=== PATIENT | male | born 1965 | race Caucasian/White ===

== ENCOUNTER 2017-01-13 17:01 | Emergency (ER) | payer MEDICAID, MEDICARE ==
[~2017-01-13] VITALS: Ht 185.4 cm; Wt 90.9 kg
[~2017-01-13 17:01] MED LIST: CHOL10008 PO; DEP500ER PO; NICO1PAT16 TRANSDERM; TRAZ-118 PO; ZIPR20CA2 PO; [UNRECOGNIZED DRUG - CODE] PO
[2017-01-13 17:17] VITALS: PULSE 72; RESP 18; O2SAT 98
[2017-01-13] MEDS ORDERED: OMEG1CAP56 PO (17:40)
[2017-01-13] MEDS ORDERED: BENZ1TAB7 PO (17:40)
[2017-01-13] MEDS ORDERED: DEP500ER PO (17:40)
[2017-01-13] MEDS ORDERED: ZIPR80CA2 PO (17:40)
[2017-01-13] MEDS ORDERED: LORA1TAB PO (17:40)
[2017-01-13] MEDS ORDERED: ARIP5TAB5 PO (17:40)
[2017-01-13 18:32] VITALS: BP 124/80; PULSE 74; RESP 18; O2SAT 100
--- NOTE | 2017-01-13 19:34 | ED.REPORT ---
HPI-Psychiatric Illness Date of Service Jan 13, 2017 ED Provider: Reggie Esteban MD A 51 year old male with a history of bipolar disorder and schizophrenia presents to the ED with worsening paranoia that began approx. 3 weeks ago. Patient states he believes that people are able to "read his thoughts". He reports similar previous episodes of paranoia and hallucinations. Associated symptoms include insomnia, worsening anxiety and decreased appetite. Patient currently has an appointment scheduled with his PCP on 01/17 and presents to the ED seeing relief from his hallucinations. He currently lives alone and states that he has a has a "stressful" past that is "coming back to haunt him". Patient denies any recent changes in medication and has been taking medication as prescribed. He denies any suicidal or homicidal ideation. Nursing Notes Stated Complaint: SICK Chief Complaint: Psychiatric Complaint Nursing Notes Reviewed: Yes Allergies: Coded Allergies: No Known Drug Allergies (Verified Allergy, Unknown, 02/25/16) Scheduled Aripiprazole (Abilify) 5 Mg Tablet 5 MG PO HS Benztropine Mesylate (Benztropine Mesylate) 1 Mg Tablet 1 MG PO BID Divalproex ER (Depakote ER) 500 Mg Tablet 1,500 MG PO HS *DAILY USE ONLY* Swallowed whole without chewing to avoid local irritation of the mouth and throat. [place]-3 Fatty Acids/Fish Oil ([place] 3 1,000 mg Softgel) 1 Each Capsule 2 EACH PO BID Trazodone (Trazodone) 100 Mg Tablet 100 MG PO HS Ziprasidone (Geodon) 80 Mg Capsule 80 MG PO BID Scheduled PRN Lorazepam (Lorazepam) 1 Mg Tablet 1 MG PO HS PRN PRN For Insomnia General Time Seen by MD: 18:13 Chief Complaint Paranoid Hx Obtained From: Patient Arrived By: Walk-in Onset Occurred: More than a week ago... (3 weeks) Symptom Duration: Since onset Progression Since Onset: Unchanged Associated with: Reports: Loss of appetite, Paranoia Additional Notes: Insomnia Pertinent Negative: Pt denies other symptoms Recent Healthcare: No recent doctor visit, No recent hospitalization Risk-Psychiatric Illness Suicide Risk Stratification RF Statements: Risk factors reviewed Past Medical History Past Medical History Bipolar disorder Schizophrenia Past Surgical History None reported. Smoking History Current Every Day Smoker Social History Other Social History: Lives alone, Local resident Ambulatory Status Independent Review of Systems Decreased appetite. Constitutional: Denies: Chills, Fever Respiratory: Denies: Shortness of breath Cardiovascular: Denies: Chest pain GI: Denies: Nausea, Vomiting Neurologic: Denies: Change LOC Psychiatric: Reports: Anxiety, Hallucinations, auditory, Hallucinations, visual , Insomnia, Stress, Denies: Homicidal ideation, Suicidal ideation Complete sys rev & neg: except as marked. Physical Exam Initial Vital Signs Vital Signs (First) Date Time Temp Pulse Resp B/P Pulse Ox O2 Delivery O2 Flow Rate FiO2 01/13/17 17:17 36.4 72 18 98 Room Air 01/13/17 18:32 124/80 Initial VS: Reviewed Head / Eyes: Atraumatic, Normocephalic, PERRL Neck: Supple, Non-tender, Full range of motion Extremities: Vascular intact, Neuro intact, No swelling, No tenderness Skin: Warm, Dry, No cyanosis General/Constitutional: Awake, Alert, No acute distress Neurologic: Oriented X3, Speech NL, No motor deficits, No sensory deficits, CN II - XII intact Psychiatric: Not suicidal, Not homicidal, Judgment/insight NL Abnormal Mood/Affect: Positive: Anxious PSYCH: Linear and organized thought contents Respiratory / Chest: Atraumatic, Breath sounds NL, Breath sounds = bilat, No respiratory distress Cardiovascular: Heart rate NL, Regular rhythm, Heart sounds NL, No gallop, No murmurs, No rubs, Pulses = bilaterally Abdomen: Atraumatic, Soft, Non-tender, No distention Interpretation & Diagnostics Lab Results Interpretation Test 01/13/17 17:35 Hold Urine Received (Received) Urine Opiates Screen Negative Urine Methadone Screen Negative Urine Barbiturates Screen Negative Urine Amphetamines Screen Negative Urine Benzodiazepines Screen Negative Urine Cocaine Metabolite Screen Negative Urine Cannabinoids Screen Negative Re-Eval/Medical Decision Med Decision/Clinical Course A 51 year old male with a history of bipolar disorder and schizophrenia presents to the ED with worsening paranoia that began approx. 3 weeks ago. Patient states he believes that people are able to "read his thoughts". He reports similar previous episodes of paranoia and hallucinations. Associated symptoms include insomnia, worsening anxiety and decreased appetite. Patient currently has an appointment scheduled with his PCP on 01/17 and presents to the ED seeing relief from his hallucinations. He currently lives alone and states that he has a has a "stressful" past that is "coming back to haunt him". Patient denies any recent changes in medication and has been taking medication as prescribed. He denies any suicidal or homicidal ideation. Here in the emergency department the patient is afebrile, hemodynamically stable , does not appear intoxicated, is linear/organized, future oriented, answering questions appropriately and denies any suicidal or homicidal ideation. I considered medical etiologies of the patient's symptoms including metabolic and toxicologic and none were found in our history, physical exam. There was no indication of significant trauma on exam. No neurologic defecits to suggest HEAD WAITER/WAITRESS mass. Patient presents with exacerbation of their underlying mental illness, however they currently deny SI/HI. They are somewhat decompensated but not at extreme risk to self or others and thus not holdable. The patient does not desire voluntary admission. They have outpatient resources in place and appointment with her psychiatrist in 3 days. Our perinatal social worker evaluated the patient and provided further resources and support. We discussed the case and agree that the patient is appropriate for outpatient management at this time. The patient was given strong return precautions including thoughts of hurting self or others. Patient feels reassured, ready for discharge and is in agreement with plan. Patient would like some help with sleep and I reviewed all of his extensive medications. He is advised to use trazodone and lorazepam as currently prescribed for sleep. If he is unable to sleep after taking his regular dose of trazodone and lorazepam he may take 1 additional half dose of lorazepam. The patient remained comfortable and hemodynamically stable throughout their ED course. Patient discharged home in stable condition with plans to follow up with his psychiatrist. All indications for emergent re-evaluation discussed with patient prior to discharge and they expressed understanding. Re-Evaluation/Progress : Time of Eval: 19:35 Patient Status: Condition improved Re-Evaluation/Progress Note: Patient is rechecked. He agrees with the plan presented by the AUTOMOTIVE MAINTENANCE TECHNICIAN. All of his questions are addressed. Patient understands and agrees with plan to discharge. Counseled Regarding: Diagnosis, Lab results, Need for follow-up, When/why to return to ED Discharge & Departure Impression: Primary Impression: Anxiety Additional Impressions: Insomnia Insomnia type: unspecified Qualified Code: G47.00 - Insomnia, unspecified History of bipolar disorder History of schizophrenia )( Condition at Discharge: No danger to self, No danger to others, No suicidal ideation, No homicidal ideation Disposition: Home Discharge Condition All VS Reviewed: Yes Condition: Improved Patient Instructions: Generalized Anxiety Disorder (ED) Additional Instructions: Thank you for seeking care at the emergency room. You were seen today because you are having trouble with your sleep as well as feeling like people are reading your mind. primary goal today in the ED was to evaluate you for any life-threatening conditions. Your evaluation was reassuring. Please take the trazodone and lorazepam nightly as prescribed. If he were unable to fall asleep after taking the prescribed dose of lorazepam you may take one additional half tablet (0.5 mg). Do not combine this with any other benzodiazepine-type medication, pain medication or alcohol. Please follow up on the fifth with your psychiatrist as already arranged to further discuss making changes to her medications. You should return to the ED immediately if you develop thoughts of harming yourself/others, if you feel that your having a psychiatric emergency, if you develop fevers, vomiting, cough, shortness of breath, chest pain, lightheadedness, weakness or any other concerning signs or symptoms. Thank you for letting us partake in your care today. Referrals: Edith Mix DO (PCP) [place] Attestation Portions of this note were transcribed by Nika Gautam. I, Dr. Esteban personally performed the history, physical exam and medical decision-making; I reviewed and confirmed the accuracy of the information in the transcribed note. Signed by: Florecita Pantoja, 01/13/17 2100. copies to: Edith Mix Beck O MD Jan 13, 2017 19:34 NIKA GAUTAM Jan 13, 2017 20:33
[2017-01-13 19:43] VITALS: BP 124/87; PULSE 66; RESP 16; O2SAT 99
== END 2017-01-13 19:43 | disposition home or self-care (01) ==
LOC: SED 17:01
DX: F41.9 Anxiety disorder, unspecified (principal); G47.00 Insomnia, unspecified; F17.200 Nicotine dependence, unspecified, uncomplicated; Z86.59 Personal history of other mental and behavioral disorders
CPT/HCPCS: 81002; 82075; 99284; G0480

== ENCOUNTER 2017-02-02 19:03 | Emergency (ER) | payer MEDICARE ==
[~2017-02-02] VITALS: Ht 185.4 cm; Wt 86.4 kg
[~2017-02-02 19:03] MED LIST changes: +ARIP5TAB5 PO; +BENZ1TAB7 PO; -CHOL10008 PO; +LORA1TAB PO; -NICO1PAT16 TRANSDERM; +OMEG1CAP56 PO; -ZIPR20CA2 PO; +ZIPR80CA2 PO; -[UNRECOGNIZED DRUG - CODE] PO
[2017-02-02 19:12] VITALS: BP 114/81; PULSE 84; RESP 16; O2SAT 100
--- NOTE | 2017-02-02 19:22 | ED.REPORT ---
HPI-Medication Refill Date of Service Feb 02, 2017 ED Provider: Jade Messina History of Present Illness: "have to get my medications" winter at [facility] is giving him his meds. but he gets confused with taking his medication. Brings in 2 different bottles of geodon with different pill amount and different dosaging instructions. Nursing Notes Stated Complaint: MEDS Chief Complaint: Psychiatric Complaint Nursing Notes Reviewed: Yes Allergies: Coded Allergies: No Known Drug Allergies (Verified Allergy, Unknown, 02/02/17) Scheduled Aripiprazole (Abilify) 5 Mg Tablet 5 MG PO HS Benztropine Mesylate (Benztropine Mesylate) 1 Mg Tablet 1 MG PO BID Divalproex ER (Depakote ER) 500 Mg Tablet 1,500 MG PO HS *DAILY USE ONLY* Swallowed whole without chewing to avoid local irritation of the mouth and throat. [place]-3 Fatty Acids/Fish Oil ([place] 3 1,000 mg Softgel) 1 Each Capsule 2 EACH PO BID Trazodone (Trazodone) 100 Mg Tablet 100 MG PO HS Ziprasidone (Geodon) 80 Mg Capsule 80 MG PO BID Scheduled PRN Lorazepam (Lorazepam) 1 Mg Tablet 1 MG PO HS PRN PRN For Insomnia General Time Seen by Provider: 19:19 Chief Complaint Other (trouble with following instructions for medication adminstration) Hx Obtained From: Patient Past Medical History Past Medical History Bipolar disorder Schizophrenia Past Surgical History None reported. Smoking History Current Every Day Smoker Social History Other Social History: Lives alone, Local resident Ambulatory Status Independent Review of Systems Basic Review of Systems Eyes: Vision NL, No discharge Hematologic: No bleeding, No bruising Psychiatric: Normal thought content Physical Exam Initial Vital Signs Vital Signs (First) Date Time Temp Pulse Resp B/P Pulse Ox O2 Delivery O2 Flow Rate FiO2 02/02/17 19:12 36.7 84 16 114/81 100 Initial VS: Reviewed, Vital signs normal General/Constitutional: Well-developed, Well-nourished Abdomen / GI: Soft, Non-tender, No guarding, No rebound, No distention Skin: Warm, Dry, No cyanosis Neurologic: Alert, Oriented, Nonfocal Psychiatric: Mood/affect normal, Behavior normal, Normal thought content General/Constitutional: Awake, Alert, No acute distress, Well appearing, Well developed, Well hydrated, Well nourished, Cooperative, Not toxic appearing Respiratory / Chest: Atraumatic, Breath sounds NL, Breath sounds = bilat, No respiratory distress, No rales, No rhonchi, No wheezing Cardiovascular: Heart rate NL, Regular rhythm, Heart sounds NL, No gallop Neurologic: Oriented X3, Speech NL, No motor deficits, No sensory deficits, CN II - XII intact Psychiatric: Affect NL, Mood NL, Not suicidal, Not homicidal, No hallucinations Re-Evaluation & [facility] Med Decision/Clinical Course 51 year old male comes to the ER for help in taking his medication. Patient denies SI or HI at this time. Brings in all of medication which includes 2 different doses of geodon and instructions. No sign of acute psychiatric condition. NUCLEAR CARDIOLOGY TECHNOLOGIST is contacted and leaves a message with [facility] to work on medication administration with patient Patient Discharge & Departure Impression: Primary Impression: Medication management Disposition: Home Additional Instructions: The RN Asael placed all your medication in am or pm slots. The elementary school social worker Edin has called [facility] and left a message to see if your medication can be bubble packed or if they can put the medication in the slots for you. There certainly was confusion. You had 2 different prescriptions of geodon with different dosing instructions. PLEASE have all your prescribers check your previous dosages. Return with any concerns. Referrals: Edith Mix DO (PCP) [facility] EDSupervising Provider for APC: Prasad Sutton MD copies to: Edith Mix DO ; [facility] Jade Messina Feb 02, 2017 19:22
--- NOTE | 2017-02-02 19:46 | ED.REPORT ---
HPI-Medication Refill Date of Service Feb 02, 2017 ED Provider: Nursing Notes Stated Complaint: MEDS Chief Complaint: Psychiatric Complaint Allergies: Coded Allergies: No Known Drug Allergies (Verified Allergy, Unknown, 02/02/17) Scheduled Aripiprazole (Abilify) 5 Mg Tablet 5 MG PO HS Benztropine Mesylate (Benztropine Mesylate) 1 Mg Tablet 1 MG PO BID Divalproex ER (Depakote ER) 500 Mg Tablet 1,500 MG PO HS *DAILY USE ONLY* Swallowed whole without chewing to avoid local irritation of the mouth and throat. [place]-3 Fatty Acids/Fish Oil ([place] 3 1,000 mg Softgel) 1 Each Capsule 2 EACH PO BID Trazodone (Trazodone) 100 Mg Tablet 100 MG PO HS Ziprasidone (Geodon) 80 Mg Capsule 80 MG PO BID Scheduled PRN Lorazepam (Lorazepam) 1 Mg Tablet 1 MG PO HS PRN PRN For Insomnia General Time Seen by Provider: 19:17 Past Medical History Past Medical History Bipolar disorder Schizophrenia Past Surgical History None reported. Smoking History Current Every Day Smoker Social History Other Social History: Lives alone, Local resident Ambulatory Status Independent Physical Exam Initial Vital Signs Vital Signs (First) Date Time Temp Pulse Resp B/P Pulse Ox O2 Delivery O2 Flow Rate FiO2 02/02/17 19:12 36.7 84 16 114/81 100 Patient Discharge & Departure Referrals: Edith Mix DO (PCP) Jade Messina Feb 02, 2017 19:46
== END 2017-02-02 20:14 | disposition home or self-care (01) ==
LOC: SED 19:03
DX: Z79.899 Other long term (current) drug therapy (principal); F31.9 Bipolar disorder, unspecified; F20.9 Schizophrenia, unspecified; F17.200 Nicotine dependence, unspecified, uncomplicated

== ENCOUNTER 2017-02-24 17:54 | Emergency (ER) | payer MEDICARE ==
[~2017-02-24] VITALS: Ht 185.4 cm; Wt 86.4 kg
[2017-02-24 18:08] VITALS: BP 109/71; PULSE 73; RESP 16; O2SAT 100
--- NOTE | 2017-02-24 18:22 | ED.REPORT ---
HPI-Psychiatric Illness Date of Service February 24, 2017 ED Provider: The patient is a 51 year old male with history of bipolar disorder and schizophrenia, who was brought to the emergency department by EMS for bizarre behavior. When asked if the patient wants to hurt himself or others, he states , "I feel like hurting myself but not anyone." When asked what he would do, he states "whatever I have to do." The patient states he has been feeling this way since his mother . He has not been taking his medication as prescribed. He denies any physical complaints. He denies any recent illnesses. He has been seen many times in the last few months for similar symptoms. Nursing Notes Stated Complaint: CONFUSION Chief Complaint: Psychiatric Complaint Nursing Notes Reviewed: Yes Allergies: Coded Allergies: No Known Drug Allergies (Verified Allergy, Unknown, 02/24/17) Scheduled Aripiprazole (Abilify) 5 Mg Tablet 5 MG PO HS Benztropine Mesylate (Benztropine Mesylate) 1 Mg Tablet 1 MG PO BID Divalproex ER (Depakote ER) 500 Mg Tablet 1,500 MG PO HS *DAILY USE ONLY* Swallowed whole without chewing to avoid local irritation of the mouth and throat. [place]-3 Fatty Acids/Fish Oil ([place] 3 1,000 mg Softgel) 1 Each Capsule 2 EACH PO BID Trazodone (Trazodone) 100 Mg Tablet 100 MG PO HS Ziprasidone (Geodon) 80 Mg Capsule 80 MG PO BID Ziprasidone (Geodon) 80 Mg Capsule 80 MG PO BID Scheduled PRN Lorazepam (Lorazepam) 1 Mg Tablet 1 MG PO HS PRN PRN For Insomnia General Time Seen by MD: 18:22 Chief Complaint Bizarre behavior Hx Obtained From: Patient, EMS Arrived By: Ambulance Onset Occurred: More than a week ago... Symptom Duration: Intermittent Progression Since Onset: Intermittent Severity: Current: No pain currently Severity: Maximum: No pain Recent Healthcare: No recent hospitalization, Recent doctor visit Similar Sx Previous: Yes Risk-Psychiatric Illness Suicide Risk Stratification RF Statements: Risk factors reviewed Past Medical History Past Medical History Bipolar disorder Schizophrenia Past Surgical History None reported. Family History Noncontributory Smoking History Current Every Day Smoker Social History Other Social History: Lives alone, Local resident Ambulatory Status Independent Review of Systems Psychiatric: Reports: Change mental status, Confusion, Delusional, Suicidal ideation, Unable to control self, Denies: Homicidal ideation Complete sys rev & neg: except as marked. Physical Exam Initial Vital Signs Vital Signs (First) Date Time Temp Pulse Resp B/P Pulse Ox O2 Delivery O2 Flow Rate FiO2 02/24/17 18:08 36.6 73 16 109/71 100 Room Air Initial VS: Reviewed, Vital signs normal Head / Eyes: Atraumatic, Normocephalic, PERRL Neck: Supple, Non-tender, Full range of motion Respiratory: Breath sounds normal, Clear to auscultation, No respiratory distress Cardiovascular: Regular rate & rhythm, Heart sounds normal, Intact distal pulses Abdomen / GI: Soft, Non-tender, No guarding, No rebound, No distention Lymphatic: No lymphadenopathy Extremities: Vascular intact, Neuro intact, No swelling, No tenderness Skin: Warm, Dry, No cyanosis General/Constitutional: Awake, Alert Neurologic: Oriented X3, Speech NL Psychiatric: Not homicidal Abnormal Mood/Affect: Positive: Flat affect Abnormal Thinking / Perception: Positive: Suicidal, no plan No eye contact. Slow to answer. ENT: Airway patent Skin is thickened of his nose with erythema. Interpretation & Diagnostics Interpretation & Diagnostics: Urine drug screen: positive for marijuana Breathalyzer: 0 Lab Results Interpretation Result Diagram: 02/24/17 1832 02/24/17 1832 Test 02/24/17 18:32 02/24/17 18:38 White Blood Count 8.6th/mm3 (3.8-10.1) Red Blood Count 4.40mil/mm3 (4.40-5.80) Hemoglobin 13.6g/dL (13.8-17.2) Hematocrit 38.8% (41.0-50.0) Mean Corpuscular Volume 88.2fL (81-100) Mean Corpuscular Hemoglobin 30.9pg (27.0-35.0) Mean Corpuscular Hemoglobin Concent 35.1% (32.0-37.0) Red Cell Distribution Width 11.3% (12.3-15.4) Platelet Count 185bil/L (150-400) Neutrophils (%) (Auto) 70.6% (40-74) Lymphocytes (%) (Auto) 20.8% (14-46) Monocytes (%) (Auto) 7.9% (4-12) Eosinophils (%) (Auto) 0.5% (0-5) Basophils (%) (Auto) 0.1% (0-3) Sodium Level 142mEq/L (134-144) Potassium Level 4.6mEq/L (3.5-5.2) Chloride Level 101mEq/L (97-108) Carbon Dioxide Level 25mmol/L (18-29) Blood Urea Nitrogen 19mg/dL (6-24) Creatinine 1.20mg/dL (0.76-1.27) Estimat Glomerular Filtration Rate 67mL/min (>59) Glucose Level 76mg/dL (60-99) Calcium Level 9.3mg/dL (8.5-10.1) Total Bilirubin 0.5mg/dL (0.0-1.2) Aspartate Amino Transf (AST/SGOT) 25U/L (0-50) Alanine Aminotransferase (ALT/SGPT) 25U/L (0-44) Alkaline Phosphatase 36U/L (25-150) Total Protein 6.3g/dL (6.4-8.4) Albumin 3.7g/dL (3.4-5.0) Thyroid Stimulating Hormone (TSH) 2.330uIU/mL (0.450-4.500) Hold [place] Top Tube Received (Received) Re-Eval/Medical Decision Med Decision/Clinical Course The patient is not taking his medications and was feeling suicidal. He is having more difficulty functioning since his mother . The patient would like some help does not want leave this area. After speaking with the [facility] he felt he like to go home, he says he is not acutely suicidal. He did request Geodon. He is given a dose as well as a prescription. He has not been taking his medications consistently. Source of Hx: Old records Re-Evaluation/Progress : Time of Eval: 22:49 Re-Evaluation/Progress Note: Rechecked the patient. Discussed plan for discharge. All questions were addressed. The patient agrees to be safe. Consultation #1: Consulted With: ceramic worker Call Returned at: 18:43 Note: ED social media project manager will see the patient. Consultation #2: Consulted With: ceramic worker Call Returned at: 20:45 Note: ED social media project manager paged the [facility] to evaluate the patient. Consultation #3: Consulted With: Mental health Call Returned at: 22:41 Note: The [facility] evaluated the patient. He feels that the patient is safe for discharge. He does not feel that the patient is suicidal at this time. Counseled Regarding: Diagnosis, Lab results, Need for follow-up, When/why to return to ED Discharge & Departure Impression: Primary Impression: Acute situational disturbance )( Condition at Discharge: No danger to self, No danger to others, No suicidal ideation, No homicidal ideation Disposition: Home Discharge Condition All VS Reviewed: Yes Condition: Stable Additional Instructions: Thank you for entrusting us with your care today. Take the Geodon as prescribed. Followup with your outpatient providers to further manage your medications. Please return immediately if you are feeling suicidal, or for any other new or worsening symptoms. Referrals: Edith Mix DO (PCP) [facility] Attestation Portions of this note were transcribed by Kayli Bowles. I, Dr. Thao personally performed the history, physical exam and medical decision-making; I reviewed and confirmed the accuracy of the information in the transcribed note. Signed by: Florecita Brown, 02/24/2017 at 0001. copies to: Edith Mix Jena M MD February 24, 2017 18:22 Kayli Bowles February 24, 2017 18:24
[2017-02-24 18:42] LABS: BASOPHILS % (AUTO) 0.1 % (0-3); EOSINOPHILS % (AUTO) 0.5 % (0-5); MONOCYTES % (AUTO) 7.9 % (4-12); Mean Corpuscular Hemoglobin 30.9 pg (27.0-35.0); Mean Corpuscular Volume 88.2 fL (81-100); NEUTROPHILS % (AUTO) 70.6 % (40-74); Platelet Count 185 bil/L (150-400)
[2017-02-24 18:50] VITALS: BP 111/73; PULSE 75; RESP 14; O2SAT 99
[2017-02-24] MEDS ORDERED: ZIPR80CA2 PO (23:24)
[2017-02-25 00:59] VITALS: BP 116/72; PULSE 72; RESP 16; O2SAT 100
== END 2017-02-25 01:00 | disposition home or self-care (01) ==
LOC: SED 17:54 → EDBD 17:54 → EDUNIT# 17:54 → SED 02-25 01:00
DX: F43.0 Acute stress reaction (principal); F20.9 Schizophrenia, unspecified; F31.9 Bipolar disorder, unspecified; F17.200 Nicotine dependence, unspecified, uncomplicated

== ENCOUNTER 2017-02-25 20:01 | Inpatient (IN) | payer MEDICARE, OTHER ==
[~2017-02-25] VITALS: Ht 185.4 cm; Wt 89.4 kg
[2017-02-25 20:10] VITALS: BP 111/30; PULSE 89; RESP 17; O2SAT 100
[2017-02-25 20:59] LABS: BASOPHILS % (AUTO) 0.1 % (0-3); EOSINOPHILS % (AUTO) 0 % (0-5); MONOCYTES % (AUTO) 9.5 % (4-12); Mean Corpuscular Hemoglobin 31.6 pg (27.0-35.0); Mean Corpuscular Volume 88.9 fL (81-100); NEUTROPHILS % (AUTO) 84.6 % (40-74); Platelet Count 204 bil/L (150-400)
--- NOTE | 2017-02-25 21:06 | ED.REPORT ---
HPI-Psychiatric Illness Date of Service February 25, 2017 ED Provider: Tomasz Carter MD Patient is a 51 year old male who was seen yesterday for suicidal ideations with a history of schizophrenia, depression and bipolar disorder who presents to the ED via EMS due to suicidal ideations again. He reports that he walked from [facility] to [facility], where he found a huang and sat in it with the intention to end his life because there was an alligator in the huang. The patient states that he has also been having troubles with his legs and thinks they should be amputated. Per the patient's niece, the patient doesn't seem to be responding to his medications and is having dementia type symptoms. The patient has been more depressed since his mother committed suicide in October. He is currently supposed to be taking 300mg of Trazodone, 1mg of Lorazepam, 5mg of Abilify and 80 mg of Geodon but is not consistent with taking his medications. Nursing Notes Stated Complaint: SUICIDAL IDEATION Chief Complaint: Psychiatric Complaint Nursing Notes Reviewed: Yes Allergies: Coded Allergies: No Known Drug Allergies (Verified Allergy, Unknown, 02/24/17) Scheduled Aripiprazole (Abilify) 5 Mg Tablet 5 MG PO HS Benztropine Mesylate (Benztropine Mesylate) 1 Mg Tablet 1 MG PO BID Divalproex ER (Depakote ER) 500 Mg Tablet 1,500 MG PO HS *DAILY USE ONLY* Swallowed whole without chewing to avoid local irritation of the mouth and throat. [place]-3 Fatty Acids/Fish Oil ([place] 3 1,000 mg Softgel) 1 Each Capsule 2 EACH PO BID Trazodone (Trazodone) 100 Mg Tablet 100 MG PO HS Ziprasidone (Geodon) 80 Mg Capsule 80 MG PO BID Ziprasidone (Geodon) 80 Mg Capsule 80 MG PO BID Scheduled PRN Lorazepam (Lorazepam) 1 Mg Tablet 1 MG PO HS PRN PRN For Insomnia General Time Seen by MD: 21:06 Chief Complaint Suicidal ideation Hx Obtained From: Patient, Daughter Arrived By: Ambulance Recent Healthcare: No recent hospitalization, Recent doctor visit Similar Sx Previous: Yes Risk-Psychiatric Illness Suicide Risk Stratification Suicide Risk Factors - Adult: : Close associate suicide: Family Hx of Suicide: Prior psych admission RF Statements: Risk factors reviewed Past Medical History Past Medical History Bipolar disorder Schizophrenia Depression Past Surgical History None reported. Family History Noncontributory Smoking History Current Every Day Smoker Social History Other Social History: Good social support, Lives alone, Local resident Ambulatory Status Independent Review of Systems Review of Systems Note: ROS is limited due to patient's mental status: suicidal ideations leg troubles Physical Exam Initial Vital Signs Vital Signs (First) Date Time Temp Pulse Resp B/P Pulse Ox O2 Delivery O2 Flow Rate FiO2 02/25/17 20:10 36.6 89 17 111/30 100 02/25/17 21:50 Room Air Initial VS: Reviewed General/Constitutional: Awake, Alert Neurologic: Oriented X3, Speech NL, No motor deficits, No sensory deficits overtly psychotic with delusional thoughts no evidence of hallucinations poor eye contact flat affect flight ideas, loose associations Head / Eyes: Atraumatic, Normocephalic, PERRL, EOMI Respiratory / Chest: Atraumatic, Breath sounds NL, Breath sounds = bilat, No respiratory distress Cardiovascular: Heart rate NL, Regular rhythm, Heart sounds NL Skin: Atraumatic, Warm, Dry roseacea across nose Lower Extremity / Pelvis / MS: Atraumatic, Full range of motion, No deformity Interpretation & Diagnostics Lab Results Interpretation Result Diagram: 02/25/17204602/25/172046 Test 02/25/17 20:47 White Blood Count 13.4th/mm3 (3.8-10.1) Red Blood Count 4.69mil/mm3 (4.40-5.80) Hemoglobin 14.8g/dL (13.8-17.2) Hematocrit 41.7% (41.0-50.0) Mean Corpuscular Volume 88.9fL (81-100) Mean Corpuscular Hemoglobin 31.6pg (27.0-35.0) Mean Corpuscular Hemoglobin Concent 35.5% (32.0-37.0) Red Cell Distribution Width 11.6% (12.3-15.4) Platelet Count 204bil/L (150-400) Neutrophils (%) (Auto) 84.6% (40-74) Lymphocytes (%) (Auto) 5.4% (14-46) Monocytes (%) (Auto) 9.5% (4-12) Eosinophils (%) (Auto) 0% (0-5) Basophils (%) (Auto) 0.1% (0-3) Sodium Level 144mEq/L (134-144) Potassium Level 5.6mEq/L (3.5-5.2) Chloride Level 100mEq/L (97-108) Carbon Dioxide Level 20mmol/L (18-29) Blood Urea Nitrogen 23mg/dL (6-24) Creatinine 1.36mg/dL (0.76-1.27) Estimat Glomerular Filtration Rate 58mL/min (>59) Glucose Level 123mg/dL (60-99) Calcium Level 10.0mg/dL (8.5-10.1) Total Bilirubin 0.7mg/dL (0.0-1.2) Aspartate Amino Transf (AST/SGOT) 83U/L (0-50) Alanine Aminotransferase (ALT/SGPT) 36U/L (0-44) Alkaline Phosphatase 44U/L (25-150) Total Protein 7.2g/dL (6.4-8.4) Albumin 4.3g/dL (3.4-5.0) Thyroid Stimulating Hormone (TSH) 2.440uIU/mL (0.450-4.500) Hold Larson Top Tube Received (Received) Re-Eval/Medical Decision Med Decision/Clinical Course 51-year-old with lifelong schizophrenia presents after suicidal behavior today. He waded into a huang in hopes of being eaten by an alligator. When no alligator appeared to eat him, he got out and sat by the side of the huang and was brought by police. Current stressors include Mother's Day in the setting of suicide last year by his mother. Caregivers report that he is becoming more disorganized and seems to be dementing in addition to his schizophrenia. They were unable and unwilling to take him home because he continues to leave the house unaccompanied and puts himself at risk. DCR was notified by the social sciences research scientist, and evaluated him here. They agree that he is gravely impaired in a risk to himself with active suicidal ideation. Admission to the care center arranged. Source of Hx: Old records Re-Evaluation/Progress : Time of Eval: 21:14 )( Re-Eval Psychiatric: No danger to self, No danger to others, No suicidal ideation, No homicidal ideation Re-Evaluation/Progress Note: Discussed plan for admit after being evaluated. The patient understands and agrees to the plan for admit. All questions were addressed. Counseled Regarding: Diagnosis, Need for admission Discharge & Departure Impression: Primary Impression: Suicidal ideation Additional Impressions: History of schizophrenia Depression Depression Type: major depressive disorder Major depression recurrence: recurrent Active/Remission status: currently active Major depression episode severity: severe Psychotic features: with psychotic features Qualified Code : F33.3 - Major depressive disorder, recurrent, severe with psychotic symptoms Anxiety Disposition: ADMITTED TO HOSPITAL Discharge Condition All VS Reviewed: Yes Condition: Stable Referrals: Edith Mix DO (PCP) Florecita Attestation Portions of this note were transcribed by Sharon Pulido. I, Dr. Carter personally performed the history, physical exam and medical decision-making; I reviewed and confirmed the accuracy of the information in the transcribed note. Signed by: Florecita Santos, 02/25/17 and [id number] copies to: Edith Mix Christopher W MD February 25, 2017 21:06 Candi Pulido February 25, 2017 21:13
[2017-02-25 21:50] VITALS: BP 133/75; PULSE 88; RESP 20; O2SAT 97
[2017-02-25] MEDS ORDERED: LORazepam 1 mg Tablet PO ONE (23:55)
[2017-02-26] MEDS ORDERED: Benzocaine-Menthol Lozenge 2/Pkg PO PRN (00:50)
[2017-02-26] MEDS ORDERED: Alum-Mag Hydrox-Simeth 30 mL Suspension PO PRN (00:50)
[2017-02-26] MEDS ORDERED: Magnesium Hydroxide 10 mL Oral Concentration PO PRN (00:50)
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
--- NOTE | 2017-02-26 17:35 | NUR ---
Observations [id number] Pt was asleep in bed upon start of shift. Pt spent much of the morning laying in bed with the lights on. He stated, "I still want to do what I set out to do." When this newswriter asked for clarification, pt didn't answer. PT did attend meals, eating 100%. He appears very internally preoccupied, depressed and withdrawn. Limited eye contact when talking. Pt is not social but does respond to questions asked. This newswriter completed his paperwork with him, and he appeared very indecisive at times. Pt did not attend group but did come to [facility]. Pt was observed every 15 minutes of shift as directed.
[2017-02-26] MEDS ORDERED: FATTY ACIDS PO SCH (20:30)
[2017-02-26] MEDS ORDERED: [UNRECOGNIZED DRUG - OTHER] PO SCH (20:30)
[2017-02-26] MEDS ORDERED: OMEGA PO SCH (20:30)
[2017-02-26] MEDS ORDERED: FISH OIL PO SCH (20:30)
[2017-02-26] MEDS: Omega-3 Fatty Acids 1,000 mg Capsule PO SCH (20:50)
[2017-02-26] MEDS: Divalproex (QD) 500 mg ER24 Tablet PO SCH (20:51)
[2017-02-26] MEDS: TRAZODONE PO SCH ×2 (20:51)
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
--- NOTE | 2017-02-27 05:58 | NUR ---
Nursing Noc Pt depressed, sad and tearful with downcast gaze. Sitting alone in dining room appears internally preoccupied with no engagement with peers. Took scheduled medication. Light sleep of 7 hours. Noted to be up during the night x 1.
[2017-02-27 08:17] VITALS: BP 107/82; PULSE 100; RESP 19
[2017-02-27] MEDS: Omega-3 Fatty Acids 1,000 mg Capsule PO SCH ×2 (08:26→20:30)
[2017-02-27] MEDS: LORazepam 1 mg Tablet PO PRN (08:27)
--- NOTE | 2017-02-27 17:36 | NUR ---
Nursing: Day shift: S/O:Initially at time of a.m. med administration (0840), Angel stood outside the med room eyes closed, with grim facial expression. statuelike posture. He was offered and accepted scheduled medication prn Ativan 2 mg and Motrin 600 mg po. As he swallowed medication, he sttod with eyes staring up at the ceiling. By 1000, he looked brighter, was sitting in the dining room, and stated "I feel better". Body movement was more fluid and eyes without staring look. Throughout day he spent most of time in his room. No further requests or noted distress. A: Remains attending to internal stimuli. Depressed. P: Continue close observation to prevent self-harm. Addendum: 02/27/17 at 1837 by HAKAN ABBASI RN At dinner, Angel made comment that he would not eat dinner. "I've done things that are unnatural." Encouraged to eat dinner. A: Perseverating about input from internal stimuli.
--- NOTE | 2017-02-27 18:51 | NUR ---
Obs Dayshift Pt is isolating to his room for most of the day, when he is out in the milieu he is eating or laying his head on the table, quiet and keeping to himself. Pt is vague when asked questions, "I think I was right the and did the right thing about my family" pt stated when he was asked what he was thinking about. When pushed further to explain what that statement meant he could not explain any further. Pt has a pained look on his face, appears to be struggling w/ thoughts/feelings. Reserved, guarded, vague, sad, depressed, soft spoken, poor eye contact, head down. Ok ADL's, Good meals
[2017-02-27] MEDS: Divalproex (QD) 500 mg ER24 Tablet PO SCH (20:52)
[2017-02-27] MEDS: TRAZODONE PO SCH ×2 (20:52)
--- NOTE | 2017-02-27 21:15 | PCM.PNPSY ---
Subjective Date of Service February 27, 2017 Subjective The patient was noted to be crying this morning and stated that he had guilt but could not clarify what was the cause, but endorsed previous report of theft and negative voices to harm/molest children. Patient stated initially that he wanted to stay in the hospital then he he stated that he wanted to be discharged and would live with "Naya Wire." Patient rather drowsy, but no other side effects. Sleep: 7 hours Appetite: "not that good" Suicidal ideation: vague, but indicates will remain safe in hospital or notify staff. Homicidal ideation: regarding "Naya Wire" Auditory hallucinations: endorses Visual hallucinations: denies Other Psychotic Symptoms: disorganization Anxiety: 0/10 Depression: 10/10 Current Medications Current Medications Aripiprazole 5 mg HS PO Last administered on 02/27/17 20:51; Admin Dose 5 MG; Start 02/26/17 at 21:00 Aripiprazole 5 mg ONCE ONCE PO Last administered on 02/26/17 00:22; Admin Dose 5 MG; Start 02/25/17 at 23:55; Stop 02/25/17 at 23:56; Status DC Benztropine Mesylate 1 mg BID PO Last administered on 02/27/17 20:54; Admin Dose 1 MG; Start 02/26/17 at 20:30 Divalproex Sodium 1,500 mg HS PO Last administered on 02/27/17 20:52; Admin Dose 1,500 MG; Start 02/26/17 at 21:00 Ibuprofen 600 mg Q6H PRN PO Last administered on 02/27/17 08:28; Admin Dose 600 MG; Start 02/26/17 at 00:50 Lorazepam 1-2 MG Q4H PRN PO Last administered on 02/27/17 08:27; Admin Dose 2 MG; Start 02/26/17 at 00:50 Lorazepam 1 mg ONCE ONCE PO Last administered on 02/26/17 00:22; Admin Dose 1 MG; Start 02/25/17 at 23:55; Stop 02/25/17 at 23:56; Status DC Trazodone HCl 300 mg HS ONCE PO Last administered on 02/26/17 00:22; Admin Dose 300 MG; Start 02/26/17 at 00:10; Stop 02/26/17 at 00:11; Status DC Trazodone HCl/ Trazodone HCl 150 mg HS PO Last administered on 02/27/17 20:52; Admin Dose 150 MG; Start 02/26/17 at 21:00 Ziprasidone 80 mg BIDWM PO Last administered on 02/27/17 17:35; Admin Dose 80 MG; Start 02/26/17 at 08:00; Stop 02/27/17 at 23:00 Ziprasidone 80 mg ONCE ONCE PO Last administered on 02/26/17 00:22; Admin Dose 80 MG; Start 02/26/17 at 00:10; Stop 02/26/17 at 00:11; Status DC Mental Status Exam Appearance: Unkept, Disheveled Attitude: Guarded Behavior: Distractible Affect: Flat Mood: Depressed, Anxious Thought Process/Associations: Tangential Speech Production: Paucity Speech Rate: Lags/Latency Speech Articulation: Normal Thought Content: Negativistic, Suspicious, Perseveration Danger to Self/Suicidal Ideati: Passive, Plan (denies), Intent (denies) Danger to Others: Thoughts/Plans of Harming Others, Identified target ("Naya Wire") Delusions: Paranoid (Endorses) Hallucinations: Auditory (Endorses), Visual (Denies) Consciousness: Somnolent, Lethargic Orientation: Person Memory: Short Term Memory (Impaired), Sausage Wrapper Memory (Impaired) Estimate Intellectual Function: Average Basis for IQ estimate: Word use/vocabulary, Educational history Attention/Concentration & Cogn: Impaired Insight: Limited Judgement: Poor Result Diagram: 02/25/17204602/25/172046 Mental Health Plan The patient is a 51 year old male with a history of schizoaffective disorder who reduced medication adherence and eventually stopped all medications, decompensated, attempted suicide and was detained by the [facility]. The patient's outpatient provider indicates that he responded well to his outpatient medications and was stable for quite some time. They report that they will have intensive outpatient treatment to help him with medication adherence. The patient reports ongoing feeling that he should , but denies plan or intent. Patient identifies target of "Naya Wire" but he also reports that he plans to live with her on discharge. Patient appears excessively sedated but less anxious than yesterday. [place] AXIS I: Schizoaffective disorder, bipolar type Alcohol use disorder Marijuana use disorder AXIS II: Deferred AXIS III: None reported. AXIS IV: Moderate with recent Mother's day, medication non-adherence. AXIS V: GAF 25 Medications Geodon 80mg po bid Abilify 5mg po daily Cogentin 1mg po bid Depakote ER 1500mg po nightly Trazodone 150mg po nightly Treatments 1. The patient is admitted to the inpatient unit and will be provided a safe and secure environment. 2. The patient is reporting passive suicidal ideation and is denying current active suicidality and is agreeing to notify staff should it worsen and is not in need of a one-to-one at this time. Should staff notice a worsening of his symptoms, he may require a one-to-one. 3. The patient is encouraged to participate with group and milieu activities. 4. The patient will be seen by the treatment team on a daily basis to assess symptoms, side effects and response to treatment. 5. Decrease ziprasidone to 60mg po bidwm 6. Zolpidem PRN insomnia 7. Lorazepam PRN anxiety/agitation. 8. Anticipated length of stay is 10-14 days. Asael Adkins MD February 27, 2017 21:15
[2017-02-28] MEDS: LORazepam 1 mg Tablet PO PRN ×3 (02:47→23:22)
--- NOTE | 2017-02-28 04:58 | NUR ---
nursing, nights, 11-7 s/o- has appeared to sleep after 5 during q 15 minute assessments. a- no apparent distress. p- monitor behavior/emotional state, quality, times and amount of sleep, use and effect of medication.
[2017-02-28] MEDS: Omega-3 Fatty Acids 1,000 mg Capsule PO SCH ×2 (08:51→20:20)
--- NOTE | 2017-02-28 12:03 | NUR ---
Nursing Dayshift: S: "My anxiety is better. I'm finding out who I need to go to. Some questions I need to ask medicine. I need to know where to go when I leave my room." O: Patient discussing anxiety in above statement. Denies depression "I'm just anxious." Denies harmful thoughts and hallucinations. Very flat and monotone speech. Has spent much of the day in his room. "Is it okay if I come out of my room?" Discussed expectations of in room and out of room time for patients ie: meals, groups, meds, social activities, etc. Acknowledged understanding of certain times at night when he should not be up and busy on the unit. Good appetite at meals. A: Solemn. Forlorn. Cooperative. P: CPOC. Monitor mood and behavior.
--- NOTE | 2017-02-28 18:04 | NUR ---
[facility] Day Shift Pt maintained behavioral control throughout the shift. Pt affect appears flat. Pt spends most of the shift resting in his room, and attempting to make up his mind as to whether or not he wants to enter the dining room. Pt is appropriate with staff and peers when active on the unit, but is not social. Pt appears internally preoccupied, and pt speech/thought content appears bizarre (i.e. pt states he is trying to "figure out how his body works" or "I won't be needing my door"). Pt is not participatory in unit activities throughout the shift. Pt attended all meals and ate approx 70-100% of all meals.
--- NOTE | 2017-02-28 19:11 | NUR ---
Tank Truck Milk Receiver/Counselor: S: "I'd like to do what's best for my family. I think I need to see him when I'm better." O: Patient slept 6+ hours last night as per staff. He denies S/I and H/I. He reports that he feels [employer] knows information about him. Depression is 5/10 and anxiety is 5/10. A: Patient is guarded, anxious, depressed, flat affect, paranoid, tangential, suspicious, lethatgic, limited insight, poor judgment. P: Follow the care plan, coordinate with out-patient providers.
[2017-02-28] MEDS: Divalproex (QD) 500 mg ER24 Tablet PO SCH (20:18)
[2017-02-28] MEDS: TRAZODONE PO SCH ×2 (20:18)
--- NOTE | 2017-02-28 21:13 | PCM.PNPSY ---
Subjective Date of Service February 28, 2017 Subjective The patient reports that his thinking is improved but that he is still confused and not ready to go home. He would like to have a reduction in his symptoms and then would feel more comfortable returning to his niece/nephew's. The patient stated that he would like to try increasing his aripiprazole and tapering off Geodon. He denies side effects. Sleep: 6+ hours Appetite: okay Suicidal and homicidal ideation: denies Auditory hallucinations: reports none as of this am. Visual hallucinations: denies Other Psychotic Symptoms: thought blocking Current Medications Current Medications Ziprasidone 60 mg BIDWM PO Last administered on 02/28/17t 17:24; Admin Dose 60 MG; Start 02/28/17 at 08:00 Mental Status Exam Appearance: Unkept Attitude: Cooperative, Guarded Behavior: Distractible Affect: Flat Mood: Depressed, Anxious Thought Process/Associations: Tangential Speech Production: Paucity Speech Rate: Lags/Latency Speech Articulation: Normal Thought Content: Negativistic, Suspicious, Perseveration Danger to Self/Suicidal Ideati: None Danger to Others: None Delusions: Paranoid (Endorses) Hallucinations: Auditory (Denies), Visual (Denies) Consciousness: Somnolent, Lethargic Orientation: Person, Place, Situation Memory: Short Term Memory (Impaired), Penitentiary Memory (Impaired) Estimate Intellectual Function: Average Basis for IQ estimate: Word use/vocabulary, Educational history Attention/Concentration & Cogn: Impaired Insight: Limited Judgement: Poor Result Diagram: 02/25/17204602/25/172046 Mental Health Plan The patient is a 51 year old male with a history of schizoaffective disorder who reduced medication adherence and eventually stopped all medications, decompensated, attempted suicide and was detained by the [facility]. The patient's outpatient provider indicates that he responded well to his outpatient medications and was stable for quite some time. They report that they will have intensive outpatient treatment to help him with medication adherence. The patient reports that "[employer]" was just a television program. He has improved symptoms overall and would like to simplify his medications. [place] AXIS I: Schizoaffective disorder, bipolar type Alcohol use disorder Marijuana use disorder AXIS II: Deferred AXIS III: None reported. AXIS IV: Moderate with recent Mother's day, medication non-adherence. AXIS V: GAF 30 Medications Geodon 80mg po bid Abilify 5mg po daily Cogentin 1mg po bid Depakote ER 1500mg po nightly Trazodone 150mg po nightly Treatments 1. The patient is admitted to the inpatient unit and will be provided a safe and secure environment. 2. The patient is reporting passive suicidal ideation and is denying current active suicidality and is agreeing to notify staff should it worsen and is not in need of a one-to-one at this time. Should staff notice a worsening of his symptoms, he may require a one-to-one. 3. The patient is encouraged to participate with group and milieu activities. 4. The patient will be seen by the treatment team on a daily basis to assess symptoms, side effects and response to treatment. 5. Decrease ziprasidone to 40mg po bidwm 6. Increase aripiprazole to 15mg daily. 7. Lorazepam PRN anxiety/agitation. 8. Anticipated length of stay is 10-14 days. Asael Adkins MD February 28, 2017 21:13 Asael Adkins MD February 28, 2017 21:13
--- NOTE | 2017-03-01 04:32 | NUR ---
Nursing Noc [id number] Pt noted internally preoccupied upon beginning of shift. Noted to be kneeling in front of bathroom wearing nothing but his underway, preying to a toilet paper roll on top of a Bible lying on top of a towel. Medicated with Ativan for same and noted to calm and put his clothes back on and make better eye contact. Pt noted to be first asleep at 2145 to 2300, then again at 0200 until 0345. Monitoring behavior/emotional state, quality, times and amount of sleep, use and effect of medication.
[2017-03-01] MEDS: LORazepam 1 mg Tablet PO PRN ×4 (06:45→20:51)
[2017-03-01] MEDS: Omega-3 Fatty Acids 1,000 mg Capsule PO SCH ×2 (08:52→20:54)
[2017-03-01 09:07] VITALS: BP 99/59; PULSE 75; RESP 16
--- NOTE | 2017-03-01 13:12 | NUR ---
Nursing: Day shift: 0700 to 1500 S/O: Angel has been out in the open unit about 50% of the shift: He approached staff and requested that he get his jeans laundered (which was significant for Angel since he doesn't even respond let alone ask staff for needs.) Seven hours later, he still hadn't changed his jeans and put them in eh wash. Continues with profoundly sad facial expression. Slow gait. Seems to have motor retardation. Occasionally makes eye contact. No statements to teletypewriter operator about internal stimuli but appears to be attending to them. When teletypewriter operator tried to question him about depression or anxiety, he denied any anxiety but stated, "I'm confused...I need to do some things before I go outside with others..hard to do this.." When questioned about "this", his response perez to do with ending his life. "But I don't know what room you use..." A: Confused. Ambivalent. Depressed. AH. Difficulty with basic physical care activities. P: Support with hygiene/grooming as needed. Continue to observe for effect of medications. Addendum: 03/01/17 at 1459 by HAKAN ABBASI RN Amended: Links added.
--- NOTE | 2017-03-01 18:45 | NUR ---
Vp Patient/Counselor: S: "I've been trying to open that door for a while now...with my mind." O: Patient only slept 3+ hours last night as per staff. He denies S/I and H/I. He reports hearing voices and he feels safe in the hospital, but does not feel safe if he was to go outside. He also reports that he "sees things" when he look around, mainly on the trees. Depression is not rated and anxiety is, "I don't know if I feel anxiety anymore." A: Patient is guarded, anxious, depressed, flat affect, paranoid, tangential, suspicious, lethatgic, limited insight, poor judgment. P: Follow the care plan, coordinate with out-patient providers.
--- NOTE | 2017-03-01 18:55 | NUR ---
Observations [id number] Pt continues to ask staff permission to do anything on unit. "Can I go to my room? Can I take a nap? Is it okay if I eat?" Pt appears to be spending more time in common areas. He did spent time on the patio, playing football with peers and coloring. Pt continues to make comments regarding ending his life. "I know what I must do." Pt also wandered in the halls, staring appearing to be internally preoccupied.Pt attended all meals, eating 100%. He was observed every 15 minutes of shift, as directed.
--- NOTE | 2017-03-01 20:30 | PCM.PNPSY ---
Subjective Date of Service March 01, 2017 Subjective When the treatment team arrived at his room, the patient indicated that he had been occupying his time in the morning by trying to unsuccessfully telekinetically open his door "trying to get the door open with my mind." The patient endorsed seeing, "a lot of people in the trees" outside. The patient stated that he would like to try increasing his aripiprazole and tapering off Geodon. He denies side effects. Sleep: 3+ hours rested Appetite: real good Suicidal and homicidal ideation: denies Auditory hallucinations: endorses. Visual hallucinations: endorses as above Other Psychotic Symptoms: thought blocking Anxiety/Depression: "I don't think I feel anymore." Current Medications Current Medications Multivitamins/ Minerals Therapeutic 1 tablet DAILY PO Last administered on 09:41; Admin Dose 1 TABLET; Start 03/01/17 at 09:00 Nicotine 1 patch DAILY TOPICAL Last administered on 03/01/17 10:23; Admin Dose 1 PATCH; Start 03/01/17 at 10:17 Thiamine HCl 100 mg DAILY PO Last administered on 03/01/17 09:41; Admin Dose 100 MG; Start 03/01/17 at 09:00 Ziprasidone 60 mg BIDWM PO Last administered on 03/01/17 17:55; Admin Dose 60 MG; Start 02/28/17 at 08:00 Mental Status Exam Appearance: Unkept Attitude: Cooperative, Guarded Behavior: Distractible Affect: Flat Mood: Depressed, Anxious Thought Process/Associations: Tangential Speech Production: Paucity Speech Rate: Lags/Latency Speech Articulation: Normal Thought Content: Negativistic, Suspicious, Perseveration Danger to Self/Suicidal Ideati: None Danger to Others: None Delusions: Paranoid (Endorses) Hallucinations: Auditory (Endorses), Visual (Endorses) Consciousness: Lethargic Orientation: Person, Place, Situation Memory: Short Term Memory (Impaired), Claims Vice President Memory (Impaired) Estimate Intellectual Function: Average Basis for IQ estimate: Word use/vocabulary, Educational history Attention/Concentration & Cogn: Impaired Insight: Limited Judgement: Poor Result Diagram: 02/25/17204602/25/172046 Mental Health Plan The patient is a 51 year old male with a history of schizoaffective disorder who reduced medication adherence and eventually stopped all medications, decompensated, attempted suicide and was detained by the [facility]. The patient's outpatient provider indicates that he responded well to his outpatient medications and was stable for quite some time. They report that they will have intensive outpatient treatment to help him with medication adherence. The patient reports that he still feels about the same, but has thought blocking. No tremor or asterixis on examination. The patient is agreeable to increasing aripiprazole. [place] AXIS I: Schizoaffective disorder, bipolar type Alcohol use disorder Marijuana use disorder AXIS II: Deferred AXIS III: None reported. AXIS IV: Moderate with recent Mother's day, medication non-adherence. AXIS V: GAF 30 Medications Geodon 80mg po bid Abilify 5mg po daily Cogentin 1mg po bid Depakote ER 1500mg po nightly Trazodone 150mg po nightly Treatments 1. The patient is admitted to the inpatient unit and will be provided a safe and secure environment. 2. The patient is reporting passive suicidal ideation and is denying current active suicidality and is agreeing to notify staff should it worsen and is not in need of a one-to-one at this time. Should staff notice a worsening of his symptoms, he may require a one-to-one. 3. The patient is encouraged to participate with group and milieu activities. 4. The patient will be seen by the treatment team on a daily basis to assess symptoms, side effects and response to treatment. 5. Decrease ziprasidone to 40mg po bidwm 6. Increase aripiprazole to 15mg daily. 7. Lorazepam PRN anxiety/agitation. 8. Anticipated length of stay is 10-14 days. Asael Adkins MD March 01, 2017 20:30
[2017-03-01] MEDS ORDERED: ARIPiprazole 10 mg Tablet PO ONE (20:35)
[2017-03-01] MEDS: Divalproex (QD) 500 mg ER24 Tablet PO SCH (20:50)
[2017-03-01] MEDS: TRAZODONE PO SCH ×2 (20:50)
--- NOTE | 2017-03-01 22:00 | NUR ---
Nurses PRN Patient received Ativan 1mg at 1625 for anxiety resulting in standing and staring in the hallway with good effect. Patient was able to stay in the day room most of the evening,watched TV and received Ativan 2mg at 2151 for returning anxiety and sleep,embryology teacher to assess response.
--- NOTE | 2017-03-02 05:32 | NUR ---
Nursing Noc Pt noted to be stuck in a catatonic state at the end of the hallway, reporting, "I know what I have to do." Medicated with Ativan with good affect. Pt brought to DR and watched TV for about 45 minutes. Pt noted to have good sleep beginning at 2130 then up once for 1.5 hours then back to sleep for the rest of the night. Continuing to monitor mood behavior emotional state and sleep times with Q15 minute safety checks.
[2017-03-02] MEDS: Omega-3 Fatty Acids 1,000 mg Capsule PO SCH ×2 (08:25→21:02)
--- NOTE | 2017-03-02 16:06 | NUR ---
Associate Director Of Biostatistics/Counselor: S: "I've been using telecommunications but can't move anything." O: Patient slept 6.5+ hours last night as per staff. He reports thoughts of hurting himself but no plan. He denies H/I. He denies auditory hallucinations but still see people in the trees. Depression is 9/10 and anxiety is 4/10. A: Patient is guarded, anxious, depressed, flat affect, paranoid, delusional, tangential, suspicious, lethatgic, limited insight, poor judgment. P: Follow the care plan, coordinate with out-patient providers.
--- NOTE | 2017-03-02 16:35 | PCM.PNPSY ---
Subjective Date of Service March 02, 2017 Subjective The patient reported, "I went to [facility] and talked to one of the pastors and they taught me how to pray. He found out I can't fit in with the bible. When I leave here I will probably meet a sinner." "I have followed the rules of the bible" but could not say what those are adding, "I always try to follow [employer] and the " as a reason to live. He reports that he has unsuccessfully tried to use telepathy. He denies side effects. Sleep: 6.5+ hours rested Appetite: "really well" Suicidal and homicidal ideation: occasional passive SI but denies intent or plan ; denies HI. Auditory hallucinations: denies Visual hallucinations: people in the trees Other Psychotic Symptoms: thought blocking Anxiety: 01/22 Depression: 06/24 Current Medications Current Medications Aripiprazole 10 mg ONCE ONCE PO Last administered on 03/01/17 20:49; Admin Dose 10 MG; Start 03/01/17 at 20:35; Stop 03/01/17 at 20:41; Status DC Multivitamins/ Minerals Therapeutic 1 tablet DAILY PO Last administered on 08:25; Admin Dose 1 TABLET; Start 03/01/17 at 09:00 Nicotine 1 patch DAILY TOPICAL Last administered on 03/02/17 08:26; Admin Dose 1 PATCH; Start 03/01/17 at 10:17 Thiamine HCl 100 mg DAILY PO Last administered on 03/02/17 08:24; Admin Dose 100 MG; Start 03/01/17 at 09:00 Ziprasidone 40 mg BIDWM PO Last administered on 03/02/17 08:25; Admin Dose 40 MG; Start 03/02/17 at 08:00 Mental Status Exam Appearance: Unkept Attitude: Cooperative, Guarded Behavior: Distractible Affect: Flat Mood: Depressed, Anxious Thought Process/Associations: Tangential Speech Production: Paucity Speech Rate: Lags/Latency Speech Articulation: Normal Thought Content: [place] [place] preoccupation, Negativistic, Suspicious, Perseveration Danger to Self/Suicidal Ideati: None Danger to Others: None Delusions: Paranoid (Endorses) Hallucinations: Auditory (Denies), Visual (Endorses) Consciousness: Lethargic Orientation: Person, Place, Situation Memory: Short Term Memory (Impaired), Snf Memory (Impaired) Estimate Intellectual Function: Average Basis for IQ estimate: Word use/vocabulary, Educational history Attention/Concentration & Cogn: Impaired Insight: Limited Judgement: Poor Result Diagram: 02/25/17204602/25/172046 Mental Health Plan The patient is a 51 year old male with a history of schizoaffective disorder who reduced medication adherence and eventually stopped all medications, decompensated, attempted suicide and was detained by the [facility]. The patient's outpatient provider indicates that he responded well to his outpatient medications and was stable for quite some time. They report that they will have intensive outpatient treatment to help him with medication adherence. The patient reports some improvement in his symptoms with the cross taper to aripiprazole though is still quite symptomatic. [place] AXIS I: Schizoaffective disorder, bipolar type Alcohol use disorder Marijuana use disorder AXIS II: Deferred AXIS III: None reported. AXIS IV: Moderate with recent Mother's day, medication non-adherence. AXIS V: GAF 30 Medications Geodon 40mg po bid Abilify 15mg po daily Cogentin 1mg po bid Depakote ER 1500mg po nightly Trazodone 150mg po nightly Treatments 1. The patient is admitted to the inpatient unit and will be provided a safe and secure environment. 2. The patient is reporting passive suicidal ideation and is denying current active suicidality and is agreeing to notify staff should it worsen and is not in need of a one-to-one at this time. Should staff notice a worsening of his symptoms, he may require a one-to-one. 3. The patient is encouraged to participate with group and milieu activities. 4. The patient will be seen by the treatment team on a daily basis to assess symptoms, side effects and response to treatment. 5. Decrease ziprasidone to 40mg po bidwm 6. Increase aripiprazole to 15mg daily. 7. Check depakote, cbc, cmp in am. 8. Anticipated length of stay is 10-14 days. Asael Adkins MD March 02, 2017 16:35
[2017-03-02 17:34] VITALS: BP 114/75; PULSE 77; RESP 16
--- NOTE | 2017-03-02 17:49 | NUR ---
Nursing Dayshift: S: "I've been thinking in my room, I've made a decision. I can live with my brother. He [facility] to [facility]." O: Patient has been out of his room more today though still spends good amounts of time in his room. Has been eating with a good appetite. Minimal interaction with peers. Denies anxiety, depression, harmful thoughts, and hallucinations. A: Flat affect. Med compliant. P: CPOC. Monitor mood and behavior.
--- NOTE | 2017-03-02 18:49 | NUR ---
[facility] Day Shift Pt maintained behavioral control throughout the shift. Pt affect appears flat. Pt spends most of the shift resting in his room, and attempting to make up his mind as to whether or not he wants to enter the dining room. Pt is appropriate with staff and peers when active on the unit, but is not social. Pt appears internally preoccupied, and pt speech/thought content appears bizarre (though much less so than noted on previous shifts). Pt is not participatory in unit activities throughout the shift. Pt attended all meals and ate approx 70-100% of all meals.
[2017-03-02] MEDS: Divalproex (QD) 500 mg ER24 Tablet PO SCH (21:01)
[2017-03-02] MEDS: TRAZODONE PO SCH ×2 (21:01)
--- NOTE | 2017-03-03 04:39 | NUR ---
Nursing Noc Pt noted to spend evening in DR sitting at table with other patients. Body language appeared more relaxed than previous days. Pt still presents with catatonic like presentation with latent speech and slow body mechanics. Pt presents uncertain and confused with regular ADLs and frequently will ask staff for permission for same. Continuing to monitor mood behavior emotional state and sleep times with Q15 minute safety checks.
[2017-03-03] MEDS: Omega-3 Fatty Acids 1,000 mg Capsule PO SCH ×2 (08:15→20:43)
[2017-03-03 09:27] LABS: BASOPHILS % (AUTO) 0.1 % (0-3); EOSINOPHILS % (AUTO) 0.6 % (0-5); MONOCYTES % (AUTO) 6.5 % (4-12); Mean Corpuscular Hemoglobin 31.3 pg (27.0-35.0); Mean Corpuscular Volume 88.7 fL (81-100); NEUTROPHILS % (AUTO) 70.5 % (40-74); Platelet Count 242 bil/L (150-400)
[2017-03-03 15:29] VITALS: BP 101/71; PULSE 67; RESP 16
--- NOTE | 2017-03-03 15:56 | PCM.PNPSY ---
Subjective Date of Service March 03, 2017 Subjective I spent 30 minutes both reviewing his treatment plan and providing supportive and educational psychotherapy. I spent more than 50% of the time counseling the patient. I reviewed the treatment plan with the patient and discussed options available including the potential risks, benefits and side effects. Angel reports feeling much better and is requesting discharge. The Staff reports that he has been isolative and is not participating well in one-to-one unit and group activities. He slept 8 hours. He denies medication side effects. He denies symptoms of suicidal ideation or psychosis. Previously he had been having visual hallucinations of people or trees and believed he had telekinesis. He appears somewhat indecisive. Patient was able to identify his medications and what they were used to treat. Current Medications Current Medications Aripiprazole 10 mg ONCE ONCE PO Last administered on 03/01/17 20:49; Admin Dose 10 MG; Start 03/01/17 at 20:35; Stop 03/01/17 at 20:41; Status DC Aripiprazole 15 mg HS PO Last administered on 03/02/17 21:01; Admin Dose 15 MG ; Start 03/02/17 at 21:00 Ziprasidone 40 mg BIDWM PO Last administered on 03/03/17 08:14; Admin Dose 40 MG; Start 03/02/17 at 08:00 Mental Status Exam Vital Signs Vital Signs Date Time Temp Pulse Resp B/P Pulse Ox O2 Delivery O2 Flow Rate FiO2 03/03/17 15:29 36.5 67 16 101/71 Appearance: Unkept Attitude: Cooperative, Guarded Behavior: Distractible Affect: Flat Mood: Depressed, Anxious Thought Process/Associations: Tangential Speech Production: Paucity Speech Rate: Lags/Latency Speech Articulation: Normal Thought Content: Faith preoccupation, Negativistic, Suspicious, Perseveration Danger to Self/Suicidal Ideati: None Danger to Others: None Delusions: Paranoid (Endorses) Hallucinations: Auditory (Denies), Visual (Endorses) Consciousness: Lethargic Orientation: Person, Place, Situation Memory: Short Term Memory (Impaired), Electrical Maintenance Engineer Memory (Impaired) Estimate Intellectual Function: Average Basis for IQ estimate: Word use/vocabulary, Educational history Attention/Concentration & Cogn: Impaired Insight: Limited Judgement: Poor Result Diagram: 03/03/17 0903 03/03/17 09 Mental Health Plan The patient is a 51 year old male with a history of schizoaffective disorder who reduced medication adherence and eventually stopped all medications, decompensated, attempted suicide and was detained by the [facility]. The patient's outpatient provider indicates that he responded well to his outpatient medications and was stable for quite some time. They report that they will have intensive outpatient treatment to help him with medication adherence. Angel appears to be making slow but steady progress. [place] AXIS I: Schizoaffective disorder, bipolar type Alcohol use disorder Marijuana use disorder AXIS II: Deferred AXIS III: None reported. AXIS IV: Moderate with recent Mother's day, medication non-adherence. AXIS V: GAF 30 Medications Geodon 40mg po bid Abilify 15mg po daily Cogentin 1mg po bid Depakote ER 1500mg po nightly Trazodone 150mg po nightly Treatments 1. The patient is admitted to the inpatient unit and will be provided a safe and secure environment. 2. The patient is reporting passive suicidal ideation and is denying current active suicidality and is agreeing to notify staff should it worsen and is not in need of a one-to-one at this time. Should staff notice a worsening of his symptoms, he may require a one-to-one. 3. The patient is encouraged to participate with group and milieu activities. 4. The patient will be seen by the treatment team on a daily basis to assess symptoms, side effects and response to treatment. 5. ziprasidone to 40mg po bidwm 6. aripiprazole to 15mg daily. 7. Anticipated length of stay is 10-14 days. Harjit Andersen MD March 03, 2017 15:56
--- NOTE | 2017-03-03 16:17 | NUR ---
Observations 0700 to 1900 Pt maintained behavioral control throughout the shift. Pt is flat, withdrawn, confused. Pt spent most of day isolating in room, but frequently came out to dining room and then turned around and went back to room. Pt able to respond when addressed, but did not seek interaction with peers or staff. Pt did not participate in any unit activities. Pt ate 75-100% of breakfast and lunch and was observed every 15 minutes as ordered.
[2017-03-03] MEDS: Divalproex (QD) 500 mg ER24 Tablet PO SCH (20:42)
[2017-03-03] MEDS: TRAZODONE PO SCH ×2 (20:43)
--- NOTE | 2017-03-03 22:53 | NUR ---
3-11 nurse note Pt. very passive, flat affect. Spends most of time in room, secluded. Minimal eye contact, very minimal interaction with peers. Pt. was able to spend about an hour in DR, watching TV and attending group. Although, did escape to room as soon as group time was completed. Anxiety reported to be 7/10, declined to have any prns. Pt. states that he wants to "try to be on my own after being here." " I don't know what to say to those people out there." (referring to peers in DR). Pt. encouraged to interacted with others briefly through out the day. Pt. eating well, napped this afternoon. Compliant with all scheduled meds. Mood and behavior continue to be checked for safety.
--- NOTE | 2017-03-04 06:19 | NUR ---
Sleep 11p-7a Adequate sleep through the night with no noted distress or awakening per protocol checks. Total sleep 9+ hours.
[2017-03-04] MEDS: Omega-3 Fatty Acids 1,000 mg Capsule PO SCH ×2 (08:32→21:14)
--- NOTE | 2017-03-04 11:14 | NUR ---
Day shift note S: "I feel better, but then when I see people I get different thoughts." "I want my friends and family to know that I care about them." "The has a lot to do with it, I try to push back all those thoughts" O: Passive, withdrawn, minimal eye contact. Pt. out of room for breakfast, good appetite. Stood in hallway outside of group in hallway for some time and seemed to be gathering courage to go in and stood in doorway several times before actually going in. A: Passive, quiet, calm and cooperative P: Continuing scheduled medications; encouraging pt. to talk about feelings, needs, and concerns. Addendum: 03/04/17 at 1613 by NATHAN LYNCH RN Pt. anxious this afternoon; given ativan 2 mg po. Upon reassessment pt. sitting on bed in room, appears calm and positive. "I think being around people helped, and going to group". Played catch with football and other patient outside on the patio today.
[2017-03-04] MEDS: LORazepam 1 mg Tablet PO PRN (14:47)
--- NOTE | 2017-03-04 14:55 | PCM.PNPSY ---
Subjective Date of Service March 04, 2017 Subjective I spent 30 minutes both reviewing his treatment plan and providing supportive and educational psychotherapy. I spent more than 50% of the time counseling the patient. I reviewed the treatment plan with the patient and discussed options available including the potential risks, benefits and side effects. Angel reports feeling tired and is again requesting discharge. He seems confused about his snf status. The Staff reports that he has been isolative and is not participating well in one-to-one unit and group activities. He slept 9 hours. He complained of medication side effects of sedation and apathy. He denies symptoms of suicidal ideation or psychosis. Previously he had been having visual hallucinations of people or trees and believed he had telekinesis. He appears somewhat indecisive. Patient was able to identify his medications and what they were used to treat. Current Medications Current Medications Aripiprazole 15 mg HS PO Last administered on 03/03/17t 20:44; Admin Dose 15 MG ; Start 03/02/17 at 21:00 Mental Status Exam Appearance: Unkept Attitude: Cooperative, Guarded Behavior: Distractible Affect: Flat Mood: Depressed, Anxious Thought Process/Associations: Tangential Speech Production: Paucity Speech Rate: Lags/Latency Speech Articulation: Normal Thought Content: Catholic preoccupation, Negativistic, Suspicious, Perseveration Danger to Self/Suicidal Ideati: None Danger to Others: None Delusions: Paranoid (Endorses) Hallucinations: Auditory (Denies), Visual (Endorses) Consciousness: Lethargic Orientation: Person, Place, Situation Memory: Short Term Memory (Impaired), 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. The patient's outpatient provider indicates that he responded well to his outpatient medications and was stable for quite some time. They report that they will have intensive outpatient treatment to help him with medication adherence. Angel appears to be making slow but steady progress. [place] AXIS I: Schizoaffective disorder, bipolar type Alcohol use disorder Marijuana use disorder AXIS II: Deferred AXIS III: None reported. AXIS IV: Moderate with recent Mother's day, medication non-adherence. AXIS V: GAF 35 Medications Decrease Geodon to 20mg po bid Abilify 15mg po daily Cogentin 1mg po bid Depakote ER 1500mg po nightly Trazodone 150mg po nightly Treatments 1. The patient is admitted to the inpatient unit and will be provided a safe and secure environment. 2. The patient is reporting passive suicidal ideation and is denying current active suicidality and is agreeing to notify staff should it worsen and is not in need of a one-to-one at this time. Should staff notice a worsening of his symptoms, he may require a one-to-one. 3. The patient is encouraged to participate with group and milieu activities. 4. The patient will be seen by the treatment team on a daily basis to assess symptoms, side effects and response to treatment. 5. Decrease ziprasidone to 20mg po bidwm due to oversedation 6. aripiprazole to 15mg daily. 7. Anticipated length of stay is 10-14 days. Harjit Andersen MD March 04, 2017 14:55
--- NOTE | 2017-03-04 15:31 | NUR ---
Obs Dayshift Pt is quiet, calm. Pt tries to participate, often has difficulty w/ AH. Pt continues to make random statements about his plans, family, close friends and then doesn't comment further or explain. Pt appears depressed, sad, tortured, isolating. Ok ADL's, Good meals
[2017-03-04] MEDS: TRAZODONE PO SCH ×2 (21:13)
[2017-03-04] MEDS: Divalproex (QD) 500 mg ER24 Tablet PO SCH (21:14)
--- NOTE | 2017-03-05 05:16 | NUR ---
Nursing notes: balance clerk/sleep Patient appears to be sleeping on safety checks during the night. Offers no complaints.
[2017-03-05] MEDS: Omega-3 Fatty Acids 1,000 mg Capsule PO SCH ×2 (08:29→21:04)
[2017-03-05] MEDS: LORazepam 1 mg Tablet PO PRN (09:48)
[2017-03-05 11:00] VITALS: BP 100/69; PULSE 58; RESP 16
--- NOTE | 2017-03-05 12:44 | NUR ---
Nursing Note [id number] Behavior, PRN Medications S/O: Pt at 75% of breakfast. Pulse slightly low at 58. Other vital signs stable. Pt requested use of the piano room this morning d/t remodeling noises above his room. Checked with pt in piano room. Pt reported he was anxious. Pt had been standing in room staring at the wall. Pt's affect was sad & flat. He accepted Ativan 1 mg at 0948. Upon evaluation of medication efficacy, pt stated, "I think I'll be okay." A: Pt con't to have anxiety r/t psychotic sx. P: Provide supportive environment. Monitor medications & effects.
--- NOTE | 2017-03-05 14:01 | PCM.PNPSY ---
Subjective Date of Service March 05, 2017 Subjective I spent 30 minutes both reviewing his treatment plan and providing supportive and educational psychotherapy. I spent more than 50% of the time counseling the patient. I reviewed the treatment plan with the patient and discussed options available. Angel reports feeling guilty about some of the thoughts he is having and is no longer requesting discharge. The Staff reports that he has been isolative and is not participating well in one-to-one unit and group activities. He slept 8 hours. He complained of medication side effects of sedation and apathy. He denies symptoms of suicidal ideation or psychosis. Previously he had been having visual hallucinations of people or trees and believed he had telekinesis. He appears indecisive. Current Medications Current Medications Ziprasidone 20 mg BIDWM PO Last administered on 03/05/17t 08:28; Admin Dose 20 MG; Start 03/04/17 at 17:30 Mental Status Exam Vital Signs Vital Signs Date Time Temp Pulse Resp B/P Pulse Ox O2 Delivery O2 Flow Rate FiO2 03/05/17 11:00 36.2 58 16 100/69 Appearance: Unkept Attitude: Pleasant, Cooperative Behavior: Distractible Affect: Flat Mood: Depressed, Anxious Thought Process/Associations: Tangential Speech Production: Paucity Speech Rate: Lags/Latency Speech Articulation: Normal Thought Content: Taoist preoccupation, Negativistic, Suspicious, Perseveration Danger to Self/Suicidal Ideati: None Danger to Others: None Delusions: Paranoid (Endorses) Hallucinations: Visual Consciousness: Lethargic Orientation: Person, Place, Situation Memory: Short Term Memory (Impaired), Half-Way Memory (Impaired) Estimate Intellectual Function: Average Basis for IQ estimate: Word use/vocabulary, Educational history Attention/Concentration & Cogn: Impaired Insight: Limited Judgement: Poor Result Diagram: 03/03/17 0903/03/17 09 Mental Health Plan The patient is a 51 year old male with a history of schizoaffective disorder who reduced medication adherence and eventually stopped all medications, decompensated, attempted suicide and was detained by the [facility]. The patient's outpatient provider indicates that he responded well to his outpatient medications and was stable for quite some time. They report that they will have intensive outpatient treatment to help him with medication adherence. Angel appears to be making slow but steady progress with gradually improving thought organization and mood stability. [place] AXIS I: Schizoaffective disorder, bipolar type Alcohol use disorder Marijuana use disorder AXIS II: Deferred AXIS III: None reported. AXIS IV: Moderate with recent Mother's day, medication non-adherence. AXIS V: GAF 35 Medications Geodon to 20mg po bid Abilify 15mg po daily Cogentin 1mg po bid Depakote ER 1500mg po nightly Trazodone 150mg po nightly Treatments 1. The patient is admitted to the inpatient unit and will be provided a safe and secure environment. 2. The patient is reporting passive suicidal ideation and is denying current active suicidality and is agreeing to notify staff should it worsen and is not in need of a one-to-one at this time. Should staff notice a worsening of his symptoms, he may require a one-to-one. 3. The patient is encouraged to participate with group and milieu activities. 4. The patient will be seen by the treatment team on a daily basis to assess symptoms, side effects and response to treatment. 5. ziprasidone to 20mg po bidwm 6. aripiprazole to 15mg daily. 7. Anticipated length of stay is 10-14 days. Harjit Andersen MD March 05, 2017 14:01
--- NOTE | 2017-03-05 18:39 | NUR ---
Observations [id number] Pt appears more active on unit then observed last week. He participated in group activities, going outside and playing football on [employer]. Pt attended all meals, eating 100%. He continues to ask staff for permission to do things. He asked this chief writer "Can I go lay down?" "Is it okay if I go watch the game on TV?" Pt stated to this chief writer "I'm feeling better. I think I know what I need to do for my family." Pt appears to be interacting more with peers. She was observed every 15 minutes of shift as directed.
[2017-03-05] MEDS: Divalproex (QD) 500 mg ER24 Tablet PO SCH (21:03)
[2017-03-05] MEDS: TRAZODONE PO SCH ×2 (21:03)
--- NOTE | 2017-03-05 22:41 | NUR ---
NURSING NOTE [id number] Mood: "better, I'm okay now that I know the rules here" Affect: flat Behavior: visible on unit, interacting more w/peers, sat in DR by himself for some time, worked on a puzzle, attended group and expressed motivation to do so (asked this continuity writer twice when the next group would be this shift and reported he enjoys attending them.) Med compliant. Thought processes: guarded and has delayed responses. When he did respond to this continuity writer's questions re: mood and thought content he answered sheepishly and indicated he felt embarrassed and guilty and stated several times: "I know you're trying to help me..." He is tangential and a bit disorganized. Endorses AH; reports he hears "a voice telling me how to do things and what the rules are." Could not identify specifics of what the voice is instructing him to do and whether it is male or female. Denied VH this shift. Reports intrusive thoughts about his mother and her recent and states he feels guilty and like he should have taken better care of her and helped her out more. Reports he has been considering getting a pet bulk delivery driver to help him feel better and less lonely at home. Denies SI/HI. Endorsed anxiety and depression both /10.
--- NOTE | 2017-03-06 02:28 | NUR ---
Observations 1900 - 0700 Pt was in D.R. and watching TV at the start of the shift. Pt was observed to be flat, guarded and quiet. Pt speech and eye contact was ok. Pt was a little more social with peers and staff tonight. Pt attended wrap up group, stated his positive for the day "going out on patio, playing sports and talking more" Pt rated his mood 8/10, with 10 being the best. Pt ate snack. Pt first appeared asleep at 2215 and has stayed asleep. Pt was observed every 15 minutes through the night as ordered. Pt is currently asleep with respirations apparent.
--- NOTE | 2017-03-06 06:07 | NUR ---
Nursing notes: night cleaner: sleep Patient appears to be sleeping on safety checks during the night with the exception of one brief 15min episode, then returned to sleep. Patient was awake early am taking a shower. Patient voices no complaints.
[2017-03-06] MEDS: Omega-3 Fatty Acids 1,000 mg Capsule PO SCH ×2 (08:41→20:21)
[2017-03-06 12:43] VITALS: BP 107/74; PULSE 66; RESP 15
--- NOTE | 2017-03-06 14:10 | PCM.PNPSY ---
Subjective Date of Service March 06, 2017 Subjective I spent 30 minutes both reviewing his treatment plan and providing supportive and educational psychotherapy. I spent more than 50% of the time counseling the patient. I reviewed the treatment plan with the patient and discussed options available. Angel repeats feeling highly guilty thoughts he is having that are causing him fear of being a bad wilbert and fear of retribution by God. The Staff reports that he has been isolative but is now attempting to participate in one-to-one unit and group activities. He slept 7 hours. He denied medication side effects . He denies symptoms of suicidal ideation or positive symptoms of psychosis. Previously he had been having visual hallucinations of people or trees and believed he had telekinesis. He is ambivalent and indecisive. Current Medications Current Medications Ziprasidone 20 mg BIDWM PO Last administered on 03/06/17t 08:41; Admin Dose 20 MG; Start 03/04/17 at 17:30 Mental Status Exam Vital Signs Vital Signs Date Time Temp Pulse Resp B/P Pulse Ox O2 Delivery O2 Flow Rate FiO2 03/06/17 12:43 36.6 66 15 107/74 Appearance: Unkept Attitude: Pleasant, Cooperative Behavior: Distractible Affect: Flat Mood: Depressed, Anxious Thought Process/Associations: Tangential Speech Production: Paucity Speech Rate: Lags/Latency Speech Articulation: Normal Thought Content: Restorationist preoccupation, Negativistic, Suspicious, Perseveration Danger to Self/Suicidal Ideati: None Danger to Others: None Delusions: Paranoid (Endorses) Consciousness: Alert Orientation: Person, Place, Situation Memory: Short Term Memory (Impaired), Multi Needle Machine 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 The patient's outpatient provider indicates that he responded well to his outpatient medications and was stable for quite some time. They report that they will have intensive outpatient treatment to help him with medication adherence. Angel appears to be making slow but steady progress with gradually improving thought organization and mood stability.He is struggling with negative symptoms of schizophrenia and a severe sense of poor self worth and self-esteem. [place] AXIS I: Schizoaffective disorder, bipolar type Alcohol use disorder Marijuana use disorder AXIS II: Deferred AXIS III: None reported. AXIS IV: Moderate with recent Mother's day, medication non-adherence. AXIS V: GAF 35 Medications Geodon to 20mg po bid Abilify 15mg po daily Cogentin 1mg po bid Depakote ER 1500mg po nightly Trazodone 150mg po nightly Treatments 1. The patient is admitted to the inpatient unit and will be provided a safe and secure environment. 2. The patient is reporting passive suicidal ideation and is denying current active suicidality and is agreeing to notify staff should it worsen and is not in need of a one-to-one at this time. Should staff notice a worsening of his symptoms, he may require a one-to-one. 3. The patient is encouraged to participate with group and milieu activities. 4. The patient will be seen by the treatment team on a daily basis to assess symptoms, side effects and response to treatment. 5. ziprasidone to 20mg po bidwm 6. aripiprazole to 15mg daily. 7. Anticipated length of stay is 10-14 days. Harjit Andersen MD March 06, 2017 14:10
--- NOTE | 2017-03-06 17:31 | NUR ---
Nursing Note [id number] Behavior S/O: Pt has good appetite. Vital signs stable. Pt out in milieu, but keeps to himself. Poor eye contact. Pt has difficulty concentrating. Pt attending groups, but interacts only slightly with peers. Pt able to answer questions appropriately with delayed responses. A: Pt appears to be responding to internal stimulation. P: Monitor medications & effects. Provide supportive environment.
--- NOTE | 2017-03-06 18:32 | NUR ---
Observations [id number] Pt continues to appear improved in mood, spending more time out on unit amongst peers. He is still limited in conversation. Pt also continues to ask this senior writer for permission to do things, such as go to his room. Pt attended Community Meeting along with going outside on the patio and working on art in the art room. Pt talked to this senior writer about family and his desire to reconcile with them. He was observed every 15 minutes of shift as directed.
[2017-03-06] MEDS: Divalproex (QD) 500 mg ER24 Tablet PO SCH (20:21)
[2017-03-06] MEDS: TRAZODONE PO SCH ×2 (21:17)
--- NOTE | 2017-03-07 05:18 | NUR ---
Nursing Noc Pt noted to get broken sleep, first asleep at 2130 until 0345 then back to sleep. Pt presents distracted and timid. Asking questions like is it OK to eat a snack, during snack time. Presents suspicious. Continuing to monitor mood behavior and emotional state. Q15 minute safety checks throughout the night. CP
[2017-03-07] MEDS: Omega-3 Fatty Acids 1,000 mg Capsule PO SCH ×2 (08:36→21:29)
--- NOTE | 2017-03-07 14:57 | PCM.PNPSY ---
Subjective Date of Service March 07, 2017 Subjective I spent 30 minutes both reviewing his treatment plan and providing supportive and educational psychotherapy. I spent more than 50% of the time counseling the patient. I reviewed the treatment plan with the patient and discussed options available. Angel repeats feeling highly guilty about thoughts he is having that are causing him to fear he is a bad wilbert and she fears the retribution by God for his thoughts feelings and previous actions. The Staff reports that he has been isolative but is now attempting to participate in one-to-one unit and group activities. He slept 7 hours. He denied medication side effects . He denies symptoms of suicidal ideation or positive symptoms of psychosis. Previously he had been having visual hallucinations of people or trees and believed he had telekinesis. He remains ambivalent and indecisive Mental Status Exam Appearance: Unkept Attitude: Pleasant, Cooperative Behavior: Distractible Affect: Flat Mood: Depressed, Anxious Thought Process/Associations: Tangential Speech Production: Paucity Speech Rate: Lags/Latency Speech Articulation: Normal Thought Content: Adventist preoccupation, Negativistic, Suspicious, Perseveration Danger to Self/Suicidal Ideati: None Danger to Others: None Delusions: Paranoid (Endorses) Consciousness: Alert Orientation: Person, Place, Situation Memory: Short Term Memory (Impaired), Journeyman Operator Assistant Memory (Impaired) Estimate Intellectual Function: Average Basis for IQ estimate: Word use/vocabulary, Educational history Attention/Concentration & Cogn: Impaired Insight: Limited Judgement: Limited Result Diagram: 03/03/17 0903 03/03/17 0903 Mental Health Plan Angel is a 51 year old male with a history of schizoaffective disorder who reduced medication adherence and eventually stopped all medications, decompensated, attempted suicide and was detained by the [facility]. The patient's outpatient provider indicates that he responded well to his outpatient medications and was stable for quite some time. They report that they will have intensive outpatient treatment to help him with medication adherence. Angel appears to be making slow but steady progress with gradually improving thought organization and mood stability.He is struggling with negative symptoms of schizophrenia and a severe sense of poor self worth and self-esteem. Angel repeats feeling highly guilty about thoughts he is having that are causing him to fear he is a bad wilbert and she fears the retribution by God for his thoughts feelings and previous actions. The Staff reports that he has been isolative but is now attempting to participate in one-to-one unit and group activities. [place] AXIS I: Schizoaffective disorder, bipolar type Alcohol use disorder Marijuana use disorder AXIS II: Deferred AXIS III: None reported. AXIS IV: Moderate with recent Mother's day, medication non-adherence. AXIS V: GAF 35 Medications Geodon to 20mg po bid Abilify 15mg po daily Cogentin 1mg po bid Depakote ER 1500mg po nightly Trazodone 150mg po nightly Treatments 1. The patient is admitted to the inpatient unit and will be provided a safe and secure environment. 2. The patient is reporting passive suicidal ideation and is denying current active suicidality and is agreeing to notify staff should it worsen and is not in need of a one-to-one at this time. Should staff notice a worsening of his symptoms, he may require a one-to-one. 3. The patient is encouraged to participate with group and milieu activities. 4. The patient will be seen by the treatment team on a daily basis to assess symptoms, side effects and response to treatment. 5. ziprasidone to 20mg po bidwm 6. aripiprazole to 15mg daily. 7. Anticipated length of stay is 10-14 days. Harjit Andersen MD March 07, 2017 14:57
--- NOTE | 2017-03-07 15:16 | NUR ---
Observations 0700 - 1900 Pt was flat, withdrawn and lost. Pt continues to be out on the unit more but mainly keeps to himself. Pt speech and eye contact was ok. Pt is pleasant and friendly upon approach. Pt is polite and cooperative. Pt maintained behavior control throughout the shift. Pt attended community meeting and set a daily goal. Pt rated his mood 5/10, with 10 being the best. Pt stated that he will try to get along with people. Pt was asked to attend arts and crafts group but he declined. Pt attended meals in D.R. and ate 100% of meals. Pt ate snack. Pt was observed every 15 minutes throughout the shift as ordered.
[2017-03-07 17:56] VITALS: BP 123/76; PULSE 81
[2017-03-07] MEDS: TRAZODONE PO SCH ×2 (21:25)
[2017-03-07] MEDS: Divalproex (QD) 500 mg ER24 Tablet PO SCH (21:25)
--- NOTE | 2017-03-07 22:54 | NUR ---
NURSING NOTE [id number] Mood: "better today than when I first came in" Affect: flat Behavior: visible off and on in the milieu this evening. Pt. reported that he has been anxious off and on today and that he usually retreats to his room for a break when he starts to feel that way. Thought processes: endorsed anxiety, mostly r/t social anxiety and feeling like he cant talk to or fit in w/his peers here on the unit as well as peers out in the community. Declined offer of anxiety PRN. Denies SI and reports he has not felt suicidal since before coming here. Denies AH/VH.
--- NOTE | 2017-03-08 04:06 | NUR ---
nursing, nights, 11-7 s/o- has appeared to sleep after 2200 during q 15 minute assessments. a- no apparent distress. p- monitor behavior/emotional state, quality, times and amount of sleep, use and effect of medication. eva Addendum: 03/08/17 at 0510 by SOLOMON LOO RN up at 0500 and sitting in the day room. eva
[2017-03-08 07:36] VITALS: BP 142/79; PULSE 60; RESP 18
[2017-03-08] MEDS: Omega-3 Fatty Acids 1,000 mg Capsule PO SCH ×2 (08:38→21:12)
--- NOTE | 2017-03-08 10:52 | PCM.PNPSY ---
Subjective Date of Service March 08, 2017 Subjective I spent 30 minutes both reviewing his treatment plan and providing supportive and educational psychotherapy. I spent more than 50% of the time counseling the patient. I reviewed the treatment plan with the patient and discussed options available. Our medical student Sarah also spent 30 minutes interviewing and providing supportive psychotherapy to Angel.. The patient reports ongoing feeling that he should , but denies plan or intent and his concern of harming his family keeps him from harming himself. Angel repeats feeling highly guilty about thoughts he is having that are causing him to fear he is a bad wilbert and she fears the retribution by God for his thoughts feelings and previous actions. The Staff reports that he has been isolative but is now attempting to participate in one-to-one unit and group activities. He slept 7 hours. He denied medication side effects . He denies symptoms of suicidal ideation or positive symptoms of psychosis. Previously he had been having visual hallucinations of people or trees and believed he had telekinesis. He remains ambivalent and indecisive Mental Status Exam Vital Signs Vital Signs Date Time Temp Pulse Resp B/P Pulse Ox O2 Delivery O2 Flow Rate FiO2 03/08/17 07:36 36.3 60 18 142/79 Appearance: Unkept Attitude: Pleasant, Cooperative Behavior: Distractible Affect: Flat Mood: Depressed, Anxious Thought Process/Associations: Tangential Speech Production: Paucity Speech Rate: Lags/Latency Speech Articulation: Normal Thought Content: Rastafari preoccupation, Negativistic, Suspicious, Perseveration Danger to Self/Suicidal Ideati: None Danger to Others: None Delusions: Paranoid (Endorses) Consciousness: Alert Orientation: Person, Place, Situation Memory: Short Term Memory (Impaired), Long-Term Memory (Impaired) Estimate Intellectual Function: Average Basis for IQ estimate: Word use/vocabulary, Educational history Attention/Concentration & Cogn: Impaired Insight: Limited Judgement: Limited Result Diagram: 03/03/1790203/03/17902 Mental Health Plan Angel is a 51 year old male with a history of schizoaffective disorder who reduced medication adherence and eventually stopped all medications, decompensated, attempted suicide and was detained by the [facility]. The patient's outpatient provider indicates that he responded well to his outpatient medications and was stable for quite some time. They report that they will have intensive outpatient treatment to help him with medication adherence. Angel appears to be making slow but steady progress with gradually improving thought organization and mood stability. He is struggling with negative symptoms of schizophrenia and a severe sense of poor self worth and self- esteem. Angel repeats feeling highly guilty about thoughts he is having that are causing him to fear he is a bad wilbert and she fears the retribution by God for his thoughts feelings and previous actions. The Staff reports that he has been isolative but is now attempting to participate in one-to-one unit and group activities. The patient reports ongoing feeling that he should , but denies plan or intent and his concern of harming his family keeps him from harming himself. He remains quite delayed in thought processing and speech and I believe he is gravely disabled. Given his impaired thought processing and recent bizarre behavior I do not believe he is competent to make medical decisions at this point. I believe he would benefit from a continued stay on our psych unit with both psychosocial rehabilitation and additional monitoring of his medications. During my interviews, Angel could provide little additional information about what had happened and appeared disheveled and confused. He had a difficult time relating a coherent history and his thought process is significant for extreme poverty of thought. At this time, the patient remains with little insight and he is not able to attend to activities of daily living or advocate for himself [place] AXIS I: Schizoaffective disorder, bipolar type Alcohol use disorder Marijuana use disorder AXIS II: Deferred AXIS III: None reported. AXIS IV: Moderate with recent Mother's day, medication non-adherence. AXIS V: GAF 35 Medications Geodon to 20mg po bid Abilify 15mg po daily Cogentin 1mg po bid Depakote ER 1500mg po nightly Trazodone 150mg po nightly Treatments 1. The patient is admitted to the inpatient unit and will be provided a safe and secure environment. 2. The patient is reporting passive suicidal ideation and is denying current active suicidality and is agreeing to notify staff should it worsen and is not in need of a one-to-one at this time. Should staff notice a worsening of his symptoms, he may require a one-to-one. 3. The patient is encouraged to participate with group and milieu activities. 4. The patient will be seen by the treatment team on a daily basis to assess symptoms, side effects and response to treatment. 5. ziprasidone to 20mg po bidwm 6. aripiprazole to 15mg daily. 7. Anticipated length of stay is 10-14 days. Harjit Andersen MD March 08, 2017 10:52
--- NOTE | 2017-03-08 17:04 | NUR ---
DAYS 7-7 S/O-Patient has spent most of shift in dinning room at time interacting with other patient one on one. Patient states "I need to fix it so everyone is OK" denies SI and hallucinations. A- Calm therapeutic talk encouraged, complemented on working on his socialization today. P-14 day MRO
[2017-03-08] MEDS: Divalproex (QD) 500 mg ER24 Tablet PO SCH (21:12)
[2017-03-08] MEDS: TRAZODONE PO SCH ×2 (21:12)
--- NOTE | 2017-03-09 04:41 | NUR ---
Nursing Noc Pt noted in DR playing pinmaritza pong and interacting with other patient. Remains quiet with poor eye contact and poor sleep. Continuing to monitor mood behavior and emotional state. CP First noted asleep at 2215 until 0245 then awake for the rest of the shift at 0330.
[2017-03-09] MEDS: Omega-3 Fatty Acids 1,000 mg Capsule PO SCH ×2 (07:50→20:53)
[2017-03-09 10:15] VITALS: BP 130/75; PULSE 79; RESP 16
--- NOTE | 2017-03-09 10:48 | PCM.PNPSY ---
Subjective Date of Service March 09, 2017 Subjective I spent 30 minutes both reviewing his treatment plan and providing supportive and educational psychotherapy. I spent less than 50% of the time counseling the patient. I reviewed the treatment plan with the patient and discussed options available. Our medical student Sarah also spent 30 minutes interviewing and providing supportive psychotherapy to Angel.. The patient reports ongoing feeling that he should , but denies plan or intent and his concern of harming his family keeps him from harming himself. Angel repeats feeling highly guilty about thoughts he is having that are causing him to fear he is a bad wilbert and she fears the retribution by God for his thoughts feelings and previous actions. The Staff reports that he has been isolative but is now attempting to participate in one-to-one unit and group activities. He slept only3 hours. He denied medication side effects . He denies symptoms of suicidal ideation or positive symptoms of psychosis. Previously he had been having visual hallucinations of people or trees and believed he had telekinesis. He remains ambivalent and indecisive Mental Status Exam Vital Signs Vital Signs Date Time Temp Pulse Resp B/P Pulse Ox O2 Delivery O2 Flow Rate FiO2 03/09/17 10:15 35.3 79 16 130/75 Appearance: Unkept Attitude: Pleasant, Cooperative Behavior: Distractible Affect: Flat Mood: Depressed, Anxious Thought Process/Associations: Tangential Speech Production: Paucity Speech Rate: Lags/Latency Speech Articulation: Normal Thought Content: Spiritism preoccupation, Negativistic, Suspicious, Perseveration Danger to Self/Suicidal Ideati: None Danger to Others: None Delusions: Paranoid (Endorses) Consciousness: Alert Orientation: Person, Place, Situation Memory: Short Term Memory (Impaired), Detention Memory (Impaired) Estimate Intellectual Function: Average Basis for IQ estimate: Word use/vocabulary, Educational history Attention/Concentration & Cogn: Impaired Insight: Limited Judgement: Limited Result Diagram: 03/03/1790203/03/17902 Mental Health Plan Angel is a 51 year old male with a history of schizoaffective disorder who reduced medication adherence and eventually stopped all medications, decompensated, attempted suicide and was detained by the [facility]. The patient's outpatient provider indicates that he responded well to his outpatient medications and was stable for quite some time. They report that they will have intensive outpatient treatment to help him with medication adherence. Angel appears to be making slow but steady progress with gradually improving thought organization and mood stability. He is struggling with negative symptoms of schizophrenia and a severe sense of poor self worth and self- esteem. Angel repeats feeling highly guilty about thoughts he is having that are causing him to fear he is a bad wilbert and she fears the retribution by God for his thoughts feelings and previous actions. The Staff reports that he has been isolative but is now attempting to participate in one-to-one unit and group activities. The patient now denies feeling that he should (no plan or intent ). He remains quite delayed in thought processing and speech and I believe he is gravely disabled. Given his impaired thought processing and recent bizarre behavior I do not believe he is competent to make medical decisions at this point. I believe he would benefit from a continued stay on our psych unit with both psychosocial rehabilitation and additional monitoring of his medications. During my interviews, Angel could provide little additional information about what had happened. He had a difficult time relating a coherent history and his thought process is significant for poverty of thought. At this time, the patient remains with little insight but is increasingly able to attend to activities of daily living . [place] AXIS I: Schizoaffective disorder, bipolar type Alcohol use disorder Marijuana use disorder AXIS II: Deferred AXIS III: None reported. AXIS IV: Moderate with recent Mother's day, medication non-adherence. AXIS V: GAF 35 Medications Geodon to 20mg po bid Abilify 15mg po daily Cogentin 1mg po bid Depakote ER 1500mg po nightly Trazodone 150mg po nightly Treatments 1. The patient is admitted to the inpatient unit and will be provided a safe and secure environment. 2. The patient is reporting passive suicidal ideation and is denying current active suicidality and is agreeing to notify staff should it worsen and is not in need of a one-to-one at this time. Should staff notice a worsening of his symptoms, he may require a one-to-one. 3. The patient is encouraged to participate with group and milieu activities. 4. The patient will be seen by the treatment team on a daily basis to assess symptoms, side effects and response to treatment. 5. ziprasidone 20mg po bidwm 6. aripiprazole 15mg daily. 7. Anticipated length of stay is 10-14 days. Harjit Andersen MD March 09, 2017 10:47
--- NOTE | 2017-03-09 13:49 | NUR ---
DAYS 7- S/O-Patient has been in dining room working on puzzles and visiting with staff and patients 1:1. Patient is soft spoken, states "It is all up to me but I am feeling better". "some days are good and some are bad". Denies self harm thoughts or harm to others. Eye contact appropriate and reports not sleeping well last night due to "thinking too much". A- Conversation redirected to positive reinforcement of not isolating in room. Patient encouraged to continue working on social interactions and interacting with staff and other patients. P-Continue care plan of keeping patient safe to self and others. Addendum: 03/09/17 at 1757 by LESLYE CHIU RN S-Patient has played football with other patient in [facility], almost finished [employer] puzzle. O- Patient continues to be quiet but social with others. A-Patient is making progress with socialization and become more positive attitude.
--- NOTE | 2017-03-09 17:26 | NUR ---
internet manager/Counselor: S: "I just have to be myself." O: Patient only slept 3.25 hours last night per staff. Patient denies S/I because "I figured out how important it is to live." He denies H/I. He reports hearing voices but "they are not mean to me." He also reports having visual hallucinations but "the visions want to help me, we work as a group." When asked if he can rate depression, patient stated, "I take a walk when I get depressed." He did not rate anxiety. When asked his mood, patient stated, "Moving." A: Patient is cooperative, distractible, flat affect, depressed, anxious, tangential, suspicious, paranoid, limited insight limited judgment. P: Follow care plan, coordinate with out-patient providers.
--- NOTE | 2017-03-09 19:46 | NUR ---
MHA Note D-Patient attended all ADLs and showered. He appears moderately groomed. He did not attend any social activities or structured groups this shift. He ate all of his meals. A- Patient is isolative even though he spent most of the shift in the dining room working on a puzzle. He was social periodically, including playing football on the patio but was otherwise in his room or working on the puzzle. Patient denies to this courtroom reporter any suicidal or homicidal ideation or any thought disturbances but states he feels anxious. P-Continue current treatment plan.
[2017-03-09] MEDS: Divalproex (QD) 500 mg ER24 Tablet PO SCH (20:53)
[2017-03-09] MEDS: TRAZODONE PO SCH ×2 (20:54)
--- NOTE | 2017-03-10 05:58 | NUR ---
Nursing Note - 7pm to 7am shiftman Pt is room at start of shift, sitting in bed staring at wall for from 1900 until 2100. He then came out and sat in day room doing a puzzle and interacting with select peers. Pt reports he is attempting to isolate less however finds the unit loud and sometimes difficult to cope with. Pts mood depressed and affect congruent. Pt reports ongoing thoughts of but denies a plan. Pt went to bed at 2230. Took Trazadone for sleep and slept through the night without interruption. Pt slept 7.5 hours Monitored pt. with q15 min face checks for safety location and accountability
[2017-03-10] MEDS: Omega-3 Fatty Acids 1,000 mg Capsule PO SCH ×2 (08:06→20:54)
[2017-03-10 08:47] VITALS: BP 121/72; PULSE 77; RESP 16
--- NOTE | 2017-03-10 17:55 | NUR ---
Nursing note day shift S/O: Pt interacting appropriately with other patients. Pt participating in group and activity, making a collage for everyone of outdoor activities. A: Pt makes poor eye contact with others, usually looking downwards or away when talking. Pt has flat affect and depressed mood. Pt has clear, quiet and well-paced speech. Pt participated with group. Pt spent very little time outside today, preferring to stay inside and work on puzzle, P: Follow plan of care, monitor behaviors.
--- NOTE | 2017-03-10 19:57 | NUR ---
MHA Note D-Patient attended social groups and activities this shift with positive contribution. He ate all of his meals. Patient attended ADLs and appears well groomed. A- Patient spent most of the shift in the common area working on a puzzle or out on the back patio playing with the football. Patient is alex when engaged at first but will become more articulate as the conversation progresses. He does not make eye contact but appears able to tract at least superficial conversations. He has been social and conversational with peers on the unit. He denies any suicidal or homicidal ideation. Patient appears internally preoccupied at times but did not divulge any information about any thought disturbances to this information receptionist. P- Continue current treatment plan.
[2017-03-10] MEDS: Divalproex (QD) 500 mg ER24 Tablet PO SCH (20:54)
[2017-03-10] MEDS: ARIPiprazole 10 mg Tablet PO SCH (20:54)
[2017-03-10] MEDS: TRAZODONE PO SCH ×2 (20:55)
--- NOTE | 2017-03-10 22:05 | PCM.PNPSY ---
Subjective Date of Service March 10, 2017 Subjective The patient still reports spending much of his time in his room when feeling stressed though he overall reports that he "felt really good" this morning. He reports feeling that "there's hope." He stated that he would eventually like a job. He also stated that Medisets do not seem to work well for him due to confusion/memory and we discussed using bubble packs which he seemed to think would help. He reports still having some daytime sedation. He denies experiencing troubling hallucinations or suicidality. Sleep: 7.5 hours, "had good dreams." Appetite: "good" Suicidal and homicidal ideation: denies Auditory hallucinations: denies recent then adds, "hearing more and more about nature." Visual hallucinations: denies Other Psychotic Symptoms: denies voices for some time telling him to harm children Anxiety: "it depends" denies in last 24 hours Depression: only when anxious Current Medications Current Medications Aripiprazole 20 mg HS PO Last administered on 03/10/17t 20:54; Admin Dose 20 MG ; Start 03/10/17 at 21:00 Mental Status Exam Appearance: Unkept Attitude: Pleasant, Cooperative Behavior: Distractible Affect: Restricted Mood: Dysthymic Thought Process/Associations: Tangential Speech Production: Paucity Speech Rate: Lags/Latency Speech Articulation: Normal Thought Content: Holiness preoccupation, Perseveration Danger to Self/Suicidal Ideati: None Danger to Others: None Delusions: Paranoid (Endorses mild) Hallucinations: Auditory (Denies), Visual (Denies) Consciousness: Alert Orientation: Person, Place, Situation Memory: Short Term Memory (Impaired), Vessel Welder Memory (Impaired) Estimate Intellectual Function: Average Basis for IQ estimate: Word use/vocabulary, Educational history Attention/Concentration & Cogn: Impaired Insight: Limited Judgement: Limited Mental Health Plan The patient is a 51 year old male with a history of schizoaffective disorder who reduced medication adherence and eventually stopped all medications, decompensated, attempted suicide and was detained by the [facility]. The patient's outpatient provider indicates that he responded well to his outpatient medications and was stable for quite some time. They report that they will have intensive outpatient treatment to help him with medication adherence. The patient reports improvement in symptoms with reduction in both positive and negative symptoms but is still experiencing some sedation and isolation. He was agreeable to further cross-taper of aripiprazole. [place] AXIS I: Schizoaffective disorder, bipolar type Alcohol use disorder Marijuana use disorder AXIS II: Deferred AXIS III: None reported. AXIS IV: Moderate with recent Mother's day, medication non-adherence. AXIS V: GAF 35 Medications Geodon to 20mg po bid Abilify 15mg po daily Cogentin 1mg po bid Depakote ER 1500mg po nightly Trazodone 150mg po nightly Treatments 1. The patient is admitted to the inpatient unit and will be provided a safe and secure environment. 2. The patient is denying suicidal ideation and is not in need of a one-to-one at this time. 3. The patient is encouraged to participate with group and milieu activities. 4. The patient will be seen by the treatment team on a daily basis to assess symptoms, side effects and response to treatment. 5. Discontinue ziprasidone 6. Increase aripiprazole to 20mg nightly. 7. Anticipated length of stay is 10-14 days. Asael Adkins MD March 10, 2017 22:05 Asael Adkins MD March 10, 2017 22:05
--- NOTE | 2017-03-11 06:21 | NUR ---
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 Voiced no complaints.
[2017-03-11] MEDS: Omega-3 Fatty Acids 1,000 mg Capsule PO SCH ×2 (08:00→20:36)
[2017-03-11 10:00] VITALS: BP 116/75; PULSE 79; RESP 18
--- NOTE | 2017-03-11 17:04 | NUR ---
Nursing note day shift S/O: Pt interacting appropriately with other patients. Pt participating in milieu, group and activity A: Pt making increased eye contact when talking to others now. Pt has flat affect and depressed mood. However patient states his mood is at a 9/10 today. Pt has clear, quiet and well-paced speech. Pt participated with group. Pt spent time outside today and with group. Encouraged pt to continue working on group interactions. Pts brother visited during visiting hours. P: Follow plan of care, monitor behaviors.
--- NOTE | 2017-03-11 18:19 | NUR ---
Observations [id number] Pt shared this morning that his family was coming to bring him clothing. He appeared to be excited to have a visitor. Pt more open to sharing with staff and peers. He spent time on the patio playing football. He spent the majority of the day in his room. Pt continues to appear internally preoccupied. He attended all meals, eating 100%. Pt did visit with his brother in the evening. He was observed every 15 minutes of shift as directed.
--- NOTE | 2017-03-11 19:52 | PCM.PNPSY ---
Subjective Date of Service March 11, 2017 Subjective The patient reports that he is doing "pretty good" today. He reports that "it can be embarrassing sometimes when people take things the wrong way." He reports that he is optimistic today as his family are scheduled to be arriving today. The patient denies hallucinations and reports only "looking at nature." He denies experiencing troubling hallucinations or suicidality. He indicates no changes with discontinuation of ziprasidone and increase of aripiprazole. Sleep: 7.5 hours, "good" Appetite: "pretty good" Suicidal and homicidal ideation: denies Auditory hallucinations: denies recent Visual hallucinations: denies Other Psychotic Symptoms: denies voices for some time telling him to harm children Anxiety: "could be a problem in public situations" as he has some social anxiety at times with new people. Depression: 0/10 Current Medications Current Medications Aripiprazole 20 mg HS PO Last administered on 03/10/17t 20:54; Admin Dose 20 MG ; Start 03/10/17 at 21:00 Mental Status Exam Appearance: Unkept Attitude: Pleasant, Cooperative Behavior: Distractible Affect: Restricted Mood: Dysthymic Thought Process/Associations: Tangential Speech Production: Paucity Speech Rate: Lags/Latency Speech Articulation: Normal Thought Content: Advent preoccupation, Perseveration Danger to Self/Suicidal Ideati: None Danger to Others: None Delusions: Paranoid (Endorses mild) Hallucinations: Auditory (Denies), Visual (Denies) Consciousness: Alert Orientation: Person, Place, Date, Situation Memory: Short Term Memory (Impaired), Paleontology Teacher Memory (Impaired) Estimate Intellectual Function: Average Basis for IQ estimate: Word use/vocabulary, Educational history Attention/Concentration & Cogn: Impaired Insight: Limited Judgement: Limited Mental Health Plan The patient is a 51 year old male with a history of schizoaffective disorder who reduced medication adherence and eventually stopped all medications, decompensated, attempted suicide and was detained by the [facility]. The patient's outpatient provider indicates that he responded well to his outpatient medications and was stable for quite some time. They report that they will have intensive outpatient treatment to help him with medication adherence. The patient reports improvement in symptoms with reduction in both positive and negative symptoms but is still experiencing some anxiety, he feels that he is progressing and is looking forward to eventually working again. [place] AXIS I: Schizoaffective disorder, bipolar type Alcohol use disorder Marijuana use disorder AXIS II: Deferred AXIS III: None reported. AXIS IV: Moderate with recent Mother's day, medication non-adherence. AXIS V: GAF 35 Medications Abilify 20mg po daily Cogentin 1mg po bid Depakote ER 1500mg po nightly Trazodone 150mg po nightly Treatments 1. The patient is admitted to the inpatient unit and will be provided a safe and secure environment. 2. The patient is denying suicidal ideation and is not in need of a one-to-one at this time. 3. The patient is encouraged to participate with group and milieu activities. 4. The patient will be seen by the treatment team on a daily basis to assess symptoms, side effects and response to treatment. 5. Continue current medication, consider further titration of aripiprazole 6. Anticipated length of stay is 10-14 days. Asael Adkins MD March 11, 2017 19:52 Asael Adkins MD March 11, 2017 19:52
[2017-03-11] MEDS: ARIPiprazole 10 mg Tablet PO SCH (20:36)
[2017-03-11] MEDS: Divalproex (QD) 500 mg ER24 Tablet PO SCH (20:37)
[2017-03-11] MEDS: TRAZODONE PO SCH ×2 (20:37)
--- NOTE | 2017-03-12 04:52 | NUR ---
Nursing Note 7pm to 7am Photo Specialist Pt seclusive to room at start of shift. When approached to assess pt he stated Im afraid I am going to do something that is going to get me in trouble. Pt would not elaborated but denied that he was having thoughts of harming himself or others and stated he would come to staff if he was feeling unsafe. Consulted with staff who felt his comments were related to a difficult visit he had with brother this evening. Pts mood dysphoric and guarded, affect restricted. Pt denies A/VH and denies SI. Pt took HS meds and went to bed at 2130. Pt slept through the night. Monitored pt for safety, location and accountability.
[2017-03-12] MEDS: Omega-3 Fatty Acids 1,000 mg Capsule PO SCH ×2 (08:15→20:20)
--- NOTE | 2017-03-12 16:13 | PCM.PNPSY ---
Subjective Date of Service March 12, 2017 Subjective Angel states that he thinks he's doing okay "I should be able to be at my home. " Had a family visit yesterday and say sit went okay. Denies any noticeable side effects to the increase in Abilify, though states he gets a muscle twitch every now and then. Says he "sometimes gets bad thoughts, but they don't last long" and "sad, not depressed." He says he feels safe in the milieu and describes stress due to the other peoples lives he creates in his mind and having to keep track of them, "it's not up to me, I have to take care of myself. " Sleep: 8hrs, described as "well, real good" Appetite: "real good" Suicidal ideation: Denies Homicidal ideation: unclear response Auditory hallucinations: "a little bit outside" Visual hallucinations: Shadows "if I stare at anything long enough." Notes fewer people being seen in the trees, reports seeing faces/shapes in floor. Other Psychotic Symptoms: Social isolation though improving. Anxiety:02/21 Depression: "not really depressed" 02/21 Current Medications Current Medications Aripiprazole 20 mg HS PO Last administered on 03/11/17t 20:36; Admin Dose 20 MG ; Start 03/10/17 at 21:00 Mental Status Exam Appearance: Unkept Attitude: Pleasant, Cooperative, Guarded Behavior: Distractible Affect: Restricted Mood: Dysthymic Thought Process/Associations: Loose Speech Production: Paucity Speech Rate: Lags/Latency Speech Articulation: Normal Thought Content: Appropriate, Suspicious (at times) Danger to Self/Suicidal Ideati: None Danger to Others: None Delusions: Paranoid (Endorses mild) Hallucinations: Auditory (Endorses), Visual (Endorses) Consciousness: Alert Orientation: Person, Place, Date, Situation Memory: Short Term Memory (Impaired), 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 The patient's outpatient provider indicates that he responded well to his outpatient medications and was stable for quite some time. They report that they will have intensive outpatient treatment to help him with medication adherence. Continues to report improvement with both positive and negative symptoms, such as hearing voices and seeing shadows, however still present. He seems guarded in his conveying of this information. He says doesn't think he needs to be here and can be managed at home. [place] AXIS I: Schizoaffective disorder, bipolar type Alcohol use disorder Marijuana use disorder AXIS II: Deferred AXIS III: None reported. AXIS IV: Moderate with recent Mother's day, medication non-adherence. AXIS V: GAF 35 Medications Abilify 20mg po daily Cogentin 1mg po bid Depakote ER 1500mg po nightly Trazodone 150mg po nightly Treatments 1. The patient is admitted to the inpatient unit and will be provided a safe and secure environment. 2. The patient is denying suicidal ideation and is not in need of a one-to-one at this time. 3. The patient is encouraged to participate with group and milieu activities. 4. The patient will be seen by the treatment team on a daily basis to assess symptoms, side effects and response to treatment. 5. Continue current medication, consider further titration of aripiprazole 6. Anticipated length of stay is 10-14 days. Attending Statement The patient was seen and examined together with Dr. Puente on 03/12/17 and I have added additional information to the note above. Reynaldo Puente DO March 12, 2017 16:13 Asael Adkins MD March 12, 2017 22:48
--- NOTE | 2017-03-12 16:14 | NUR ---
Shift note 7A-7P Pt. has been fairly reserved today, spending most of the day in his room resting. He did come out for meals. States he is feeling a little depressed. Denies anxiety, hallucinations, or thoughts of hurting self or others. When asked more specifics about mood or thoughts, pt. did not want to go into detail. Pts. sister from [place] called the nurses station, stating that she had called Agnel this morning and he told her that he was "feeling sick, very sick". I talked to Angel afterwards, and he said that sometimes when he talks on the phone he gets nervous and feels sick to his stomach. Denies any other problems.
[2017-03-12 16:51] VITALS: BP 119/80; PULSE 74; RESP 17
--- NOTE | 2017-03-12 17:39 | NUR ---
Observations [id number] Pt remained in room much of the day, isolating more then in previous days. Pt was pleasant with staff and peers when in common areas. He attended all meals, eating 100%. Pt did not participate in community meeting or other unit activities. He visited with his brother during visiting hours. He was observed every 15 minutes of shift as directed.
[2017-03-12] MEDS: ARIPiprazole 10 mg Tablet PO SCH (20:18)
[2017-03-12] MEDS: Divalproex (QD) 500 mg ER24 Tablet PO SCH (20:18)
[2017-03-12] MEDS: TRAZODONE PO SCH ×2 (20:19)
--- NOTE | 2017-03-13 04:46 | NUR ---
OBSERVATIONS Pt was isolative and spent all but a few moments of the shift in his room. When asked if there was something keeping him from coming out into the common area, pt replied, "I just get real confused sometimes." Asked what pt gets confused about and pt responded with indiscernible hand gestures and a grunt. Pt was pleasant with staff when addressed. Pt recorded asleep at 2300, woke for a period between 0215 and 0400. Maintained Q15 checks as directed for safety.
[2017-03-13 08:45] VITALS: BP 131/90; PULSE 90; RESP 17
[2017-03-13] MEDS: Omega-3 Fatty Acids 1,000 mg Capsule PO SCH ×2 (09:37→20:46)
--- NOTE | 2017-03-13 11:43 | PCM.PNPSY ---
Subjective Date of Service March 13, 2017 Subjective "Not doing well at all." Had a visit from his brother this previous evening, staff and patient state afterwords he was very upset "I'm letting them down, it' s my fault." In regards to his symptoms since admission, he says he's still feeling bad and "I need to feel sad and depressed for what I've done." He is guarded in his remarks stating that "I have to be careful with what I say or do because it will be turned around on me." Sleep: Not well. Appetite: Good. Suicidal and homicidal ideation: Denies. Auditory hallucinations: Voices Visual hallucinations: People in trees out his window. Other Psychotic Symptoms: Anxiety: present. Depression: 07/24 Mental Status Exam Appearance: Unkept Attitude: Pleasant, Cooperative, Guarded Behavior: Distractible Affect: Restricted Mood: Dysthymic Thought Process/Associations: Loose Speech Production: Paucity Speech Rate: Lags/Latency Speech Articulation: Normal Thought Content: Appropriate, Negativistic, Suspicious (at times), Perseveration Danger to Self/Suicidal Ideati: None Danger to Others: None Delusions: Paranoid (Endorses mild) Hallucinations: Auditory (Endorses), Visual (Endorses) Consciousness: Alert Orientation: Person, Place, Date, Situation Memory: Short Term Memory (Impaired), 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 The patient's outpatient provider indicates that he responded well to his outpatient medications and was stable for quite some time. They report that they will have intensive outpatient treatment to help him with medication adherence. Remains on medications with slow improvement since admission, but recent exacerbation. He's been meeting with his brother the last two afternoons and has been very upset following the visits. Until the source of the aggravation can be determined, the patient may benefit from a brief break from visitation by his brother. We will check a depakote level to evaluate for therapeutic level. additionally, since we have stopped the Geodon, patient may benefit from increase in Abilify for a few days. Although decreased, he continues to have hallucinations of voices and seeing people in the trees outside his window. [place] AXIS I: Schizoaffective disorder, bipolar type Alcohol use disorder Marijuana use disorder AXIS II: Deferred AXIS III: None reported. AXIS IV: Moderate with recent Mother's day, medication non-adherence. AXIS V: GAF 35 Medications Abilify 30mg po HS Cogentin 1mg po bid Depakote ER 1500mg po nightly Trazodone 150mg po nightly Treatments 1. The patient is admitted to the inpatient unit and will be provided a safe and secure environment. 2. The patient is denying suicidal ideation and is not in need of a one-to-one at this time. 3. The patient is encouraged to participate with group and milieu activities. 4. The patient will be seen by the treatment team on a daily basis to assess symptoms, side effects and response to treatment. 5. Increase Abilify to 30mg temporarily and decrease if symptoms worsen or side effects develop. 6. Check serum depakote level. 7. Advised against visit from brother to allow time to recover.. 8. Anticipated length of stay is 10-14 days. Attending Statement The patient was seen and examined together with Dr. Puente on 03/13/17 and I have added additional information to the note above. Reynaldo Puente DO March 13, 2017 11:43 Asael Adkins MD March 13, 2017 21:40
[2017-03-13] MEDS: LORazepam 1 mg Tablet PO PRN (12:43)
--- NOTE | 2017-03-13 17:27 | NUR ---
Obs Dayshift Pt continues to appear very confused, distressed, sad, depressed, and anxious. Pt attempts to participate in groups and activities on the unit but often finds himself standing aimlessly in the halls and needing staff assistance or direction. Pt is polite, engages when approached but minimally. Pt has a hard time explaining his thoughts or actions, states that he is sorry but won't elaborate on why. Pt stands in the hallway staring out the window. Good meals, Ok ADL's
--- NOTE | 2017-03-13 18:50 | NUR ---
Nursing. Day shift: S: I would like to get better. O: Talked with nurse about wanting to feel better, about feeling bad about how he effects others on unit. RAted anxiety at 6/10, Depression 7/10 and at 1800 for suicidality stated "not now". Eyes downcast. Mostly stays in room. PRn med: At 1243 for Anxiety: Ativan 1 mg. A: Still depressed. Anxious. P: Continue to assess for med effects and side effects.
[2017-03-13] MEDS: TRAZODONE PO SCH ×2 (20:46)
[2017-03-13] MEDS: Divalproex (QD) 500 mg ER24 Tablet PO SCH (20:46)
--- NOTE | 2017-03-13 23:13 | NUR ---
Behavior P: When pt asked "Did you have a good day?" He responded, "It's getting better and better." I: Pt cooperative with meds. Denies any needs at this time. E: WIll cont to monitor
[2017-03-14 07:26] LABS: BASOPHILS % (AUTO) 0.3 % (0-3); EOSINOPHILS % (AUTO) 1.2 % (0-5); MONOCYTES % (AUTO) 9.1 % (4-12); Mean Corpuscular Hemoglobin 31.1 pg (27.0-35.0); Mean Corpuscular Volume 86.4 fL (81-100); NEUTROPHILS % (AUTO) 60.9 % (40-74); Platelet Count 231 bil/L (150-400)
[2017-03-14] MEDS: Omega-3 Fatty Acids 1,000 mg Capsule PO SCH ×2 (09:25→21:12)
--- NOTE | 2017-03-14 12:28 | NUR ---
Mix House Tender/Counselor: S: "I woke up this morning fine, then I saw that I am still here, I thought it was a dream." O: Patient slept 8 hours last night as per staff. He denies S/I and H/I. He reports "hearing different voices, they come in different....it can be anything." He denies visual hallucinations. Depression is 0/10 and anxiety is 0/10. When asked his mood, patient stated, "I'm doing fine, but cautious." Patient went on to state, "Some things are confidential. Nobody was bothering me until I walked out this door. I just didn't want a repeat of the other days." A: Patient is guarded, anxious, depressed, flat affect, paranoid, delusional, tangential, suspicious, lethatgic, limited insight, poor judgment. P: Follow the care plan, coordinate with out-patient providers. Addendum: 03/14/17 at 1514 by KD BOYCE [facility] [place] Patient attended group and attempted to participate in morning and afternoon group sessions.
--- NOTE | 2017-03-14 16:40 | PCM.PNPSY ---
Subjective Date of Service March 14, 2017 Subjective The patient reports that he is doing "fine" today but that he "woke up this morning, was fine and then realized I was here... Today is better than yesterday." Regarding the brother's visits which made him somewhat anxious and sad he stated that he had originally thought his brother was not even going to come visit him and then after they talked he felt he needed to be "cautious" about some things. For example he stated he needed to be cautious about opening the door so as not to get afraid. He reported that his auditory and visual hallucinations were decreased. He denied side effects. He expressed desire to be eventually discharged and go home. Sleep: 8 hours "good" Appetite: "Fine" Suicidal and homicidal ideation: Denies Auditory hallucinations: "Different voices, but better " Visual hallucinations: Denies Other Psychotic Symptoms: Some thought blocking Anxiety: Denies Depression: "Not yet" Current Medications Current Medications Aripiprazole 30 mg HS PO Last administered on 03/13/17t 20:47; Admin Dose 30 MG ; Start 03/13/17 at 21:00 Mental Status Exam Appearance: Unkept Attitude: Pleasant, Cooperative, Guarded Behavior: Distractible Affect: Restricted Mood: Dysthymic Thought Process/Associations: Goal Directed Speech Production: Paucity Speech Rate: Lags/Latency Speech Articulation: Normal Thought Content: Appropriate, Negativistic, Suspicious (at times), Perseveration Danger to Self/Suicidal Ideati: None Danger to Others: None Delusions: Paranoid (Endorses mild) Hallucinations: Auditory (Endorses), Visual (Denies) Consciousness: Alert Orientation: Person, Place, Date, Situation Memory: Short Term Memory (Impaired), Skilled Nursing Memory (Impaired) Estimate Intellectual Function: Average Basis for IQ estimate: Word use/vocabulary, Educational history Attention/Concentration & Cogn: Impaired Insight: Limited Judgement: Limited Result Diagram: 03/14/17 0700 03/14/17 0700 Mental Health Plan The patient is a 51 year old male with a history of schizoaffective disorder who reduced medication adherence and eventually stopped all medications, decompensated, attempted suicide and was detained by the [facility]. The patient's outpatient provider indicates that he responded well to his outpatient medications and was stable for quite some time. They report that they will have intensive outpatient treatment to help him with medication adherence. The patient reports today that he is feeling somewhat better and notes a decrease in his hallucinations. He still is exhibiting negative symptoms with social isolation and somewhat impaired hygiene. His eye contact was improved today. He is reporting no side effects. Depakote level was in similar therapeutic range indicating medication adherence. [place] AXIS I: Schizoaffective disorder, bipolar type Alcohol use disorder Marijuana use disorder AXIS II: Deferred AXIS III: None reported. AXIS IV: Moderate with recent Mother's day, medication non-adherence. AXIS V: GAF 35 Medications Abilify 30mg po HS Cogentin 1mg po bid Depakote ER 1500mg po nightly Trazodone 150mg po nightly Lorazepam 1-2 mg every 4 hours when necessary Thiamine 100 mg daily Multivitamin 1 daily Treatments 1. The patient is admitted to the inpatient unit and will be provided a safe and secure environment. 2. The patient is denying suicidal ideation and is not in need of a one-to-one at this time. 3. The patient is encouraged to participate with group and milieu activities. 4. The patient will be seen by the treatment team on a daily basis to assess symptoms, side effects and response to treatment. 5. Continue with Abilify 30mg daily 6. Continue current Depakote. 7. Advised against visit from brother for a few days to allow time to recover, but patient believes he can visit with him safely. 8. Anticipated length of stay is 10-14 days. Asael Adkins MD March 14, 2017 16:40
--- NOTE | 2017-03-14 17:53 | NUR ---
[facility] Day Shift Pt maintained behavioral control throughout the shift. Pt affect appears flat. Pt spends most of the shift resting in his room, or lightly pacing the unit. Pt is appropriate with staff and peers when active on the unit, but is not social. Pt appears internally preoccupied, and pt speech/thought content appears bizarre (though much less so than noted on previous shifts). Pt is lightly participatory in unit activities throughout the shift. Pt attended all meals and ate approx 70-100% of all meals.
--- NOTE | 2017-03-14 18:09 | NUR ---
Nursing: Day shift: 699 to 1899 Angel S: If I get out I have to take care of myself. I cant live with my family. I need help. I realize that I have to leave the hospital. (Suicidal?) Just when things are out of control. That's when I end up here. O: Angel spoke for about five minutes to racebook writer. Eyes downcast the whole time. Rated both depression and anxiety at 5/10. Did not give answer to how suicidal he was. Denied any AH but appears to be attending to internal stimuli. Indicates that case loader operator is working on plans for after discharge. Out on open unit more during late afternoon. A: Depressed. Isolative. Withdrawn (or overwhelmed with 8 female peers on unit). P: Assess for effectiveness of medication change.
[2017-03-14] MEDS: LORazepam 1 mg Tablet PO PRN (21:12)
[2017-03-14] MEDS: TRAZODONE PO SCH ×2 (21:14)
[2017-03-14] MEDS: Divalproex (QD) 500 mg ER24 Tablet PO SCH (21:15)
--- NOTE | 2017-03-15 01:41 | NUR ---
Nursing NOC 7p-7a PT has been in room most of the night. THe only time this RN saw pt was when he was taking his HS meds. PT spoke of phone with his brother for a while. After the call with his brother pt appeared in better spirits. Pt handed the phone to this RN and stated "I want to participate in groups tomorrow." PT is feeling more motivated. HE made some eye contact with this RN. PT denies any auditory hallucinations/SI or HI. WIll continue with current POC and to monitor for any A/R. Also, continue to monitor for effectiveness of meds. Will CTM.
[2017-03-15 08:30] VITALS: BP 139/88; PULSE 81; RESP 16
[2017-03-15] MEDS: Omega-3 Fatty Acids 1,000 mg Capsule PO SCH ×2 (09:01→20:26)
--- NOTE | 2017-03-15 12:35 | NUR ---
Nursing Dayshift: S: "I made everyone's day worse last night because because I was in the meeting." O: Patient describing his presence having a negative effect on others. Has been quietly sitting on his bed much of the AM. Forlorn on approach with head down and soft speech. Rates anxiety and depression "very high". Declined offer for prn's. Denies harmful thoughts and hallucinations. Good appetite at meals. Has not attended group activities. A: Quiet. Forlorn. P: CPOC. Monitor mood and behavior.
--- NOTE | 2017-03-15 16:09 | PCM.PNPSY ---
Subjective Date of Service Mar 15, 2017 Subjective Overnight stating to staff that he wanted to particupate in group sessions and activities. He claims he's not doing well, continues to re-iterate that he's hurt a lot of people, namely his brother, by telling them he'd get better and hasn't been able to. He clarifies saying he's never hurt anyone physically, but rather is continuously letting them down. "I take the blame...I can't ask anyone for help." Denies any negative effects from his medications. Sleep: Well. Appetite: Good. Suicidal and homicidal ideation: Denies. Auditory hallucinations: Denies. Visual hallucinations: Denies. Other Psychotic Symptoms: Denies. Anxiety: high. Depression: 07/24 depression. Current Medications Current Medications Aripiprazole 30 mg HS PO Last administered on 03/14/17t 21:14; Admin Dose 30 MG ; Start 03/13/17 at 21:00 Mental Status Exam Vital Signs Vital Signs Date Time Temp Pulse Resp B/P Pulse Ox O2 Delivery O2 Flow Rate FiO2 03/15/17 08:30 36.2 81 16 139/88 Appearance: Unkept Attitude: Pleasant, Cooperative, Guarded Behavior: Distractible Affect: Restricted Mood: Depressed, Anxious Thought Process/Associations: Goal Directed Speech Production: Paucity Speech Rate: Lags/Latency Speech Articulation: Normal Thought Content: Negativistic, Suspicious (at times), Perseveration Danger to Self/Suicidal Ideati: None Danger to Others: None Delusions: Paranoid (Endorses mild) Hallucinations: Auditory (Endorses), Visual (Denies) Consciousness: Alert Orientation: Person, Place, Date, Situation Memory: Short Term Memory (Impaired), Residential Memory (Impaired) Estimate Intellectual Function: Average Basis for IQ estimate: Word use/vocabulary, Educational history Attention/Concentration & Cogn: Impaired Insight: Limited Judgement: Limited Result Diagram: 03/14/17 0700 03/14/17 07 Mental Health Plan The patient is a 51 year old male with a history of schizoaffective disorder who reduced medication adherence and eventually stopped all medications, decompensated, attempted suicide and was detained by the [facility]. The patient's outpatient provider indicates that he responded well to his outpatient medications and was stable for quite some time. They report that they will have intensive outpatient treatment to help him with medication adherence. The patient has been medication compliant, and although indicating little improvement has had significant improvement in hallucinations. Patient's cognition has improved sufficiently to discuss his internal thoughts. He is able to give more insight into what his goals are and what's holding him back. He continues to perseverate on "I've hurt a lot of people...I take the blame." He says he wants to get better but appears to think he needs to continuously feel bad as a form of self-punishment for not feeling better. This cyclic thinking was pointed out to him and we addressed that he's never going to be able to make everyone happy and he has the ability to give himself permission to not feel bad. He voiced frustration that he wasn't better yet, and it was iterated to him that it takes awhile for the medications to reach their therapeutic effects. He stated understanding. Additionally he appeared to be consistently isolating himself in his bedroom which is at the further point from the community rooms, he said he wouldn't mind changing rooms to somewhere closer and brighter room. [place] AXIS I: Schizoaffective disorder, bipolar type Alcohol use disorder Marijuana use disorder AXIS II: Deferred AXIS III: None reported. AXIS IV: Moderate with recent Mother's day, medication non-adherence. AXIS V: GAF 35 Medications Abilify 30mg po HS Cogentin 1mg po bid Depakote ER 1500mg po nightly Trazodone 150mg po nightly Lorazepam 1-2 mg every 4 hours when necessary Thiamine 100 mg daily Multivitamin 1 daily Treatments 1. The patient is admitted to the inpatient unit and will be provided a safe and secure environment. 2. The patient is denying suicidal ideation and is not in need of a one-to-one at this time. 3. The patient is encouraged to participate with group and milieu activities. 4. The patient will be seen by the treatment team on a daily basis to assess symptoms, side effects and response to treatment. 5. Continue with Abilify 30mg daily 6. Continue current Depakote. (serum level therapeutic as of 03/14/17) 7. Advised against visit from brother for a few days to allow time to recover, but patient believes he can visit with him safely. 8. Encourage group activity and engagement. 9. Increase frequency of showers - Advised him to ask whenever he wanted to take a shower. 10. Move room closer to nurses station and community room, with more sunlight. 11. Anticipated length of stay is 10-14 days. Attending Statement The patient was seen and examined together with Dr. Puente on 03/15/17 and I have added additional information to the note above. Reynaldo Puente DO Mar 15, 2017 16:09 Asael Adkins MD Mar 15, 2017 22:08
--- NOTE | 2017-03-15 17:30 | NUR ---
Observations [id number] Pt isolated to room for much of the day, spending less time interacting with peers and staff. Pt did not talk much, and appeared confused at times. Very short, limited responses when questioned. Pt was moved rooms, and stated that it was difficult for him to orient to a new space. He did not attend Community Meeting or group, but did spend a little time on the patio. Pt was observed every 15 minutes of shift as directed.
--- NOTE | 2017-03-15 19:51 | NUR ---
Manufacturing Technician/Counselor: S: "I'm working on apologizing to some people." O: Patient slept 6.5 hours last night as per staff. He denies S/I and H/I. He denies auditory and visual hallucinations. Depression is 10/10 and anxiety is "high." Patient is still making self guilt statements. A: Patient is guarded, anxious, depressed, flat affect, paranoid, delusional, tangential, suspicious, limited insight, poor judgment. P: Follow the care plan, coordinate with out-patient providers. Addendum: 03/15/17 at 1999 by [facility] Patient attended afternoon group session and attempted to participate but had difficulties.
[2017-03-15] MEDS: TRAZODONE PO SCH ×2 (20:24)
[2017-03-15] MEDS: Divalproex (QD) 500 mg ER24 Tablet PO SCH (20:24)
--- NOTE | 2017-03-16 05:20 | NUR ---
Nursing Noc Pt remains guarded, anxious, depressed. Taking medications as prescribed. First noted to be asleep at 2145 and has remained asleep throughout the shift. Continuing to monitor mood, behavior, and emotional state. Q15 minute safety checks performed throughout the shift as ordered. CP
[2017-03-16] MEDS: Omega-3 Fatty Acids 1,000 mg Capsule PO SCH ×2 (07:37→21:16)
[2017-03-16 09:03] VITALS: BP 119/82; PULSE 57; RESP 10
--- NOTE | 2017-03-16 12:36 | NUR ---
Nursing Dayshift: S: "I never know what to say to people. I have no reason to stay in the dining room. I don't want to go into my room either." O: Patient discussing what was bothering him this AM. Was invited outside to throw the football by a peer. Has been out of his room a good amount of the AM. Good appetite at meals. Rated anxiety and depression high due to above subjective. Denies harmful thoughts and hallucinations. A: Forlorn. Quiet. A little more engaging. P: CPOC. Monitor mood and behavior.
[2017-03-16] MEDS: LORazepam 1 mg Tablet PO PRN (13:33)
--- NOTE | 2017-03-16 18:14 | PCM.PNPSY ---
Subjective Date of Service Mar 16, 2017 Subjective Patient reportedly slept well overnight. He was able to get out of his room and interact with staff. Today he states he does not feel as though he is doing too well. He is tolerating his new room well. He denies any people in the trees, or hearing any voices at this time. Sleep: Good 7.75 hours of sleep Appetite: Good Suicidal and homicidal ideation: Denies Auditory hallucinations: Denies Visual hallucinations: Denies Other Psychotic Symptoms: None Anxiety: 10/10, though minimal objective signs of distress noted. Depression: 0/10 Mental Status Exam Appearance: Unkept Attitude: Pleasant, Cooperative, Guarded Behavior: Distractible Affect: Restricted Mood: Depressed, Anxious Thought Process/Associations: Goal Directed Speech Production: Paucity Speech Rate: Lags/Latency Speech Articulation: Normal Thought Content: Negativistic, Suspicious (at times), Perseveration Danger to Self/Suicidal Ideati: None Danger to Others: None Delusions: Paranoid (Endorses mild, "i tell people too much") Hallucinations: Auditory (Denies), Visual (Denies) Consciousness: Alert Orientation: Person, Place, Date, Situation Memory: Short Term Memory (Impaired), Prison Memory (Impaired) Estimate Intellectual Function: Average Basis for IQ estimate: Word use/vocabulary, Educational history Attention/Concentration & Cogn: Impaired Insight: Limited Judgement: Limited Result Diagram: 03/14/17 0700 03/14/17 07 Mental Health Plan The patient is a 51 year old male with a history of schizoaffective disorder who reduced medication adherence and eventually stopped all medications, decompensated, attempted suicide and was detained by the [facility]. The patient's outpatient provider indicates that he responded well to his outpatient medications and was stable for quite some time. They report that they will have intensive outpatient treatment to help him with medication adherence. Patient remains on medication, 30 mg of Abilify daily, there has been a decrease in his positive symptoms, no longer hearing voices, no longer seeing people in the trees. Negative symptoms remain present disheveled, negativistic , speech latency, and self-isolation. He has had no ill side effects from his medication, he has been able to walk around out of his room, and has been interacting with patients. He conveys that he believes he is causing the patient's distress and he was informed that we have received no separate report for many residents of him causing any negative effects on the other residents. He is doing well in the new room, however when asked if there has been any change he says "the last room was fine too." [place] AXIS I: Schizoaffective disorder, bipolar type Alcohol use disorder Marijuana use disorder AXIS II: Deferred AXIS III: None reported. AXIS IV: Moderate with recent Mother's day, medication non-adherence. AXIS V: GAF 35 Medications Abilify 30mg po HS Cogentin 1mg po bid Depakote ER 1500mg po nightly Trazodone 150mg po nightly Lorazepam 1-2 mg every 4 hours when necessary Thiamine 100 mg daily Multivitamin 1 daily Treatments 1. The patient is admitted to the inpatient unit and will be provided a safe and secure environment. 2. The patient is denying suicidal ideation and is not in need of a one-to-one at this time. 3. The patient is encouraged to participate with group and milieu activities. 4. The patient will be seen by the treatment team on a daily basis to assess symptoms, side effects and response to treatment. 5. Continue with Abilify 30mg daily 6. Continue current Depakote. (serum level therapeutic as of 03/14/17) 7. Advised against visit from brother for a few days to allow time to recover, but patient believes he can visit with him safely.8Consider allowing visitation with better improvement of negative symptoms. 8. Contact caser shoe parts, request old records for previous treatment modalities. -Per emergency room documentation on 02/24/17 he is followed by [facility]. 8. Continue to Encourage group activity and engagement. 9. Increase frequency of showers - Advised him to ask whenever he wanted to take a shower. 10.Anticipated length of stay is 10-14 days. Attending Statement The patient was seen and examined together with Dr. Puente on 03/16/17 and I agree with the history, exam and plan as outlined in the note above. Reynaldo Puente DO Mar 16, 2017 18:13 Asael Adkins MD Mar 16, 2017 22:49
--- NOTE | 2017-03-16 18:42 | NUR ---
Rehabilitation Services Aide/Counselor: S: "I'm need to stop the thoughts that I have." O: Patient slept 7.75 hours last night as per staff. He denies S/I and H/I. He denies auditory and visual hallucinations. Depression is "high" and anxiety is "high." A: Patient is guarded, anxious, depressed, flat affect, paranoid, delusional, tangential, suspicious, limited insight, poor judgment. P: Follow the care plan, coordinate with out-patient providers.
[2017-03-16] MEDS: Divalproex (QD) 500 mg ER24 Tablet PO SCH (21:19)
[2017-03-16] MEDS: TRAZODONE PO SCH ×2 (21:21)
--- NOTE | 2017-03-17 04:43 | NUR ---
nursing, nights, s/o- has appeared to sleep after 2200 and awoke once at 0245 during q 15 minute assessments. a- no apparent distress. p- monitor behavior/emotional state, quality, times and amount of sleep, use and effect of medication.
[2017-03-17] MEDS: Omega-3 Fatty Acids 1,000 mg Capsule PO SCH ×2 (09:03→20:27)
--- NOTE | 2017-03-17 14:16 | PCM.PNPSY ---
Subjective Date of Service Mar 17, 2017 Subjective I spent 30 minutes both reviewing his treatment plan and providing supportive and educational psychotherapy. I spent more than 50% of the time counseling the patient. I reviewed the treatment plan with the patient and discussed options available including the potential risks, benefits and side effects. Angel reports feeling hopeless and highly guilty. The Staff reports that he has been isolative sustained to his room but is attempting to participate in one -to-one unit and group activities. He slept 7 hours. He denies medication side effects. Patient was able to identify his medications and what they were used to treat. Mental Status Exam Appearance: Unkept Attitude: Pleasant, Cooperative, Guarded Behavior: Distractible Affect: Restricted Mood: Depressed, Anxious Thought Process/Associations: Goal Directed Speech Production: Paucity Speech Rate: Lags/Latency Speech Articulation: Normal Thought Content: Negativistic, Suspicious (at times), Perseveration Danger to Self/Suicidal Ideati: None Danger to Others: None Delusions: Paranoid (Endorses mild, "i tell people too much") Hallucinations: Auditory (Denies), Visual (Denies) Consciousness: Alert Orientation: Person, Place, Date, Situation Memory: Short Term Memory (Impaired), Nursing Home Memory (Impaired) Estimate Intellectual Function: Average Basis for IQ estimate: Word use/vocabulary, Educational history Attention/Concentration & Cogn: Impaired Insight: Limited Judgement: Limited Result Diagram: 03/14/17 0700 03/14/17 0700 Mental Health Plan Angel is a 51 year old male with a history of schizoaffective disorder who reduced medication adherence and eventually stopped all medications, decompensated, attempted suicide and was detained by the [facility]. The patient's outpatient provider indicates that he responded well to his outpatient medications and was stable for quite some time. They report that they will have intensive outpatient treatment to help him with medication adherence. Angel appears to be making slow but steady progress with gradually improving thought organization and mood stability. He is struggling with negative symptoms of schizophrenia and a severe sense of poor self worth and self- esteem. Angel repeats feeling highly guilty about thoughts he is having that are causing him to fear he is a bad wilbert and she fears the retribution by God for his thoughts feelings and previous actions. The Staff reports that he has been isolative but is now attempting to participate in one-to-one unit and group activities. The patient now denies feeling that he should (no plan or intent ). He remains quite delayed in thought processing and speech and I believe he is gravely disabled. Given his impaired thought processing and recent bizarre behavior I do not believe he is competent to make medical decisions at this point. I believe he would benefit from a continued stay on our psych unit with both psychosocial rehabilitation and additional monitoring of his medications. During my interviews, Angel could provide little additional information about what had happened. He had a difficult time relating a coherent history and his thought process is significant for poverty of thought. At this time, the patient remains with little insight but is increasingly able to attend to activities of daily living . [place] AXIS I: Schizoaffective disorder, bipolar type Alcohol use disorder Marijuana use disorder AXIS II: Deferred AXIS III: None reported. AXIS IV: Moderate with recent Mother's day, medication non-adherence. AXIS V: GAF 35 Medications Abilify 30mg po HS Cogentin 1mg po bid Depakote ER 1500mg po nightly Trazodone 150mg po nightly Lorazepam 1-2 mg every 4 hours when necessary Thiamine 100 mg daily Multivitamin 1 daily Treatments Patient is being provided with a high degree of safety through structure and active adult engagement. We are focusing on developing improved coping skills and identifying stressors that may have led to current episode. We will attempt to: Integrate into therapeutic groups, milieu and individual therapy. Maintain in a closely monitored and structured unit Provide low-stimulation environment Obtain collateral data to assist in treatment planning Assess degree of lability of affect and impulse control Complete safety plan Decrease frequency of relapse and need for re-hospitalization Denies thoughts of harm to self and/or others Establish a consistent sleep pattern Medication effective in stabilization of mood and/or thought process Reduce the risk of imminent harm to self and/or others by providing a safe environment Tolerates medication without side effects Patient will be on the following psychiatric medications: Abilify 30mg po HS Cogentin 1mg po bid Depakote ER 1500mg po nightly Trazodone 150mg po nightly Lorazepam 1-2 mg every 4 hours when necessary Patient's legal status Patient is on a [72 hour, 90 day LRA] involuntary treatment hold. Patient will be given the opportunity to talk to her cake tester and the thread dresser Disposition: home Anticipated additional days of stay: 7 Harjit Andersen MD Mar 17, 2017 14:16
[2017-03-17] MEDS: LORazepam 1 mg Tablet PO PRN ×2 (17:28→22:30)
[2017-03-17 19:00] VITALS: BP 111/80; PULSE 73; RESP 16
[2017-03-17] MEDS: Divalproex (QD) 500 mg ER24 Tablet PO SCH (20:28)
[2017-03-17] MEDS: TRAZODONE PO SCH ×2 (20:29)
--- NOTE | 2017-03-17 21:34 | NUR ---
Pt is internally preoccupied and has verbalized guilt but cannot identify what he is guilty of. Pt attempted to be more visible/social on the unit but it was clear that this agitated him. Pt had a visit with brother. Pt showered in the evening and agreed to launder clothing. Other pts have reported this pt making homicidal comments to them under his breath but staff have yet to witness these interactions. Maintained Q15 safety checks as directed.
--- NOTE | 2017-03-17 22:01 | NUR ---
NURSING NOTE [id number] Mood: "I'm not gonna say anything. I've said too much already" Affect: morose, distracted, latent Behavior: visible in DR at start of shift, staring at floor w/sullen expression and not interacting w/peers. Pt. appeared anxious and tremulous when this financial underwriter assessed him. Initially declined to take PRN for anxiety but later agreed to take Ativan. He stated "it's not right for her to ask me about my happy place", referring to a question raised in a group earlier today. He was quite fixated on this and repeated it several times and indicated that the question had upset him and that it was "offensive to me" but could not articulate why. Reassurance provided. He visited w/his brother. Later isolated to room. 2 pts, RR and CB, reported to staff that pt had muttered under his breath that he has murdered people and buried them in the ground. Pt. was confused and unable to articulate whether he had stated this or not when this financial underwriter later asked him about this. Thought processes: denies AH/VH but does appear to be responding to internal stimuli, delusional, anxious to the point of being tremulous, disorganized speech PRNs: Ativan 1 mg @ 17:30
--- NOTE | 2017-03-18 06:13 | NUR ---
Observations 1900 - 0700 Pt was observed to be flat, guarded, withdrawn and isolative. Pt was pleasant, polite and cooperative when approached. Pt maintained behavior throughout the shift. Pt speech was soft and mumbling and eye contact was poor. Pt ate snack. Pt took a shower and washed his clothes. Pt first appeared asleep at 2315 and has slept through the night. Pt was observed every 15 minutes through the night as ordered. Pt is currently in D.R. sitting quietly.
--- NOTE | 2017-03-18 06:18 | NUR ---
Sleep 11p-7a Adequate sleep through the night with no noted distress or awakening per protocol checks. Total sleep over 7 hours.
[2017-03-18] MEDS: Omega-3 Fatty Acids 1,000 mg Capsule PO SCH ×2 (07:05→20:12)
--- NOTE | 2017-03-18 10:32 | NUR ---
NURSING DAYS 7-3 S/O-Patient appears preoccupied with internal thoughts, states "I am a bad person, I don't know where these thought come from, I get confused as to where I am and who is in charge? When I lie down sometimes it feels as if I having seizures." A- Patient encouraged to come out in dinning room and not isolate in room. Patient also asked to tell and "unwind" these repetitive thoughts he states he has been having last couple of days. Patient asked to inform MD about "seizures" he states he is having when laying down in bed.
--- NOTE | 2017-03-18 12:40 | PCM.PNPSY ---
Subjective Date of Service Mar 18, 2017 Subjective I spent 30 minutes both reviewing his treatment plan and providing supportive and educational psychotherapy. I spent more than 50% of the time counseling the patient. I reviewed the treatment plan with the patient and discussed options available including the potential risks, benefits and side effects. Angel repeats feeling more hopeful but continues to feel highly guilty. The Staff reports that he has been isolative sustained to his room but is attempting to participate in one-to-one unit and group activities. He slept 7 hours. He denies medication side effects. Patient was able to identify his medications and what they were used to treat. Mental Status Exam Appearance: Unkept Attitude: Pleasant, Cooperative, Guarded Behavior: Distractible Affect: Restricted Mood: Depressed, Anxious Thought Process/Associations: Goal Directed Speech Production: Paucity Speech Rate: Lags/Latency Speech Articulation: Normal Thought Content: Negativistic, Suspicious (at times), Perseveration Danger to Self/Suicidal Ideati: None Danger to Others: None Delusions: Paranoid (Endorses mild, "i tell people too much") Consciousness: Alert Orientation: Person, Place, Date, Situation Memory: Short Term Memory (Impaired), Skilled Nursing Memory (Impaired) Estimate Intellectual Function: Average Basis for IQ estimate: Word use/vocabulary, Educational history Attention/Concentration & Cogn: Impaired Insight: Limited Judgement: Limited Result Diagram: 03/14/17 0700 03/14/17 07 Mental Health Plan Angel is a 51 year old male with a history of schizoaffective disorder who reduced medication adherence and eventually stopped all medications, decompensated, attempted suicide and was detained by the [facility]. The patient's outpatient provider indicates that he responded well to his outpatient medications and was stable for quite some time. They report that they will have intensive outpatient treatment to help him with medication adherence. Angel appears to be making slow but steady progress with gradually improving thought organization and mood stability. He is struggling with negative symptoms of schizophrenia and a severe sense of poor self worth and self- esteem. Angel repeats feeling highly guilty about thoughts he is having that are causing him to fear he is a bad wilbert and she fears the retribution by God for his thoughts feelings and previous actions. The Staff reports that he has been isolative but is now attempting to participate in one-to-one unit and group activities. The patient now denies feeling that he should (no plan or intent ). He remains quite delayed in thought processing and speech and I believe he is gravely disabled. During my interview today, Angel could provide little additional information about what had happened. He had a difficult time relating a coherent history and his thought process is significant for poverty of thought. At this time, the patient remains with little insight but is increasingly able to attend to activities of daily living . He seems to be experiencing a "shame attack" that has been triggered by unclear stressors. [place] AXIS I: Schizoaffective disorder, bipolar type Alcohol use disorder Marijuana use disorder AXIS II: Deferred AXIS III: None reported. AXIS IV: Moderate with recent Mother's day, medication non-adherence. AXIS V: GAF 35 Medications Abilify 30mg po HS Cogentin 1mg po bid Depakote ER 1500mg po nightly Trazodone 150mg po nightly Lorazepam 1-2 mg every 4 hours when necessary Thiamine 100 mg daily Multivitamin 1 daily Treatments Patient is being provided with a high degree of safety through structure and active adult engagement. We are focusing on developing improved coping skills and identifying stressors that may have led to current episode. We will attempt to: Integrate into therapeutic groups, milieu and individual therapy. Maintain in a closely monitored and structured unit Provide low-stimulation environment Obtain collateral data to assist in treatment planning Assess degree of lability of affect and impulse control Complete safety plan Decrease frequency of relapse and need for re-hospitalization Denies thoughts of harm to self and/or others Establish a consistent sleep pattern Medication effective in stabilization of mood and/or thought process Reduce the risk of imminent harm to self and/or others by providing a safe environment Tolerates medication without side effects Patient will be on the following psychiatric medications: Abilify 30mg po HS Cogentin 1mg po bid Depakote ER 1500mg po nightly Trazodone 150mg po nightly Lorazepam 1-2 mg every 4 hours when necessary Patient's legal status Patient is on a 14 day involuntary treatment hold. Patient will be given the opportunity to talk to her criminal justice lawyer and the mender hand Disposition: home Anticipated additional days of stay: 7 Harjit Andersen MD Mar 18, 2017 12:40
[2017-03-18 12:58] VITALS: BP 107/71; PULSE 66; RESP 16
--- NOTE | 2017-03-18 18:18 | NUR ---
[facility] Day Shift Pt affect and behavior unchanged from previous shifts. Pt maintained behavioral control throughout the shift. Pt affect appears flat. Pt spends most of the shift resting in his room, or lightly pacing the unit. Pt is appropriate with staff and peers when active on the unit, but is not social. Pt appears internally preoccupied, and pt speech/thought content appears bizarre. Pt is lightly participatory in unit activities throughout the shift. Pt attended all meals and ate approx 70-100% of all meals.
[2017-03-18] MEDS: TRAZODONE PO SCH ×2 (20:11)
[2017-03-18] MEDS: Divalproex (QD) 500 mg ER24 Tablet PO SCH (20:11)
--- NOTE | 2017-03-18 23:01 | NUR ---
NURSING NOTE [id number] Mood: "I'm still struggling with the same problems" Affect: flat, latent responses Behavior: more visible this shift, sitting out in milieu and occasionally spoke w/select peers. He was med compliant this evening. Thought processes: pt meanders in conversation, continues to express delusional content about being a "bad person" and worries he is not following the rules here. Denies hearing voices this shift "other than the voices outside my door..." but does appear preoccupied. Reassurance provided.
--- NOTE | 2017-03-19 05:49 | NUR ---
Nursing note: collision center manager/sleep Patient observed to be sleeping in long intervals during the night on safety checks. Patient noted to be up briefly for a snack then returned to bed, offered no further complaints.
[2017-03-19] MEDS: Omega-3 Fatty Acids 1,000 mg Capsule PO SCH ×2 (07:47→20:36)
[2017-03-19 08:30] VITALS: BP 106/70; PULSE 76; RESP 15
--- NOTE | 2017-03-19 12:57 | NUR ---
Behavior and social interaction Pt. appeared to be pre-occupied, although he denied hallucination. He was out of his room for meals and group meeting, otherwise he stayed in his room. He was not future or goal-oriented. He response and speech were delayed. He was compliant with his medications this morning. Addendum: 03/19/17 at 1440 by LIMA NAM RN Attempted to have a conversation with pt. He was very withdraw, avoiding questions by answering, "It's ely personal..." or "It's sort a private..." He remained in his room, preferred to be left alone.
--- NOTE | 2017-03-19 13:59 | PCM.PNPSY ---
Subjective Date of Service Mar 19, 2017 Subjective I spent 30 minutes both reviewing his treatment plan and providing supportive and educational psychotherapy. I spent more than 50% of the time counseling the patient. I reviewed the treatment plan with the patient and discussed options available including the potential risks, benefits and side effects. Angel repeats feeling more hopeful but continues to feel highly guilty. The Staff reports that he has been isolative tending to stay in his room but is attempting to participate in one-to-one unit and group activities. He slept 7 hours. He denies medication side effects. Patient was able to identify his medications and what they were used to treat. Mental Status Exam Vital Signs Vital Signs Date Time Temp Pulse Resp B/P Pulse Ox O2 Delivery O2 Flow Rate FiO2 03/19/17 08:30 36.0 76 15 106/70 Appearance: Unkept Attitude: Pleasant, Cooperative, Guarded Behavior: Distractible Affect: Restricted Mood: Depressed, Anxious Thought Process/Associations: Goal Directed Speech Production: Paucity Speech Rate: Lags/Latency Speech Articulation: Normal Thought Content: Negativistic, Suspicious (at times), Perseveration Danger to Self/Suicidal Ideati: None Danger to Others: None Delusions: Paranoid (Endorses mild, "i tell people too much") Consciousness: Alert Orientation: Person, Place, Date, Situation Memory: Short Term Memory (Impaired), Rubber Washer Memory (Impaired) Estimate Intellectual Function: Average Basis for IQ estimate: Word use/vocabulary, Educational history Attention/Concentration & Cogn: Impaired Insight: Limited Judgement: Limited Result Diagram: 03/14/17 0700 03/14/17 0700 Mental Health Plan Angel is a 51 year old male with a history of schizoaffective disorder who reduced medication adherence and eventually stopped all medications, decompensated, attempted suicide and was detained by the [facility]. The patient's outpatient provider indicates that he responded well to his outpatient medications and was stable for quite some time. They report that they will have intensive outpatient treatment to help him with medication adherence. Angel appears to be making slow but steady progress with gradually improving thought organization and mood stability. He is struggling with negative symptoms of schizophrenia and a severe sense of poor self worth and self- esteem. Angel repeats feeling highly guilty about thoughts he is having that are causing him to fear he is a bad wilbert and she fears the retribution by God for his thoughts feelings and previous actions. The Staff reports that he has been isolative but is now attempting to participate in one-to-one unit and group activities. The patient now denies feeling that he should (no plan or intent ). He remains quite delayed in thought processing and speech and I believe he is gravely disabled. During my interview today, Angel could provide little additional information about what had happened. He had a difficult time relating a coherent history and his thought process is significant for poverty of thought. At this time, the patient remains with little insight but is increasingly able to attend to activities of daily living . He seems to be experiencing a "shame attack" that has been triggered by unclear stressors. [place] AXIS I: Schizoaffective disorder, bipolar type Alcohol use disorder Marijuana use disorder AXIS II: Deferred AXIS III: None reported. AXIS IV: Moderate with recent Mother's day, medication non-adherence. AXIS V: GAF 35 Medications Abilify 30mg po HS Cogentin 1mg po bid Depakote ER 1500mg po nightly Trazodone 150mg po nightly Lorazepam 1-2 mg every 4 hours when necessary Thiamine 100 mg daily Multivitamin 1 daily Treatments Patient is being provided with a high degree of safety through structure and active adult engagement. We are focusing on developing improved coping skills and identifying stressors that may have led to current episode. We will attempt to: Integrate into therapeutic groups, milieu and individual therapy. Maintain in a closely monitored and structured unit Provide low-stimulation environment Obtain collateral data to assist in treatment planning Assess degree of lability of affect and impulse control Complete safety plan Decrease frequency of relapse and need for re-hospitalization Denies thoughts of harm to self and/or others Establish a consistent sleep pattern Medication effective in stabilization of mood and/or thought process Reduce the risk of imminent harm to self and/or others by providing a safe environment Tolerates medication without side effects Patient will be on the following psychiatric medications: Abilify 30mg po HS Cogentin 1mg po bid Depakote ER 1500mg po nightly Trazodone 150mg po nightly Lorazepam 1-2 mg every 4 hours when necessary Patient's legal status Patient is on a 14 day involuntary treatment hold. He has a bench trial scheduled for Sunday. Patient will be given the opportunity to talk to her trimming press operator and the magisterial district judge Disposition: home Anticipated additional days of stay: 7 Harjit Andersen MD Mar 19, 2017 13:59
--- NOTE | 2017-03-19 15:07 | NUR ---
Sow Farm Manager/Counselor S:" I feel fine." O: Patient did not report any feelings of SI or HI, and has not experienced any type of hallucinations. He rates his depression levels at a 7, and his anxiety at a 6. He stated he was doing ok. He did not make eye contact when asked questions. A. Patient was cooperative and answered all questions clearly but quietly. P:P: Follow care plan and coordinate with outpatient providers. Monitor behaviors.
--- NOTE | 2017-03-19 17:46 | NUR ---
Observations [id number] Pt more active on unit today- attended Community Meeting, setting goal to communicate with others. Pt was friendly with staff and peers. Pt spent a little time on patio, but majority of time in room. Attended all meals, eating 100%. Pt also offered to help this procedure writer with putting food away when restocking the fridge. Pt was observed every 15 minutes of shift as directed.
[2017-03-19] MEDS: Divalproex (QD) 500 mg ER24 Tablet PO SCH (20:36)
[2017-03-19] MEDS: TRAZODONE PO SCH ×2 (20:36)
[2017-03-20] MEDS: LORazepam 1 mg Tablet PO PRN (00:52)
--- NOTE | 2017-03-20 06:17 | NUR ---
Nursing Noc Pt appeared withdrawn and internally preoccupied in the late evening. He had difficulty sleeping and was up frequently during the night. At one point during the night another peer became upset and he came out to inform staff in was "all his fault". He continues to be preoccupied with feelings of guilt and delusional thought content. Maintains behavioral control. Broken sleep of 5 hours. Addendum: 03/20/17 at 0624 by SINDHU WRIGHT RN Ativan 1mg po prn given @ 0052 for felt anxiety with mild effect.
[2017-03-20] MEDS: Omega-3 Fatty Acids 1,000 mg Capsule PO SCH ×2 (08:17→20:25)
[2017-03-20 08:29] VITALS: BP 91/62; PULSE 59; RESP 59
--- NOTE | 2017-03-20 10:50 | PCM.PNPSY ---
Subjective Date of Service Mar 20, 2017 Subjective I spent 30 minutes both reviewing his treatment plan and providing supportive and educational psychotherapy. I spent more than 50% of the time counseling the patient. I reviewed the treatment plan with the patient and discussed options available including the potential risks, benefits and side effects. Angel repeats feeling more hopeful but continues to feel highly guilty. He related that his favorite song was by the doors called" like my fire". This seems appropriate as Angel certainly needs to find a passion other than watching TV reruns and drinking a case of beer every night. The Staff reports that he has been less isolative tending to come out of his room more and that he is attempting to participate in one-to-one unit and group activities. He slept 5 hours. He denies medication side effects. He denied psychotic review of systems. He continues to complain of extreme apathy and guilt. Patient was able to identify his medications and what they were used to treat. Mental Status Exam Appearance: Unkept Attitude: Pleasant, Cooperative, Guarded Behavior: Overtly anxious Affect: Restricted Mood: Depressed, Anxious Thought Process/Associations: Goal Directed Speech Production: Paucity Speech Rate: Lags/Latency Speech Articulation: Normal Thought Content: Negativistic, Suspicious (at times), Perseveration Danger to Self/Suicidal Ideati: None Danger to Others: None Delusions: Paranoid (Endorses mild, "i tell people too much") Consciousness: Alert Orientation: Person, Place, Date, Situation Memory: Short Term Memory (Impaired), [facility] Memory (Impaired) Estimate Intellectual Function: Average Basis for IQ estimate: Word use/vocabulary, Educational history Attention/Concentration & Cogn: Impaired Insight: Limited Judgement: Limited Result Diagram: 03/14/17 0700 03/14/17 0700 Mental Health Plan Angel is a 51 year old male with a history of schizoaffective disorder who reduced medication adherence and eventually stopped all medications, decompensated, attempted suicide and was detained by the [facility]. The patient's outpatient provider indicates that he responded well to his outpatient medications and was stable for quite some time. They report that they will have intensive outpatient treatment to help him with medication adherence. Angel appears to be making slow progress with gradually improving thought organization and mood stability. He is struggling with negative symptoms of schizophrenia and a severe sense of poor self worth and self-esteem. Angel repeats feeling highly guilty about thoughts he is having that are causing him to fear he is a bad wilbert and she fears the retribution by God for his thoughts feelings and previous actions. The Staff reports that he has been isolative but is now attempting to participate in one-to-one unit and group activities. The patient now denies feeling that he should (no plan or intent ). He remains quite delayed in thought processing and speech and I believe he is gravely disabled. During my interview today, Angel could provide little additional information about what had happened. He has a difficult time relating a coherent history and his thought process is significant for rumination and perseveration on perceived infractions against others from his past.. Angel's insight has been improving significantly this week and he is increasingly able to attend to activities of daily living . He seems to be experiencing a "shame attack" that has been triggered by unclear stressors. [place] AXIS I: Schizoaffective disorder, bipolar type Alcohol use disorder Marijuana use disorder AXIS II: Deferred AXIS III: None reported. AXIS IV: Moderate with recent Mother's day, medication non-adherence. AXIS V: GAF 35 Medications Abilify 30mg po HS Cogentin 1mg po bid Depakote ER 1500mg po nightly Trazodone 150mg po nightly Lorazepam 1-2 mg every 4 hours when necessary Thiamine 100 mg daily Multivitamin 1 daily Treatments Patient is being provided with a high degree of safety through structure and active adult engagement. We are focusing on developing improved coping skills and identifying stressors that may have led to current episode. We will attempt to: Integrate into therapeutic groups, milieu and individual therapy. Maintain in a closely monitored and structured unit Provide low-stimulation environment Obtain collateral data to assist in treatment planning Assess degree of lability of affect and impulse control Complete safety plan Decrease frequency of relapse and need for re-hospitalization Denies thoughts of harm to self and/or others Establish a consistent sleep pattern Medication effective in stabilization of mood and/or thought process Reduce the risk of imminent harm to self and/or others by providing a safe environment Tolerates medication without side effects Patient will be on the following psychiatric medications: Abilify 30mg po HS Cogentin 1mg po bid Depakote ER 1500mg po nightly Trazodone 150mg po nightly Lorazepam 1-2 mg every 4 hours when necessary Patient's legal status Patient is on a 14 day involuntary treatment hold. He has a bench trial scheduled for Sunday. Patient will be given the opportunity to talk to her assembler dc field yoke and the tool machine setup operator Disposition: home Anticipated additional days of stay: 5 Harjit Andersen MD Mar 20, 2017 10:50
--- NOTE | 2017-03-20 15:18 | NUR ---
Obs Dayshift Pt has been out of his room much more today than the past few days. Pt is engaging more w/ peers and staff. Spending time often out on the patio, attending groups with reasonable participation. Pt continues to appear sad, depressed, internally preoccupied. Spent more free time out on the patio or in the milieu reading or drawing. Good ADL's, Good meals
--- NOTE | 2017-03-20 17:24 | NUR ---
Nursing Day: Pt appropriate/cooperative with staff, withdrawn at times, kept to himself when in common areas. Spent day watching TV/coloring intermittently, some time resting in his room. Appears preoccupied, no c/o hallucinations.
[2017-03-20] MEDS: Divalproex (QD) 500 mg ER24 Tablet PO SCH (20:24)
[2017-03-20] MEDS: TRAZODONE PO SCH ×2 (20:24)
--- NOTE | 2017-03-21 05:10 | NUR ---
Observations 1900 - 0700 Pt was observed to be flat, guarded, withdrawn and isolative. Pt was pleasant, polite and cooperative when approached. Pt maintained behavior throughout the shift. Pt speech was soft and mumbling and eye contact was poor. Pt attended wrap up group but had nothing to say. Pt rated his mood 3/10, with 10 being the best. Pt ate snack. Pt first appeared asleep at 2215 and has slept through the night. Pt was observed every 15 minutes through the night as ordered.
--- NOTE | 2017-03-21 06:16 | NUR ---
nursing, nights, s/o- has appeared to sleep after 2214 during q 15 minute assessments. a- no apparent distress. Expected court today p- monitor behavior/emotional state, quality, times and amount of sleep, use and effect of medication.
[2017-03-21] MEDS: Omega-3 Fatty Acids 1,000 mg Capsule PO SCH ×2 (08:30→20:30)
[2017-03-21 13:29] VITALS: BP 102/65; PULSE 69; RESP 16
--- NOTE | 2017-03-21 14:15 | NUR ---
Maintenance Engineer/Counselor S:"I need to figure it out myself." O: Patient did not report any SI or HI. He did not have any auditory or visual hallucinations, and rated his anxiety at a 7 and his depression at a 10. He slept for 7.25 hours last night. A: Patient kept his head down and to the side when speaking. He did attend group, and was out of his room coloring and mildly interacting with other residents. He was out in the milieu coloring. P: Follow care plan and coordinate with outpatient providers. Monitor behaviors as needed.
--- NOTE | 2017-03-21 14:19 | NUR ---
Nursing Note [id number] Mood, Psychotic Sx S/O: Pt has good appetite. Pt out in milieu prior to court this morning throwing a football outside with peers, but has isolated to his room since. Pt attended court this morning. He was placed on a [address] After [address] he discussed how he felt about court. "I'm not sure how I feel about it....I don't want to talk about it." Pt has flat affect, no eye contact. A: Pt appears to be responding to internal stimuli. P: Provide supportive environment. Monitor medications & effects.
--- NOTE | 2017-03-21 14:34 | PCM.PNPSY ---
Subjective Date of Service Mar 21, 2017 Subjective I spent 30 minutes both reviewing his treatment plan and providing supportive and educational psychotherapy. I spent less than 50% of the time counseling the patient has spent most of the time preparing for court and testifying in court for his 90 day MR iris. I reviewed the treatment plan with the patient and discussed options available including the potential risks, benefits and side effects. Angel repeats feeling more hopeful but continues to feel highly guilty. The Staff reports that he has been less isolative tending to come out of his room more and that he is attempting to participate in one-to-one unit and group activities. He slept 5 hours. He denies medication side effects. He denied psychotic review of systems. He continues to complain of extreme apathy and guilt. Patient was able to identify his medications and what they were used to treat. Mental Status Exam Vital Signs Vital Signs Date Time Temp Pulse Resp B/P Pulse Ox O2 Delivery O2 Flow Rate FiO2 03/21/17 13:29 36.2 69 16 102/65 Appearance: Unkept Attitude: Pleasant, Cooperative, Guarded Behavior: Overtly anxious Affect: Restricted Mood: Depressed, Anxious Thought Process/Associations: Goal Directed Speech Production: Paucity Speech Rate: Lags/Latency Speech Articulation: Normal Thought Content: Negativistic, Suspicious (at times), Perseveration Danger to Self/Suicidal Ideati: None Danger to Others: None Delusions: Paranoid (Endorses mild, "i tell people too much") Consciousness: Alert Orientation: Person, Place, Date, Situation Memory: Short Term Memory (Impaired), [facility] Memory (Impaired) Estimate Intellectual Function: Average Basis for IQ estimate: Word use/vocabulary, Educational history Attention/Concentration & Cogn: Impaired Insight: Limited Judgement: Limited Mental Health Plan mega Ortiz is a 51 year old male with a history of schizoaffective disorder who reduced medication adherence and eventually stopped all medications, decompensated, attempted suicide and was detained by the [facility]. The patient's outpatient provider indicates that he responded well to his outpatient medications and was stable for quite some time. They report that they will have intensive outpatient treatment to help him with medication adherence. He is struggling with negative symptoms of schizophrenia and a severe sense of poor self worth and self-esteem. Angel repeats feeling highly guilty about thoughts he is having that are causing him to fear he is a bad wilbert and she fears the retribution by God for his thoughts feelings and previous actions. The Staff reports that he has been isolative but is now attempting to participate in one-to-one unit and group activities. The patient now denies feeling that he should (no plan or intent ). He remains quite delayed in thought processing and speech and I believe he is gravely disabled. During my interview today, Angel could provide little additional information about what had happened. He has a difficult time relating a coherent history and his thought process is significant for rumination and perseveration on perceived infractions against others from his past.. Angel's insight has been improving significantly this week and he is increasingly able to attend to activities of daily living . He seems to be experiencing a "shame attack" that has been triggered by unclear stressors. Although he is showing progress he remains severely despondent. He is almost paralyzed with guilt. None of our direct attempts to deal with this symptom have helped. He seems to be most helped when he is able to join the group and make connections with other patients. [place] AXIS I: Schizoaffective disorder, bipolar type Alcohol use disorder Marijuana use disorder AXIS II: Deferred AXIS III: None reported. AXIS IV: Moderate with recent Mother's day, medication non-adherence. AXIS V: GAF 35 Medications Abilify 30mg po HS Cogentin 1mg po bid Depakote ER 1500mg po nightly Trazodone 150mg po nightly Lorazepam 1-2 mg every 4 hours when necessary Thiamine 100 mg daily Multivitamin 1 daily Treatments Patient is being provided with a high degree of safety through structure and active adult engagement. We are focusing on developing improved coping skills and identifying stressors that may have led to current episode. We will attempt to: Integrate into therapeutic groups, milieu and individual therapy. Maintain in a closely monitored and structured unit Provide low-stimulation environment Obtain collateral data to assist in treatment planning Assess degree of lability of affect and impulse control Complete safety plan Decrease frequency of relapse and need for re-hospitalization Denies thoughts of harm to self and/or others Establish a consistent sleep pattern Medication effective in stabilization of mood and/or thought process Reduce the risk of imminent harm to self and/or others by providing a safe environment Tolerates medication without side effects Patient will be on the following psychiatric medications: Abilify 30mg po HS Cogentin 1mg po bid Depakote ER 1500mg po nightly Trazodone 150mg po nightly Lorazepam 1-2 mg every 4 hours when necessary Patient's legal status Patient is on a 90 day involuntary treatment hold. Disposition: home Anticipated additional days of stay: 5-7 Harjit Andersen MD Mar 21, 2017 14:34
[2017-03-21] MEDS: LORazepam 1 mg Tablet PO PRN (15:46)
[2017-03-21] MEDS: TRAZODONE PO SCH ×2 (20:46)
[2017-03-21] MEDS: Divalproex (QD) 500 mg ER24 Tablet PO SCH (20:47)
--- NOTE | 2017-03-21 22:25 | NUR ---
NURSING NOTE [id number] Mood: "It's not very good" Affect: preoccupied, sad Behavior: resting in bed w/eyes open at start of shift. Took Ativan 1 mg PRN for anxiety. Later was much more visible in the milieu, helped clean up the kitchen, chatted w/a few peers and spent time in the DR. Med compliant. Thought processes: pt. continues to express guilt for nonspecific things, repeating to this fha underwriter several times "I have a problem" and was reluctant to share what it was but eventually said "it's about sex -- but that should be nobody's business." He endorsed anxiety at start of shift but after receiving PRN Ativan 1 mg he reported it resolved. When asked if he has SI he replied "not yet."
--- NOTE | 2017-03-22 04:59 | NUR ---
nursing, nights, 11-7 s/o- has appeared to sleep after 2200. up briefly to the to the dinning room at 0130, then up at 0230. asleep after 0400. assessed q 15 minutes. a- interrupted sleep, generally appropriate, no apparent distress. p- monitor behavior/emotional state, quality, times and amount of sleep, use and effect of medication. eva
[2017-03-22] MEDS: Omega-3 Fatty Acids 1,000 mg Capsule PO SCH ×2 (08:19→21:24)
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
[2017-03-22 13:00] VITALS: BP 111/72; PULSE 52; RESP 14
--- NOTE | 2017-03-22 14:09 | PCM.PNPSY ---
Subjective Date of Service Mar 22, 2017 Subjective I spent 30 minutes both reviewing his treatment plan and providing supportive and educational psychotherapy. I spent less than 50% of the time counseling the patient has spent most of the time preparing for court and testifying in court for his 90 day MR iris. I reviewed the treatment plan with the patient and discussed options available including the potential risks, benefits and side effects. Angel repeats feeling more hopeful but continues to feel highly guilty. The Staff reports that he has been less isolative tending to come out of his room more and that he is attempting to participate in one-to-one unit and group activities. He slept 7 hours. He denies medication side effects. He denied psychotic review of systems. He continues to complain of extreme apathy and guilt. Patient was able to identify his medications and what they were used to treat. Mental Status Exam Vital Signs Vital Signs Date Time Temp Pulse Resp B/P Pulse Ox O2 Delivery O2 Flow Rate FiO2 03/22/17 13:00 35.8 52 14 111/72 Appearance: Unkept Attitude: Pleasant, Cooperative, Guarded Behavior: Overtly anxious Affect: Restricted Mood: Depressed, Anxious Thought Process/Associations: Goal Directed Speech Production: Paucity Speech Rate: Lags/Latency Speech Articulation: Normal Thought Content: Negativistic, Suspicious (at times), Perseveration Danger to Self/Suicidal Ideati: None Danger to Others: None Delusions: Paranoid (Endorses mild, "i tell people too much") Consciousness: Alert Orientation: Person, Place, Date, Situation Memory: Short Term Memory (Impaired), [place] Memory (Impaired) Estimate Intellectual Function: Average Basis for IQ estimate: Word use/vocabulary, Educational history Attention/Concentration & Cogn: Impaired Insight: Limited Judgement: Limited Mental Health Plan mega Ortiz is a 51 year old male with a history of schizoaffective disorder who reduced medication adherence and eventually stopped all medications, decompensated, attempted suicide and was detained by the [facility]. The patient's outpatient provider indicates that he responded well to his outpatient medications and was stable for quite some time. They report that they will have intensive outpatient treatment to help him with medication adherence. He is struggling with negative symptoms of schizophrenia and a severe sense of poor self worth and self-esteem. Angel repeats feeling highly guilty about thoughts he is having that are causing him to fear he is a bad wilbert and she fears the retribution by God for his thoughts feelings and previous actions. The Staff reports that he has been isolative but is now attempting to participate in one-to-one unit and group activities. The patient now denies feeling that he should (no plan or intent ). He remains quite delayed in thought processing and speech and I believe he is gravely disabled. During my interview today, Angel could provide little additional information about what had happened. He has a difficult time relating a coherent history and his thought process is significant for rumination and perseveration on perceived infractions against others from his past.. Angel's insight has been improving significantly this week and he is increasingly able to attend to activities of daily living . He seems to be experiencing a "shame attack" that has been triggered by unclear stressors. Although he is showing progress he remains severely despondent. He is almost paralyzed with guilt. None of our direct attempts to deal with this symptom have helped. He seems to be most helped when he is able to join the group and make connections with other patients. [place] AXIS I: Schizoaffective disorder, bipolar type Alcohol use disorder Marijuana use disorder AXIS II: Deferred AXIS III: None reported. AXIS IV: Moderate with recent Mother's day, medication non-adherence. AXIS V: GAF 35 Medications Abilify 30mg po HS Cogentin 1mg po bid Depakote ER 1500mg po nightly Trazodone 150mg po nightly Lorazepam 1-2 mg every 4 hours when necessary Thiamine 100 mg daily Multivitamin 1 daily Treatments Patient is being provided with a high degree of safety through structure and active adult engagement. We are focusing on developing improved coping skills and identifying stressors that may have led to current episode. We will attempt to: Integrate into therapeutic groups, milieu and individual therapy. Maintain in a closely monitored and structured unit Provide low-stimulation environment Obtain collateral data to assist in treatment planning Assess degree of lability of affect and impulse control Complete safety plan Decrease frequency of relapse and need for re-hospitalization Denies thoughts of harm to self and/or others Establish a consistent sleep pattern Medication effective in stabilization of mood and/or thought process Reduce the risk of imminent harm to self and/or others by providing a safe environment Tolerates medication without side effects Patient will be on the following psychiatric medications: Abilify 30mg po HS Cogentin 1mg po bid Depakote ER 1500mg po nightly Trazodone 150mg po nightly Lorazepam 1-2 mg every 4 hours when necessary Patient's legal status Patient is on a 90 day involuntary treatment hold. Disposition: home Anticipated additional days of stay: 7 Harjit Andersen MD Mar 22, 2017 14:09
--- NOTE | 2017-03-22 15:08 | NUR ---
Elementary School Principal/Counselor S:"If I talk, they'll get angry." O: Patient did not report any SI or HI. He did not have any auditory or visual hallucinations, and rated his anxiety at a 7 and his depression at a 10. Patient attended group, and was trying to nap this afternoon. A: Patient stayed for about 30 minutes of group and completed the exercise. He started to share but then decided not to. He was very dismal and quiet. P: Follow care plan and coordinate with outpatient providers. Monitor behaviors as needed
[2017-03-22] MEDS: LORazepam 1 mg Tablet PO PRN (17:08)
--- NOTE | 2017-03-22 18:44 | NUR ---
[facility] Day Shift Pt affect and behavior unchanged from previous shifts. Pt maintained behavioral control throughout the shift. Pt affect appears flat. Pt spends most of the shift resting in his room, or lightly pacing the unit. Pt is appropriate with staff and peers when active on the unit, but is not social. Pt appears internally preoccupied, and pt speech/thought content appears bizarre. Pt is lightly participatory in unit activities throughout the shift. Pt participated passively in all group activities throughout the shift. Pt attended all meals and ate approx 100% of all meals.
[2017-03-22] MEDS: Divalproex (QD) 500 mg ER24 Tablet PO SCH (21:25)
[2017-03-22] MEDS: TRAZODONE PO SCH ×2 (21:25)
[2017-03-23] MEDS: LORazepam 1 mg Tablet PO PRN (00:13)
--- NOTE | 2017-03-23 04:54 | NUR ---
nursing, nights, 11-7 s- i thought i hear people. it's my fault. o- has appeared to sleep after 2130. up at midnight and received 2 mg of ativan with good effect appearing to sleep after 0130 during q 15 minute assessments. a- somewhat improved sleep, self depreciating, no apparent physical distress. p- monitor behavior/emotional state, quality, times and amount of sleep, use and effect of medication. eva
[2017-03-23] MEDS: Omega-3 Fatty Acids 1,000 mg Capsule PO SCH ×2 (08:02→20:48)
--- NOTE | 2017-03-23 13:09 | PCM.PNPSY ---
Subjective Date of Service Mar 23, 2017 Subjective Patient states he's okay. Claims to be out talking with other patients and claims that's the source of a lot of his anxiety. He says he thinks he talks too much and gives too much information. When asked what he would like to do if he could do anything, he says he'd want a woman, but not necessarily just for sex, but to help take of him such as make meals. He conveys guilt regarding masturbation, stating he used to do it a lot, but then threw all his pornography away "before I got sick." He's says his anxiety is due to being in the hospital and seeing his admission as being a failure and as punitive in nature. He says it frustrates him that he's told he has to tell the truth all the time, then one other patient's ask him questions, he answers honestly and they get bad and dislike him. He continues to think the staff and other patients blame him for everything happening in the unit. Sleep: Well, 7 hours before breakfast, nap afterwords. Appetite: Good. No missed meals. Suicidal and homicidal ideation: Passive thoughts of self harm, Denies HI. Auditory hallucinations: Denies Visual hallucinations: Denies. Other Psychotic Symptoms: Negative Symptoms. Anxiety: 07/24 Depression: 07/24 Mental Status Exam Appearance: Unkept Attitude: Pleasant, Cooperative, Guarded Behavior: Overtly anxious Affect: Restricted Mood: Depressed, Anxious Thought Process/Associations: Goal Directed Speech Production: Paucity (improving) Speech Rate: Lags/Latency (improving rate.) Speech Articulation: Normal Thought Content: Negativistic, Guilt, Suspicious (at times), Perseveration ( Decreased at today's encounter, but still present.) Danger to Self/Suicidal Ideati: None Danger to Others: None Delusions: Paranoid (Endorses mild, "i tell people too much") Consciousness: Alert Orientation: Person, Place, Date, Situation Memory: Short Term Memory (Impaired), 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 The patient's outpatient provider indicates that he responded well to his outpatient medications and was stable for quite some time. They report that they will have intensive outpatient treatment to help him with medication adherence. Patient remains on medication, 30 mg of Abilify daily, there continues to be no return his positive symptoms, no longer hearing voices, no longer seeing people in the trees. Negative symptoms have substantially improved, but at still present; disheveled, negativistic, speech latency, and self-isolation. He has had no ill side effects from his medication, he has been able to walk around out of his room, and has been interacting with patients in increasing frequency. Today he was able to convey that his anxiety stems from being the mental health center and sees it as punitive "I wouldn't be here if I didn't mess up." He continued to have perseveration on guilt however much easier redirected and was able to establish that he thinks he needs to feel guilty for the thought he had about hurting himself and molesting children, which relates to him thinking he's here as a punishment for those thoughts. He says he wants to "get better" and when asked that means to him, he said he made a list: "Getting discharged then seeing and only talking to doctors and nurses and not anyone else." We spent over 1 hour total discussing why he's here, the purpose of treatment, and the thoughts he was having causing him to feel guilt and anxiety. There is a large overtone of needing female approval and support. He asked two questions, first being if our conversations were confidential, then asked "why do women gossip?" again conveying frustration at the social dynamic in the unit. [place] AXIS I: Schizoaffective disorder, bipolar type Alcohol use disorder Marijuana use disorder AXIS II: Deferred AXIS III: None reported. AXIS IV: Moderate with recent Mother's day, medication non-adherence. AXIS V: GAF 35 Medications Abilify 30mg po HS Cogentin 1mg po bid Depakote ER 1500mg po nightly Trazodone 150mg po nightly Lorazepam 1-2 mg every 4 hours when necessary Thiamine 100 mg daily Multivitamin 1 daily Treatments Patient is being provided with a high degree of safety through structure and active adult engagement. We are focusing on developing improved coping skills and identifying stressors that may have led to current episode. We will attempt to: Integrate into therapeutic groups, milieu and individual therapy. Maintain in a closely monitored and structured unit Provide low-stimulation environment Obtain collateral data to assist in treatment planning Assess degree of lability of affect and impulse control Complete safety plan Decrease frequency of relapse and need for re-hospitalization Denies thoughts of harm to self and/or others Establish a consistent sleep pattern Medication effective in stabilization of mood and/or thought process Reduce the risk of imminent harm to self and/or others by providing a safe environment Tolerates medication without side effects Patient will be on the following psychiatric medications: Abilify 30mg po HS Cogentin 1mg po bid Depakote ER 1500mg po nightly Trazodone 150mg po nightly Lorazepam 1-2 mg every 4 hours when necessary Patient's legal status Patient is on a 90 day MR involuntary treatment hold. Disposition: home Anticipated additional days of stay: Reynaldo Ku DO Mar 23, 2017 1:09 pm
[2017-03-23 13:19] VITALS: BP 98/72; PULSE 67; RESP 16
--- NOTE | 2017-03-23 15:42 | NUR ---
Nursing Day 7-7 S-"I feel bad for that dog that came in earlier, I dont know why" O-Pt. looking away as he is communicating to me verbally. Pt. seems withdrawn, ambulating to and from his room and sits at a table by himself. Spends most fo the day in his room laying in bed. A-Pt. is withdrawn, minimal eye contact. Clear speech, no mumbling noted. P-Follow plan of care, monitor behavior, monitor side effects of medication, safety to Pt. and others. Addendum: 03/23/17 at 1641 by MEGHANN BELL RN Documented by Alvin Flores RN 03/23/2017
--- NOTE | 2017-03-23 18:05 | NUR ---
[facility] Day Shift Pt affect and behavior unchanged from previous shifts. Pt maintained behavioral control throughout the shift. Pt affect appears flat. Pt spends most of the shift resting in his room, or lightly pacing the unit. Pt is appropriate with staff and peers when active on the unit, but is not social. Pt appears internally preoccupied, and pt speech/thought content appears bizarre. Pt is lightly participatory in unit activities throughout the shift. Pt participated passively in all group activities throughout the shift. Pt attended all meals and ate approx 100% of all meals.
--- NOTE | 2017-03-23 20:26 | NUR ---
Warehouse Guard/Counselor: S: "Thoughts crossed my mind of hurting myself, but that would send me back here." O: Patient slept 7 hours last night as per staff. He reports passive thoughts of hurting himself, but does not have a plan and contracts for safety. He denies H/I. He denies auditory and visual hallucinations. Depression is 10/10 and anxiety is 10/10. Patient is still making self guilt statements. A: Patient is guarded, anxious, depressed, flat affect, paranoid, guilt, suspicious, limited insight, limited judgment. P: Follow the care plan, coordinate with out-patient providers.
[2017-03-23] MEDS: TRAZODONE PO SCH ×2 (20:50)
[2017-03-23] MEDS: Divalproex (QD) 500 mg ER24 Tablet PO SCH (20:50)
[2017-03-24] MEDS: LORazepam 1 mg Tablet PO PRN ×2 (02:21→19:30)
--- NOTE | 2017-03-24 04:27 | NUR ---
Nursing note: shift stacker/sleep Patient asleep at start of shift,then noted to be restless. Patient perseverates he woke up feeling pressured, guilty and wanting to turn himself in. Patient received Ativan 2 mg po at 0225. Patient returned back to room and appears to be sleeping on 0300 safety checks.
[2017-03-24] MEDS: Omega-3 Fatty Acids 1,000 mg Capsule PO SCH ×2 (08:27→20:25)
--- NOTE | 2017-03-24 15:28 | PCM.PNPSY ---
Subjective Date of Service Mar 24, 2017 Subjective The patient reported that he was just "taking a nap and everyone seems to want to knock on the door." "Things happen in the morning when I wake up. I feel that I am going to get into trouble talking to people." The patient reports ongoing severe depression. The patient reports a history of being treated with antidepressants but Wellbutrin and proximal team were ineffective. The patient continues to deny auditory or visual hallucinations. He denies side effects. Sleep: "Good" 7+ hours of sleep Appetite: "I am hungry. They do not give us enough food." Patient is unsure whether he is getting snacks. Suicidal and homicidal ideation: Denies Auditory hallucinations: Denies, "or if people are yelling or screaming like the first time I saw the automobile accessories installer" he reports this happened a few days ago. Visual hallucinations: Denies Other Psychotic Symptoms: None Anxiety: , "a little," though minimal objective signs of distress noted. Depression: 07/24 Current Medications Current Medications Escitalopram Oxalate 10 mg DAILY PO Last administered on 03/24/17t 13:11; Admin Dose 10 MG; Start 03/24/17 at 13:05 Mental Status Exam Appearance: Unkept Attitude: Pleasant, Cooperative, Guarded Behavior: Overtly anxious Affect: Restricted Mood: Depressed, Anxious Thought Process/Associations: Goal Directed Speech Production: Paucity (improving) Speech Rate: Lags/Latency (improving rate.) Speech Articulation: Normal Thought Content: Negativistic, Guilt, Suspicious, Perseveration Danger to Self/Suicidal Ideati: None Danger to Others: None Delusions: Paranoid (Endorses mild) Consciousness: Alert Orientation: Person, Place, Date, Situation Memory: Short Term Memory (Impaired), Hand Cultivator Memory (Impaired) Estimate Intellectual Function: Average Basis for IQ estimate: Word use/vocabulary, Educational history Attention/Concentration & Cogn: Impaired Insight: Limited Judgement: Limited Mental Health Plan The patient is a 51 year old male with a history of schizoaffective disorder who reduced medication adherence and eventually stopped all medications, decompensated, attempted suicide and was detained by the [facility]. The patient's outpatient provider indicates that he responded well to his outpatient medications and was stable for quite some time. They report that they will have intensive outpatient treatment to help him with medication adherence. Patient remains on medication, 30 mg of Abilify daily, there has been a decrease in his positive symptoms, no longer hearing voices, no longer seeing people in the trees. Negative symptoms remain present disheveled, negativistic , with speech latency, and self-isolation. The patient is denying side effects and interacting minimally with staff and peers. The patient has fairly consistently endorsed ongoing anxiety and depression which, although ameliorated , is still prominent. The patient has had prior trials of antidepressant therapy with bupropion and paroxetine but notes that these were ineffective. The patient is agreeable to trying escitalopram. [place] AXIS I: Schizoaffective disorder, bipolar type Alcohol use disorder Marijuana use disorder AXIS II: Deferred AXIS III: None reported. AXIS IV: Moderate with recent Mother's day, medication non-adherence. AXIS V: GAF 35 Medications Abilify 30mg po HS Benztropine 1mg po bid Depakote ER 1500mg po nightly, blood level 84 on 03/14/2017 Trazodone 150mg po nightly Lorazepam 1-2 mg every 4 hours when necessary Thiamine 100 mg daily Multivitamin 1 daily Treatments 1. The patient is admitted to the inpatient unit and will be provided a safe and secure environment. 2. The patient is denying suicidal ideation and is not in need of a one-to-one at this time. 3. The patient is encouraged to participate with group and milieu activities. 4. The patient will be seen by the treatment team on a daily basis to assess symptoms, side effects and response to treatment. 5. Continue with Abilify 30mg daily 6. Continue current Depakote. (serum level therapeutic as of 03/14/17) 7. We will start Lexapro 10 mg daily for depression and watch for the emergence of any signs of manic conversion. 8. Continue to Encourage group activity and engagement. 9. Anticipated length of stay is 10-14 days. Asael Adkins MD Mar 24, 2017 15:28 Medication effective in stabilization of mood and/or thought process Reduce the risk of imminent harm to self and/or others by providing a safe environment Tolerates medication without side effects Patient will be on the following psychiatric medications: Abilify 30mg po HS Cogentin 1mg po bid Depakote ER 1500mg po nightly Trazodone 150mg po nightly Lorazepam 1-2 mg every 4 hours when necessary Patient's legal status Patient is on a 90 day MR involuntary treatment hold. Disposition: home Anticipated additional days of stay: 7 Asael Adkins MD Mar 24, 2017 15:28
--- NOTE | 2017-03-24 16:42 | NUR ---
Facility Maintenance Helper/Counselor S: There's not much to do here." O:O: Patient did not express any SI or HI. and did not express any auditory or visual hallucinations, but stated he could hear people outside (in the hallway). Patient rated her anxiety at a 7, and her depression at a 10. A: Patient was very cooperative today, and participated in both groups. He was open to socializing more, and playing football. He was more outspoken, and he did not speak in a whisper. It was easy to understand him, and he seemed to be in a better mood than normal. P: Follow care plan and follow up with outpatient providers.
--- NOTE | 2017-03-24 17:14 | NUR ---
Nursing Note [id number] S: "I feel that is a little personal-it makes me uncomfortable". "The doctor told me not to share things that were too personal". S: Patient was asked if he lived locally, patient said the question made him uncomfortable. Patient reported that he feels less anxious if he has something to do (patient working on a puzzle with staff). Patient reports feeling increased anxiety and depression and is feeling concerns that he will not ever be able to feel better about myself. A: Quiet, guarded, helpless, depressed, increased suspicion today. P: Monitor for response to treatment. Q 15 min checks for safety. Follow plan of care.
[2017-03-24] MEDS: TRAZODONE PO SCH ×2 (20:21)
[2017-03-24] MEDS: Divalproex (QD) 500 mg ER24 Tablet PO SCH (20:24)
--- NOTE | 2017-03-25 06:27 | NUR ---
Nursing Note Talent Development Manager 7pm to 7am Pt visible on unit at start of shift, pleasant, calm and cooperative. Mood and affect depressed, speech is soft and thoughts latent. Pt stated my anxiety has gotten worse because I am afraid I am going to get in trouble. Pt went onto say that he had had a dream that he was "with a lady here on the unit, the grandma, but that it was not sexual". Pt confirmed he was not interested in this pt. and was assured that there would be no consequences for what took place in the dream. Pt took HS medications and went to sleep. Monitored pt. with 15 minute face checks for safety, location and accountability
[2017-03-25 08:01] VITALS: BP 99/67; PULSE 61; RESP 16
[2017-03-25] MEDS: Omega-3 Fatty Acids 1,000 mg Capsule PO SCH ×2 (09:32→21:47)
--- NOTE | 2017-03-25 13:15 | NUR ---
Day shift note Pt has been cooperative and appropriate. When insurance underwriter sales inquired as to how pt was doing he responded that he had all the porn taken out of his house because it was safer. When insurance underwriter sales asked more questions about this matter pt replied he didn't want to talk anymore and that he's already answered this question. When asked, pt stated he had no current suicide ideation/plan or thoughts of self-harm. Pt later referred to "they are talking about me" and when insurance underwriter sales inquired more about who and what was being said, pt stated again that he already answered this question and didn't want to talk further about this matter. When asked pt states he feels safe here he responded yes. Care continues
--- NOTE | 2017-03-25 13:57 | PCM.PNPSY ---
Subjective Date of Service Mar 25, 2017 Subjective The patient reports that he is "just waiting for group to start." He reported that his anxiety was still a bit elevated as "there is nowhere to go. I know what is going to happen pretty soon. I need surgery to get fixed-- cut off my penis." When asked why he thought a surgeon needed to remove his penis he stated, "I need to get it fixed so I can't become a man. So I can live with the rules I was raised with: Have good manners, get along with friends and neighbors." He reported that he feels uncomfortable at times on the unit as when he sits next to certain peers, particularly females, he believes that they can hear his thoughts. Earlier in the day he had noted to the nurse about his concern for pornography and had removed from the home. The patient denied intent to remove his penis and stated that should he have any such thoughts he would ask staff for help. Overall, he reported that he felt he was improving and he was better than at admission but was not ready for discharge. He noted no significant change in symptoms since starting Lexapro but also noted no side effects. Sleep: "Good" 7.5 hours per staff Appetite: "Still hungry all the time" the patient reports that he "trusts the board"regarding times and if they do not match up he does not eat snacks. Suicidal and homicidal ideation: Denies Auditory hallucinations: Denies Visual hallucinations: Denies Other Psychotic Symptoms: Concerned about thought broadcasting/telepathy as noted above Anxiety: 07/24 with no outward signs of anxiety. He reports his idea of a panic attack is not knowing where to go. Depression: 02/21 Current Medications Current Medications Escitalopram Oxalate 10 mg DAILY PO Last administered on 03/25/17t 09:33; Admin Dose 10 MG; Start 03/24/17 at 13:05 Mental Status Exam Appearance: Unkept Attitude: Pleasant, Cooperative, Guarded Behavior: No unusual behavior Affect: Restricted Mood: Depressed, Anxious Thought Process/Associations: Goal Directed Speech Production: Paucity (improving) Speech Rate: Lags/Latency (minimal) Speech Articulation: Normal Thought Content: Negativistic, Guilt, Suspicious, Perseveration Danger to Self/Suicidal Ideati: None Danger to Others: None Delusions: Thought Broadcasting (Endorses), Paranoid (Endorses mild) Hallucinations: Auditory (Denies), Visual (Denies) Consciousness: Alert Orientation: Person, Place, Date, Situation Memory: Short Term Memory (Impaired), Snf Memory (Impaired) Estimate Intellectual Function: Average Basis for IQ estimate: Word use/vocabulary, Educational history Attention/Concentration & Cogn: Impaired Insight: Limited Judgement: Limited Mental Health Plan The patient is a 51 year old male with a history of schizoaffective disorder who reduced medication adherence and eventually stopped all medications, decompensated, attempted suicide and was detained by the [facility]. The patient's outpatient provider indicates that he responded well to his outpatient medications and was stable for quite some time. They report that they will have intensive outpatient treatment to help him with medication adherence. Patient remains on medication, 30 mg of Abilify daily, there has been a decrease in his positive symptoms, no longer hearing voices, no longer seeing people in the trees. The patient is more open and talkative and is reporting concerns about peers which would explain why his interactions with others are somewhat limited. Negative symptoms remain prominent with impaired hygiene, latency, and isolation. The patient is denying side effects and interacting minimally with staff and peers. The patient has fairly consistently endorsed ongoing anxiety and depression which, although ameliorated, is still prominent. The patient is noting no side effects from escitalopram. Patient reports overall getting better but no significant change with the addition of antidepressant. [place] AXIS I: Schizoaffective disorder, bipolar type Alcohol use disorder Marijuana use disorder AXIS II: Deferred AXIS III: None reported. AXIS IV: Moderate with recent Mother's day, medication non-adherence. AXIS V: GAF 35 Medications Abilify 30mg po HS Benztropine 1mg po bid Depakote ER 1500mg po nightly, blood level 84 on 03/14/2017 Escitalopram 10 mg daily Trazodone 150mg po nightly Lorazepam 1-2 mg every 4 hours when necessary Thiamine 100 mg daily Multivitamin 1 daily Treatments 1. The patient is admitted to the inpatient unit and will be provided a safe and secure environment. 2. The patient is denying suicidal ideation and is not in need of a one-to-one at this time. 3. The patient is encouraged to participate with group and milieu activities. 4. The patient will be seen by the treatment team on a daily basis to assess symptoms, side effects and response to treatment. 5. Continue with Abilify 30mg daily 6. Continue current Depakote. (serum level therapeutic as of 03/14/17) 7. We will start Lexapro 10 mg daily for depression and watch for the emergence of any signs of manic conversion. 8. Continue to Encourage group activity and engagement. 9. Anticipated length of stay is 10-14 days. Asael Adkins MD Mar 25, 2017 13:57
--- NOTE | 2017-03-25 18:35 | NUR ---
Observations [id number] Pt isolative to room much of the day. Pt did attend Community Meeting, setting goal of looking up to his higher power. Pt did participate in activities, throwing football on patio with encouragement from other patients. Pt attended all meals, eating 100%. Pt did not interact much with peers or staff. He was observed every 15 minutes of shift as directed.
[2017-03-25] MEDS: TRAZODONE PO SCH ×2 (21:45)
[2017-03-25] MEDS: Divalproex (QD) 500 mg ER24 Tablet PO SCH (21:46)
--- NOTE | 2017-03-25 23:00 | NUR ---
Nurses Note evening Patient has been suspicious,guarded and internally preoccupied He has been medication compliance without adverse effects,will maintain q 15min. checks for safety and support. Addendum: 03/25/17 at 2310 by BERNICE ROBERTSON RN Amended: Links added.
--- NOTE | 2017-03-26 04:48 | NUR ---
Nursing Note Information Tech 11pm to 7am Pt woke up during night, confused. Came up to nursing station stating I was told I needed to come up here. Pt then had difficulty finding his room and had to be directed. Pt then came back to the nurses station holding a package of hygiene wipes and asked [facility] if he could use them. Pt offered prn medication for anxiety but declined. Slept soundly the rest of the shift. Monitored pt. for safety, location and accountability
[2017-03-26] MEDS: LORazepam 1 mg Tablet PO PRN ×2 (05:18→21:08)
[2017-03-26] MEDS: Omega-3 Fatty Acids 1,000 mg Capsule PO SCH ×2 (07:53→20:44)
[2017-03-26 08:04] VITALS: BP 105/72; PULSE 73; RESP 15
--- NOTE | 2017-03-26 12:59 | NUR ---
NURS Note [id number] Mood: "I feel pretty bad." Endorses depression 10/10; anxiety (unable to rate). Affect: Restricted. Thought Process/Content: "The people on TV are making judgements about me." Delusions of reference. Expresses shame and guilt about "the things I've done." Behavior: Pt in common areas much of shift. Interacting with peers and staff. Assessment/Plan: Pt less isolative. Thought disturbances and feelings of depression persist. Continue to monitor mood and thoughts, continue with treatment plan.
--- NOTE | 2017-03-26 15:50 | PCM.PNPSY ---
Subjective Date of Service Mar 26, 2017 Subjective The patient reported that he woke up in the middle of the night and went to the front end developer and when he returned did not know where his room was. He reported that he been "confessing all my sins" internally and so got distracted and could not find his room. He stated, "today might be one of the worst days, it is a man problem." He indicated that he has guilt about some pornographic films he used in the past and believes that people can hear her mostly sleeps. In retrospect, he feels that he has made improvement but still feels he needs to make further improvement prior to discharge. He reports frustration feeling that the medication is not helping although he is aware that he has had resolution of suicidal thoughts and auditory and visual hallucinations. He noted no significant change in symptoms since starting Lexapro but also noted no side effects. Sleep: "All right" 6.25 hours per staff Appetite: "Not very well" Suicidal and homicidal ideation: Denies Auditory hallucinations: Denies Visual hallucinations: Denies Other Psychotic Symptoms: Concerned about thought broadcasting/telepathy/guilt themes as noted above Anxiety: 10/10 with no outward signs of anxiety. Depression: 10/10 but is unable to explain why outside of guilty feelings. Mental Status Exam Vital Signs Vital Signs Date Time Temp Pulse Resp B/P Pulse Ox O2 Delivery O2 Flow Rate FiO2 03/26/17 08:04 36.3 73 15 105/72 Appearance: Unkept Attitude: Pleasant, Cooperative, Guarded Behavior: No unusual behavior Affect: Restricted Mood: Depressed, Anxious Thought Process/Associations: Goal Directed Speech Production: Paucity (improving) Speech Rate: Lags/Latency (minimal) Speech Articulation: Normal Thought Content: Negativistic, Guilt, Suspicious, Perseveration Danger to Self/Suicidal Ideati: None Danger to Others: None Delusions: Thought Broadcasting (Endorses), Paranoid (Endorses mild) Hallucinations: Auditory (Denies), Visual (Denies) Consciousness: Alert Orientation: Person, Place, Date, Situation Memory: Short Term Memory (Impaired), Snf Memory (Impaired) Estimate Intellectual Function: Average Basis for IQ estimate: Word use/vocabulary, Educational history Attention/Concentration & Cogn: Impaired Insight: Limited Judgement: Limited Mental Health Plan The patient is a 51 year old male with a history of schizoaffective disorder who reduced medication adherence and eventually stopped all medications, decompensated, attempted suicide and was detained by the [facility]. The patient's outpatient provider indicates that he responded well to his outpatient medications and was stable for quite some time. They report that they will have intensive outpatient treatment to help him with medication adherence. Patient remains on medication, 30 mg of Abilify daily, there has been a decrease in his positive symptoms, no longer hearing voices, no longer seeing people in the trees. The patient is more open and talkative and is reporting concerns about peers and staff hearing his thoughts while he sleeps. Negative symptoms remain prominent with impaired hygiene, latency, and isolation. The patient is denying side effects and interacting minimally with staff and peers. The patient has fairly consistently endorsed ongoing anxiety and depression which, although ameliorated, is still prominent. The patient is noting no side effects from escitalopram. Patient reports overall getting better but no significant change with the addition of antidepressant. Discussed case with patient's therapist and they will review previous medication trials with their provider for potential augmentation strategy. [place] AXIS I: Schizoaffective disorder, bipolar type Alcohol use disorder Marijuana use disorder AXIS II: Deferred AXIS III: None reported. AXIS IV: Moderate with recent Mother's day, medication non-adherence. AXIS V: GAF 35 Medications Abilify 30mg po HS Benztropine 1mg po bid Depakote ER 1500mg po nightly, blood level 84 on 03/14/2017 Escitalopram 10 mg daily Trazodone 150mg po nightly Lorazepam 1-2 mg every 4 hours when necessary Thiamine 100 mg daily Multivitamin 1 daily Treatments 1. The patient is admitted to the inpatient unit and will be provided a safe and secure environment. 2. The patient is denying suicidal ideation and is not in need of a one-to-one at this time. 3. The patient is encouraged to participate with group and milieu activities. 4. The patient will be seen by the treatment team on a daily basis to assess symptoms, side effects and response to treatment. 5. Continue with Abilify 30mg daily 6. Continue current Depakote. (serum level therapeutic as of 03/14/17) 7. We will start Lexapro 10 mg daily for depression and watch for the emergence of any signs of manic conversion. 8. Continue to Encourage group activity and engagement. 9. Anticipated length of stay is 10-14 days. Asael Adkins MD Mar 26, 2017 15:50
--- NOTE | 2017-03-26 16:28 | NUR ---
Paver/Counselor S:"I'm fine. Everything's fine." O: Patient did not express any SI or HI, or any levels of anxiety or depression. He did not have any auditory hallucinations and responded with "I don't know" when asked about visual hallucinations. He slept for 6.25 hours and participated in groups. A: Patient was cooperative but avoided eye contact. He was throwing a football with another patient on the patio, and has been much more social. P: Follow care plan and coordinate with outpatient providers.
--- NOTE | 2017-03-26 18:40 | NUR ---
Observations [id number] Pt appeared more active on unit today then in previous days. Pt attended Community Meeting, stating that he wants to get out of here but also "has to pay the consequences for what I've done." Pt did participate in group, spent time on patio playing football. Pt attended all meals, eating 100%. Pt was observed every 15 minutes of shift as directed.
[2017-03-26] MEDS: Divalproex (QD) 500 mg ER24 Tablet PO SCH (20:44)
[2017-03-26] MEDS: TRAZODONE PO SCH ×2 (20:44)
--- NOTE | 2017-03-26 21:16 | NUR ---
NURSING NOTE [id number] Mood: "I... have problems... just like everyone does" Affect: flat, but more social and conversational at times throughout the shift w/both peers and staff Behavior: pt. spent time out on the patio w/peers. Visible in the DR off and on, chatting at times but other times sitting silently and staring down at the table for long stretches. Appears to be ruminating. Pt. med compliant at HS. Thought processes: pt. continues to express guilt r/t delusional thoughts and lacks insight into his condition. This shift he asked: "when am I going into surgery?" and then when this creative services writer asked him what he believes he will be having surgery on he did not want to tell this creative services writer and became evasive. He is latent at times. Thoughts are disjointed. Appears anxious and this evening his hands were tremulous. Pt's BP at that time was 155/104. Pt. given PRN Ativan 2 mg at that time for his anxiety. Addendum: 03/26/17 at 2306 by SUSY RODRIGUEZ RN ERROR-- PLEASE NOTE BLOOD PRESSURE LISTED HERE WAS ENTERED IN ERROR AND WAS ANOTHER PATIENT'S BP
--- NOTE | 2017-03-27 06:15 | NUR ---
Sleep Poor broken sleep through the night. Affect flat and blunted. Appears depressed and internally preoccupied while awake during the night. Pt slept from [id number], [id number]. Total sleep 2.25 hours.
[2017-03-27] MEDS: Omega-3 Fatty Acids 1,000 mg Capsule PO SCH ×2 (07:55→20:16)
--- NOTE | 2017-03-27 15:32 | NUR ---
Cigar Making Supervisor/Counselor S:"I've talked to the doctor." A: Patient denies any SI or HI, and did not rate his anxiety or depression. Denies any visual or auditory hallucinations. He slept for 2.25 last night. O: Patient is flat and blunted. He is sad, and feels guilty. He is avoidant and withdrawn. P: Follow care plan and coordinate with outside providers.
--- NOTE | 2017-03-27 16:21 | NUR ---
Observations [id number] Pt appeared internally preoccupied much of the day, working on a puzzle in the dining room. He was slow to respond to questions from staff, and appeared irritated upon interaction. Pt did spend time on patio with encouragement from other peers. He attended all meals, eating 100%. Pt mentioned to this automatic typewriter inspector that "I'm ready to talk", and when approached stated that he wasn't sure what he wanted to talk about. He also made reference to surgery- "When will I be having surgery?" Pt was redirected and told that he is not having surgery, pt appeared disappointed. He was observed every 15 minutes of shift as directed.
--- NOTE | 2017-03-27 16:35 | PCM.PNPSY ---
Subjective Date of Service Mar 27, 2017 Subjective The patient reports today that he is "not good" he goes on to say that he is concerned that someone is wanting to cut off his penis at the hospital and do some sort of compelled surgery. He initially is evasive and states "I do not think what is to happen is humane." "If I have this procedure done" he reports he will have suicidal thoughts. The patient is noted to be getting out of his room and interacting with others he also appears somewhat brighter although he is reporting no improvement in his mood. He denies side effects. Sleep: 4+ hours, broken Appetite: "alright" Suicidal and homicidal ideation: The patient reports that he will be suicidal if he has this "procedure done" otherwise he denies suicidal or homicidal ideation. He denies intent to harm himself or remove his own penis. He agrees to notify staff should he have any of these feelings. Auditory hallucinations: Denies Visual hallucinations: "I think I have always had that." Discussed with patient that he had previously reported that he did not have any kind of visual hallucinations of individuals in the trees for several days but the patient denied this. Other Psychotic Symptoms: As above Anxiety: 07/24 Depression: 07/24 Mental Status Exam Appearance: Unkept Attitude: Pleasant, Cooperative, Guarded Behavior: No unusual behavior Affect: Restricted Mood: Depressed, Anxious Thought Process/Associations: Goal Directed Speech Production: Normal Speech Rate: Lags/Latency (minimal) Speech Articulation: Normal Thought Content: Negativistic, Guilt, Somatic preoccupation, Suspicious, Perseveration Danger to Self/Suicidal Ideati: None Danger to Others: None Delusions: Thought Broadcasting, Paranoid (Endorses) Hallucinations: Auditory (Denies), Visual (Endorses) Consciousness: Alert Orientation: Person, Place, Date, Situation Memory: Short Term Memory (Impaired), Intake Manager Memory (Impaired) Estimate Intellectual Function: Average Basis for IQ estimate: Word use/vocabulary, Educational history Attention/Concentration & Cogn: Impaired Insight: Limited Judgement: Limited Mental Health Plan The patient is a 51 year old male with a history of schizoaffective disorder who reduced medication adherence and eventually stopped all medications, decompensated, attempted suicide and was detained by the [facility]. The patient's outpatient provider indicates that he responded well to his outpatient medications and was stable for quite some time. They report that they will have intensive outpatient treatment to help him with medication adherence. Patient remains on medication, 30 mg of Abilify daily, there has been a decrease in his positive symptoms, no longer hearing voices, no longer seeing people in the trees. The patient is more open and talkative and is reporting concerns about peers and staff hearing his thoughts while he sleeps. Negative symptoms remain prominent with impaired hygiene, latency, and isolation. The patient is denying side effects and interacting minimally with staff and peers. The patient has fairly consistently endorsed ongoing anxiety and depression which, although ameliorated, is still prominent. The patient is noting no side effects from escitalopram. Patient reports feeling frustrated and that his medications are not working. The patient has previously been treated with ziprasidone and typically a second agent and review of records would suggest that ziprasidone monotherapy has not been effective. It also appears by the current trial that aripiprazole monotherapy is also not effective. I am awaiting call back from outpatient provider regarding discussion to either restart Geodon or switch to clozapine. For the time being, will restart ziprasidone. [place] AXIS I: Schizoaffective disorder, bipolar type Alcohol use disorder Marijuana use disorder AXIS II: Deferred AXIS III: None reported. AXIS IV: Moderate with recent Mother's day, medication non-adherence. AXIS V: GAF 35 Medications Abilify 20mg po HS Ziprasidone 40 mg twice daily Benztropine 1mg po bid Depakote ER 1500mg po nightly, blood level 84 on 03/14/2017 Escitalopram 10 mg daily Trazodone 150mg po nightly Lorazepam 1-2 mg every 4 hours when necessary Thiamine 100 mg daily Multivitamin 1 daily Treatments 1. The patient is admitted to the inpatient unit and will be provided a safe and secure environment. 2. The patient is denying suicidal ideation and is not in need of a one-to-one at this time. 3. The patient is encouraged to participate with group and milieu activities. 4. The patient will be seen by the treatment team on a daily basis to assess symptoms, side effects and response to treatment. 5. Decrease Abilify to 20 mg daily 6. Restart ziprasidone 40 mg twice daily. 7. Await call back from outpatient provider and consider cross taper to Clozaril. 8. Continue current Depakote. (serum level therapeutic as of 03/14/17) 9. We will start Lexapro 10 mg daily for depression and watch for the emergence of any signs of manic conversion. 10. Continue to Encourage group activity and engagement. 11. Anticipated length of stay is 10-14 days. Asael Adkins MD Mar 27, 2017 15:02
--- NOTE | 2017-03-27 16:48 | NUR ---
Nursing Note [id number] S: "Have you heard when I am having the surgery"? "It is kind of personal-I don't feel comfortable talking about it". "I want to talk to my personal doctor about it, not the doctor here". "It is a pretty important surgery, I should get it done". O: Patient declined patio time. Seems more isolative today-possibly due to another patient on the until A: Appears to be less communicative, possible delusions about surgery (patient reported to nurse yesterday that he wanted his penis removed). Continues to have a flat affect, with little interaction with peers. P: Monitor for response to treatment. Q 15 min checks for safety. Follow plan of care. Addendum: 03/27/17 at 1745 by LAKISHA CHAVIRA RN Rating anxiety 10/10, depression 10/10 and reporting SI-but will not discuss or rate it for me, "I need to speak with a doctor about that". Addendum: 03/27/17 at 1757 by LAKISHA CHAVIRA RN Patient agrees to keep safe on unit and seek staff if he begins to feel unsafe.
--- NOTE | 2017-03-27 16:49 | NUR ---
Per [facility]: patient seen muttering to self as he was coming down hallway. Asked what if he was ok, patient replied, "Someone broke into my room and got into my stuff". Patient reminded that supervisor enrobing may have cleaned his room, maybe she moved some of his things. Patient reported to be angry and in an aggressive manner replied, "No one should be going into my room or taking my things".
[2017-03-27 17:46] VITALS: BP 111/76; PULSE 55; RESP 16
--- NOTE | 2017-03-27 20:05 | NUR ---
Behavior P: Pt watching TV. Recognizes me as his nurse. States, "I'm not doing very well". I: When asked if he could explain what he meant by this statement, the pt stared at the TV and refused to respond E: Cont to provide safe, supportive environment.
[2017-03-27] MEDS: TRAZODONE PO SCH ×2 (20:12)
[2017-03-27] MEDS: ARIPiprazole 10 mg Tablet PO SCH (20:12)
[2017-03-27] MEDS: Divalproex (QD) 500 mg ER24 Tablet PO SCH (20:13)
--- NOTE | 2017-03-28 03:49 | NUR ---
ESTEVAN/NOC PT has been in and out of his room infrequently. HE comes to dayroom for very short intervals and will return to his room. PT presents with flat affect. THere is no eye contact made when trying to talk with pt. PT did come up to this RN and showed a piece of paper that had notes from the "thought for the day." PT was assured that the note was not harmful and he was then content. PT has been awake a few times over night. PT continues to have delusions of persecution and states "it's all my fault. Everything from last night is all my fault." Simple reassurance given and then pt went back to sleep. THere were no A/R noted from initiation of geodon this estevan. Will CTM for any A/R and continue with current POC. This RN did not note any agitation this shift.
--- NOTE | 2017-03-28 05:38 | NUR ---
Observations 1900 - 0700 Pt was in room when shift started and was in and out of room, walking hallway and sitting quietly in D.R. Pt was pleasant, polite and cooperative when approached. Pt maintained behavior throughout the shift. Pt speech was soft and mumbling and eye contact was poor. Pt ate snack before bed. Pt was offered a shower but he declined. Pt first appeared asleep at 2345 and has slept through the night. Pt was observed every 15 minutes through the night as ordered.
[2017-03-28] MEDS: Omega-3 Fatty Acids 1,000 mg Capsule PO SCH ×2 (08:56→20:20)
--- NOTE | 2017-03-28 15:29 | NUR ---
Obs Dayshift Pt is isolating in his room most of the shift either pacing the room or sitting on the bed talking to unseen others. Pt remains very paranoid, and slightly irritable today. Attempted to attend morning meeting and left before it started. Pt comes out for meals and snack, eats very quickly and goes back to his room. Pt was able to attend afternoon group w/ out leaving early. Ok ADL's, Good meals
--- NOTE | 2017-03-28 15:55 | PCM.PNPSY ---
Subjective Date of Service Mar 28, 2017 Subjective The patient reports today that he is "not good" and reports that he is "kind of upset about being framed. Its management lesion and privacy." The patient was not terribly fixated on surgery but this appeared to be slowing the back of his mind. He gave a room self washing kit as evidence that he was being prepped for surgery. When informed that he could take a shower whenever he wished he seemed to be slightly less suspicious. His outpatient provider Tricia Amezquita had been contacted and return call today and the case was discussed. For the time being, we will increase Geodon back to 80 mg twice daily and continue aripiprazole 20 mg daily until further history can be obtained. It is unclear why quetiapine was discontinued after his last hospital stay as this had apparently been effective. The patient may also respond to atypical agents such as thiothixene. The outpatient provider will contact this provider when she has more information. He denies side effects. Sleep: "Real good " Appetite: "I am eating pretty good" Suicidal and homicidal ideation: "I do not know I am just confused" the patient agreed to notify staff should he have actual suicidal or homicidal thoughts. Auditory hallucinations: Denies Visual hallucinations: Denies so far today Other Psychotic Symptoms: As above Anxiety/Depression: "Not sure." Current Medications Current Medications Aripiprazole 20 mg HS PO Last administered on 03/27/17 20:12; Admin Dose 20 MG ; Start 03/27/17 at 21:00 Ziprasidone 40 mg BIDWM PO Last administered on 03/28/17 08:56; Admin Dose 40 MG; Start 03/27/17 at 17:30; Stop 03/28/17 at 19:00 Mental Status Exam Appearance: Unkept Attitude: Pleasant, Cooperative, Guarded Behavior: No unusual behavior Affect: Restricted Mood: Depressed, Anxious Thought Process/Associations: Goal Directed Speech Production: Normal Speech Rate: Lags/Latency (minimal) Speech Articulation: Normal Thought Content: Negativistic, Guilt, Somatic preoccupation, Suspicious, Perseveration Danger to Self/Suicidal Ideati: None Danger to Others: None Delusions: Thought Broadcasting, Paranoid (Endorses) Hallucinations: Auditory (Denies), Visual (Denies) Consciousness: Alert Orientation: Person, Place, Date, Situation Memory: Short Term Memory (Impaired), Machine Bunch Maker Memory (Impaired) Estimate Intellectual Function: Average Basis for IQ estimate: Word use/vocabulary, Educational history Attention/Concentration & Cogn: Impaired Insight: Limited Judgement: Limited Mental Health Plan The patient is a 51 year old male with a history of schizoaffective disorder who reduced medication adherence and eventually stopped all medications, decompensated, attempted suicide and was detained by the [facility]. The patient's outpatient provider indicates that he responded well to his outpatient medications and was stable for quite some time. They report that they will have intensive outpatient treatment to help him with medication adherence. Patient remains on medication, 30 mg of Abilify daily, there has been a decrease in his positive symptoms, no longer hearing voices, no longer seeing people in the trees. The patient is more open and talkative and is reporting concerns about peers and staff hearing his thoughts while he sleeps. Negative symptoms remain prominent with impaired hygiene, latency, and isolation. The patient is denying side effects and interacting minimally with staff and peers. The patient has fairly consistently endorsed ongoing anxiety and depression which, although ameliorated, is still prominent. The patient is noting no side effects from escitalopram. Patient reports feeling frustrated and that his medications are not working. The patient has previously been treated with ziprasidone and typically a second agent and review of records would suggest that ziprasidone monotherapy has not been effective. It also appears by the current trial that aripiprazole monotherapy is not effective. We will re- titrate ziprasidone until further information is received from outpatient provider. The patient will remain on aripiprazole 20 mg daily. [place] AXIS I: Schizoaffective disorder, bipolar type Alcohol use disorder Marijuana use disorder AXIS II: Deferred AXIS III: None reported. AXIS IV: Moderate with recent Mother's day, medication non-adherence. AXIS V: GAF 35 Medications Abilify 20mg po HS Ziprasidone 60 mg twice daily Benztropine 1mg po bid Depakote ER 1500mg po nightly, blood level 84 on 03/14/2017 Escitalopram 10 mg daily Trazodone 150mg po nightly Lorazepam 1-2 mg every 4 hours when necessary Thiamine 100 mg daily Multivitamin 1 daily Treatments 1. The patient is admitted to the inpatient unit and will be provided a safe and secure environment. 2. The patient is denying suicidal ideation and is not in need of a one-to-one at this time. 3. The patient is encouraged to participate with group and milieu activities. 4. The patient will be seen by the treatment team on a daily basis to assess symptoms, side effects and response to treatment. 5. Decrease Abilify to 20 mg daily 6. Increase ziprasidone to 60 mg twice daily. 7. Await further clarification from outside provider. 8. Continue current Depakote. (serum level therapeutic as of 03/14/17) 9. We will start Lexapro 10 mg daily for depression and watch for the emergence of any signs of manic conversion. 10. Continue to Encourage group activity and engagement. 11. Anticipated length of stay is 10-14 days. Asael Adkins MD Mar 28, 2017 15:55
--- NOTE | 2017-03-28 16:03 | NUR ---
Metal Trades Instructor/Counselor S:"They're going to hurt me." O: Patient did not express any HI or SI, and no AVH. He did not express any depression or anxiety today. A: Patient was out in the milieu and threw a football back and forth on the patio with the [facility]. He also attended structured group and expressed his displeasure at his schedule being changed. He was irritable at times and did not want to continue answering questions after stating that "they're going to hurt me." He also stated that "it's going to hurt" but was unwilling to elaborate on what was going to hurt or who was going to hurt him. His affect was flat and he was monotonous in answering questions. He continued to throw a football after speaking to this junior copywriter, and has been out in the community area. P: Follow care plan and coordinate with outpatient providers.
--- NOTE | 2017-03-28 17:47 | NUR ---
Nursing Note [id number] S: "I feel really anxious today-I don't want anything for it right now". "I am worried about what is happening 'out there'". S: Patient isolative today, minimal presence in dining room-did attend group and patio time. Expressed concern about other patients in the dining room. A: Quiet, guarded, helpless, depressed. P: Monitor for response to treatment. Q 15 min checks for safety. Follow plan of care.
[2017-03-28] MEDS: TRAZODONE PO SCH ×2 (20:18)
[2017-03-28] MEDS: ARIPiprazole 10 mg Tablet PO SCH (20:18)
[2017-03-28] MEDS: Divalproex (QD) 500 mg ER24 Tablet PO SCH (20:19)
[2017-03-28 22:27] VITALS: BP 111/71; PULSE 79; RESP 16
--- NOTE | 2017-03-29 04:18 | NUR ---
nursing, nights, 11-7 s- i feel guilty. dreamed my brother . i'll be ok. o- has appeared to sleep after 2145 to 0245. rested in bed and appeared to sleep after 0400. assessed q 15 minutes. a- interrupted sleep, no apparent distress. p- monitor behavior/emotional state, quality, times and amount of sleep, use and effect of medication. eva
[2017-03-29] MEDS: Omega-3 Fatty Acids 1,000 mg Capsule PO SCH ×2 (08:16→20:09)
[2017-03-29 09:05] VITALS: BP 86/54; PULSE 81; RESP 17
[2017-03-29 15:05] VITALS: BP 109/70; PULSE 66
--- NOTE | 2017-03-29 15:21 | NUR ---
Food And Beverage Assistant Manager/Counselor S: "I [facility], but can't remember why." O: Patient did not have any SI or HI, no AVH, but rated his depression at 5 and his anxiety at a 10. He slept for 5.75 hours. A: Patient stated he was anxious because yesterday he thought about suing the hospital. When prompted further, the client stated he could not remember why he wanted to [facility]. He was in and out of his room, and interacting with other patients and staff. He had some feelings of guilt, and avoided eye contact when speaking. When he was told about group, he was willing to leave his room and participate. He stated that he was done talking, because he didn't know what else to say. P: Follow care plan and coordinate with outpatient providers.
--- NOTE | 2017-03-29 17:30 | NUR ---
Observations [id number] Pt continuing to appear to be isolative, internally preoccupied and quiet. Pt isolated to room much of the day, but did attend Community Meeting and group. Pt continues to make statements referencing his guilt, but will not elaborate. He attended all meals, eating 100%. He mentioned to this life insurance underwriter that he felt very anxious and very depressed. Pt was observed every 15 minutes of shift as directed.
[2017-03-29] MEDS: TRAZODONE PO SCH ×2 (20:10)
[2017-03-29] MEDS: Divalproex (QD) 500 mg ER24 Tablet PO SCH (20:10)
--- NOTE | 2017-03-29 21:17 | NUR ---
Dayshift/evening shift S : "So much going on, I just don't want to talk about it" O: Pt participated in group and was out in the milieu for short periods of time, he then would retreat back to his room and be isolative there. A: Pts thought process is delusional, pt has a flat affect and is very guarded today. P Follow plan of care, monitor behaviors. Monitor for side effects.
[2017-03-29] MEDS: ARIPiprazole 10 mg Tablet PO SCH (21:38)
--- NOTE | 2017-03-29 21:46 | PCM.PNPSY ---
Subjective Date of Service Mar 29, 2017 Subjective Patient reports that he is feeling "worse today...guilty for a lot of things." He will not go into details. He reports no side effects. Again discussed the plan to increase ziprasidone to 80mg twice daily and if still symptomatic will cross-taper aripiprazole to quetiapine. Patient agreeable to this plan. Sleep: 5.75 hours Appetite: "fine" Suicidal and homicidal ideation: "no, but I worry about other people." Auditory hallucinations: denies Visual hallucinations: "I've seen a few things... in the trees... it's personal " Other Psychotic Symptoms: primary negative symptoms Anxiety: "I don't know yet" Depression: "I don't think I can talk anymore" Current Medications Current Medications Ziprasidone 60 mg BIDWM PO Last administered on 03/29/17 17:16; Admin Dose 60 MG; Start 03/29/17 at 08:00 Mental Status Exam Vital Signs Vital Signs Date Time Temp Pulse Resp B/P Pulse Ox O2 Delivery O2 Flow Rate FiO2 03/29/17 15:05 66 109/70 Appearance: Unkept Attitude: Pleasant, Cooperative, Guarded Behavior: No unusual behavior Affect: Restricted Mood: Depressed, Anxious Thought Process/Associations: Goal Directed Speech Production: Normal Speech Rate: Lags/Latency (minimal) Speech Articulation: Normal Thought Content: Negativistic, Guilt, Somatic preoccupation, Suspicious, Perseveration Danger to Self/Suicidal Ideati: None Danger to Others: None Delusions: Thought Broadcasting, Paranoid (Endorses) Hallucinations: Auditory (Denies), Visual (Denies) Consciousness: Alert Orientation: Person, Place, Date, Situation Memory: Short Term Memory (Impaired), Retirement Memory (Impaired) Estimate Intellectual Function: Average Basis for IQ estimate: Word use/vocabulary, Educational history Attention/Concentration & Cogn: Impaired Insight: Limited Judgement: Limited Mental Health Plan The patient is a 51 year old male with a history of schizoaffective disorder who reduced medication adherence and eventually stopped all medications, decompensated, attempted suicide and was detained by the [facility]. The patient's outpatient provider indicates that he responded well to his outpatient medications and was stable for quite some time. They report that they will have intensive outpatient treatment to help him with medication adherence. Patient remains on medication, 30 mg of Abilify daily, there has been a decrease in his positive symptoms, no longer hearing voices, no longer seeing people in the trees. The patient is more open and talkative and is reporting concerns about peers and staff hearing his thoughts while he sleeps. Negative symptoms remain prominent with impaired hygiene, latency, and isolation. The patient is denying side effects and interacting minimally with staff and peers. The patient has fairly consistently endorsed ongoing anxiety and depression which, although ameliorated, is still prominent. The patient is noting no side effects from escitalopram. Patient reports feeling frustrated and that his medications are not working. The patient has previously been treated with ziprasidone and typically a second agent and review of records would suggest that ziprasidone monotherapy has not been effective. It also appears by the current trial that aripiprazole monotherapy is not effective. We will re- titrate ziprasidone until further information is received from outpatient provider. The patient will remain on aripiprazole 20 mg daily. If this proves ineffective, will cross-taper to quetiapine 300mg as this had been effective in the past and only stopped apparently following an episode of medication non- adherence. [place] AXIS I: Schizoaffective disorder, bipolar type Alcohol use disorder Marijuana use disorder AXIS II: Deferred AXIS III: None reported. AXIS IV: Moderate with recent Mother's day, medication non-adherence. AXIS V: GAF 35 Medications Abilify 20mg po HS Ziprasidone 80 mg twice daily Benztropine 1mg po bid Depakote ER 1500mg po nightly, blood level 84 on 03/14/2017 Escitalopram 10 mg daily Trazodone 150mg po nightly Lorazepam 1-2 mg every 4 hours when necessary Thiamine 100 mg daily Multivitamin 1 daily Treatments 1. The patient is admitted to the inpatient unit and will be provided a safe and secure environment. 2. The patient is denying suicidal ideation and is not in need of a one-to-one at this time. 3. The patient is encouraged to participate with group and milieu activities. 4. The patient will be seen by the treatment team on a daily basis to assess symptoms, side effects and response to treatment. 5. Decrease Abilify to 20 mg daily 6. Increase ziprasidone to 80 mg twice daily. 7. If remains symptomatic, per discussion with provider, will cross taper aripiprazole to quetiapine. 8. Continue current Depakote. (serum level therapeutic as of 03/14/17) 9. Continue Lexapro 10 mg daily for depression and watch for the emergence of any signs of manic conversion. 10. Continue to Encourage group activity and engagement. 11. Anticipated length of stay is 10-14 days. Asael Adkins MD Mar 29, 2017 21:46
[2017-03-30] MEDS: LORazepam 1 mg Tablet PO PRN (01:40)
--- NOTE | 2017-03-30 05:09 | NUR ---
nursing, nights, 11-7 s- i want to apologize. you don't want to know what's going on. i want to confess for yesterday, ok, thank you. o- has appeared to sleep after 2130. up at 2350 and came to staff repeatedly over the next 2 hours appearing quite anxious. received 2 mg of ativan at 0145 with good effect. appeared to sleep after 0230. assessed q 15 minutes. a- interrupted sleep, appears internally preoccupied at times, no apparent physical distress. p- monitor behavior/emotional state, quality, times and amount of sleep, use and effect of medication. eva
[2017-03-30] MEDS: Omega-3 Fatty Acids 1,000 mg Capsule PO SCH ×2 (08:35→20:43)
[2017-03-30 13:18] VITALS: BP 107/74; PULSE 72; RESP 16
--- NOTE | 2017-03-30 14:46 | PCM.PNPSY ---
Subjective Date of Service Mar 30, 2017 Subjective Patient reports that he is feeling "kind of upset. Yesterday was pretty stressful. The time clock was not working that well." The patient expressed frustration with the schedule of events not matching up with the clock. He reports "things are getting worse. I try to pay attention and do what I am supposed to and it backfires." He was unwilling to clarify. He reports no side effects. Again discussed the plan to increase ziprasidone to 80mg twice daily and if still symptomatic will cross-taper aripiprazole to quetiapine. Patient agreeable to this plan. Sleep: 7 hours Appetite: "fine" Suicidal: "Not yet" Homicidal ideation: Denies. Auditory hallucinations: denies Visual hallucinations: "I saw them this morning. You are asking too many personal questions." Other Psychotic Symptoms: primary negative symptoms Anxiety: 07/24, little objective signs of anxiety. Depression: 07/24 Current Medications Current Medications Lorazepam 1-2 MG Q4H PRN PO Last administered on 03/30/17 01:40; Admin Dose 2 MG; Start 03/30/17 at 01:40 Ziprasidone 60 mg BIDWM PO Last administered on 03/29/17 17:16; Admin Dose 60 MG; Start 03/29/17 at 08:00; Stop 03/29/17 at 22:11; Status DC Ziprasidone 80 mg BIDWM PO Last administered on 03/30/17 08:35; Admin Dose 80 MG; Start 03/30/17 at 08:00 Mental Status Exam Vital Signs Vital Signs Date Time Temp Pulse Resp B/P Pulse Ox O2 Delivery O2 Flow Rate FiO2 03/30/17 13:18 36.4 72 16 107/74 Appearance: Unkept Attitude: Cooperative, Guarded Behavior: No unusual behavior Affect: Restricted Mood: Depressed, Anxious Thought Process/Associations: Goal Directed Speech Production: Normal Speech Rate: Lags/Latency (minimal) Speech Articulation: Normal Thought Content: Negativistic, Guilt, Somatic preoccupation, Suspicious, Perseveration Danger to Self/Suicidal Ideati: None Danger to Others: None Delusions: Paranoid (Endorses) Hallucinations: Auditory (Denies), Visual (Endorses) Consciousness: Alert Orientation: Person, Place, Date, Situation Memory: Short Term Memory (Impaired), Representative Memory (Impaired) Estimate Intellectual Function: Average Basis for IQ estimate: Word use/vocabulary, Educational history Attention/Concentration & Cogn: Impaired Insight: Limited Judgement: Limited Mental Health Plan The patient is a 51 year old male with a history of schizoaffective disorder who reduced medication adherence and eventually stopped all medications, decompensated, attempted suicide and was detained by the [facility] [place]. The patient's outpatient provider indicates that he responded well to his outpatient medications and was stable for quite some time. They report that they will have intensive outpatient treatment to help him with medication adherence. The patient had been placed on a combination of Abilify and Geodon with Abilify titrated to 30 mg. Geodon was gradually tapered as the patient appeared to be improving with decreased hallucinations and paranoia. However, once Geodon taper had been completed patient slowly developed worsening depression and increased paranoia. The patient had been placed on Lexapro to address depression. Although the patient endorses anxiety and an depression, objectively he does not appear terribly anxious. The patient has reported the return of seeing people in the trees but continues to deny auditory hallucinations. He still endorses significant guilt and negative symptoms. The patient is noting no side effects from escitalopram, aripiprazole, or ziprasidone. Patient reports feeling frustrated and that his medications are not working as well or as fast as he would like. Review of records indicates that the patient has typically been on 2 agents and did well on ziprasidone and quetiapine in the past. The patient will remain on aripiprazole 20 mg daily and has been very titrated on ziprasidone to 80 mg twice daily. If this proves ineffective, will cross-taper to quetiapine 300mg as this had been effective in the past and only stopped apparently following an episode of medication non- adherence. [place] AXIS I: Schizoaffective disorder, bipolar type Alcohol use disorder Marijuana use disorder AXIS II: Deferred AXIS III: None reported. AXIS IV: Moderate with recent Mother's day, medication non-adherence. AXIS V: GAF 35 Medications Abilify 20mg po HS Ziprasidone 80 mg twice daily Benztropine 1mg po bid Depakote ER 1500mg po nightly, blood level 84 on 03/14/2017 Escitalopram 10 mg daily Trazodone 150mg po nightly Lorazepam 1-2 mg every 4 hours when necessary Thiamine 100 mg daily Multivitamin 1 daily Treatments 1. The patient is admitted to the inpatient unit and will be provided a safe and secure environment. 2. The patient is denying suicidal ideation and is not in need of a one-to-one at this time. 3. The patient is encouraged to participate with group and milieu activities. 4. The patient will be seen by the treatment team on a daily basis to assess symptoms, side effects and response to treatment. 5. Continue Abilify 20 mg daily 6. Continue ziprasidone 80 mg twice daily. 7. If remains symptomatic, per discussion with outpatient provider, will cross taper aripiprazole to quetiapine 300mg. 8. Continue current Depakote. (serum level therapeutic as of 03/14/17) 9. Continue Lexapro 10 mg daily for depression and watch for the emergence of any signs of manic conversion. 10. Continue to encourage group activity and engagement. 11. Patient is currently on 90 day more restrictive order. 12. We will check weight weekly and increase food intake showed to be losing weight. Asael Adkins MD Mar 30, 2017 14:46
--- NOTE | 2017-03-30 18:24 | NUR ---
[facility] Day Shift Pt maintained behavioral control throughout the shift. Pt affect appears flat, paranoid. Pt spends most of the shift resting quietly in his room or sitting quietly in the dining room. Pt is appropriate with staff and peers when active on the unit, but does not initiate social interactions with peers. Pt expresses some paranoid delusions throughout the shift, stating the "problems that happened over the last two days, they were my fault. Some people here are innocent." Pt attended community meeting in the AM and participated in group activities. Pt attended all meals and ate approx 100% of all meals.
--- NOTE | 2017-03-30 19:52 | NUR ---
Basket Operator/Counselor: S: "Yesterday was stressful, first of all, I had to move rooms." O: Patient slept 7 hours last night as per staff. When asked about S/I, patient stated, "not yet." He denies H/I. He denies auditory hallucinations. When psychiatrist asked patient about visual hallucinations, patient stated, "You're asking too many personal questions." Depression is 10/10 and anxiety is 10/10. It was suggested by [facility] [place] that patient be assessed for the PACT Team. This database report writer spoke with patient's out-patient IOP counselor, Rissa, from [facility], and Rissa stated that her physical therapy supervisor wants the patient to stay in the IOP program for a while to see if that is a good level of out-patient care before trying PACT Program. A: Patient is guarded, anxious, depressed, flat affect, paranoid, guilt, suspicious, limited insight, limited judgment. P: Follow the care plan, coordinate with out-patient providers.
[2017-03-30] MEDS: ARIPiprazole 10 mg Tablet PO SCH (20:45)
[2017-03-30] MEDS: Divalproex (QD) 500 mg ER24 Tablet PO SCH (20:45)
[2017-03-30] MEDS: TRAZODONE PO SCH ×2 (20:47)
[2017-03-31] MEDS: LORazepam 1 mg Tablet PO PRN ×2 (01:12→12:15)
--- NOTE | 2017-03-31 01:22 | NUR ---
Nursing Noc Pt presents very withdrawn this shift. Noted to avoid interaction with staff or others. Pt noted to leave table when ever anyone sits down. Pt isolating to room. Is noted to have difficulty with sleep and coming to nursing station reporting nightmares. Reported dream of brother dying, but was able to rationalize that it was not real. Pt Medicated at 0115 with Ativan for anxiety and sleep assist. Pt received sleep medication earlier without results. Continuing to monitor mood behavior and emotional state. Q15 minute rounding as ordered for safety. CP
[2017-03-31] MEDS: Omega-3 Fatty Acids 1,000 mg Capsule PO SCH ×2 (08:43→20:50)
[2017-03-31 12:05] VITALS: BP 120/76; PULSE 72; RESP 16
--- NOTE | 2017-03-31 13:50 | PCM.PNPSY ---
Subjective Date of Service Mar 31, 2017 Subjective I spent 30 minutes both reviewing his treatment plan and providing supportive and educational psychotherapy. I spent more than 50% of the time counseling the patient. I reviewed the treatment plan with the patient and discussed options available including the potential risks, benefits and side effects. Angel repeats feeling more hopeful but continues to feel highly guilty. The Staff reports that he has been more isolative tending to stay in his room more the past 72 hours although he is attempting to participate in one-to-one unit and group activities. He slept 6 hours. He denies medication side effects. He denied psychotic review of systems. He continues to complain of extreme apathy and guilt. Patient was able to identify his medications and what they were used to treat. Current Medications Current Medications Lorazepam 1-2 MG Q4H PRN PO Last administered on 03/31/17 12:15; Admin Dose 1 MG; Start 03/30/17 at 01:40 Ziprasidone 80 mg BIDWM PO Last administered on 03/31/17 08:39; Admin Dose 80 MG; Start 03/30/17 at 08:00 Mental Status Exam Vital Signs Vital Signs Date Time Temp Pulse Resp B/P Pulse Ox O2 Delivery O2 Flow Rate FiO2 03/31/17 12:05 36.2 72 16 120/76 Appearance: Unkept Attitude: Cooperative, Guarded Behavior: No unusual behavior Affect: Restricted Mood: Depressed, Anxious Thought Process/Associations: Goal Directed Speech Production: Normal Speech Rate: Lags/Latency (minimal) Speech Articulation: Normal Thought Content: Negativistic, Guilt, Somatic preoccupation, Suspicious, Perseveration Danger to Self/Suicidal Ideati: None Danger to Others: None Delusions: Paranoid (Endorses) Consciousness: Alert Orientation: Person, Place, Date, Situation Memory: Short Term Memory (Impaired), Shelter Memory (Impaired) Estimate Intellectual Function: Average Basis for IQ estimate: Word use/vocabulary, Educational history Attention/Concentration & Cogn: Impaired Insight: Limited Judgement: Limited Mental Health Plan mega Ortiz is a 51 year old male with a history of schizoaffective disorder who reduced medication adherence and eventually stopped all medications, decompensated, attempted suicide and was detained by the [facility]. The patient's outpatient provider indicates that he responded well to his outpatient medications and was stable for quite some time. They report that they will have intensive outpatient treatment to help him with medication adherence. He is struggling with negative symptoms of schizophrenia and a severe sense of poor self worth and self-esteem. Angel repeats feeling highly guilty about thoughts he is having that are causing him to fear he is a bad wilbert and she fears the retribution by God for his thoughts feelings and previous actions. The Staff reports that he has been isolative but is now attempting to participate in one-to-one unit and group activities. The patient now denies feeling that he should (no plan or intent ). He was not as delayed in thought processing and speech and I believe he is gradually but slowly improving. During my interview today, Angel had a difficult time relating a coherent history and his thought process is significant for rumination and perseveration on perceived infractions against others from his past.. Angel's insight has been improving significantly this week and he is increasingly able to attend to activities of daily living . He seems to be experiencing a "shame attack" that has been triggered by unclear stressors. Although he is showing progress he remains moderately despondent. He is no longer paralyzed with guilt. None of our direct attempts to deal with this symptom have helped. He seems to be most helped when he is able to join the group and make connections with other patients. [place] AXIS I: Schizoaffective disorder, bipolar type Alcohol use disorder Marijuana use disorder AXIS II: Deferred AXIS III: None reported. AXIS IV: Moderate with recent Mother's day, medication non-adherence. AXIS V: GAF 35 Medications Abilify 20mg po HS Ziprasidone 80 mg twice daily Benztropine 1mg po bid Depakote ER 1500mg po nightly, blood level 84 on 03/14/2017 Escitalopram 10 mg daily Trazodone 150mg po nightly Lorazepam 1-2 mg every 4 hours when necessary Thiamine 100 mg daily Multivitamin 1 daily Treatments Patient is being provided with a high degree of safety through our unit structure and active adult engagement provided by our mental health professionals, mental health technicians, psychiatric nurses and myself. We are focusing on developing improved coping skills and identifying stressors that may have led to current episode. We will attempt to: * Integrate into therapeutic groups, milieu and individual therapy. * Maintain in a closely monitored and structured unit * Provide low-stimulation environment * Obtain collateral data to assist in treatment planning * Assess degree of lability of affect and impulse control * Complete safety plan * Decrease frequency of relapse and need for re-hospitalization * Establish a consistent sleep pattern * Medication effective in stabilization of mood and/or thought process * Tolerates medication without side effects Patient will be on the following psychiatric medications: Abilify 20mg po HS Ziprasidone 80 mg twice daily Benztropine 1mg po bid Depakote ER 1500mg po nightly, blood level 84 on 03/14/2017 Escitalopram 10 mg daily Trazodone 150mg po nightly Education: Educate patient about recreational alcohol use as an etiology Educate about metabolic etiologies related to obesity Patient's legal status Patient is on a 90 day LR O involuntary treatment hold. Disposition: Home Harjit Andersen MD Mar 31, 2017 13:49
--- NOTE | 2017-03-31 16:39 | NUR ---
[id number]. nurs. S: "I was told to come and ask for medication if it got worse"....."I want to turn myself in "... O:Pt coming to staff with depressed ,flat affect, requesting medication, unable to describe his concern offered 1 to 2 mg of ativan and requested I mg given at 1215 , when asked later pt stated that "I don't know if it helped, and appeared to be occupied by internal stim, given his remark, related to preoccupation with guilt. Pt generally isolative on unit, retreating when others approach and has tendency to half complete sentences, and wander away, poor eye contact. Pt later in day coming to staff to make above comment re wanting to turn himself in. Pt was noted to be out in DR before dinner and conversing with peer at same table in more relaxed manner. P:CNCP.
--- NOTE | 2017-03-31 20:05 | NUR ---
OBSERVATIONS Pt was pleasant and cooperative with staff. Pt attended morning group, goal: meet more people, mood: 7/10. During wrap-up group, pt stated that he wasn't sure if he accomplished his goals because it was confusing to him; mood was 8/10 in the evening. Pt was isolative for much of the shift, did attempt to spend some time in the milieu but became anxious and returned to room. Pt appears confused, guilt-ridden (with a variety of unrelated sources). Maintained Q15 safety checks as directed.
[2017-03-31] MEDS: Divalproex (QD) 500 mg ER24 Tablet PO SCH (20:50)
[2017-03-31] MEDS: TRAZODONE PO SCH ×2 (20:50)
[2017-03-31] MEDS: ARIPiprazole 10 mg Tablet PO SCH (20:50)
--- NOTE | 2017-03-31 21:02 | NUR ---
Nursing Noc "Hi did you want to talk", well for the last three days or so its been guys on one side and women on another, and they come to me like I'm [place], or god and there just asking me something..." Pt appeared distracted, zero eye contact, flat and depressed. Accepted HS medication and reported he would go lay down. Informed patient that he is Angel and there is no such expectations here. Continuing to monitor mood behavior and emotional state. Q15 minute safety checks throughout the night. CP
[2017-04-01] MEDS: LORazepam 1 mg Tablet PO PRN (02:40)
[2017-04-01] MEDS: Omega-3 Fatty Acids 1,000 mg Capsule PO SCH ×2 (08:00→20:15)
[2017-04-01 09:52] VITALS: BP 101/65; PULSE 65; RESP 16
--- NOTE | 2017-04-01 15:28 | PCM.PNPSY ---
Subjective Date of Service Apr 01, 2017 Subjective I spent 30 minutes both reviewing his treatment plan and providing supportive and educational psychotherapy. I spent less than 50% of the time counseling the patient. I reviewed the treatment plan with the patient and discussed options available including the potential risks, benefits and side effects. Angel repeats feeling tired today and continues to feel highly guilty. The Staff reports that he has been more isolative tending to stay in his room more the past several days although he is attempting to participate in one-to-one unit and group activities. He slept 5 hours. He denies medication side effects. He denied psychotic review of systems. He continues to complain of extreme apathy and guilt. Patient was able to identify his medications and what they were used to treat. Mental Status Exam Vital Signs Vital Signs Date Time Temp Pulse Resp B/P Pulse Ox O2 Delivery O2 Flow Rate FiO2 04/01/17 09:52 35.9 65 16 101/65 Appearance: Unkept Attitude: Cooperative, Guarded Behavior: No unusual behavior Affect: Restricted Mood: Depressed, Anxious Thought Process/Associations: Goal Directed Speech Production: Normal Speech Rate: Lags/Latency (minimal) Speech Articulation: Normal Thought Content: Negativistic, Guilt, Somatic preoccupation, Suspicious, Perseveration Danger to Self/Suicidal Ideati: None Danger to Others: None Delusions: Paranoid (Endorses) Consciousness: Alert Orientation: Person, Place, Date, Situation Memory: Short Term Memory (Impaired), Tube Maker Memory (Impaired) Estimate Intellectual Function: Average Basis for IQ estimate: Word use/vocabulary, Educational history Attention/Concentration & Cogn: Impaired Insight: Limited Judgement: Limited Mental Health Plan mega Ortiz is a 51 year old male with a history of schizoaffective disorder who reduced medication adherence and eventually stopped all medications, decompensated, attempted suicide and was detained by the [facility]. The patient's outpatient provider indicates that he responded well to his outpatient medications and was stable for quite some time. They report that they will have intensive outpatient treatment to help him with medication adherence. He is struggling with negative symptoms of schizophrenia and a severe sense of poor self worth and self-esteem. Angel repeats feeling highly guilty about thoughts he is having that are causing him to fear he is a bad wilbert and she fears the retribution by God for his thoughts feelings and previous actions. The Staff reports that he has been isolative but is now attempting to participate in one-to-one unit and group activities. The patient now denies feeling that he should (no plan or intent ). He was not as delayed in thought processing and speech and I believe he is gradually but slowly improving. During my interview today, Angel had a difficult time relating a coherent history and his thought process is significant for rumination and perseveration on perceived infractions against others from his past.. Angel's insight has been improving significantly this week and he is increasingly able to attend to activities of daily living . He seems to be experiencing a "shame attack" that has been triggered by unclear stressors. Although he is showing progress he remains moderately despondent. He is no longer paralyzed with guilt. None of our direct attempts to deal with this symptom have helped. He seems to be most helped when he is able to join the group and make connections with other patients. [place] AXIS I: Schizoaffective disorder, bipolar type Alcohol use disorder Marijuana use disorder AXIS II: Deferred AXIS III: None reported. AXIS IV: Moderate with recent Mother's day, medication non-adherence. AXIS V: GAF 35 Medications Abilify 20mg po HS Ziprasidone 80 mg twice daily Benztropine 1mg po bid Depakote ER 1500mg po nightly, blood level 84 on 03/14/2017 Escitalopram 10 mg daily Trazodone 150mg po nightly Lorazepam 1-2 mg every 4 hours when necessary Thiamine 100 mg daily Multivitamin 1 daily Treatments Patient is being provided with a high degree of safety through our unit structure and active adult engagement provided by our mental health professionals, mental health technicians, psychiatric nurses and myself. We are focusing on developing improved coping skills and identifying stressors that may have led to current episode. We will attempt to: * Integrate into therapeutic groups, milieu and individual therapy. * Maintain in a closely monitored and structured unit * Provide low-stimulation environment * Obtain collateral data to assist in treatment planning * Assess degree of lability of affect and impulse control * Complete safety plan * Decrease frequency of relapse and need for re-hospitalization * Establish a consistent sleep pattern * Medication effective in stabilization of mood and/or thought process * Tolerates medication without side effects Patient will be on the following psychiatric medications: Abilify 20mg po HS Ziprasidone 80 mg twice daily Benztropine 1mg po bid Depakote ER 1500mg po nightly, blood level 84 on 03/14/2017 Escitalopram 10 mg daily Trazodone 150mg po nightly Education: Educate patient about recreational alcohol use as an etiology Educate about metabolic etiologies related to obesity Patient's legal status Patient is on a 90 day [facility] involuntary treatment hold. Disposition: Home Harjit Andersen MD Apr 01, 2017 15:28
--- NOTE | 2017-04-01 17:29 | NUR ---
[id number]. nurs. S/O: Pt stating in am that he had dreams that disturbed his sleep but he was able to figure out that they were dreams and able to go back to sleep in 5 minutes. Pt later reporting to staff that he continued to be unable to distinguish whether his dreams are real or not and that he was hearing voices outside his door and was suspicious of staff and others around unit. Pt's brother visited pt and reported that he was concerned because he was not seeing more than a small amt of improvement with some brief eye contact and stated that pt was voicing some of his suspicious delusional and paranoid ideation, that included staff and still reporting his concern re being guilty of terrible crimes. Pt also verbalizing same delusional and paranoid ideation to staff with poor eye contact and anxious and avoidant affect. P:CNCP
--- NOTE | 2017-04-01 17:53 | NUR ---
[facility] Day Shift Pt maintained behavioral control throughout the shift. Pt affect appears flat, paranoid. Pt spends most of the shift resting quietly in his room or sitting quietly in the dining room. Pt is appropriate with staff and peers when active on the unit, but does not initiate social interactions with peers. Pt expresses some paranoid delusions throughout the shift, and to a greater extent than noted on previous shifts. Pt attended group activities throughout the shift and participated actively. Pt attended all meals and ate approx 100% of all meals.
[2017-04-01] MEDS: TRAZODONE PO SCH ×2 (20:15)
[2017-04-01] MEDS: ARIPiprazole 10 mg Tablet PO SCH (20:15)
[2017-04-01] MEDS: Divalproex (QD) 500 mg ER24 Tablet PO SCH (21:02)
--- NOTE | 2017-04-02 05:07 | NUR ---
Nursing Note Restaurant Hostess 11pm to 7am Pt asleep at start of shift but awake off and on c/o hearing people speaking through the intercom and hearing noise on the unit which he assumes is related to a problem ensuing. Pt reassured that all was well and provided support. Pt appeared confused at times, mood anxious and affect congruent. Pt declined a prn of Ativan and went back to his room where he remained restless throughout the remainder of the shift. Pt monitored with q15 min face checks for safety, location and accountability.
[2017-04-02] MEDS: Omega-3 Fatty Acids 1,000 mg Capsule PO SCH ×2 (08:05→20:15)
[2017-04-02 11:09] VITALS: BP 111/65; PULSE 68; RESP 18
--- NOTE | 2017-04-02 13:19 | PCM.PNPSY ---
Subjective Date of Service Apr 02, 2017 Subjective I spent 30 minutes both reviewing his treatment plan and providing supportive and educational psychotherapy. I spent more than 50% of the time counseling the patient. I reviewed the treatment plan with the patient and discussed coping strategies for dealing with stressful interpersonal relationships. Angel repeats feeling emotionally overwhelmed today and continues to feel highly guilty. The Staff reports that he has continued to be isolative tending to stay in his room, although he is attempting to participate in one-to- one unit and group activities. He slept 5 hours. He denies medication side effects. He denied psychotic review of systems. He continues to complain of extreme apathy and guilt. Patient was able to identify his medications and what they were used to treat. Mental Status Exam Vital Signs Vital Signs Date Time Temp Pulse Resp B/P Pulse Ox O2 Delivery O2 Flow Rate FiO2 04/02/17 11:09 36.5 68 18 111/65 Appearance: Unkept Attitude: Cooperative, Guarded Behavior: No unusual behavior Affect: Restricted Mood: Depressed, Anxious Thought Process/Associations: Goal Directed Speech Production: Normal Speech Rate: Lags/Latency (minimal) Speech Articulation: Normal Thought Content: Negativistic, Guilt, Somatic preoccupation, Suspicious, Perseveration Danger to Self/Suicidal Ideati: None Danger to Others: None Delusions: Paranoid (Endorses) Consciousness: Alert Orientation: Person, Place, Date, Situation Memory: Short Term Memory (Impaired), [employer] Finishing Utility Person Memory (Impaired) Estimate Intellectual Function: Average Basis for IQ estimate: Word use/vocabulary, Educational history Attention/Concentration & Cogn: Impaired Insight: Limited Judgement: Limited Mental Health Plan mega Ortiz is a 51 year old male with a history of schizoaffective disorder who reduced medication adherence and eventually stopped all medications, decompensated, attempted suicide and was detained by the [facility]. The patient's outpatient provider indicates that he responded well to his outpatient medications and was stable for quite some time. They report that they will have intensive outpatient treatment to help him with medication adherence. He is struggling with negative symptoms of schizophrenia and a severe sense of poor self worth and self-esteem. Angel repeats feeling highly guilty about thoughts he is having that are causing him to fear he is a bad wilbert and she fears the retribution by God for his thoughts feelings and previous actions. The Staff reports that he has been isolative but is now attempting to participate in one-to-one unit and group activities. Angel's insight has been improving significantly this week and he is increasingly able to attend to activities of daily living . The patient now denies feeling that he should (no plan or intent ). He was not as delayed in thought processing and speech and I believe he is gradually but slowly improving. During my interview today, Angel had a difficult time relating a coherent history and his thought process is significant for rumination and perseveration on perceived infractions against others from his past. [place] AXIS I: Schizoaffective disorder, bipolar type Alcohol use disorder Marijuana use disorder AXIS II: Deferred AXIS III: None reported. AXIS IV: Moderate with recent Mother's day, medication non-adherence. AXIS V: GAF 35 Medications Abilify 20mg po HS Ziprasidone 80 mg twice daily Benztropine 1mg po bid Depakote ER 1500mg po nightly, blood level 84 on 03/14/2017 Escitalopram 10 mg daily Trazodone 150mg po nightly Lorazepam 1-2 mg every 4 hours when necessary Thiamine 100 mg daily Multivitamin 1 daily Treatments Patient is being provided with a high degree of safety through our unit structure and active adult engagement provided by our mental health professionals, mental health technicians, psychiatric nurses and myself. We are focusing on developing improved coping skills and identifying stressors that may have led to current episode. We will attempt to: * Integrate into therapeutic groups, milieu and individual therapy. * Maintain in a closely monitored and structured unit * Provide low-stimulation environment * Obtain collateral data to assist in treatment planning * Assess degree of lability of affect and impulse control * Complete safety plan * Decrease frequency of relapse and need for re-hospitalization * Establish a consistent sleep pattern * Medication effective in stabilization of mood and/or thought process * Tolerates medication without side effects Patient will be on the following psychiatric medications: Abilify 20mg po HS Ziprasidone 80 mg twice daily Benztropine 1mg po bid Depakote ER 1500mg po nightly, blood level 84 on 03/14/2017 Escitalopram 10 mg daily Trazodone 150mg po nightly Education: Educate patient about recreational alcohol use as an etiology Educate about metabolic etiologies related to obesity Patient's legal status Patient is on a 90 day [facility] involuntary treatment hold. Disposition: Home Harjit Andersen MD Apr 02, 2017 13:19
--- NOTE | 2017-04-02 13:39 | NUR ---
Obs Dayshift Pt is out of his room more today, very restless, confused and disorganized thought process. Pt is often mumbling and nonsensical, or paranoid. Pt states that he believes people are going into his room and taking things or messing with things, often seen or heard responding to IS. Pt will request something and then walk away frustrated or talking about random topics without waiting for an answer or the items that he requested in the first place. Pt states that he is or was bad, and doesn't deserve to be here. Appearance is disheveled, disorganized, concerned, distraught at times, confused. Head down, pacing, or restless. Poor/Ok ADL's, Good meals
--- NOTE | 2017-04-02 13:51 | NUR ---
S: "I was having a dream that my brother -I don't know if it was real-I was very upset about it". "I dreamed I was hiking all over the place". "There were markers along the path starting from [address] and going up and up, and when you get to the top, that is where I am suppose to commit suicide". "I came out early this morning and couldn't sleep". "I was cleaning to stay busy-but I don't really like it". "Are the men supposed to clean the floors"? O: Patient seeking out staff to report about distressing dreams he was having and about his inability to discern reality from his dreams/delusions, after reassurance, patient departed abruptly. A: Patient pressured, sad, flat and compelled to follow his delusions. P: Monitor for response to treatment. Q 15 min checks for safety. Follow plan of care.
--- NOTE | 2017-04-02 15:47 | NUR ---
Test Administrator/Counselor S:" I"m not really supposed to talk about my feelings." O: Patient did not report any SI or HI, and only stated "yes" when asked about his depression and anxiety. He stated "no" when asked about any AVH, but then said he did hear some things. He became inaudible and distracted when asked to elaborate, and did not give any other answers after. A: Patient was flat and confused. He appeared sad, and asked staff to hold on to some of his coloring pages. Patient did attend group on "Past and Future achievements" and "Hands Past and Future" activity. Patient actively participated and was able to list achievements from the past as well as establish some future achievement goals, but was very quiet in his demeanor and speech. P: Follow care plan and coordinate with outpatient providers.
[2017-04-02] MEDS: ARIPiprazole 10 mg Tablet PO SCH (20:15)
[2017-04-02] MEDS: Divalproex (QD) 500 mg ER24 Tablet PO SCH (20:16)
[2017-04-02] MEDS: TRAZODONE PO SCH ×2 (20:17)
[2017-04-03] MEDS: LORazepam 1 mg Tablet PO PRN (00:05)
--- NOTE | 2017-04-03 06:03 | NUR ---
Nursing Noc Pt remains highly anxious and guilt ridden regarding perceived wrongs. He received Ativan 2mg po prn @ 0015 with moderate effect. Pt has had broken sleep. He slept form then from [id number] for a total of 5 hours.
[2017-04-03] MEDS: Omega-3 Fatty Acids 1,000 mg Capsule PO SCH ×2 (08:17→20:57)
[2017-04-03 12:42] VITALS: BP 106/69; PULSE 62; RESP 17
--- NOTE | 2017-04-03 14:47 | PCM.PNPSY ---
Subjective Date of Service Apr 03, 2017 Subjective I spent 30 minutes both reviewing his treatment plan and providing supportive and educational psychotherapy. I spent more than 50% of the time counseling the patient. I reviewed the treatment plan with the patient and discussed coping strategies for dealing with stressful interpersonal relationships. Angel repeats feeling emotionally overwhelmed today and continues to feel highly guilty. The Staff reports that he has continued to be isolative tending to stay in his room, although he is attempting to participate in one-to- one unit and group activities. He slept 5 hours. He denies medication side effects. He denied psychotic review of systems. He continues to complain of extreme apathy and guilt. Patient was able to identify his medications and what they were used to treat. Mental Status Exam Vital Signs Vital Signs Date Time Temp Pulse Resp B/P Pulse Ox O2 Delivery O2 Flow Rate FiO2 04/03/17 12:42 36.3 62 17 106/69 Appearance: Unkept Attitude: Cooperative, Guarded Behavior: No unusual behavior Affect: Restricted Mood: Depressed, Anxious Thought Process/Associations: Goal Directed Speech Production: Normal Speech Rate: Lags/Latency (minimal) Speech Articulation: Normal Thought Content: Negativistic, Guilt, Somatic preoccupation, Suspicious, Perseveration Danger to Self/Suicidal Ideati: None Danger to Others: None Delusions: Paranoid (Endorses) Consciousness: Alert Orientation: Person, Place, Date, Situation Memory: Short Term Memory (Impaired), Funeral Pre Arrangement Counselor Memory (Impaired) Estimate Intellectual Function: Average Basis for IQ estimate: Word use/vocabulary, Educational history Attention/Concentration & Cogn: Impaired Insight: Limited Judgement: Limited Mental Health Plan Angel is a 51 year old male with a history of schizoaffective disorder who reduced medication adherence and eventually stopped all medications, decompensated, attempted suicide and was detained by the [facility]. The patient's outpatient provider indicates that he responded well to his outpatient medications and was stable for quite some time. They report that they will have intensive outpatient treatment to help him with medication adherence. He is struggling with negative symptoms of schizophrenia and a severe sense of poor self worth and self-esteem. Angel repeats feeling highly guilty about thoughts he is having that are causing him to fear he is a bad wilbert and she fears the retribution by God for his thoughts feelings and previous actions. The Staff reports that he has been isolative but is now attempting to participate in one-to-one unit and group activities. Angel's insight has been improving significantly this week and he is increasingly able to attend to activities of daily living . The patient now denies feeling that he should (no plan or intent ). He was not as delayed in thought processing and speech and I believe he is gradually but slowly improving. During my interview today his thought process is significant for rumination and perseveration on perceived infractions against others from his past. [place] AXIS I: Schizoaffective disorder, bipolar type Alcohol use disorder Marijuana use disorder AXIS II: Deferred AXIS III: None reported. AXIS IV: Moderate with recent Mother's day, medication non-adherence. AXIS V: GAF 35 Medications Abilify 20mg po HS Ziprasidone 80 mg twice daily Benztropine 1mg po bid Depakote ER 1500mg po nightly, blood level 84 on 03/14/2017 Escitalopram 10 mg daily Trazodone 150mg po nightly Lorazepam 1-2 mg every 4 hours when necessary Thiamine 100 mg daily Multivitamin 1 daily Treatments Patient is being provided with a high degree of safety through our unit structure and active adult engagement provided by our mental health professionals, mental health technicians, psychiatric nurses and myself. We are focusing on developing improved coping skills and identifying stressors that may have led to current episode. We will attempt to: * Integrate into therapeutic groups, milieu and individual therapy. * Maintain in a closely monitored and structured unit * Provide low-stimulation environment * Obtain collateral data to assist in treatment planning * Assess degree of lability of affect and impulse control * Complete safety plan * Decrease frequency of relapse and need for re-hospitalization * Establish a consistent sleep pattern * Medication effective in stabilization of mood and/or thought process * Tolerates medication without side effects Patient will be on the following psychiatric medications: Abilify 20mg po HS Ziprasidone 80 mg twice daily Benztropine 1mg po bid Depakote ER 1500mg po nightly, blood level 84 on 03/14/2017 Escitalopram to 10 mg daily Trazodone 150mg po nightly Education: Educate patient about recreational alcohol use as an etiology Educate about metabolic etiologies related to obesity Patient's legal status Patient is on a [address] [facility] involuntary treatment hold. Disposition: Home Harjit Andersen MD Apr 03, 2017 14:47
--- NOTE | 2017-04-03 15:27 | NUR ---
Energy Auditor/Counselor S: "I can't say any more today." O: Patient did not report any SI or HI, no AVH, and rated his anxiety at a 5 and depression at a 10. Patient had a broken 5 hours of sleep. A: Patient attended stress reduction group but was very non-sensical. He was very anxious and apologetic, and was unable to express his thoughts in a clear manner. He was in and out of his room, but did go out onto the patio. He remains flat and depressed. P: Follow care plan and coordinate with outpatient providers.
--- NOTE | 2017-04-03 15:41 | NUR ---
Observations [id number] Pt appears paranoid, asking for belongings and then requesting for staff to take belongings and keep in back room. Pt also approached this bond writer with a note that said "reason for April 03 2017- I confessed for 2 items. these items I do not know. Can't remember (truth). Can't talk anymore she was just being nice I think every was the boys and girls." Pt did not want to expand on this note. He asked numerous times about helping around the unit, asking to clean the floors as well as tables. Pt attended all meals, eating 100%. Pt did participate in group, but isolated to room much of the afternoon. He was observed every 15 minutes of shift as directed.
[2017-04-03] MEDS: TRAZODONE PO SCH ×2 (20:56)
[2017-04-03] MEDS: ARIPiprazole 10 mg Tablet PO SCH (20:56)
[2017-04-03] MEDS: Divalproex (QD) 500 mg ER24 Tablet PO SCH (20:56)
[2017-04-04] MEDS: LORazepam 1 mg Tablet PO PRN (04:16)
[2017-04-04] MEDS: Omega-3 Fatty Acids 1,000 mg Capsule PO SCH ×2 (07:31→20:43)
[2017-04-04 12:37] VITALS: BP 100/63; PULSE 61; RESP 16
--- NOTE | 2017-04-04 12:44 | PCM.PNPSY ---
Subjective Date of Service Apr 04, 2017 Subjective I spent 30 minutes both reviewing his treatment plan and providing supportive and educational psychotherapy. I spent more than 50% of the time counseling the patient. I reviewed the treatment plan with the patient and discussed coping strategies for dealing with stressful interpersonal relationships. Angel repeats feeling emotionally overwhelmed today and continues to feel highly guilty. The Staff reports that he has continued to be isolative tending to stay in his room, although he is attempting to participate in one-to- one unit and group activities. He slept 5 hours. He denies medication side effects. He denied psychotic review of systems. He continues to complain of extreme apathy and guilt. Patient was able to identify his medications and what they were used to treat. We talked about increasing his antidepressant to target symptoms and he agreed. Mental Status Exam Appearance: Unkept Attitude: Cooperative, Guarded Behavior: No unusual behavior Affect: Restricted Mood: Depressed, Anxious Thought Process/Associations: Goal Directed Speech Production: Normal Speech Rate: Lags/Latency (minimal) Speech Articulation: Normal Thought Content: Negativistic, Guilt, Somatic preoccupation, Suspicious, Perseveration Danger to Self/Suicidal Ideati: None Danger to Others: None Delusions: Paranoid (Endorses) Consciousness: Alert Orientation: Person, Place, Date, Situation Memory: Short Term Memory (Impaired), Mcfp Memory (Impaired) Estimate Intellectual Function: Average Basis for IQ estimate: Word use/vocabulary, Educational history Attention/Concentration & Cogn: Impaired Insight: Limited Judgement: Limited Mental Health Plan Angel is a 51 year old male with a history of schizoaffective disorder who reduced medication adherence and eventually stopped all medications, decompensated, attempted suicide and was detained by the [facility]. The patient's outpatient provider indicates that he responded well to his outpatient medications and was stable for quite some time. They report that they will have intensive outpatient treatment to help him with medication adherence. He is struggling with negative symptoms of schizophrenia and a severe sense of poor self worth and self-esteem. Angel repeats feeling highly guilty about thoughts he is having that are causing him to fear he is a bad wilbert and she fears the retribution by God for his thoughts feelings and previous actions. The Staff reports that he has been isolative but is now attempting to participate in one-to-one unit and group activities. Angel's insight has been improving significantly this week and he is increasingly able to attend to activities of daily living . The patient now denies feeling that he should (no plan or intent ). He was not as delayed in thought processing and speech and I believe he is gradually but slowly improving. During my interview today his thought process is significant for rumination and perseveration on perceived infractions against others from his past. We will increase Lexapro in hopes of helping with symptoms of depression. [place] AXIS I: Schizoaffective disorder, bipolar type Alcohol use disorder Marijuana use disorder AXIS II: Deferred AXIS III: None reported. AXIS IV: Moderate with recent Mother's day, medication non-adherence. AXIS V: GAF 35 Medications Abilify 20mg po HS Ziprasidone 80 mg twice daily Benztropine 1mg po bid Depakote ER 1500mg po nightly, blood level 84 on 03/14/2017 Increase to Escitalopram 20 mg daily Trazodone 150mg po nightly Lorazepam 1-2 mg every 4 hours when necessary Thiamine 100 mg daily Multivitamin 1 daily Treatments Patient is being provided with a high degree of safety through our unit structure and active adult engagement provided by our mental health professionals, mental health technicians, psychiatric nurses and myself. We are focusing on developing improved coping skills and identifying stressors that may have led to current episode. We will attempt to: * Integrate into therapeutic groups, milieu and individual therapy. * Maintain in a closely monitored and structured unit * Provide low-stimulation environment * Obtain collateral data to assist in treatment planning * Assess degree of lability of affect and impulse control * Complete safety plan * Decrease frequency of relapse and need for re-hospitalization * Establish a consistent sleep pattern * Medication effective in stabilization of mood and/or thought process * Tolerates medication without side effects Patient will be on the following psychiatric medications: Abilify 20mg po HS Ziprasidone 80 mg twice daily Benztropine 1mg po bid Depakote ER 1500mg po nightly, blood level 84 on 03/14/2017 Increase to Escitalopram to 20 mg daily Trazodone 150mg po nightly Education: Educate patient about recreational alcohol use as an etiology Educate about metabolic etiologies related to obesity Patient's legal status Patient is on a 90 day [facility] involuntary treatment hold. Disposition: Home Harjit Andersen MD Apr 04, 2017 12:44
--- NOTE | 2017-04-04 16:39 | NUR ---
Obs Dayshift Pt appeared to have a little better day than the past few days. Pt spent most of his day out in the milieu coloring, drawing, and playing cards w/ peer. Pt is attending groups, good participation, appropriate, calm, polite and engaging. Pt has better eye contact and looks to be responding less to IS. Pt is cooperative w/ staff, engaging a little better. Good ADL's, Good meals
--- NOTE | 2017-04-04 19:30 | NUR ---
Senior Php Developer/Counselor: S: "I was locked in the shower." O: Patient only slept 3.25 hours last night as per staff. Patient denies S/I and H/I. He denies auditory hallucinations. A: Patient is guarded, anxious, depressed, flat affect, paranoid, guilt, suspicious, limited insight, limited judgment. P: Follow the care plan, coordinate with out-patient providers.
[2017-04-04] MEDS: TRAZODONE PO SCH ×2 (20:42)
[2017-04-04] MEDS: Divalproex (QD) 500 mg ER24 Tablet PO SCH (20:42)
[2017-04-04] MEDS: ARIPiprazole 10 mg Tablet PO SCH (20:42)
--- NOTE | 2017-04-05 05:22 | NUR ---
nursing, nights, 11-7 s- what time is court ? are you sure i don't have court today ? thanks. o- has appeared to sleep after 2300 [id number]. alternating between lying in bed and the dinning room. assessed q 15 minutes. a- interrupted sleep, responded well to staff reassurance, no apparent physical distress. p- monitor behavior/emotional state, quality, times and amount of sleep, use and effect of medication. eva
[2017-04-05] MEDS: Omega-3 Fatty Acids 1,000 mg Capsule PO SCH ×2 (08:04→20:59)
--- NOTE | 2017-04-05 11:41 | PCM.PNPSY ---
Subjective Date of Service Apr 05, 2017 Subjective I spent 30 minutes both reviewing his treatment plan and providing supportive and educational psychotherapy. I spent more than 50% of the time counseling the patient. I reviewed the treatment plan with the patient and discussed coping strategies for dealing with stressful interpersonal relationships. Angel repeats feeling emotionally overwhelmed with guilt. The Staff reports that he has doing better, as demonstrated by being more engaged in the unit program, attending group and having better eye contact. He is starting to discuss his time in the [employer] in previous difficulties with alcohol. He slept 5 hours. He denies medication side effects. He denied psychotic review of systems. He continues to complain of extreme apathy and guilt. Patient was able to identify his medications and what they were used to treat. We talked about increasing his antidepressant to target symptoms and he agreed. Mental Status Exam Appearance: Unkept Attitude: Cooperative, Guarded Behavior: No unusual behavior Affect: Restricted Mood: Depressed, Anxious Thought Process/Associations: Goal Directed Speech Production: Normal Speech Rate: Normal Speech Articulation: Normal Thought Content: Negativistic, Guilt, Somatic preoccupation, Suspicious, Perseveration Danger to Self/Suicidal Ideati: None Danger to Others: None Delusions: Paranoid (Endorses) Consciousness: Alert Orientation: Person, Place, Date, Situation Memory: Short Term Memory (Impaired), Management Psychologist Memory (Impaired) Estimate Intellectual Function: Average Basis for IQ estimate: Word use/vocabulary, Educational history Attention/Concentration & Cogn: Impaired Insight: Limited Judgement: Limited Mental Health Plan Angel is a 51 year old male with a history of schizoaffective disorder who reduced medication adherence and eventually stopped all medications, decompensated, attempted suicide and was detained by the [facility]. The patient's outpatient provider indicates that he responded well to his outpatient medications and was stable for quite some time. They report that they will have intensive outpatient treatment to help him with medication adherence. He is struggling with negative symptoms of schizophrenia and a severe sense of poor self worth and self-esteem. Angel repeats feeling highly guilty about thoughts he is having that are causing him to fear he is a bad wilbert and she fears the retribution by God for his thoughts feelings and previous actions. The Staff reports that he has been isolative but is now attempting to participate in one-to-one unit and group activities. Angel's insight has been improving significantly this week and he is increasingly able to attend to activities of daily living . The patient now denies feeling that he should (no plan or intent ). He was not as delayed in thought processing and speech and I believe he is gradually but slowly improving. During my interview today his thought process is significant for both goal directed thought and perseveration on perceived infractions against others from his past. [place] AXIS I: Schizoaffective disorder, bipolar type Alcohol use disorder Marijuana use disorder AXIS II: Deferred AXIS III: None reported. AXIS IV: Moderate with recent Mother's day, medication non-adherence. AXIS V: GAF 35 Medications Abilify 20mg po HS Ziprasidone 80 mg twice daily Benztropine 1mg po bid Depakote ER 1500mg po nightly, blood level 84 on 03/14/2017 Increase to Escitalopram 20 mg daily Trazodone 150mg po nightly Lorazepam 1-2 mg every 4 hours when necessary Thiamine 100 mg daily Multivitamin 1 daily Treatments Patient is being provided with a high degree of safety through our unit structure and active adult engagement provided by our mental health professionals, mental health technicians, psychiatric nurses and myself. We are focusing on developing improved coping skills and identifying stressors that may have led to current episode. We will attempt to: * Integrate into therapeutic groups, milieu and individual therapy. * Maintain in a closely monitored and structured unit * Provide low-stimulation environment * Obtain collateral data to assist in treatment planning * Assess degree of lability of affect and impulse control * Complete safety plan * Decrease frequency of relapse and need for re-hospitalization * Establish a consistent sleep pattern * Medication effective in stabilization of mood and/or thought process * Tolerates medication without side effects Patient will be on the following psychiatric medications: Abilify 20mg po HS Ziprasidone 80 mg twice daily Benztropine 1mg po bid Depakote ER 1500mg po nightly, blood level 84 on 03/14/2017 Increase to Escitalopram to 20 mg daily Trazodone 150mg po nightly Education: Educate patient about recreational alcohol use as an etiology Educate about metabolic etiologies related to obesity Patient's legal status Patient is on a [address] [facility] involuntary treatment hold. Disposition: Home Harjit Andersen MD Apr 05, 2017 11:41
[2017-04-05 13:54] VITALS: BP 106/69; PULSE 81; RESP 16
--- NOTE | 2017-04-05 18:32 | NUR ---
[id number]. nurs. S: " What time is court tomorrow, ( C ) told me it is tomorrow, she is going tomorrow ...it's my memory I don't know I think if it is light that it is morning then they tell me it's three in the afternooon" O: Pt appearing suddenly at nurses station to ask about court time and making reference to peer not currently on open unit. Pt appearing confused stating that when he wakes from nap he is confused by his dreams and it takes him time to sort out reality. Pt stating that he has been better when interacting with others in activities but noted to be more regressed in presentation with mostly downcast eye contact this estevan. P:CNCP
[2017-04-05] MEDS: TRAZODONE PO SCH ×2 (21:00)
[2017-04-05] MEDS: Divalproex (QD) 500 mg ER24 Tablet PO SCH (21:00)
[2017-04-05] MEDS: ARIPiprazole 10 mg Tablet PO SCH (21:00)
--- NOTE | 2017-04-06 04:38 | NUR ---
nursing, nights, 11-7 s/o- has appeared to sleep after 2200 to 0245. is currently alternating between the dinning room and lying quietly in bed. assessed q 15 minutes. a- no apparent distress. p- monitor behavior/emotional state, quality, times and amount of sleep, use and effect of medication. eva
[2017-04-06] MEDS: Omega-3 Fatty Acids 1,000 mg Capsule PO SCH ×2 (07:41→20:41)
--- NOTE | 2017-04-06 14:19 | PCM.PNPSY ---
Subjective Date of Service Apr 06, 2017 Subjective I spent 30 minutes both reviewing his treatment plan and providing supportive and educational psychotherapy. I spent less than 50% of the time counseling the patient. I reviewed the treatment plan with the patient and discussed coping strategies for dealing with stressful interpersonal relationships. Angel repeats feeling emotionally overwhelmed with guilt. The Staff reports that he has doing better, as demonstrated by being more engaged in the unit program, attending group and having better eye contact. He is starting to discuss his time in [employer] in previous difficulties with alcohol. He slept 5 hours. He denies medication side effects. He denied psychotic review of systems. He continues to complain of extreme apathy and guilt. Patient was able to identify his medications and what they were used to treat. We talked about increasing his antidepressant to target symptoms and he agreed. Mental Status Exam Appearance: Unkept Attitude: Cooperative, Guarded Behavior: No unusual behavior Affect: Restricted Mood: Depressed, Anxious Thought Process/Associations: Goal Directed Speech Production: Normal Speech Rate: Normal Speech Articulation: Normal Thought Content: Negativistic, Guilt, Somatic preoccupation, Suspicious, Perseveration Danger to Self/Suicidal Ideati: None Danger to Others: None Delusions: Paranoid (Endorses) Consciousness: Alert Orientation: Person, Place, Date, Situation Memory: Short Term Memory (Impaired), Ash Handler Memory (Impaired) Estimate Intellectual Function: Average Basis for IQ estimate: Word use/vocabulary, Educational history Attention/Concentration & Cogn: Impaired Insight: Limited Judgement: Limited Mental Health Plan Angel is a 51 year old male with a history of schizoaffective disorder who reduced medication adherence and eventually stopped all medications, decompensated, attempted suicide and was detained by the [facility]. The patient's outpatient provider indicates that he responded well to his outpatient medications and was stable for quite some time. They report that they will have intensive outpatient treatment to help him with medication adherence. He is struggling with negative symptoms of schizophrenia and a severe sense of poor self worth and self-esteem. Angel repeats feeling highly guilty about thoughts he is having that are causing him to fear he is a bad wilbert and she fears the retribution by God for his thoughts feelings and previous actions. The Staff reports that he has been isolative but is now attempting to participate in one-to-one unit and group activities. Angel's insight has been improving significantly this week and he is increasingly able to attend to activities of daily living . The patient now denies feeling that he should (no plan or intent ). He was not as delayed in thought processing and speech and I believe he is gradually but slowly improving. During my interview today his thought process was again significant for both goal directed thought and perseveration on perceived infractions against others from his past. [place] AXIS I: Schizoaffective disorder, bipolar type Alcohol use disorder Marijuana use disorder AXIS II: Deferred AXIS III: None reported. AXIS IV: Moderate with recent Mother's day, medication non-adherence. AXIS V: GAF 35 Medications Abilify 20mg po HS Ziprasidone 80 mg twice daily Benztropine 1mg po bid Depakote ER 1500mg po nightly, blood level 84 on 03/14/2017 Increase to Escitalopram 20 mg daily Trazodone 150mg po nightly Lorazepam 1-2 mg every 4 hours when necessary Thiamine 100 mg daily Multivitamin 1 daily Treatments Patient is being provided with a high degree of safety through our unit structure and active adult engagement provided by our mental health professionals, mental health technicians, psychiatric nurses and myself. We are focusing on developing improved coping skills and identifying stressors that may have led to current episode. We will attempt to: * Integrate into therapeutic groups, milieu and individual therapy. * Maintain in a closely monitored and structured unit * Provide low-stimulation environment * Obtain collateral data to assist in treatment planning * Assess degree of lability of affect and impulse control * Complete safety plan * Decrease frequency of relapse and need for re-hospitalization * Establish a consistent sleep pattern * Medication effective in stabilization of mood and/or thought process * Tolerates medication without side effects Patient will be on the following psychiatric medications: Abilify 20mg po HS Ziprasidone 80 mg twice daily Benztropine 1mg po bid Depakote ER 1500mg po nightly, blood level 84 on 03/14/2017 Increase to Escitalopram to 20 mg daily Trazodone 150mg po nightly Education: Educate patient about recreational alcohol use as an etiology Educate about metabolic etiologies related to obesity Patient's legal status Patient is on a 90 day [facility] involuntary treatment hold. Disposition: Home Harjit Andersen MD Apr 06, 2017 14:18
[2017-04-06 14:28] VITALS: BP 93/72; PULSE 73; RESP 16
--- NOTE | 2017-04-06 14:55 | NUR ---
Nursing Note [id number] Behavior S/O: Pt out in milieu briefly. He stayed in his room most of the day. Little interaction with peers while he was out. Affect is sad. Pleasant & cooperative with staff & peers. Answers question appropriately but briefly. Poor eye contact. A: Pt appears to responding to internal stimuli. P: Provide supportive environment. Monitor medications & effects.
--- NOTE | 2017-04-06 18:26 | NUR ---
Packer/Counselor: S: "I don't know what else to do." O: Patient only slept 4.75 hours last night as per staff. When patient asked about S/I and H/I, he stated, "I don't know," but patient contracted for safety. He did not note auditory or visual hallucinations. Depression is "I don't know," and anxiety is "very high." A: Patient is guarded, anxious, depressed, flat affect, paranoid, guilt, suspicious, limited insight, limited judgment. P: Follow the care plan, coordinate with out-patient providers.
--- NOTE | 2017-04-06 19:24 | NUR ---
Observations 0900 - 0 Pt was observed to be flat, guarded, withdrawn and isolative. Pt was pleasant, polite and cooperative when approached. Pt maintained behavior throughout the shift. Pt speech was soft and mumbling and eye contact was poor. Pt ate snack. Pt repeatedly keeps saying that hes in trouble and needs to have surgery. Pt paced the hallway, rested in his room and sat quietly in D.R. during the day. Pt did not attend group or unit activities. Pt was observed every 15 minutes through the night as ordered.
[2017-04-06] MEDS: ARIPiprazole 10 mg Tablet PO SCH (20:41)
[2017-04-06] MEDS: TRAZODONE PO SCH ×2 (20:41)
[2017-04-06] MEDS: Divalproex (QD) 500 mg ER24 Tablet PO SCH (20:41)
[2017-04-07] MEDS: LORazepam 1 mg Tablet PO PRN (04:39)
--- NOTE | 2017-04-07 05:32 | NUR ---
Nursing, NOC shift Patient slept 5.75 hours thru the NOC. Noted to have anxiety near the morning time; peering out of his doorway, hypervigilance. PRN ativan 2mg given w/ good effect. 15 min checks completed thru the night. CTM for changes.
[2017-04-07] MEDS: Omega-3 Fatty Acids 1,000 mg Capsule PO SCH ×2 (08:04→21:11)
[2017-04-07 09:04] VITALS: BP 119/74; PULSE 66; RESP 16
--- NOTE | 2017-04-07 11:58 | PCM.PNPSY ---
Subjective Date of Service Apr 07, 2017 Subjective The patient reports that he continues to feel depressed. He continues to note that he sees people in the trees. The patient appeared ambivalent about going to group and initially said he wanted to briefly got up out of bed and then returned to being in bed. The patient expressed concern about paying his rent. We discussed the previous plan of initiating quetiapine and he was initially reluctant however when explained that it would be a cross taper from aripiprazole to quetiapine he then agreed. He reports no side effects. Sleep: 5.75 hours Appetite: "fine" Suicidal: Denies Homicidal ideation: Denies. Auditory hallucinations: Denies Visual hallucinations: Endorses Other Psychotic Symptoms: primary negative symptoms Anxiety: 07/24 Depression: 07/24 Mental Status Exam Vital Signs Vital Signs Date Time Temp Pulse Resp B/P Pulse Ox O2 Delivery O2 Flow Rate FiO2 04/07/17 09:04 36.4 66 16 119/74 Appearance: Unkept Attitude: Cooperative (marginally), Guarded Behavior: Distractible Affect: Restricted Mood: Depressed, Anxious Thought Process/Associations: Goal Directed (with poverty of speech) Speech Production: Paucity Speech Rate: Lags/Latency Speech Articulation: Other (soft) Thought Content: Negativistic, Guilt, Suspicious, Perseveration Danger to Self/Suicidal Ideati: None Danger to Others: None Delusions: Paranoid (Endorses) Hallucinations: Auditory (Denies), Visual (Endorses) Consciousness: Alert Orientation: Person, Place, Date, Situation Memory: Short Term Memory (Impaired), Group Home Memory (Impaired) Estimate Intellectual Function: Average Basis for IQ estimate: Word use/vocabulary, Educational history Attention/Concentration & Cogn: Impaired Insight: Limited Judgement: Limited Mental Health Plan The patient is a 51 year old male with a history of schizoaffective disorder who reduced medication adherence and eventually stopped all medications, decompensated, attempted suicide and was detained by the [facility]. The patient's outpatient provider indicates that he responded well to his outpatient medications and was stable for quite some time. They report that they will have intensive outpatient treatment to help him with medication adherence. The patient had been placed on a combination of Abilify and Geodon with Abilify titrated to 30 mg. Geodon was gradually tapered as the patient appeared to be improving with decreased hallucinations and paranoia. However, once Geodon taper had been completed patient slowly developed worsening depression and increased paranoia. The patient had been placed on Lexapro to address depression. Although the patient endorses anxiety and an depression, objectively he does not appear terribly anxious. The patient has reported the return of seeing people in the trees but continues to deny auditory hallucinations. He still endorses significant guilt and negative symptoms. The patient is noting no side effects from escitalopram, aripiprazole, or ziprasidone. Patient reports feeling frustrated and that his medications are not working as well or as fast as he would like. Review of records indicates that the patient has typically been on 2 agents and did well on ziprasidone and quetiapine in the past. The patient continues to report depression and anxiety of 10 over 10. He also continues to report visual hallucinations. We discussed previous plan to cross- taper from aripiprazole to quetiapine and the patient was agreeable. From review of records, the target dose would be 300 mg at bedtime. [place] AXIS I: Schizoaffective disorder, bipolar type Alcohol use disorder Marijuana use disorder AXIS II: Deferred AXIS III: None reported. AXIS IV: Moderate with recent Mother's day, medication non-adherence. AXIS V: GAF 35 Medications Abilify 20mg po HS Ziprasidone 80 mg twice daily Benztropine 1mg po bid Depakote ER 1500mg po nightly, blood level 84 on 03/14/2017 Escitalopram 10 mg daily Trazodone 150mg po nightly Lorazepam 1-2 mg every 4 hours when necessary Thiamine 100 mg daily Multivitamin 1 daily Treatments 1. The patient is admitted to the inpatient unit and will be provided a safe and secure environment. 2. The patient is denying suicidal ideation and is not in need of a one-to-one at this time. 3. The patient is encouraged to participate with group and milieu activities. 4. The patient will be seen by the treatment team on a daily basis to assess symptoms, side effects and response to treatment. 5. Decrease Abilify to 10 mg daily 6. Continue ziprasidone 80 mg twice daily. 7. Initiate quetiapine 200mg with target dose of 300mg. 8. Continue current Depakote. (serum level therapeutic as of 03/14/17) 9. Continue Lexapro 10 mg daily for depression and watch for the emergence of any signs of manic conversion. Consider increasing dose if no improvement with quetiapine. 10. Continue to encourage group activity and engagement. 11. Patient is currently on 90 day more restrictive order. 12. We will check weight weekly and increase food intake showed to be losing weight. Asael Adkins MD Apr 07, 2017 11:58 Ziprasidone 80 mg twice daily Benztropine 1mg po bid Depakote ER 1500mg po nightly, blood level 84 on 03/14/2017 Increase to Escitalopram to 20 mg daily Trazodone 150mg po nightly Education: Educate patient about recreational alcohol use as an etiology Educate about metabolic etiologies related to obesity Patient's legal status Patient is on a 90 day MRO involuntary treatment hold. Disposition: Home Asael Adkins MD Apr 07, 2017 11:58
--- NOTE | 2017-04-07 13:54 | NUR ---
Observations 0700 - 1500 Pt continues to present as disorganized, delusional, scattered and confused. Pt was pleasant, polite and cooperative when approached. Pt maintained behavior throughout the shift. Pt speech was soft and mumbling and eye contact was poor. Pt ate snack. Pt repeatedly keeps saying that hes in trouble and sorry for whats hes done. Pt paced the hallway, rested in his room and sat quietly in D.R. during the day. Pt attended community meeting, groups or unit activities. Pt did not set a daily goal but rated his mood 7/10, with 10 being the best. Pt was observed every 15 minutes through the shift as ordered.
--- NOTE | 2017-04-07 14:09 | NUR ---
Shift note 7a-7p Pt. has been pleasant and cooperative today, participating in group activities. States he is a little anxious but is not feeling depressed. Says he thought he saw some people in the trees outside but says he hasn't been seeing or hearing things. Denies thoughts of harm to self or others.
[2017-04-07] MEDS: ARIPiprazole 10 mg Tablet PO SCH (21:10)
[2017-04-07] MEDS: Divalproex (QD) 500 mg ER24 Tablet PO SCH (21:11)
[2017-04-07] MEDS: TRAZODONE PO SCH ×2 (21:12)
--- NOTE | 2017-04-07 22:50 | NUR ---
Nurses Note Evening Patient has been on the unit with peers with occasional interactions with male peers. He attended group,played football on the [facility] [employer] and watched TV in the common room.At times,patient has been preoccupied and somewhat confused. Patient has remained medication compliant. Patient appetite has been within limits,hygiene remains poor.Will maintain q 15min. checks for safety and support Addendum: 04/07/17 at 2306 by BERNICE ROBERTSON RN Amended: Links added.
[2017-04-08] MEDS: Omega-3 Fatty Acids 1,000 mg Capsule PO SCH ×2 (08:24→21:22)
[2017-04-08 08:30] VITALS: BP 114/73; PULSE 69; RESP 16
--- NOTE | 2017-04-08 14:17 | NUR ---
NURSING NOTE [id number] Mood: "I've been guilty for 3 days now... it's time to confess" Affect: depressed, flat, preoccupied Behavior: watching TV at start of shift Thought processes: disorganized. Pt. continues to have delusional guilt but has difficulty expressing the misdeeds he feels guilty about; he is tangential and meanders when asked to clarify why he feels guilty. Pt. mentioned a woman named Selian Robbins several times and spoke of how they have been exchanging "maps in yellow writing" with each other here on the unit. Denies SI/HI.
--- NOTE | 2017-04-08 15:39 | PCM.PNPSY ---
Subjective Date of Service Apr 08, 2017 Subjective The patient reports today, "I am afraid to go outside because of what I have been saying ... Because of the truth I knew ." The patient noted that he is getting sufficient food but that when he looked in the refrigerator he "found machines" but would not elaborate. He reported that if he were to talk more to this principal technical writer it might make him suicidal or homicidal. The patient reported that he slept better last night and is agreeable to continuing with the Abilify quetiapine cross taper. He reports no side effects. Sleep: 8 hours Appetite: "I am eating" Suicidal: Denies Homicidal ideation: Denies. Auditory hallucinations: Denies Visual hallucinations: Endorses, "they help me sometimes." Other Psychotic Symptoms: primary negative symptoms Anxiety/Depression: "Same as yesterday" i.e. 1010 Current Medications Current Medications Aripiprazole 10 mg HS PO Last administered on 04/07/17 21:10; Admin Dose 10 MG ; Start 04/07/17 at 21:00 Quetiapine Fumarate 200 mg HS PO Last administered on 04/07/17 21:12; Admin Dose 200 MG; Start 04/07/17 at 21:00 Mental Status Exam Vital Signs Vital Signs Date Time Temp Pulse Resp B/P Pulse Ox O2 Delivery O2 Flow Rate FiO2 04/08/17 08:30 36.1 69 16 114/73 Appearance: Unkept Attitude: Cooperative (marginally), Guarded Behavior: Distractible Affect: Restricted Mood: Depressed, Anxious Thought Process/Associations: Goal Directed (with poverty of speech) Speech Production: Paucity Speech Rate: Lags/Latency Speech Articulation: Other (soft) Thought Content: Negativistic, Guilt, Suspicious, Perseveration Danger to Self/Suicidal Ideati: None Danger to Others: None Delusions: Paranoid (Endorses) Hallucinations: Auditory (Denies), Visual (Endorses) Consciousness: Alert Orientation: Person, Place, Date, Situation Memory: Short Term Memory (Impaired), Ticket Chopper Assembler Memory (Impaired) Estimate Intellectual Function: Average Basis for IQ estimate: Word use/vocabulary, Educational history Attention/Concentration & Cogn: Impaired Insight: Limited Judgement: Limited Mental Health Plan The patient is a 51 year old male with a history of schizoaffective disorder who reduced medication adherence and eventually stopped all medications, decompensated, attempted suicide and was detained by the [facility]. The patient's outpatient provider indicates that he responded well to his outpatient medications and was stable for quite some time. They report that they will have intensive outpatient treatment to help him with medication adherence. The patient had been placed on a combination of Abilify and Geodon with Abilify titrated to 30 mg. Geodon was gradually tapered as the patient appeared to be improving with decreased hallucinations and paranoia. However, once Geodon taper had been completed patient slowly developed worsening depression and increased paranoia. The patient had been placed on Lexapro to address depression. Although the patient endorses anxiety and an depression, objectively he does not appear terribly anxious. The patient has reported the return of seeing people in the trees but continues to deny auditory hallucinations. He still endorses significant guilt and negative symptoms. The patient is noting no side effects from escitalopram, aripiprazole, quetiapine, or ziprasidone. Review of records indicates that the patient has typically been on 2 agents and did well on ziprasidone and quetiapine in the past. The patient continues to report depression and anxiety of 10 over 10. He also continues to report visual hallucinations. We discussed previous plan to cross- taper from aripiprazole to quetiapine and the patient was agreeable. As the patient is not expressing side effects will increase quetiapine to 300 mg at bedtime. [place] AXIS I: Schizoaffective disorder, bipolar type Alcohol use disorder Marijuana use disorder AXIS II: Deferred AXIS III: None reported. AXIS IV: Moderate with recent Mother's day, medication non-adherence. AXIS V: GAF 35 Medications Abilify 20mg po HS Ziprasidone 80 mg twice daily Benztropine 1mg po bid Depakote ER 1500mg po nightly, blood level 84 on 03/14/2017 Escitalopram 10 mg daily Trazodone 150mg po nightly Lorazepam 1-2 mg every 4 hours when necessary Thiamine 100 mg daily Multivitamin 1 daily Treatments 1. The patient is admitted to the inpatient unit and will be provided a safe and secure environment. 2. The patient is denying suicidal ideation and is not in need of a one-to-one at this time. 3. The patient is encouraged to participate with group and milieu activities. 4. The patient will be seen by the treatment team on a daily basis to assess symptoms, side effects and response to treatment. 5. Continue Abilify 10 mg daily 6. Continue ziprasidone 80 mg twice daily. 7. Increase quetiapine to 300mg. 8. Continue current Depakote. (serum level therapeutic as of 03/14/17) 9. Continue Lexapro 10 mg daily for depression and watch for the emergence of any signs of manic conversion. Consider increasing dose if no improvement with quetiapine. 10. Continue to encourage group activity and engagement. 11. Patient is currently on 90 day more restrictive order. 12. We will check weight weekly and increase food intake showed to be losing weight, current weekly weight not available.. Asael Adkins MD Apr 08, 2017 15:39
--- NOTE | 2017-04-08 17:02 | NUR ---
Observations [id number] Pt appeared very paranoid and internally preoccupied. Pt mentioned this morning that "I'm not doing good at all today." Throughout the day pt made reference to crimes he's committed, stating "I'm sorry I did that" multiple times throughout the day but would not expand on statement. Pt went between his room and common areas much of the day, not interacting much with peers unless encouraged. Pt did spent time on patio and worked on puzzle in dining area. He attended all meals, eating 100%. Pt was observed every 15 minutes of shift as directed.
--- NOTE | 2017-04-08 20:10 | NUR ---
Nurses Note Evening Patient has been on the unit at intervals working on a puzzle with occasional conversations with peers. He continues to suffer from recurrent troubled thoughts of guilt feelings about actions of harm to family members and others. He spoke to Abrahan his brother and stated he had a good phone call. Patient spontaneity when spoken to has improved as well as his posture and ambulation. Will continue to make frequent contact,assess medication efficacy,alert to side effects,maintain q 15min.checks for safety and support.
[2017-04-08] MEDS: Divalproex (QD) 500 mg ER24 Tablet PO SCH (21:20)
[2017-04-08] MEDS: TRAZODONE PO SCH ×2 (21:20)
[2017-04-08] MEDS: ARIPiprazole 10 mg Tablet PO SCH (21:23)
--- NOTE | 2017-04-09 05:24 | NUR ---
Nursing Note Phys Ther 11pm to 7am Pt asleep at start of shift. Got up to get some water at 0200 and again at 0430 for the day. No issues observed or reported. Monitored pt q 15 minutes for safety location and accountability
[2017-04-09 08:15] VITALS: BP 133/83; PULSE 83; RESP 16
[2017-04-09] MEDS: Omega-3 Fatty Acids 1,000 mg Capsule PO SCH ×2 (08:57→20:22)
--- NOTE | 2017-04-09 15:43 | NUR ---
Staple Shear Operator/Counselor S:":Last night everyone was mad at me." O: Patient did not report any SI or HI, no AVH and rated his depression at a 9 and his anxiety at a 10. He slept for 5.5hrs. A:Patient stated the reason for his elevated anxiety was because everyone was mad at him about last night. When asked what happened, he stated that he was not sure, but just "knew" that everyone was mad. He attended group for a short time. He was somewhat tangential. He displayed a restricted affect and was apologetic and paranoid. P: Follow care plan and coordinate with outpatient providers.
--- NOTE | 2017-04-09 18:24 | NUR ---
Nursing and MHA observations: Angel was out on the unit most of farzad shift. He worked on a puzzle. HE showered and did laundry. Had a goal in community meeting "To be happy". When remote mortgage underwriter interacted with him at 1300, he did not making eye contact throughout the whole conversation. Intentionally looked down. Did not acknowledge any feeling of improvement since medication change on weekend. Flat facial expression. P: Continue to observe for med effectiveness.
[2017-04-09] MEDS: ARIPiprazole 10 mg Tablet PO SCH (20:23)
[2017-04-09] MEDS: Divalproex (QD) 500 mg ER24 Tablet PO SCH (20:23)
[2017-04-09] MEDS: TRAZODONE PO SCH ×2 (20:23)
--- NOTE | 2017-04-09 21:34 | PCM.PNPSY ---
Subjective Date of Service Apr 09, 2017 Subjective Patient reports that "today is a different day... I told them too much. I don' t know if it was fact or fiction." Patient is wearing regular clothes, socializing more with peers and spending time in the day area. Patient reports that he feels that he is improving and has hope. He denies side effects or medical issues. Sleep: 5.5 hours, "people going up and down the hallways." Appetite: "fine" Suicidal and homicidal ideation: denies Auditory hallucinations: denies Visual hallucinations: "still in the trees, tell me if I did something good or bad. I saw a crocodile in the trees back then [prior to admission] too." Other Psychotic Symptoms: negative symptoms Anxiety: 07/24 Depression: "uncertain" Current Medications Current Medications Quetiapine Fumarate 300 mg HS PO Last administered on 04/09/17t 20:24; Admin Dose 300 MG; Start 04/08/17 at 21:00 Mental Status Exam Appearance: Unkept Attitude: Cooperative, Guarded Behavior: Distractible Affect: Restricted Mood: Depressed, Anxious Thought Process/Associations: Goal Directed (with poverty of speech) Speech Production: Paucity Speech Rate: Lags/Latency Speech Articulation: Other (soft) Thought Content: Negativistic, Guilt, Suspicious, Perseveration Danger to Self/Suicidal Ideati: None Danger to Others: None Delusions: Paranoid (Endorses) Hallucinations: Auditory (Denies), Visual (Endorses) Consciousness: Alert Orientation: Person, Place, Date, Situation Memory: Short Term Memory (Impaired), Marketing Strategy Manager Memory (Impaired) Estimate Intellectual Function: Average Basis for IQ estimate: Word use/vocabulary, Educational history Attention/Concentration & Cogn: Impaired Insight: Limited Judgement: Limited Mental Health Plan The patient is a 51 year old male with a history of schizoaffective disorder who reduced medication adherence and eventually stopped all medications, decompensated, attempted suicide and was detained by the [facility]. The patient's outpatient provider indicates that he responded well to his outpatient medications and was stable for quite some time. They report that they will have intensive outpatient treatment to help him with medication adherence. The patient had been placed on a combination of Abilify and Geodon with Abilify titrated to 30 mg. Geodon was gradually tapered as the patient appeared to be improving with decreased hallucinations and paranoia. However, once Geodon taper had been completed patient slowly developed worsening depression and increased paranoia. The patient had been placed on Lexapro to address depression. Although the patient endorses anxiety and an depression, objectively he does not appear terribly anxious. The patient has reported the return of seeing people in the trees but continues to deny auditory hallucinations. He still endorses significant guilt and negative symptoms. The patient is noting no side effects from escitalopram, aripiprazole, quetiapine, or ziprasidone. Review of records indicates that the patient has typically been on 2 agents and did well on ziprasidone and quetiapine in the past. The patient continues to report anxiety of 10/10, but for the first time in some time is uncertain of his level of depression. He also continues to report visual hallucinations. Patient expressed desire to stay at quetiapine 300mg for a little while before increasing dose. [place] AXIS I: Schizoaffective disorder, bipolar type Alcohol use disorder Marijuana use disorder AXIS II: Deferred AXIS III: None reported. AXIS IV: Moderate with recent Mother's day, medication non-adherence. AXIS V: GAF 35 Medications Abilify 10mg po HS Quetiapine 300mg po HS Ziprasidone 80 mg twice daily Benztropine 1mg po bid Depakote ER 1500mg po nightly, blood level 84 on 03/14/2017 Escitalopram 10 mg daily Trazodone 150mg po nightly Lorazepam 1-2 mg every 4 hours when necessary Thiamine 100 mg daily Multivitamin 1 daily Treatments 1. The patient is admitted to the inpatient unit and will be provided a safe and secure environment. 2. The patient is denying suicidal ideation and is not in need of a one-to-one at this time. 3. The patient is encouraged to participate with group and milieu activities. 4. The patient will be seen by the treatment team on a daily basis to assess symptoms, side effects and response to treatment. 5. Continue Abilify 10 mg daily 6. Continue ziprasidone 80 mg twice daily. 7. Continue quetiapine 300mg. 8. Continue current Depakote. (serum level therapeutic as of 03/14/17) 9. Continue Lexapro 10 mg daily for depression and watch for the emergence of any signs of manic conversion. Consider increasing dose if no improvement with quetiapine. 10. Continue to encourage group activity and engagement. 11. Patient is currently on 90 day more restrictive order. 12. We will check weight weekly and increase food intake showed to be losing weight, current weekly weight not available.. Asael Adkins MD Apr 09, 2017 21:34
[2017-04-10] MEDS: LORazepam 1 mg Tablet PO PRN ×2 (03:12→17:03)
--- NOTE | 2017-04-10 05:14 | NUR ---
Nursing Noc At the beginning of the shift the pt was laying awake on his bed appearing internally preoccupied. When asked by this staff how his day was going he stated "I feel stressed. I have been telling everyone my life story. 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 I would never do that to anyone. I don't want to talk right now. Can I talk later." Pt presents with downcast gaze, blunted affect and guarded. Pt kept to himself the majority of the shift and was seen lying on his bed or else wandering the hallway. He took scheduled medication. Sleep was broken. He slept from 0310-7234 and then from 0 to current time. At one point during the middle of the night he approached staff appearing anxious and said "I think someone is here. Is my brother here". Pt reassured and informed there are no visitors allowed during the night. He was offered and accepted Ativan 2mg po prn @ 0320. Medication effective. He was able to return to sleep with no further distress or awakening noted. Q15 minute checks. Addendum: 04/10/17 at 0603 by SINDHU WRIGHT RN Total sleep over 6.5 hours.
[2017-04-10] MEDS: Omega-3 Fatty Acids 1,000 mg Capsule PO SCH ×2 (08:20→20:43)
--- NOTE | 2017-04-10 15:18 | NUR ---
Hot Metal Mixer Operator/Counselor S:"I went to anger management because my dr told me I had to." O: Patient did not express any SI or HI, no AVH and rated his anxiety at a 6 and his depression at an 8. A: Patient has a lot of self blame and often feels that others are angry at him. He is guarded and flat, and often keeps from making eye contact. He participated in first group, but slept through the second group. While he participates, his input is often not related to the subject. P:Follow care plan and coordinate with outpatient providers.
[2017-04-10 16:28] VITALS: BP 97/71; PULSE 67; RESP 19
--- NOTE | 2017-04-10 18:06 | NUR ---
Observations [id number] Pt continues to express concern regarding surgery that he believes may be taking place, asking this scientific technical writer "I am I going to surgery now?" Pt continues to also ask premission for little things, such as asking if he can take water to his room. Pt did participate in groups, went on patio, and was communicative with peers when approached, but continues to keep to himself. Pt attended all meals, eating 100%. At one point pt walked into window near doorway, stating he was not looking where he was going. Pt was observed every 15 minutes of shift as directed.
--- NOTE | 2017-04-10 19:55 | NUR ---
Nursing: Day shift. 0700 to 1900 Angel has been out on the open unit today and participating. However, he remains guarded and aloof a lot of the time. Takes scheduled meds as offered. No disclosure to comic book writer of statements of guilt or fearful beliefs about wht is happening to him but contact was limited. P: Continue to assess.
--- NOTE | 2017-04-10 20:16 | PCM.PNPSY ---
Subjective Date of Service Apr 10, 2017 Subjective Patient reports feeling "confused as it's been 2 or 3 days of me coming out of my room like you asked. In big groups I tend to share everything, sexual things too, but not about the children. I don't think now that I grieve for my mother." He reports that he feels that this is overall an improvement. He denies side effects or medical issues. Sleep: 6.75 hours, "I'm afraid of going to sleep. I woke up and at first I didn't know where I was." Appetite: Okay Suicidal and homicidal ideation: denies Auditory hallucinations:denies Visual hallucinations:reports seeing things in the trees Other Psychotic Symptoms: primarily negative symptoms Anxiety: 02/21 Depression:02/21 Current Medications Current Medications Quetiapine Fumarate 300 mg HS PO Last administered on 04/09/17t 20:24; Admin Dose 300 MG; Start 04/08/17 at 21:00 Mental Status Exam Vital Signs Vital Signs Date Time Temp Pulse Resp B/P Pulse Ox O2 Delivery O2 Flow Rate FiO2 04/10/17 16:28 36.1 67 19 97/71 Appearance: Unkept Attitude: Cooperative, Guarded Behavior: Distractible Affect: Restricted Mood: Depressed, Anxious Thought Process/Associations: Goal Directed Speech Production: Normal Speech Rate: Normal Speech Articulation: Normal Thought Content: Negativistic, Guilt, Suspicious, Perseveration Danger to Self/Suicidal Ideati: None Danger to Others: None Delusions: Paranoid (Endorses) Hallucinations: Auditory (Denies), Visual (Endorses) Consciousness: Alert Orientation: Person, Place, Date, Situation Memory: Short Term Memory (Impaired), Manager Safe Memory (Impaired) Estimate Intellectual Function: Average Basis for IQ estimate: Word use/vocabulary, Educational history Attention/Concentration & Cogn: Impaired Insight: Limited Judgement: Limited Mental Health Plan The patient is a 51 year old male with a history of schizoaffective disorder who reduced medication adherence and eventually stopped all medications, decompensated, attempted suicide and was detained by the [facility]. The patient's outpatient provider indicates that he responded well to his outpatient medications and was stable for quite some time. They report that they will have intensive outpatient treatment to help him with medication adherence. The patient had been placed on a combination of Abilify and Geodon with Abilify titrated to 30 mg. Geodon was gradually tapered as the patient appeared to be improving with decreased hallucinations and paranoia. However, once Geodon taper had been completed patient slowly developed worsening depression and increased paranoia. The patient had been placed on Lexapro to address depression. Although the patient endorses anxiety and an depression, objectively he does not appear terribly anxious. The patient has reported the return of seeing people in the trees but continues to deny auditory hallucinations. He still endorses significant guilt and negative symptoms. The patient is noting no side effects from escitalopram, aripiprazole, quetiapine, or ziprasidone. Review of records indicates that the patient has typically been on 2 agents and did well on ziprasidone and quetiapine in the past. The patient reports improvement in depression and anxiety but continues to report visual hallucinations. Patient indicated that he feels that he is improving. [place] AXIS I: Schizoaffective disorder, bipolar type Alcohol use disorder Marijuana use disorder AXIS II: Deferred AXIS III: None reported. AXIS IV: Moderate with recent Mother's day, medication non-adherence. AXIS V: GAF 35 Medications Abilify 10mg po HS Quetiapine 300mg po HS Ziprasidone 80 mg twice daily Benztropine 1mg po bid Depakote ER 1500mg po nightly, blood level 84 on 03/14/2017 Escitalopram 10 mg daily Trazodone 150mg po nightly Lorazepam 1-2 mg every 4 hours when necessary Thiamine 100 mg daily Multivitamin 1 daily Treatments 1. The patient is admitted to the inpatient unit and will be provided a safe and secure environment. 2. The patient is denying suicidal ideation and is not in need of a one-to-one at this time. 3. The patient is encouraged to participate with group and milieu activities. 4. The patient will be seen by the treatment team on a daily basis to assess symptoms, side effects and response to treatment. 5. Continue Abilify 10 mg daily, will discontinue if continues to stabilize on quetiapine. 6. Continue ziprasidone 80 mg twice daily. 7. Continue quetiapine 300mg. 8. Continue current Depakote. (serum level therapeutic as of 03/14/17) 9. Continue Lexapro 10 mg daily for depression and watch for the emergence of any signs of manic conversion. Consider increasing dose if no improvement with quetiapine. 10. Continue to encourage group activity and engagement. 11. Patient is currently on 90 day more restrictive order. 12. We will check weight weekly and increase food intake showed to be losing weight, current weekly weight not available.. Asael Adkins MD Apr 10, 2017 20:16
[2017-04-10] MEDS: TRAZODONE PO SCH ×2 (20:43)
[2017-04-10] MEDS: ARIPiprazole 10 mg Tablet PO SCH (20:44)
[2017-04-10] MEDS: Divalproex (QD) 500 mg ER24 Tablet PO SCH (20:45)
[2017-04-11] MEDS: Omega-3 Fatty Acids 1,000 mg Capsule PO SCH ×2 (08:27→20:49)
--- NOTE | 2017-04-11 14:56 | NUR ---
Nursing Dayshift: S: "I had a good lunch. I didn't have breakfast though." O: Patient stating he had enough to eat at lunch. Has been attending group activities. Social with select peers. Watching some TV. Out on the patio this afternoon. Anxiety "I don't know." Depression a 04/23. Denies harmful thoughts and hallucinations. A: Flat affect. Med compliant. Guarded. P: CPOC. Monitor mood and behavior.
--- NOTE | 2017-04-11 15:34 | NUR ---
Inspector Toys/Counselor S:"I've told you before I'm a sinner." O: Patient did not have any SI or HI, but stated that he does see the people in the tree. He also has delusions about surgery that would remove his genitals. He rated his anxiety at a 6-7, and stated he "didn't know" when asked to rate his depression. He slept for 6.5 hours. A: Patient was very confused at times, and some of his statements didn't make sense. He spoke about having a special surgery to remove his penis, so he could be "turned into a transexual." He stated that a lot of people have told him he needed to have the surgery. He also states that he is having trouble remembering things from the day before. P: Follow care plan and coordinate with outpatient providers.
--- NOTE | 2017-04-11 18:42 | NUR ---
[facility] Day Shift Pt affect and behavior unchanged from previous shifts. Pt maintained behavioral control throughout the shift. Pt affect appears flat, paranoid. Pt spends most of the shift resting quietly in his room or sitting quietly in the dining room. Pt is appropriate with staff and peers when active on the unit, but does not initiate social interactions with peers. Pt expresses some paranoid delusions throughout the shift, and to a greater extent than noted on previous shifts. Pt attended group activities throughout the shift and participated actively. Pt attended all meals and ate approx 100% of all meals.
[2017-04-11 19:24] VITALS: BP 98/64; PULSE 69; RESP 16
[2017-04-11] MEDS: Divalproex (QD) 500 mg ER24 Tablet PO SCH (20:50)
[2017-04-11] MEDS: TRAZODONE PO SCH ×2 (20:51)
--- NOTE | 2017-04-11 21:31 | PCM.PNPSY ---
Subjective Date of Service Apr 11, 2017 Subjective Patient reports that "I'm a sinner like everyone else. It's too late to get special surgery." Patient reports that the problem for him is masturbation and that if he were to have had the surgery he would "be more of a man." He was unable to explain the incongruity of this. He denied intent to try to perform the surgery on himself. He reports having a sister, Samira and when he sees staff of the same name it helps to "calm things down." Denies side effects or medical issues. Sleep: 6.5 horus Appetite: "good" Suicidal and homicidal ideation: denies Auditory hallucinations: denies Visual hallucinations: things in the trees Other Psychotic Symptoms: as above Anxiety: -04/23 Depression: "I don't even know where I am with that" but not 07/24 Current Medications Current Medications Aripiprazole 5 mg HS PO Last administered on 04/11/17 20:49; Admin Dose 5 MG; Start 04/11/17 at 21:00 Quetiapine Fumarate 400 mg HS PO Last administered on 04/11/17 20:50; Admin Dose 400 MG; Start 04/11/17 at 21:00 Mental Status Exam Vital Signs Vital Signs Date Time Temp Pulse Resp B/P Pulse Ox O2 Delivery O2 Flow Rate FiO2 04/11/17 19:24 36.0 69 16 98/64 Appearance: Unkept Attitude: Cooperative, Guarded Behavior: Distractible Affect: Restricted Mood: Depressed, Anxious Thought Process/Associations: Goal Directed Speech Production: Normal Speech Rate: Normal Speech Articulation: Normal Thought Content: Negativistic, Guilt, Ideas of Reference, Suspicious, Perseveration Danger to Self/Suicidal Ideati: None Danger to Others: None Delusions: Paranoid (Endorses) Hallucinations: Auditory (Denies), Visual (Endorses) Consciousness: Alert Orientation: Person, Place, Date, Situation Memory: Short Term Memory (Impaired), [facility] Memory (Impaired) Estimate Intellectual Function: Average Basis for IQ estimate: Word use/vocabulary, Educational history Attention/Concentration & Cogn: Impaired Insight: Limited Judgement: Limited Mental Health Plan The patient is a 51 year old male with a history of schizoaffective disorder who reduced medication adherence and eventually stopped all medications, decompensated, attempted suicide and was detained by the [facility]. The patient's outpatient provider indicates that he responded well to his outpatient medications and was stable for quite some time. They report that they will have intensive outpatient treatment to help him with medication adherence. The patient had been placed on a combination of Abilify and Geodon with Abilify titrated to 30 mg. Geodon was gradually tapered as the patient appeared to be improving with decreased hallucinations and paranoia. However, once Geodon taper had been completed patient slowly developed worsening depression and increased paranoia. The patient had been placed on Lexapro to address depression. Although the patient endorses anxiety and an depression, objectively he does not appear terribly anxious. The patient has reported the return of seeing people in the trees but continues to deny auditory hallucinations. He still endorses significant guilt and negative symptoms. The patient is noting no side effects from escitalopram, aripiprazole, quetiapine, or ziprasidone. Review of records indicates that the patient has typically been on 2 agents and did well on ziprasidone and quetiapine in the past. The patient reports improvement in depression and anxiety but continues to report visual hallucinations, guilt, delusions. Patient indicated that he feels that he is improving. Patient agreeable to titrating quetiapine. [place] AXIS I: Schizoaffective disorder, bipolar type Alcohol use disorder Marijuana use disorder AXIS II: Deferred AXIS III: None reported. AXIS IV: Moderate with recent Mother's day, medication non-adherence. AXIS V: GAF 35 Medications Abilify 5mg po HS Quetiapine 400mg po HS Ziprasidone 80 mg twice daily Benztropine 1mg po bid Depakote ER 1500mg po nightly, blood level 84 on 03/14/2017 Escitalopram 10 mg daily Trazodone 150mg po nightly Lorazepam 1-2 mg every 4 hours when necessary Thiamine 100 mg daily Multivitamin 1 daily Treatments 1. The patient is admitted to the inpatient unit and will be provided a safe and secure environment. 2. The patient is denying suicidal ideation and is not in need of a one-to-one at this time. 3. The patient is encouraged to participate with group and milieu activities. 4. The patient will be seen by the treatment team on a daily basis to assess symptoms, side effects and response to treatment. 5. Decrease Abilify 5 mg daily, will discontinue if continues to stabilize on quetiapine. 6. Continue ziprasidone 80 mg twice daily. 7. Increase quetiapine 400mg. 8. Continue current Depakote. (serum level therapeutic as of 03/14/17) 9. Continue Lexapro 10 mg daily for depression and watch for the emergence of any signs of manic conversion. Consider increasing dose if no improvement with quetiapine. 10. Continue to encourage group activity and engagement. 11. Patient is currently on 90 day more restrictive order. 12. We will check weight weekly and increase food intake showed to be losing weight, current weekly weight not available.. Asael Adkins MD Apr 11, 2017 21:31
--- NOTE | 2017-04-11 22:00 | NUR ---
Nurses Note Evening Patient has been out on the unit and patio with peers. He appeared less anxious at times when engaged in activities. Patient was self motivated to shower but initially had trouble with sequencing the activity. He remains medication compliant without adverse symptoms. Will maintain q 15min. checks for safety and support. Addendum: 04/11/17 at 2204 by BERNICE ROBERTSON RN Amended: Links added.
[2017-04-12] MEDS: LORazepam 1 mg Tablet PO PRN (01:42)
--- NOTE | 2017-04-12 05:25 | NUR ---
nursing, nights, 11-7 s- ok if you think so. o- has appeared to sleep after 2200. up briefly at 0140 and has remained up after 0440. is currently writing in the dinning room. assessed q 15 minutes. a- interupted sleep, difficulty expressing himself at times, no apparent distress. p- monitor behavior/emotional state, quality, times and amount of sleep, use and effect of medication. eva
[2017-04-12 07:57] VITALS: BP 106/75; PULSE 61; RESP 18
[2017-04-12] MEDS: Omega-3 Fatty Acids 1,000 mg Capsule PO SCH ×2 (08:07→21:23)
--- NOTE | 2017-04-12 15:42 | NUR ---
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 I feel very good right now." O: Patient did not express any SI or HI, no auditory hallucinations, but still reported figures in certain trees. He rated his anxiety at an 8 and his depression at a 7. A:Patient seemed to be in better spirits today. He was out in the milieu and participated in both structured groups (mindfulness and guided meditation). He rated his anxiety at a 6 after meditation, and stated that he felt really good and relaxed. He did report some nightmares but stated they were not bad last night. He was pleasant and cooperative. P: Follow care plan and coordinate with outpatient providers. Addendum: 04/12/17 at 5 by KD BOYCE [facility] Patient attended group the 11am group session and participated in all discussions.
--- NOTE | 2017-04-12 15:43 | NUR ---
Nursing Dayshift: S: "I don't know what's going to happen." O: Patient describing his depression as an 8/10 and gave the above reason. Anxiety a 6/10. "Times getting short. I need to meet a lady." Has been social with peers. Noted to be discussing masturbation with a male peer earlier in the shift. Eating well at meals. A: Approachable. Flat affect though some animation. P: CPOC. Monitor mood and behavior.
--- NOTE | 2017-04-12 20:44 | NUR ---
Observations 00 - 0 Pt continues to present as disorganized, delusional, scattered and confused. Pt was pleasant, polite and cooperative when approached. Pt maintained behavior throughout the shift. Pt speech was soft and mumbling and eye contact was ok. Pt ate snack. Pt paced the hallway, rested in his room and sat quietly in D.R. during the day. Pt attended community meeting, groups or unit activities. Pt set a daily goal and rated his mood 7/10, with 10 being the best. Pt stated that he was anxious to see his family. Pt was observed every 15 minutes through the shift as ordered.
[2017-04-12] MEDS: Divalproex (QD) 500 mg ER24 Tablet PO SCH (21:20)
[2017-04-12] MEDS: TRAZODONE PO SCH ×2 (21:21)
--- NOTE | 2017-04-12 22:40 | PCM.PNPSY ---
Subjective Date of Service Apr 12, 2017 Subjective The patient reports that he feels "pretty good right now." The patient reports that he overslept, but otherwise is having no side effects. Discussed further decreasing aripiprazole however patient was unsure what the best approach would be. Patient expressed concern about his inability to recall yesterday's events or even sometimes the morning. Sleep: 6 hours, better, reports had some nightmares Appetite: "fine" Suicidal and homicidal ideation: denies Auditory hallucinations: denies Visual hallucinations: "always the same." Other Psychotic Symptoms: negative symptoms Anxiety: 05/24 Depression: 04/23 Current Medications Current Medications Aripiprazole 5 mg HS PO Last administered on 04/12/17 21:23; Admin Dose 5 MG; Start 04/11/17 at 21:00 Quetiapine Fumarate 400 mg HS PO Last administered on 04/12/17 21:20; Admin Dose 400 MG; Start 04/11/17 at 21:00 Mental Status Exam Appearance: Unkept Attitude: Cooperative, Guarded Behavior: Distractible Affect: Restricted Mood: Depressed, Anxious Thought Process/Associations: Goal Directed Speech Production: Normal Speech Rate: Normal Speech Articulation: Normal Thought Content: Negativistic, Guilt, Ideas of Reference, Suspicious, Perseveration Danger to Self/Suicidal Ideati: None Danger to Others: None Delusions: Paranoid (Endorses) Hallucinations: Auditory (Denies), Visual (Endorses) Consciousness: Alert Orientation: Person, Place, Date, Situation Memory: Short Term Memory (Impaired), Residential Memory (Impaired) Estimate Intellectual Function: Average Basis for IQ estimate: Word use/vocabulary, Educational history Attention/Concentration & Cogn: Impaired Insight: Limited Judgement: Limited Mental Health Plan The patient is a 51 year old male with a history of schizoaffective disorder who reduced medication adherence and eventually stopped all medications, decompensated, attempted suicide and was detained by the [facility]. The patient's outpatient provider indicates that he responded well to his outpatient medications and was stable for quite some time. They report that they will have intensive outpatient treatment to help him with medication adherence. The patient had been placed on a combination of Abilify and Geodon with Abilify titrated to 30 mg. Geodon was gradually tapered as the patient appeared to be improving with decreased hallucinations and paranoia. However, once Geodon taper had been completed patient slowly developed worsening depression and increased paranoia. The patient had been placed on Lexapro to address depression. Although the patient endorses anxiety and an depression, objectively he does not appear terribly anxious. The patient has reported the return of seeing people in the trees but continues to deny auditory hallucinations. He still endorses significant guilt and negative symptoms. The patient is noting no side effects from escitalopram, aripiprazole, quetiapine, or ziprasidone. Review of records indicates that the patient has typically been on 2 agents and did well on ziprasidone and quetiapine in the past. The patient reports improvement in depression and anxiety but continues to report visual hallucinations, guilt, delusions. Patient indicated that he feels better than yesterday. Patient agreeable to titrating quetiapine and tapering aripiprazole. [place] AXIS I: Schizoaffective disorder, bipolar type Alcohol use disorder Marijuana use disorder AXIS II: Deferred AXIS III: None reported. AXIS IV: Moderate with recent Mother's day, medication non-adherence. AXIS V: GAF 35 Medications Abilify 5mg po HS Quetiapine 400mg po HS Ziprasidone 80 mg twice daily Benztropine 1mg po bid Depakote ER 1500mg po nightly, blood level 84 on 03/14/2017 Escitalopram 10 mg daily Trazodone 150mg po nightly Lorazepam 1-2 mg every 4 hours when necessary Thiamine 100 mg daily Multivitamin 1 daily Treatments 1. The patient is admitted to the inpatient unit and will be provided a safe and secure environment. 2. The patient is denying suicidal ideation and is not in need of a one-to-one at this time. 3. The patient is encouraged to participate with group and milieu activities. 4. The patient will be seen by the treatment team on a daily basis to assess symptoms, side effects and response to treatment. 5. Decrease Abilify 5 mg daily, will discontinue if continues to stabilize on quetiapine. 6. Continue ziprasidone 80 mg twice daily. 7. Increase quetiapine 400mg. 8. Continue current Depakote. (serum level therapeutic as of 03/14/17) 9. Continue Lexapro 10 mg daily for depression and watch for the emergence of any signs of manic conversion. Consider increasing dose if no improvement with quetiapine. 10. Continue to encourage group activity and engagement. 11. Patient is currently on 90 day more restrictive order. 12. We will check weight weekly and increase food intake showed to be losing weight, current weekly weight not available.. Asael Adkins MD Apr 12, 2017 22:40
--- NOTE | 2017-04-13 04:31 | NUR ---
Nursing Noc Pt out in common area but not seen interacting with other patients or staff. Came to medication room when time for evening medications. Noted to be quiet and distracted. sleep remains broken as noted to get up to check the time then back to his room. Continuing to monitor mood behavior and emotional state. Q15 minute safety checks noted to be first asleep at 2000 then awake one hour later. CP
[2017-04-13] MEDS: Omega-3 Fatty Acids 1,000 mg Capsule PO SCH ×2 (07:46→20:20)
[2017-04-13 14:08] VITALS: BP 113/77; PULSE 69; RESP 16
--- NOTE | 2017-04-13 16:37 | NUR ---
S Day Shift Pt affect and behavior unchanged from previous shifts. Pt maintained behavioral control throughout the shift. Pt affect appears flat, paranoid. Pt spends most of the shift resting quietly in his room or sitting quietly in the dining room. Pt is appropriate with staff and peers when active on the unit, but does not initiate social interactions with peers. Pt expresses some paranoid delusions throughout the shift, and to a greater extent than noted on previous shifts. Pt did not attend community meeting, but attended group activities throughout the shift and participated actively. Pt attended all meals and ate approx 100% of all meals.
--- NOTE | 2017-04-13 18:10 | NUR ---
Nursing Dayshift: S: "It's not a good day today. I enjoyed going outside today." O: Patient incongruent in his statements. Softspoken during interaction. No smiles noted. Eating well at meals. Some interaction with peers. Watching TV at present with peers. A: Sullen mood at times. Downcast during interaction with staff. P: CPOC. Monitor mood and behavior.
--- NOTE | 2017-04-13 18:18 | PCM.PNPSY ---
Subjective Date of Service Apr 13, 2017 Subjective The patient reports that his mood is "5/10." He reports that "well I slept in again, it makes me nervous." He could not explain exactly why this made him nervous and he did indicate that he is interacting better with peers and feels that he is slowly improving. He denies medication side effects. We discussed discontinuation of aripiprazole as increase in quetiapine and decrease of aripiprazole has resulted in resolution of visual hallucinations today. Sleep: 8 hours Appetite: "fine" Suicidal and homicidal ideation: denies Auditory hallucinations: denies Visual hallucinations: Denies Other Psychotic Symptoms: negative symptoms Anxiety: Anxiety about food Depression: 0/10 Current Medications Current Medications Aripiprazole 5 mg HS PO Last administered on 04/12/17 21:23; Admin Dose 5 MG; Start 04/11/17 at 21:00; Stop 04/13/17 at 15:05; Status DC Quetiapine Fumarate 400 mg HS PO Last administered on 04/12/17 21:20; Admin Dose 400 MG; Start 04/11/17 at 21:00 Mental Status Exam Vital Signs Vital Signs Date Time Temp Pulse Resp B/P Pulse Ox O2 Delivery O2 Flow Rate FiO2 04/13/17 14:08 35.9 69 16 113/77 Appearance: Unkept Attitude: Cooperative, Guarded Behavior: Distractible Affect: Restricted Mood: Depressed, Anxious Thought Process/Associations: Goal Directed Speech Production: Normal Speech Rate: Normal Speech Articulation: Normal Thought Content: Negativistic, Guilt, Ideas of Reference, Suspicious, Perseveration Danger to Self/Suicidal Ideati: None Danger to Others: None Delusions: Paranoid (Endorses) Hallucinations: Auditory (Denies), Visual (Endorses) Consciousness: Alert Orientation: Person, Place, Date, Situation Memory: Short Term Memory (Impaired), [employer] Memory (Impaired) Estimate Intellectual Function: Average Basis for IQ estimate: Word use/vocabulary, Educational history Attention/Concentration & Cogn: Impaired Insight: Limited Judgement: Limited Mental Health Plan The patient is a 51 year old male with a history of schizoaffective disorder who reduced medication adherence and eventually stopped all medications, decompensated, attempted suicide and was detained by the [facility]. The patient's outpatient provider indicates that he responded well to his outpatient medications and was stable for quite some time. They report that they will have intensive outpatient treatment to help him with medication adherence. The patient had been placed on a combination of Abilify and Geodon with Abilify titrated to 30 mg. Geodon was gradually tapered as the patient appeared to be improving with decreased hallucinations and paranoia. However, once Geodon taper had been completed patient slowly developed worsening depression and increased paranoia. The patient had been placed on Lexapro to address depression. Although the patient endorses anxiety and an depression, objectively he does not appear terribly anxious. The patient has reported the return of seeing people in the trees but continues to deny auditory hallucinations. He still endorses significant guilt and negative symptoms. The patient is noting no side effects from escitalopram, aripiprazole, quetiapine, or ziprasidone. Review of records indicates that the patient has typically been on 2 agents and did well on ziprasidone and quetiapine in the past. The patient reports improvement in depression and anxiety but continues to report visual hallucinations, guilt, delusions. Patient indicated that he feels better than yesterday. Patient agreeable to titrating quetiapine and tapering aripiprazole. [place] AXIS I: Schizoaffective disorder, bipolar type Alcohol use disorder Marijuana use disorder AXIS II: Deferred AXIS III: None reported. AXIS IV: Moderate with recent Mother's day, medication non-adherence. AXIS V: GAF 35 Medications Quetiapine 400mg po HS Ziprasidone 80 mg twice daily Benztropine 1mg po bid Depakote ER 1500mg po nightly, blood level 84 on 03/14/2017 Escitalopram 10 mg daily Trazodone 150mg po nightly Lorazepam 1-2 mg every 4 hours when necessary Thiamine 100 mg daily Multivitamin 1 daily Treatments 1. The patient is admitted to the inpatient unit and will be provided a safe and secure environment. 2. The patient is denying suicidal ideation and is not in need of a one-to-one at this time. 3. The patient is encouraged to participate with group and milieu activities. 4. The patient will be seen by the treatment team on a daily basis to assess symptoms, side effects and response to treatment. 5. Discontinue Abilify. 6. Continue ziprasidone 80 mg twice daily. 7. Continue quetiapine 400mg. 8. Continue current Depakote. (serum level therapeutic as of 03/14/17) 9. Continue Lexapro 10 mg daily for depression and watch for the emergence of any signs of manic conversion. Consider increasing dose if no improvement with quetiapine. 10. Continue to encourage group activity and engagement. 11. Patient is currently on 90 day more restrictive order. 12. We will check weight weekly and increase food intake showed to be losing weight, current weekly weight not available.. Asael Adkins MD Apr 13, 2017 18:18
[2017-04-13] MEDS: Divalproex (QD) 500 mg ER24 Tablet PO SCH (20:19)
[2017-04-13] MEDS: TRAZODONE PO SCH ×2 (20:19)
--- NOTE | 2017-04-14 03:19 | NUR ---
Nursing Noc Pt continues to present unchanged from previous shifts. Remains sullen withdrawn and paranoid. Continuing to monitor mood, behavior, and emotional state. CP
[2017-04-14] MEDS: Omega-3 Fatty Acids 1,000 mg Capsule PO SCH ×2 (08:35→20:21)
[2017-04-14 10:50] VITALS: BP 127/85; PULSE 72; RESP 17
--- NOTE | 2017-04-14 14:54 | NUR ---
Life Teacher/Counselor S:" I feel like running away a lot. That's about it." O: Patient did not express any SI or HI, no auditory hallucinations but reported seeing things in the trees again last night. He rated both his anxiety and his depression at a 10. A: Patient stated he had bad nightmares but that he couldn't talk about them. He feels that his memory has gotten a lot better again, and that he still likes to eat. His affect was fairly flat, but he was cooperative, but somewhat withdrawn. He was out in the milieu, and participated in group and doing puzzles. P: Follow care plan and coordinate with outpatient providers. Addendum: 04/14/17 at 1505 by KD BOYCE [facility] Patient attended the group session and participated in all discussions.
--- NOTE | 2017-04-14 15:54 | PCM.PNPSY ---
Subjective Date of Service Apr 14, 2017 Subjective The patient reports that he is concerned that he has memory problems although on inquiry he denies any specific difficulties today. He reports that he feels like he is "running away with a lot." The patient is still endorsing a fair amount of guilt. He reports having more difficulties in the morning than during the day. No side effect complaints. Sleep: 7 hours, reports having "really bad nightmares." Will not specify. Appetite: "I still like to eat" Suicidal and homicidal ideation: Denies Auditory hallucinations: Denies Visual hallucinations: Reports having faces in the trees yesterday evening Other Psychotic Symptoms: negative symptoms Anxiety: 07/24 but cannot say why Depression: 07/24 reportedly due to "getting back to family." Current Medications Current Medications Quetiapine Fumarate 100 mg DAILY PO Last administered on 04/14/17t 13:50; Admin Dose 100 MG; Start 04/14/17 at 12:35 Mental Status Exam Appearance: Unkept Attitude: Cooperative, Guarded Behavior: Distractible Affect: Restricted Mood: Depressed, Anxious Thought Process/Associations: Goal Directed Speech Production: Normal Speech Rate: Normal Speech Articulation: Normal Thought Content: Negativistic, Guilt, Ideas of Reference, Suspicious, Perseveration Danger to Self/Suicidal Ideati: None Danger to Others: None Delusions: Paranoid (Endorses) Hallucinations: Auditory (Denies), Visual (Endorses) Consciousness: Alert Orientation: Person, Place, Date, Situation Memory: Short Term Memory (Impaired), Penitentiary Memory (Impaired) Estimate Intellectual Function: Average Basis for IQ estimate: Word use/vocabulary, Educational history Attention/Concentration & Cogn: Impaired Insight: Limited Judgement: Limited Mental Health Plan The patient is a 51 year old male with a history of schizoaffective disorder who reduced medication adherence and eventually stopped all medications, decompensated, attempted suicide and was detained by the [facility]. The patient's outpatient provider indicates that he responded well to his outpatient medications and was stable for quite some time. They report that they will have intensive outpatient treatment to help him with medication adherence. The patient had been placed on a combination of Abilify and Geodon with Abilify titrated to 30 mg. Geodon was gradually tapered as the patient appeared to be improving with decreased hallucinations and paranoia. However, once Geodon taper had been completed patient slowly developed worsening depression and increased paranoia. The patient had been placed on Lexapro to address depression. Although the patient endorses anxiety and an depression, objectively he does not appear terribly anxious. The patient has reported the return of seeing people in the trees but continues to deny auditory hallucinations. He still endorses significant guilt and negative symptoms. The patient is noting no side effects from escitalopram, aripiprazole, quetiapine, or ziprasidone. Review of records indicates that the patient has typically been on 2 agents and did well on ziprasidone and quetiapine in the past. Although yesterday the patient reported significant improvement in anxiety and depression, today he is back to reporting 10/10 depression and anxiety. He is unable to explain what his symptoms might be or why he is feeling this way. The patient was willing to try a small dose of daytime quetiapine for anxiety and depression as well as paranoia. [place] AXIS I: Schizoaffective disorder, bipolar type Alcohol use disorder Marijuana use disorder AXIS II: Deferred AXIS III: None reported. AXIS IV: Moderate with recent Mother's day, medication non-adherence. AXIS V: GAF 35 Medications Quetiapine 400mg po HS Quetiapine 100 mg by mouth daily Ziprasidone 80 mg twice daily Benztropine 1mg po bid Depakote ER 1500mg po nightly, blood level 84 on 03/14/2017 Escitalopram 10 mg daily Trazodone 150mg po nightly Lorazepam 1-2 mg every 4 hours when necessary Thiamine 100 mg daily Multivitamin 1 daily Treatments 1. The patient is admitted to the inpatient unit and will be provided a safe and secure environment. 2. The patient is denying suicidal ideation and is not in need of a one-to-one at this time. 3. The patient is encouraged to participate with group and milieu activities. 4. The patient will be seen by the treatment team on a daily basis to assess symptoms, side effects and response to treatment. 5. We will check weight weekly and increase food intake showed to be losing weight, current weekly weight not available. 6. Continue ziprasidone 80 mg twice daily. 7. Continue quetiapine 400mg and add 100 mg in the morning. 8. Continue current Depakote. (serum level therapeutic as of 03/14/17) 9. Continue Lexapro 10 mg daily for depression and watch for the emergence of any signs of manic conversion. Consider increasing dose if no improvement with quetiapine. 10. Continue to encourage group activity and engagement. 11. Patient is currently on 90 day more restrictive order. 12. We will check follow-up CBC, CMP and Depakote level. Asael Adkins MD Apr 14, 2017 15:54
--- NOTE | 2017-04-14 17:59 | NUR ---
[id number]. nurs. S: "I don't know what happens, I get up at 3 am then I don't remember.....I keep looking at this picture that rainbow isn't right...then I watch too much television......She reminds me of someone who was nice to me who acted like a counsellor for me a long time ago and I didn't treat her very well... The sexual stuff is all around here.. I have to walk.." O: Pt reporting his disoriented perceptions of time of day, and poor memory of what is happening and has happened. P:Pt walking to deal with feeling of guilt and memories downcast half sentences and withdrawn. P:CNCP
--- NOTE | 2017-04-14 18:35 | NUR ---
Observations 00 - 2129 Pt continues to present same as previous shifts. Pt was pleasant, polite and cooperative when approached. Pt maintained behavior throughout the shift. Pt speech was soft and mumbling and eye contact was ok. Pt ate snack. Pt paced the hallway more today and appeared to be responding to internal stimuli. Pt rested in his room and sat quietly in D.R. during the day. Pt attended meals in D.R. and ate 100% of his meals. Pt ate snack. Pt attended community meeting, groups or unit activities. Pt set a daily goal and rated his mood 4/10, with 10 being the best. Pt went out on patio with staff and peers to get some fresh air. Pt was observed every 15 minutes through the shift as ordered.
[2017-04-14] MEDS: Divalproex (QD) 500 mg ER24 Tablet PO SCH (20:20)
[2017-04-14] MEDS: TRAZODONE PO SCH ×2 (20:21)
--- NOTE | 2017-04-15 05:00 | NUR ---
Nursing Noc Pt behavior or emotional state appears unchanged from previous days assessments. Pt withdrawn, reporting internal direction, poor eye contact, and broken sleep. Continuing to monitor mood behavior and emotional state. Q15 minute safety checks throughout the shift. CP
[2017-04-15] MEDS: Omega-3 Fatty Acids 1,000 mg Capsule PO SCH ×2 (08:47→20:38)
[2017-04-15 09:37] LABS: BASOPHILS % (AUTO) 0.1 % (0-3); EOSINOPHILS % (AUTO) 0.8 % (0-5); MONOCYTES % (AUTO) 6.6 % (4-12); Mean Corpuscular Hemoglobin 31.3 pg (27.0-35.0); Mean Corpuscular Volume 86.9 fL (81-100); NEUTROPHILS % (AUTO) 75.5 % (40-74); Platelet Count 223 bil/L (150-400)
[2017-04-15 16:11] VITALS: BP 103/66; PULSE 82; RESP 18
--- NOTE | 2017-04-15 18:32 | NUR ---
[facility] Day Shift Pt affect and behavior unchanged from previous shifts. Pt maintained behavioral control throughout the shift. Pt affect appears flat, paranoid. Pt spends most of the shift resting quietly in his room or sitting quietly in the dining room. Pt is appropriate with staff and peers when active on the unit, but does not initiate social interactions with peers. Pt appears to express fewer paranoid delusions this shift. Pt did not attend community meeting, but attended group activities throughout the shift and participated passively. Pt attended all meals and ate approx 100% of all meals.
--- NOTE | 2017-04-15 19:14 | NUR ---
[id number]. nurs. S/O: Pt verbalizing understanding of med plan to increase lexapro to 20mg q.d. and accepting make up dose of 10mg. Pt was out on patio and catching ball with peers. Pt wandered in and out of grps not participating per report. Pt noted to walk in ale[place]andro for some time after lunch which he has reported helps him deal with internal material rel. to events he feels guilt about and he continues to present with downcast gaze and some disjointed quiet statements that he directs aside and does not repeat or clarify. Pt reporting high levels of anxiety and depression. P:CNCP
[2017-04-15] MEDS: Divalproex (QD) 500 mg ER24 Tablet PO SCH (20:38)
[2017-04-15] MEDS: TRAZODONE PO SCH ×2 (20:38)
--- NOTE | 2017-04-15 22:52 | PCM.PNPSY ---
Subjective Date of Service Apr 15, 2017 Subjective The patient reports that he is "pretty good so far." He denies feeling tired today. He states, "I have to be like a man. If I keep going down that road I'm going to lose family." Patient went on to explain that he is concerned that he is single and is not sure how to proceed. He denies side effects. The patient is still endorsing a fair amount of guilt. No side effect complaints. Sleep: 7.5 hours, "a lot" Appetite: "Really good" Suicidal and homicidal ideation: Denies Auditory hallucinations: Denies Visual hallucinations: Reports having faces in the trees yesterday evening Other Psychotic Symptoms: negative symptoms Anxiety: "how can I take care of myself?" Depression: "the day started out good" Current Medications Current Medications Escitalopram Oxalate 10 mg ONCE ONCE PO Last administered on 04/15/17 15:52; Admin Dose 10 MG; Start 04/15/17 at 13:15; Stop 04/15/17 at 13:23; Status DC Quetiapine Fumarate 100 mg DAILY PO Last administered on 04/15/17 08:52; Admin Dose 100 MG; Start 04/14/17 at 12:35 Mental Status Exam Vital Signs Vital Signs Date Time Temp Pulse Resp B/P Pulse Ox O2 Delivery O2 Flow Rate FiO2 04/15/17 16:11 35.9 82 18 103/66 Appearance: Unkept Attitude: Cooperative, Guarded Behavior: Distractible Affect: Restricted Mood: Depressed, Anxious Thought Process/Associations: Goal Directed Speech Production: Normal Speech Rate: Normal Speech Articulation: Normal Thought Content: Negativistic, Guilt, Ideas of Reference, Suspicious, Perseveration Danger to Self/Suicidal Ideati: None Danger to Others: None Delusions: Paranoid (Endorses) Hallucinations: Auditory (Denies), Visual (Denies) Consciousness: Alert Orientation: Person, Place, Date, Situation Memory: Short Term Memory (Impaired), Timber Poisoner Memory (Impaired) Estimate Intellectual Function: Average Basis for IQ estimate: Word use/vocabulary, Educational history Attention/Concentration & Cogn: Impaired Insight: Limited Judgement: Limited Result Diagram: 04/15/1792404/15/17924 Mental Health Plan The patient is a 51 year old male with a history of schizoaffective disorder who reduced medication adherence and eventually stopped all medications, decompensated, attempted suicide and was detained by the [facility]. The patient's outpatient provider indicates that he responded well to his outpatient medications and was stable for quite some time. They report that they will have intensive outpatient treatment to help him with medication adherence. The patient had been placed on a combination of Abilify and Geodon with Abilify titrated to 30 mg. Geodon was gradually tapered as the patient appeared to be improving with decreased hallucinations and paranoia. However, once Geodon taper had been completed patient slowly developed worsening depression and increased paranoia. The patient had been placed on Lexapro to address depression. Although the patient endorses anxiety and an depression, objectively he does not appear terribly anxious. The patient has reported the return of seeing people in the trees but continues to deny auditory hallucinations. He still endorses significant guilt and negative symptoms. The patient is noting no side effects from escitalopram, aripiprazole, quetiapine, or ziprasidone. Review of records indicates that the patient has typically been on 2 agents and did well on ziprasidone and quetiapine in the past. The patient reports improvement in symptoms today, but continues to report guilt related themes. Discussed increasing his antidepressant, and the patient was agreeable. [place] AXIS I: Schizoaffective disorder, bipolar type Alcohol use disorder Marijuana use disorder AXIS II: Deferred AXIS III: None reported. AXIS IV: Moderate with recent Mother's day, medication non-adherence. AXIS V: GAF 35 Medications Quetiapine 400mg po HS Quetiapine 100 mg by mouth daily Ziprasidone 80 mg twice daily Benztropine 1mg po bid Depakote ER 1500mg po nightly, blood level 84 on 03/14/2017 Escitalopram 20 mg daily Trazodone 150mg po nightly Lorazepam 1-2 mg every 4 hours when necessary Thiamine 100 mg daily Multivitamin 1 daily Treatments 1. The patient is admitted to the inpatient unit and will be provided a safe and secure environment. 2. The patient is denying suicidal ideation and is not in need of a one-to-one at this time. 3. The patient is encouraged to participate with group and milieu activities. 4. The patient will be seen by the treatment team on a daily basis to assess symptoms, side effects and response to treatment. 5. We will check weight weekly and increase food intake showed to be losing weight, current weekly weight not available. 6. Continue ziprasidone 80 mg twice daily. 7. Continue quetiapine 400mg and add 100 mg in the morning. 8. Continue current Depakote. (serum level therapeutic as of 03/14/17) 9. Increase escitalopram to 20mg po daily. 10. Continue to encourage group activity and engagement. 11. Patient is currently on 90 day more restrictive order. 12. We will check follow-up CBC, CMP and Depakote level. Asael Adkins MD Apr 15, 2017 22:52 12. We will check follow-up CBC, CMP and Depakote level. Asael Adkins MD Apr 15, 2017 22:52
--- NOTE | 2017-04-16 06:01 | NUR ---
Nursing Noc Pt continues much the same. Pacing the hallway and appearing downcast & internally preoccupied. He attended evening group but did not have a goal. Broken sleep of 5.5 hours.
[2017-04-16] MEDS: Omega-3 Fatty Acids 1,000 mg Capsule PO SCH ×2 (08:43→20:57)
--- NOTE | 2017-04-16 15:22 | NUR ---
Transport Tech/Counselor S:"Remembering things makes today better." O: Patient did not express any SI or HI, but stated that it's still early in the day. He still sees the faces in the trees. He rated both his anxiety and depression at a 5. A: Patient was cooperative and made intermittent eye contact. He has been out in the milieu sporadically, and left group shortly after it started. He seems fairly preoccupied with his thoughts still and was observed pacing this morning. P: Follow care plan and coordinate with outpatient providers.
--- NOTE | 2017-04-16 15:25 | NUR ---
Questioned Documents Examiner/Counselor S:"When I'm calmer, I can think better." O: Patient did not express any HI or SI, no AVH, and rated both his anxiety and depression as low. A: Patient was walking the halls this morning, but stated that he felt much calmer than he has before. His appetite is picking up. He stated that before meditation in group he was very riled up and anxious, but that group was able to help him slow his breathing down. He was also very grateful towards staff for their care. P:Follow care plan and coordinate with outpatient providers. Addendum: 04/16/17 at 1528 by CELIA [facility] Disregard note, input under wrong patient.
--- NOTE | 2017-04-16 17:02 | NUR ---
Obs Dayshift Pt is out in the milieu much more often, engages w/ more peers. Continues to appear very depressed and confused. Pt appears better and more bright when able to be outside and active. Pt is polite, calm, and appropriate. Ok ADL's, Good meals
[2017-04-16 17:54] VITALS: BP 104/61; PULSE 79; RESP 16
--- NOTE | 2017-04-16 18:22 | NUR ---
Nursing Days patient remains very quiet and internally preoccupied spending several hours today walking the halls. compliant with medications. Attempted to engage patient in conversation with no success. patient would mumble a few incongruent words then remain quiet. Angel attended group for a few minutes then resumed pacing the halls.
[2017-04-16] MEDS: TRAZODONE PO SCH ×2 (21:03)
[2017-04-16] MEDS: Divalproex (QD) 500 mg ER24 Tablet PO SCH (21:30)
--- NOTE | 2017-04-16 21:41 | PCM.PNPSY ---
Subjective Date of Service Apr 16, 2017 Subjective The patient reports that he is feeling better as "I got some memories back today." He reported that he smiled twice yesterday in response to others asking , "why don't you smile?" The patient is still endorsing a fair amount of guilt. No side effect complaints. Sleep: 5.5 hours, "Rested last night" Appetite: "Kind of hungry" Suicidal and homicidal ideation: Denies but states, "the day just started." Auditory hallucinations: Denies Visual hallucinations: Reports having faces in the trees this morning. Other Psychotic Symptoms: negative symptoms Anxiety: 02/21 "It goes up as time goes by" Depression: 02/21 Current Medications Current Medications Escitalopram Oxalate 10 mg ONCE ONCE PO Last administered on 04/15/17 15:52; Admin Dose 10 MG; Start 04/15/17 at 13:15; Stop 04/15/17 at 13:23; Status DC Escitalopram Oxalate 20 mg DAILY PO Last administered on 04/16/17 08:43; Admin Dose 20 MG; Start 04/16/17 at 08:30 Mental Status Exam Vital Signs Vital Signs Date Time Temp Pulse Resp B/P Pulse Ox O2 Delivery O2 Flow Rate FiO2 04/16/17 17:54 36.0 79 16 104/61 Appearance: Unkept Attitude: Cooperative, Guarded Behavior: Other (Improved eye contact) Affect: Restricted Mood: Depressed, Anxious Thought Process/Associations: Goal Directed Speech Production: Normal Speech Rate: Normal Speech Articulation: Normal Thought Content: Negativistic, Guilt, Ideas of Reference, Suspicious, Perseveration Danger to Self/Suicidal Ideati: None Danger to Others: None Delusions: Paranoid (Endorses) Hallucinations: Auditory (Denies), Visual (Endorses) Consciousness: Alert Orientation: Person, Place, Date, Situation Memory: Short Term Memory (Impaired), Stemmer Machine Memory (Impaired) Estimate Intellectual Function: Average Basis for IQ estimate: Word use/vocabulary, Educational history Attention/Concentration & Cogn: Impaired Insight: Limited Judgement: Limited Result Diagram: 04/15/1792404/15/17924 Mental Health Plan The patient is a 51 year old male with a history of schizoaffective disorder who reduced medication adherence and eventually stopped all medications, decompensated, attempted suicide and was detained by the [facility]. The patient's outpatient provider indicates that he responded well to his outpatient medications and was stable for quite some time. They report that they will have intensive outpatient treatment to help him with medication adherence. The patient had been placed on a combination of Abilify and Geodon with Abilify titrated to 30 mg. Geodon was gradually tapered as the patient appeared to be improving with decreased hallucinations and paranoia. However, once Geodon taper had been completed patient slowly developed worsening depression and increased paranoia. The patient had been placed on Lexapro to address depression. Although the patient endorses anxiety and an depression, objectively he does not appear terribly anxious. The patient has reported the return of seeing people in the trees but continues to deny auditory hallucinations. He still endorses significant guilt and negative symptoms. The patient is noting no side effects from escitalopram, aripiprazole, quetiapine, or ziprasidone. Review of records indicates that the patient has typically been on 2 agents and did well on ziprasidone and quetiapine in the past. The patient reports improvement in symptoms today, with improved eye contact, better appetite and desire to interact and please others. Patient acknowledged improvement as well. [place] AXIS I: Schizoaffective disorder, bipolar type Alcohol use disorder Marijuana use disorder AXIS II: Deferred AXIS III: None reported. AXIS IV: Moderate with recent Mother's day, medication non-adherence. AXIS V: GAF 35 Medications Quetiapine 400mg po HS Quetiapine 100 mg by mouth daily Ziprasidone 80 mg twice daily Benztropine 1mg po bid Depakote ER 1500mg po nightly, blood level 84 on 03/14/2017 Escitalopram 20 mg daily Trazodone 150mg po nightly Lorazepam 1-2 mg every 4 hours when necessary Thiamine 100 mg daily Multivitamin 1 daily Treatments 1. The patient is admitted to the inpatient unit and will be provided a safe and secure environment. 2. The patient is denying suicidal ideation and is not in need of a one-to-one at this time. 3. The patient is encouraged to participate with group and milieu activities. 4. The patient will be seen by the treatment team on a daily basis to assess symptoms, side effects and response to treatment. 5. We will check weight weekly and increase food intake showed to be losing weight, current weekly weight not available. 6. Continue ziprasidone 80 mg twice daily. 7. Continue quetiapine 400mg and add 100 mg in the morning. 8. Continue current Depakote. (serum level therapeutic at 89 as of 04/15/17) 9. Continue escitalopram 20mg po daily. 10. Continue to encourage group activity and engagement. 11. Patient is currently on 90 day more restrictive order. Asael Adkins MD Apr 16, 2017 21:41 Asael Adkins MD Apr 16, 2017 21:41
[2017-04-17] MEDS: LORazepam 1 mg Tablet PO PRN (00:39)
--- NOTE | 2017-04-17 06:10 | NUR ---
Nursing Note Business Banking Manager 11pm to 7am Pt asleep at start of shift, woke up multiple times coming to nursing station, hypervigilant and confused. Asking Is he here yet, Do you need me . Pt given Ativan 2mg and went back to bed and remained asleep the rest of the shift. Monitored pt. with q 15 minute face checks for safety location and accountability.
[2017-04-17] MEDS: Omega-3 Fatty Acids 1,000 mg Capsule PO SCH ×2 (08:03→21:08)
[2017-04-17 08:15] VITALS: BP 96/58; PULSE 63; RESP 16
--- NOTE | 2017-04-17 14:32 | NUR ---
Chemistry Technician/Counselor S:"I've been smiling more." O: Patient did not report any SI or HI, no auditory hallucinations, and reported faces in the trees only when he is in a good mood. He rated his anxiety at a 9 and his depression at a 9, but stated he was happy today. A: Patient reported he may be able to move back in with his nephew, and was hoping to return to an apartment soon. He reported an increased feeling of happiness, and has been interacting with other patients who have reported to see him smile and be social. He is out in the milieu and on the patio, and engages with other patients in card games etc. P:Follow care plan and coordinate with outpatient providers.
--- NOTE | 2017-04-17 14:44 | NUR ---
Social interaction Pt. was noted trying to interact with others more. He stayed out of his room after lunch. He put together puzzle pieces with another peer in the dining room. They talked and smiled. Pt. denied pain. He was able to maintain longer eye contact during conversation.
--- NOTE | 2017-04-17 17:43 | PCM.PNPSY ---
Subjective Date of Service Apr 17, 2017 Subjective The patient reports that "the day is starting real good." He reports his mood is8/10 and adds "I woke up and thought I was in my apartment." No side effect complaints. Sleep: 8 hours Appetite: "Eating food" Suicidal and homicidal ideation: Reports suicidal ideation only "when I get angry" which has not occurred since prior to admission. Auditory hallucinations: Denies Visual hallucinations: Reports having faces in the trees but states that this is not a bad thing Other Psychotic Symptoms: negative symptoms Anxiety: 06/24 Depression: 05/24 Current Medications Current Medications Escitalopram Oxalate 20 mg DAILY PO Last administered on 04/17/17t 08:02; Admin Dose 20 MG; Start 04/16/17 at 08:30 Mental Status Exam Appearance: Unkept Attitude: Cooperative, Guarded Behavior: Other (Improved eye contact) Affect: Restricted Mood: Depressed, Anxious Thought Process/Associations: Goal Directed Speech Production: Normal Speech Rate: Normal Speech Articulation: Normal Thought Content: Negativistic, Guilt, Ideas of Reference, Suspicious, Perseveration Danger to Self/Suicidal Ideati: None Danger to Others: None Delusions: Paranoid (Endorses) Hallucinations: Auditory (Denies), Visual (Endorses) Consciousness: Alert Orientation: Person, Place, Date, Situation Memory: Short Term Memory (Impaired), Nursing Home Memory (Impaired) Estimate Intellectual Function: Average Basis for IQ estimate: Word use/vocabulary, Educational history Attention/Concentration & Cogn: Impaired Insight: Limited Judgement: Limited Result Diagram: 04/15/17 0925 04/15/17 0925 Mental Health Plan The patient is a 51 year old male with a history of schizoaffective disorder who reduced medication adherence and eventually stopped all medications, decompensated, attempted suicide and was detained by the [facility]. The patient's outpatient provider indicates that he responded well to his outpatient medications and was stable for quite some time. They report that they will have intensive outpatient treatment to help him with medication adherence. The patient had been placed on a combination of Abilify and Geodon with Abilify titrated to 30 mg. Geodon was gradually tapered as the patient appeared to be improving with decreased hallucinations and paranoia. However, once Geodon taper had been completed patient slowly developed worsening depression and increased paranoia. The patient had been placed on Lexapro to address depression. Although the patient endorses anxiety and an depression, objectively he does not appear terribly anxious. The patient has reported the return of seeing people in the trees but continues to deny auditory hallucinations. He still endorses significant guilt and negative symptoms. The patient is noting no side effects from escitalopram, aripiprazole, quetiapine, or ziprasidone. Review of records indicates that the patient has typically been on 2 agents and did well on ziprasidone and quetiapine in the past. The patient reports improvement in symptoms today, with improved eye contact, better appetite and desire to interact and please others. Patient acknowledged improvement as well. We will continue with current treatment. [place] AXIS I: Schizoaffective disorder, bipolar type Alcohol use disorder Marijuana use disorder AXIS II: Deferred AXIS III: None reported. AXIS IV: Moderate with recent Mother's day, medication non-adherence. AXIS V: GAF 35 Medications Quetiapine 400mg po HS Quetiapine 100 mg by mouth daily Ziprasidone 80 mg twice daily Benztropine 1mg po bid Depakote ER 1500mg po nightly, blood level 84 on 03/14/2017 Escitalopram 20 mg daily Trazodone 150mg po nightly Lorazepam 1-2 mg every 4 hours when necessary Thiamine 100 mg daily Multivitamin 1 daily Treatments 1. The patient is admitted to the inpatient unit and will be provided a safe and secure environment. 2. The patient is denying suicidal ideation and is not in need of a one-to-one at this time. 3. The patient is encouraged to participate with group and milieu activities. 4. The patient will be seen by the treatment team on a daily basis to assess symptoms, side effects and response to treatment. 5. We will check weight weekly and increase food intake showed to be losing weight, current weekly weight not available. 6. Continue ziprasidone 80 mg twice daily. 7. Continue quetiapine 400mg and add 100 mg in the morning. 8. Continue current Depakote. (serum level therapeutic at 89 as of 04/15/17) 9. Continue escitalopram 20mg po daily. 10. Continue to encourage group activity and engagement. 11. Patient is currently on 90 day more restrictive order. Asael Adkins MD Apr 17, 2017 17:43
--- NOTE | 2017-04-17 19:02 | NUR ---
Obs Dayshift Pt has little to no change. Pacing the unit, anxious and worried. Easily distracted with going outside and playing football, ping pong, etc. Confused, paranoid, sad, depressed. Ok ADL's, Good meals
[2017-04-17] MEDS: Divalproex (QD) 500 mg ER24 Tablet PO SCH (21:07)
[2017-04-17] MEDS: TRAZODONE PO SCH ×2 (21:07)
--- NOTE | 2017-04-17 22:32 | NUR ---
Nursing Note [id number] S: "I don't think that is going to work". "Are you ok with her". O: Patient working on a puzzle when another patient attempted to help, but would take apart the puzzle and try to force them to fit into the wrong pieces. Patient then asking if staff was ok before he moved away from the puzzle and his peer. Rated anxiety as 8/10 while peer was present, depression as 6/10, denies SI/HI or hallucinations. A: Patient continues have a flat affect. Visible on unit, better interaction with peers. P: Monitor for response to treatment. Q 15 minute checks for safety. Follow plan of care.
--- NOTE | 2017-04-18 06:15 | NUR ---
Nursing Noc Pt remains flat, distracted, and paranoid. Noted to be first asleep at 2200 and was seen to have broken sleep throughout the shift. continuing to monitor mood behavior and emotional state. Q15 minute safety checks this shift, monitoring mood behavior and emotional state. CP
[2017-04-18] MEDS: Omega-3 Fatty Acids 1,000 mg Capsule PO SCH ×2 (08:06→20:09)
[2017-04-18 10:28] VITALS: BP 99/67; PULSE 76; RESP 16
--- NOTE | 2017-04-18 16:04 | NUR ---
Obs Dayshift Pt has been pacing the unit, quiet, and napping off and on thru out the day. Pt appears to be depressed, keeping to himself. Pt states that he is tired. Restless, internally preoccupied, head down, poor eye contact. If pt does attend a group he is quick to leave, and continues to pace or goes back to bed. Pt is polite upon engagement, reserved, and quiet. Ok ADL's, Good meals
--- NOTE | 2017-04-18 16:14 | NUR ---
Branch Services Manager/Counselor S: Things are going really good today." O: Patient did not have any SI or HI, and when asked about VH, he stated he hasn't looked yet. No AH, and patient rated his anxiety and depression at a 7. A: Patient stated that he got to socialize today, and that walking is helping with the guilt. He has been walking the unit throughout the day and has participated in group. He stated that he was smiling yesterday, but appears to be keeping to himself today. P:Follow care plan and coordinate with outpatient providers.
--- NOTE | 2017-04-18 18:40 | NUR ---
[id number]. nurs. S: " Walking helps me... I come to my room when I get angry... I try to help people.. sometimes I think someone is talking about me , or maybe I am wrong. I think about the children..I am not a child molester or anything... so my brother wants me to get help, but I think I am ready to leave, I am a little worried about what would happen... O:Pt sitting on the bed quite communicative with staff still with eyes cast down but a little less disjointed today reporting feels better than a week or so ago, effected by the behaviour of less appropriate peers. Pt noted to use walking halls and time on patio to improve wellbeing and reporting some readiness for discharge. P:TABITHA
[2017-04-18] MEDS: TRAZODONE PO SCH ×2 (20:10)
[2017-04-18] MEDS: Divalproex (QD) 500 mg ER24 Tablet PO SCH (20:10)
--- NOTE | 2017-04-18 22:47 | NUR ---
Shift note [id number] Pt had no bizarre behavior issues noted this shift. Pt took all medications as scheduled and did not mention any children or being a molester. Continue to monitor for mood changes, emotional well being, and q15min checks for safety. Care ongoing.
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
--- NOTE | 2017-04-19 05:11 | NUR ---
nursing, nights, 11-7 s/o- has appeared to sleep [id number], [id number] and after 0400. assessed q 15 minutes. a- interupted sleep, no apparent distress. p- monitor behavior/emotional state, quality, times and amount of sleep, use and effect of medication. eva
[2017-04-19] MEDS: Omega-3 Fatty Acids 1,000 mg Capsule PO SCH ×2 (07:46→21:25)
--- NOTE | 2017-04-19 13:41 | NUR ---
Nursing Note [id number] Behavior, Mood S/O: Pt out of room for meals & activities. Pt rated depression and anxiety at a "8" on a scale of 1-10/10 the worst. Pt has little eye contact. Pt out in the milieu with peers more frequently. Conversation is slow & pt has slight hesitation in expressing feelings & thoughts. Pt endorses audio hallucinations. He is concerned about the visit with his brother yesterday. He thinks that his brother is upset with him for not getting better. A: Pt is slowly improving. He continues to respond to internal stimuli. P: Provide supportive environment. Monitor medications & effects.
--- NOTE | 2017-04-19 13:53 | NUR ---
Eyelet Punch Operator/Counselor S:"My brother told me to get better. I told him that wasn't really up to me." O: Patient denies any HI or SI. States that he still sees the faces, and sometimes it's the face of Travis Clark. His depression and anxiety were rated at an 8. He slept for 5.25 hours last night and stated his appetite was fine. A: Patient was talking about the visit with his brother, and that he felt that his brother thought he was staying at the hospital because he thought it was like a hotel. Some irrational thoughts, and still pre-occupied in assumptions about what people may think/say about him. Patient stated that he feels he's capable of working, and that he may be ready for discharge soon. Patient has been out in the milieu, participating and interacting with other patients. P: Follow care plan and coordinate with outpatient providers. Addendum: 04/19/17 at 1910 by [facility] Patient attended group and participated in all discussions.
[2017-04-19 17:18] VITALS: BP 99/68; PULSE 69; RESP 16
--- NOTE | 2017-04-19 18:51 | NUR ---
[facility] Day Shift Pt affect and behavior unchanged from previous shifts. Pt maintained behavioral control throughout the shift. Pt affect appears flat, paranoid. Pt spends most of the shift resting quietly in his room or sitting quietly in the dining room. Pt is appropriate with staff and peers when active on the unit, but does not initiate social interactions with peers. Pt appears to express fewer paranoid delusions this shift. Pt attended community meeting and attended group activities throughout the shift, participating passively. Pt attended all meals and ate approx 100% of all meals.
[2017-04-19] MEDS: Divalproex (QD) 500 mg ER24 Tablet PO SCH (21:25)
[2017-04-19] MEDS: TRAZODONE PO SCH ×2 (21:26)
--- NOTE | 2017-04-19 22:48 | NUR ---
NURS NOTE EVENING Mood: "I'm feeling sad," endorses some depression, declined to rate. "I worry about what's going to happen the next day," endorses anxiety, declined to rate. Affect: Restricted. Behavior: Pt up in common areas prior to dinner. Other pts invited him to sit with them at dinner, pt joined them but public relations writer observed only limited social interaction with peers. After dinner, pt isolated in room. Thought Content/Process: "I do see faces in the trees." Endorses VH. Denies AH. Denies SI, HI. PRN/NURS Notes: Pt given fresh sock, underwear, and scrub bottoms. Pt took all scheduled medications.
--- NOTE | 2017-04-19 23:08 | PCM.PNPSY ---
Subjective Date of Service Apr 19, 2017 Subjective The patient had a visit from his brother last night but he had been concerned that he wouldn't even come. He stated that he wasn't sure whether his brother said it or whether he just thought it but he thought he was believing that he wasn't getting well enough fast enough to be discharged to independent living. He denied side effects. He reported that it was easier to make eye contact and he was able to laugh occasionally, Sleep: 5.25 hours Appetite: "eating" Suicidal and homicidal ideation: denies Auditory hallucinations:denies Visual hallucinations: still seeing faces in the trees. Other Psychotic Symptoms: see above Anxiety: 05/24 Depression: 05/24 Mental Status Exam Vital Signs Vital Signs Date Time Temp Pulse Resp B/P Pulse Ox O2 Delivery O2 Flow Rate FiO2 04/19/17 17:18 36.2 69 16 99/68 Appearance: Unkept Attitude: Cooperative, Guarded Behavior: Other (Improved eye contact) Affect: Restricted Mood: Depressed, Anxious Thought Process/Associations: Goal Directed Speech Production: Normal Speech Rate: Normal Speech Articulation: Normal Thought Content: Negativistic, Guilt, Ideas of Reference, Suspicious, Perseveration Danger to Self/Suicidal Ideati: None Danger to Others: None Delusions: Paranoid (Endorses) Hallucinations: Auditory (Denies), Visual (Endorses) Consciousness: Alert Orientation: Person, Place, Date, Situation Memory: Short Term Memory (Impaired), Commercial Relationship Manager Memory (Impaired) Estimate Intellectual Function: Average Basis for IQ estimate: Word use/vocabulary, Educational history Attention/Concentration & Cogn: Impaired Insight: Limited Judgement: Limited Result Diagram: 04/15/17 0925 04/15/17 0925 Mental Health Plan The patient is a 51 year old male with a history of schizoaffective disorder who reduced medication adherence and eventually stopped all medications, decompensated, attempted suicide and was detained by the [facility]. The patient's outpatient provider indicates that he responded well to his outpatient medications and was stable for quite some time. They report that they will have intensive outpatient treatment to help him with medication adherence. The patient had been placed on a combination of Abilify and Geodon with Abilify titrated to 30 mg. Geodon was gradually tapered as the patient appeared to be improving with decreased hallucinations and paranoia. However, once Geodon taper had been completed patient slowly developed worsening depression and increased paranoia. The patient had been placed on Lexapro to address depression. Although the patient endorses anxiety and an depression, objectively he does not appear terribly anxious. The patient has reported the return of seeing people in the trees but continues to deny auditory hallucinations. He still endorses significant guilt and negative symptoms. The patient is noting no side effects from escitalopram, aripiprazole, quetiapine, or ziprasidone. Review of records indicates that the patient has typically been on 2 agents and did well on ziprasidone and quetiapine in the past. The patient reports improvement in symptoms today, with improved eye contact, better appetite and desire to interact but still endorsing a fair amount of guilt. The patient was agreeable to increasing quetiapine to 200mg po daily. [place] AXIS I: Schizoaffective disorder, bipolar type Alcohol use disorder Marijuana use disorder AXIS II: Deferred AXIS III: None reported. AXIS IV: Moderate with recent Mother's day, medication non-adherence. AXIS V: GAF 35 Medications Quetiapine 400mg po HS Quetiapine 200 mg by mouth daily Ziprasidone 80 mg twice daily Benztropine 1mg po bid Depakote ER 1500mg po nightly, blood level 84 on 03/14/2017 Escitalopram 20 mg daily Trazodone 150mg po nightly Lorazepam 1-2 mg every 4 hours when necessary Thiamine 100 mg daily Multivitamin 1 daily Treatments 1. The patient is admitted to the inpatient unit and will be provided a safe and secure environment. 2. The patient is denying suicidal ideation and is not in need of a one-to-one at this time. 3. The patient is encouraged to participate with group and milieu activities. 4. The patient will be seen by the treatment team on a daily basis to assess symptoms, side effects and response to treatment. 5. We will check weight weekly and increase food intake showed to be losing weight, current weekly weight not available. 6. Continue ziprasidone 80 mg twice daily. 7. Increase quetiapine to 400mg and add 200 mg in the morning. 8. Continue current Depakote. (serum level therapeutic at 89 as of 04/15/17) 9. Continue escitalopram 20mg po daily. 10. Continue to encourage group activity and engagement. 11. Patient is currently on 90 day more restrictive order. Asael Adkins MD Apr 19, 2017 23:08
--- NOTE | 2017-04-20 05:36 | NUR ---
nursing, nights, 11-7 s/o- has appeared to sleep after [id number], [id number], [id number], will social with select peers at times but is mostly quiet. assessed q 15 minutes. a- interupted sleep, no derogatory statements, no apparent distress. p- monitor behavior/emotional state, quality, times and amount of sleep, use and effect of medication. eva
--- NOTE | 2017-04-20 05:53 | NUR ---
OBSERVATIONS Pt remains confused and delusional. (ex. in the morning pt appeared upset so this MHA asked what seemed to be bothering him. Pt replied: "I said something bad behind your back. Something about an molder and signing papers and that's why [other pt] had to leave.") Pt was pleasant and cooperative with staff and somewhat social with peers. Pt attended evening wrap-up group but left prior to sharing. Pt hardly slept. Maintained Q15 checks for safety as directed.
[2017-04-20] MEDS: Omega-3 Fatty Acids 1,000 mg Capsule PO SCH ×2 (08:19→21:01)
[2017-04-20 10:05] VITALS: BP 122/79; PULSE 67; RESP 16
[2017-04-20 13:18] LABS: BASOPHILS % (AUTO) 0.2 % (0-3); EOSINOPHILS % (AUTO) 1.1 % (0-5); MONOCYTES % (AUTO) 5.5 % (4-12); Mean Corpuscular Hemoglobin 30.8 pg (27.0-35.0); Mean Corpuscular Volume 87.5 fL (81-100); NEUTROPHILS % (AUTO) 63.2 % (40-74); Platelet Count 243 bil/L (150-400)
--- NOTE | 2017-04-20 13:59 | NUR ---
NURSING DAYS 7-7 S/O-Patient has been spending approximately 60% of time in room, appropriate with staff and other patients. When encourage to participate in group art room patient states "I am not good at that sort of thing, there are lots of women in there." "I like sports but don't want to watch something when others that others might not, that would be selfish." E- Nurse encouraged patient to talk and interact with staff and patients. Told he is not a bad person. P-90 day MOR
--- NOTE | 2017-04-20 18:47 | PCM.PNPSY ---
Subjective Date of Service Apr 20, 2017 Subjective The patient reports having had a disturbing dream where he heard "the next time I see you, I'm going to kill you." Patient feels frustrated as he feels "kind of in the middle of the category" as far as patients are concerned and does not feel he fits in either way. He reports he doesn't know what to do in the near future and still feels somewhat confused. He denies side effects. Sleep: 5 hours Appetite: eating meals and snacks Suicidal and homicidal ideation: denies Auditory hallucinations: denies Visual hallucinations: "not yet" Other Psychotic Symptoms: social isolation Anxiety: 05/24 Depression: 05/24 Current Medications Current Medications Quetiapine Fumarate 200 mg DAILY PO Last administered on 04/20/17t 08:18; Admin Dose 200 MG; Start 04/20/17 at 08:30 Mental Status Exam Appearance: Unkept Attitude: Cooperative, Guarded Behavior: Other (Improved eye contact) Affect: Restricted Mood: Depressed, Anxious Thought Process/Associations: Goal Directed Speech Production: Normal Speech Rate: Normal Speech Articulation: Normal Thought Content: Negativistic, Guilt, Ideas of Reference, Suspicious, Perseveration Danger to Self/Suicidal Ideati: None Danger to Others: None Delusions: Paranoid (Endorses) Hallucinations: Auditory (Denies), Visual (Denies) Consciousness: Alert Orientation: Person, Place, Date, Situation Memory: Short Term Memory (Impaired), Test Deskman Memory (Impaired) Estimate Intellectual Function: Average Basis for IQ estimate: Word use/vocabulary, Educational history Attention/Concentration & Cogn: Impaired Insight: Limited Judgement: Limited Result Diagram: 04/20/17 1310 04/20/17 1310 Mental Health Plan The patient is a 51 year old male with a history of schizoaffective disorder who reduced medication adherence and eventually stopped all medications, decompensated, attempted suicide and was detained by the [facility]. The patient's outpatient provider indicates that he responded well to his outpatient medications and was stable for quite some time. They report that they will have intensive outpatient treatment to help him with medication adherence. The patient had been placed on a combination of Abilify and Geodon with Abilify titrated to 30 mg. Geodon was gradually tapered as the patient appeared to be improving with decreased hallucinations and paranoia. However, once Geodon taper had been completed patient slowly developed worsening depression and increased paranoia. The patient had been placed on Lexapro to address depression. Although the patient endorses anxiety and an depression, objectively he does not appear terribly anxious. The patient has reported the return of seeing people in the trees but continues to deny auditory hallucinations. He still endorses significant guilt and negative symptoms. The patient is noting no side effects from escitalopram, aripiprazole, quetiapine, or ziprasidone. Review of records indicates that the patient has typically been on 2 agents and did well on ziprasidone and quetiapine in the past. The patient reports improvement in symptoms today, with improved eye contact, better appetite and desire to interact but still endorsing a fair amount of guilt. The patient reports no side effects from increased quetiapine and we discussed possibly increasing further. [place] AXIS I: Schizoaffective disorder, bipolar type Alcohol use disorder Marijuana use disorder AXIS II: Deferred AXIS III: None reported. AXIS IV: Moderate with recent Mother's day, medication non-adherence. AXIS V: GAF 35 Medications Quetiapine 200mg daily and 400mg po HS Ziprasidone 80 mg twice daily Benztropine 1mg po bid Depakote ER 1500mg po nightly, blood level 84 on 03/14/2017 Escitalopram 20 mg daily (started on 04/16/17) Trazodone 150mg po nightly Lorazepam 1-2 mg every 4 hours when necessary Thiamine 100 mg daily Multivitamin 1 daily Treatments 1. The patient is admitted to the inpatient unit and will be provided a safe and secure environment. 2. The patient is denying suicidal ideation and is not in need of a one-to-one at this time. 3. The patient is encouraged to participate with group and milieu activities. 4. The patient will be seen by the treatment team on a daily basis to assess symptoms, side effects and response to treatment. 5. We will check weight weekly and increase food intake if needed though has been stable of late. 6. Continue ziprasidone 80 mg twice daily. 7. Increase quetiapine to 400mg and add 200 mg in the morning. Consider further titration. 8. Continue current Depakote. (serum level therapeutic at 89 as of 04/15/17) 9. Continue escitalopram 20mg po daily. 10. Continue to encourage group activity and engagement. 11. Labs rechecked, sodium up to 133 would recheck in 2-3 days. 12. Patient is currently on 90 day more restrictive order. Asael Adkins MD Apr 20, 2017 18:47
--- NOTE | 2017-04-20 19:00 | NUR ---
[facility] Day Shift Pt affect and behavior unchanged from previous shifts. Pt maintained behavioral control throughout the shift. Pt affect appears flat, paranoid. Pt spends most of the shift resting quietly in his room or sitting quietly in the dining room. Pt is appropriate with staff and peers when active on the unit, but does not initiate social interactions with peers. Pt appears to express fewer paranoid delusions this shift. Pt did not attend community meeting, but attended group activities throughout the shift, participating passively. Pt attended all meals and ate approx 100% of all meals.
--- NOTE | 2017-04-20 20:39 | NUR ---
disaster recovery manager/Counselor: S: "I don't want to hurt anyone." O: Patient slept 5 hours last night per staff. Patient denies S/I and H/I. He denies auditory hallucinations, but endorses visual hallucinations. Depression is 8/10 and anxiety is 8/10. A: Patient is cooperative, guarded, unkept, restricted affect, depressed, anxious, paranoid, feelings of guilt, limited insight and limited judgment. P: Follow care plan, coordinate with out-patient providers.
[2017-04-20] MEDS: Divalproex (QD) 500 mg ER24 Tablet PO SCH (21:05)
[2017-04-20] MEDS: LORazepam 1 mg Tablet PO PRN (21:06)
[2017-04-20] MEDS: TRAZODONE PO SCH ×2 (21:06)
[2017-04-21] MEDS: LORazepam 1 mg Tablet PO PRN ×2 (01:24→21:00)
--- NOTE | 2017-04-21 05:24 | NUR ---
Nursing Noc [id number] Pt continues to struggle with sleep, noted to be up and down multiple times this shift. Out to check the time then back to bed. Presents unchanged from previous days flat interaction, poor eye contact. Continuing to monitor mood, behavior and emotional state. Q15 minute safety checks as directed. CP
[2017-04-21] MEDS: Omega-3 Fatty Acids 1,000 mg Capsule PO SCH ×2 (07:59→20:59)
--- NOTE | 2017-04-21 17:06 | NUR ---
Nursing Dayshift: S: "I don't like the wilbert who keeps changing the TV channel." O: Patient c/o male peer who is quite intrusive. Has been attending unit activities. Eating well at meals. Social with select peers. Some ambulating of the alejandro this afternoon. Also took a nap later afternoon. Has spent time out on the patio with peers. Speaking in a low monotonous tone. Rates anxiety and depression at a 7/10. Denies harmful thoughts and hallucinations. A: Quiet. Social with select peers. P: CPOC. Monitor mood and behavior.
[2017-04-21] MEDS: TRAZODONE PO SCH ×2 (20:59)
[2017-04-21] MEDS: Divalproex (QD) 500 mg ER24 Tablet PO SCH (21:00)
[2017-04-22] MEDS: LORazepam 1 mg Tablet PO PRN (01:22)
--- NOTE | 2017-04-22 06:31 | NUR ---
Nursing Note Train Starter 7pm to 7am Pt visible on unit sitting close to female peer talking quietly. Pt still expressing feelings of doom, guilt and confusion. Hygiene is fair, affect constricted, mood is neutral. Pt went to bed at 2215 and was up 3 x for brief periods, to observe activity on the unit. Pt given Ativan 2mg at 0230 with limited effectiveness. Slept 6. Monitored pt q 15 minutes for safety, location and accountability
[2017-04-22 07:55] VITALS: BP 101/69; PULSE 64; RESP 17
[2017-04-22] MEDS: Omega-3 Fatty Acids 1,000 mg Capsule PO SCH ×2 (07:56→21:28)
--- NOTE | 2017-04-22 17:14 | NUR ---
Nursing Dayshift: S: "My brother is very strong. He tells lots of stories when we're camping." O: Patient discussing harmful thoughts towards others and mentioned his brother then spoke kindly of him and made the above statement. Denies anxiety, depression, SI, and hallucinations. Good appetite at meals. Social with peers. A little more animated. Attending unit activities. A: Calm. Cordial. Softspoken and social. P: CPOC. Monitor mood and behavior.
--- NOTE | 2017-04-22 17:58 | PCM.PNPSY ---
Subjective Date of Service Apr 22, 2017 Subjective I spent 30 minutes both reviewing treatment plan with our clinical team, interviewing the patient and providing supportive/educational psychotherapy. I spent more than 50% of the time counseling the patient. I reviewed the treatment plan with the him and discussed options available including the potential risks, benefits and side effects. Angel reports a slight improvement in thought organization and mood stability. Staff reports that he has been isolative but is now attempting to participate in one-to-one unit and group activities. He slept 7 hours and denies manic or psychotic symptoms review. He reports continued feelings of depression guilt and shame. He denies medication side effects. He was able to identify his medications and what they were used to treat. Mental Status Exam Appearance: Unkept Attitude: Pleasant, Cooperative, Guarded Behavior: Other (Improved eye contact) Affect: Restricted Mood: Depressed, Anxious Thought Process/Associations: Goal Directed Speech Production: Normal Speech Rate: Normal Speech Articulation: Normal Thought Content: Negativistic, Guilt, Ideas of Reference, Suspicious, Perseveration Danger to Self/Suicidal Ideati: None Danger to Others: None Delusions: Paranoid (Endorses) Consciousness: Alert Orientation: Person, Place, Date, Situation Memory: Short Term Memory (Impaired), Outboard Motorboat Operator Memory (Impaired) Estimate Intellectual Function: Average Basis for IQ estimate: Word use/vocabulary, Educational history Attention/Concentration & Cogn: Impaired Insight: Limited Judgement: Limited Result Diagram: 04/20/17 1310 04/20/17 1310 Mental Health Plan Angel is a 51 year old male with a history of schizoaffective disorder who reduced medication adherence and eventually stopped all medications, decompensated, attempted suicide and was detained by the [facility]. The patient's outpatient provider indicates that he responded well to his outpatient medications and was stable for quite some time. They report that they will have intensive outpatient treatment to help him with medication adherence. He is struggling with negative symptoms of schizophrenia and a severe sense of poor self worth and self-esteem. During my interview today his thought process was again significant for both goal directed thought and perseveration on perceived infractions against others from his past. [place] AXIS I: Schizoaffective disorder, bipolar type Alcohol use disorder Marijuana use disorder AXIS II: Deferred AXIS III: None reported. AXIS IV: Moderate with recent Mother's day, medication non-adherence. AXIS V: GAF 35 Medications Quetiapine 200mg daily and 400mg po HS Ziprasidone 80 mg twice daily Benztropine 1mg po bid Depakote ER 1500mg po nightly, blood level 84 on 03/14/2017 Escitalopram 20 mg daily (started on 04/16/17) Trazodone 150mg po nightly Lorazepam 1-2 mg every 4 hours when necessary Thiamine 100 mg daily Multivitamin 1 daily Treatments Patient is being provided with a high degree of safety through our unit structure and active adult engagement provided by our mental health professionals, mental health technicians, psychiatric nurses and myself. We are focusing on developing improved coping skills and identifying stressors that may have led to current episode. We will attempt to: * Integrate into therapeutic groups, milieu and individual therapy. * Maintain in a closely monitored and structured unit * Provide low-stimulation environment * Obtain collateral data to assist in treatment planning * Assess degree of lability of affect and impulse control * Complete safety plan * Decrease frequency of relapse and need for re-hospitalization * Denies thoughts of harm to self and/or others * Establish a consistent sleep pattern * Medication effective in stabilization of mood and/or thought process * Reduce the risk of imminent harm to self and/or others by providing a safe environment * Tolerates medication without side effects Patient will be on the following psychiatric medications: Quetiapine 200mg daily and 400mg po HS Ziprasidone 80 mg twice daily Benztropine 1mg po bid Depakote ER 1500mg po nightly, blood level 84 on 03/14/2017 Escitalopram 20 mg daily (started on 04/16/17) Trazodone 150mg po nightly Lorazepam 1-2 mg every 4 hours when necessary Thiamine 100 mg daily Multivitamin 1 daily Patient's legal status Patient is on a 90 day involuntary treatment hold. Anticipated number of hospital days to achieve above goals: Unknown Disposition: Harjit Cruz MD Apr 22, 2017 17:58
--- NOTE | 2017-04-22 18:24 | PROG NOTE ---
[address] [address] PROGRESS NOTE PATIENT: ANGEL RUTLEDGE : 1965 MR#: [id number] ADMIT: 02/26/2017 JOB ID: [id number] DATE: 04/21/2017 SUBJECTIVE: I spent 30 minutes reviewing the treatment plan with our clinical team, interviewing the patient, and providing supportive and educational psychotherapy. I spent more than 50% of time counseling the patient. I reviewed the treatment plan with him and discussed options available. The patient reported that he is having some improvement in his mood stability. Staff reports that he has been more active and participating. He continues to report severe feelings of depression, guilt, and shame. Denies medication side effects. MENTAL STATUS EXAMINATION: Disheveled. Poor eye contact. Behavior was lethargic and withdrawn. Attitude aloof and detached. Speech monotone. Mood dysphoric. Affect congruent and flat. Thought process: Client has a difficult time relating a coherent history. Thought process: Quite concrete and restricted. Does not appear to be responding to internal stimuli. Thought content: Significant themes of guilt, shame, and hopelessness. Denies suicidal ideation or auditory hallucinations. Alert and oriented to person, place, and date. Insight and judgment poor. Impulse control highly contained, but has a difficult time handling impulses of guilt. Reality testing mildly impaired. Competence to handle current stressors is currently being overwhelmed. IMPRESSION: Angel is a 51-year-old white male with a history of both severe alcohol abuse and schizoaffective disorder. Prior to admission he had stopped all his medications and decompensated. He has had a suicide attempt and [facility]. Here on the unit he has been showing very gradual and slow but steady progress. Each 2-3 days he appears to be 5% to 10% improved. DIAGNOSIS: [place] I: 1. Schizoaffective disorder. 2. Alcohol abuse. 3. Marijuana use disorder. [place] II: Deferred. [place] III: None. [place] IV: Moderate. [place] V: Current Global Assessment of Functioning PLAN: Recommend client continue to be provided with a high degree of safety through the unit structure and active adult engagement. We are focusing on improving his coping skills as well as identifying stressors that have led to his current admission. We are maintaining him in a closely monitored unit and trying to help him both improve coping skills and complete a safety plan prior to discharge. MEDICATIONS: Client is currently on Seroquel 200 in the morning and 400 h.s., Geodon 880 mg twice a day, Cogentin 1 twice a day, Depakote ER 1500 h.s., Lexapro 20 daily, trazodone 150 at h.s. Client is also receiving thiamine and a multivitamin. His legal status is a 90 day MR. anticipated number days unknown at this time.
--- NOTE | 2017-04-22 20:38 | NUR ---
Observations 00 - 0 Pt continues to present same as previous shifts. Pt was pleasant, polite and cooperative when approached. Pt maintained behavior throughout the shift. Pt speech and eye contact was ok. Pt ate snack. Pt paced the hallway and appeared to be responding to internal stimuli. Pt rested in his room and sat quietly in D.R. during the day. Pt attended meals in D.R. and ate 100% of his meals. Pt ate snack. Pt attended community meeting, groups or unit activities. Pt set a daily goal and rated his mood 4/10, with 10 being the best. Pt went out on patio with staff and peers to get some fresh air. Pt was observed every 15 minutes through the shift as ordered.
[2017-04-22] MEDS: TRAZODONE PO SCH ×2 (21:28)
[2017-04-22] MEDS: Divalproex (QD) 500 mg ER24 Tablet PO SCH (21:28)
--- NOTE | 2017-04-22 23:41 | NUR ---
Observations 1900 to 0700 Pt attended and participated in wrap up group. Pt ate a snack. Pts affect is flat and sad. Pt mildly social with peers. Pt maintained behavioral control and appears internally preoccupied. Pt appeared asleep at 2215 and awoke at 2340. Pt respirations were observed when asleep. Staff completed 15 min close observations as ordered.
[2017-04-23] MEDS: LORazepam 1 mg Tablet PO PRN (03:22)
--- NOTE | 2017-04-23 05:14 | NUR ---
mini shifter [id number] Pt alert and responsive and did not voice any concerns or have any bizarre behaviors. Pt did not participate in wrap up group and slept for about 4.5 hrs this HS without s/sx of distress noted. Pt given Lorazepam and remained awake ambulating the hallways with another pt. Continue monitor for mood changes, emotional well being, and q15min checks for safety. Care continues.
[2017-04-23 05:40] VITALS: BP 99/63; PULSE 85; RESP 16
[2017-04-23] MEDS: Omega-3 Fatty Acids 1,000 mg Capsule PO SCH ×2 (07:57→21:15)
--- NOTE | 2017-04-23 12:24 | PCM.PNPSY ---
Subjective Date of Service Apr 23, 2017 Subjective I spent 30 minutes both reviewing treatment plan with our clinical team, interviewing the patient and providing supportive/educational psychotherapy. I spent more than 50% of the time counseling the patient. I reviewed the treatment plan with the him and discussed options available including the potential risks, benefits and side effects. Angel reports a slight improvement in thought organization and mood stability. Staff reports that he has been isolative but is now attempting to participate in one-to-one unit and group activities. He slept 5 hours and denies manic or psychotic symptoms review. He reports continued feelings of depression guilt and shame. He denies medication side effects. Mental Status Exam Vital Signs Vital Signs Date Time Temp Pulse Resp B/P Pulse Ox O2 Delivery O2 Flow Rate FiO2 04/23/17 05:40 36.9 85 16 99/63 Appearance: Unkept Attitude: Pleasant, Cooperative, Guarded Behavior: Other (Improved eye contact) Affect: Restricted Mood: Depressed, Anxious Thought Process/Associations: Goal Directed Speech Production: Normal Speech Rate: Normal Speech Articulation: Normal Thought Content: Negativistic, Guilt, Ideas of Reference, Suspicious, Perseveration Danger to Self/Suicidal Ideati: None Danger to Others: None Delusions: Paranoid (Endorses) Consciousness: Alert Orientation: Person, Place, Date, Situation Memory: Short Term Memory (Impaired), Director Of Laboratory Operations Memory (Impaired) Estimate Intellectual Function: Average Basis for IQ estimate: Word use/vocabulary, Educational history Attention/Concentration & Cogn: Impaired Insight: Limited Judgement: Limited Result Diagram: 04/20/17 1310 04/20/17 1310 Mental Health Plan Angel is a 51 year old male with a history of schizoaffective disorder who reduced medication adherence and eventually stopped all medications, decompensated, attempted suicide and was detained by the [facility]. The patient's outpatient provider indicates that he responded well to his outpatient medications and was stable for quite some time. They report that they will have intensive outpatient treatment to help him with medication adherence. He is struggling with negative symptoms of schizophrenia and a severe sense of poor self worth and self-esteem. During my interview today his thought process was again significant for both goal directed thought and perseveration on perceived infractions against others from his past. [place] AXIS I: Schizoaffective disorder, bipolar type Alcohol use disorder Marijuana use disorder AXIS II: Deferred AXIS III: None reported. AXIS IV: Moderate with recent Mother's day, medication non-adherence. AXIS V: GAF 35 Medications Quetiapine 200mg daily and 400mg po HS Ziprasidone 80 mg twice daily Benztropine 1mg po bid Depakote ER 1500mg po nightly, blood level 84 on 03/14/2017 Escitalopram 20 mg daily (started on 04/16/17) Trazodone 150mg po nightly Lorazepam 1-2 mg every 4 hours when necessary Thiamine 100 mg daily Multivitamin 1 daily Treatments Patient is being provided with a high degree of safety through our unit structure and active adult engagement provided by our mental health professionals, mental health technicians, psychiatric nurses and myself. We are focusing on developing improved coping skills and identifying stressors that may have led to current episode. We will attempt to: * Integrate into therapeutic groups, milieu and individual therapy. * Maintain in a closely monitored and structured unit * Provide low-stimulation environment * Obtain collateral data to assist in treatment planning * Assess degree of lability of affect and impulse control * Complete safety plan * Decrease frequency of relapse and need for re-hospitalization * Denies thoughts of harm to self and/or others * Establish a consistent sleep pattern * Medication effective in stabilization of mood and/or thought process * Reduce the risk of imminent harm to self and/or others by providing a safe environment * Tolerates medication without side effects Patient will be on the following psychiatric medications: Quetiapine 200mg daily and 400mg po HS Ziprasidone 80 mg twice daily Benztropine 1mg po bid Depakote ER 1500mg po nightly, blood level 84 on 03/14/2017 Escitalopram 20 mg daily (started on 04/16/17) Trazodone 150mg po nightly Lorazepam 1-2 mg every 4 hours when necessary Thiamine 100 mg daily Multivitamin 1 daily Patient's legal status Patient is on a 90 day involuntary treatment hold. Anticipated number of hospital days to achieve above goals: Unknown Disposition: Harjit Cruz MD Apr 23, 2017 12:24
--- NOTE | 2017-04-23 13:32 | NUR ---
NURS NOTE DAYSHIFT Mood: "There's another emotion rage and anger." Pt reports that he expresses rage by pacing. Affect: Restricted, anxious. Behavior: Pt out in common areas much of shift, interacting with peers. Cooperative and appropriate. Makes occasional eye contact. Thought Content/Process: "She's telling me that the doctor is bad. I don't know if its [pt name] or voices. She wants me to support her, but I know I need to take care of myself." Perseverates on other people's problems. Linear and linked. At times, tangential. Speech is delayed. Endorses AH. Denies VH. Denies SI, HI. PRN/NURS Notes: Showered at 1330.
--- NOTE | 2017-04-23 15:39 | NUR ---
Cloth Stock Sorter/Counselor S: "I'm feeling a little groggy today." O: Patient did not express any SI or HI, no depression at the time. He rated his anxiety at a 7 and stated that he still sees faces in the trees. A: Patient has spent a lot of time in his room this afternoon, but out in milieu this morning. He's restricted and anxious, stated that he was feeling groggy and tired. P: Follow care plan and coordinate with outpatient providers.
[2017-04-23 15:40] VITALS: BP 99/63; PULSE 85; RESP 16
--- NOTE | 2017-04-23 17:22 | NUR ---
Shift note -3p-7p No issues or concerns this afternoon. Pt. denies anxiety or depression and was socializing with peers today, playing catch in the courtyard and reading scriptures in the dining room.
[2017-04-23] MEDS: Divalproex (QD) 500 mg ER24 Tablet PO SCH (21:15)
[2017-04-23] MEDS: TRAZODONE PO SCH ×2 (21:15)
--- NOTE | 2017-04-23 23:55 | NUR ---
NOC OBS Pt isolated to room most of night. Affect flat and sad. Coordination and speech poor. Thought process nonlinear and confused at times. Asleep [id number],330. Observed Q15 as ordered.
[2017-04-24] MEDS: LORazepam 1 mg Tablet PO PRN ×2 (04:42→20:50)
--- NOTE | 2017-04-24 05:11 | NUR ---
assembler 1st shift [id number] Assumed care of Pt at 2300 with Pt in bed and appearing to be sleeping. Pt slept for a couple of hours and stated he was having anxiety when asked. Lorazepam 2mg given and Pt returned back to bed. No behavioral issues noted. continue to monitor for mood changes, emotional well being, and q15min. Care continues.
[2017-04-24 07:55] VITALS: BP 102/70; PULSE 64; RESP 16
[2017-04-24] MEDS: Omega-3 Fatty Acids 1,000 mg Capsule PO SCH ×2 (08:43→20:49)
--- NOTE | 2017-04-24 12:15 | NUR ---
Shift note 7A-12P Pt. denies anxiety, depression, thoughts of harm to self or others, or hallucinations. Pt. has been cooperative and participating in group activities.
--- NOTE | 2017-04-24 14:43 | PCM.PNPSY ---
Subjective Date of Service Apr 24, 2017 Subjective I spent 30 minutes both reviewing treatment plan with our clinical team, interviewing the patient and providing supportive/educational psychotherapy. I spent more than 50% of the time counseling the patient. I reviewed the treatment plan with the him and discussed options available including the potential risks, benefits and side effects. Angel reported for the first time "I feel really good".. Staff reports that he has been isolative but is now attempting to participate in one-to-one unit and group activities. He slept 4 hours and denies manic or psychotic symptoms review. He denies medication side effects. Mental Status Exam Vital Signs Vital Signs Date Time Temp Pulse Resp B/P Pulse Ox O2 Delivery O2 Flow Rate FiO2 04/24/17 07:55 36.0 64 16 102/70 Appearance: Unkept Attitude: Pleasant, Cooperative Behavior: Other (Improved eye contact) Affect: Restricted Mood: Euthymic Thought Process/Associations: Goal Directed Speech Production: Normal Speech Rate: Normal Speech Articulation: Normal Thought Content: Negativistic, Guilt, Perseveration Danger to Self/Suicidal Ideati: None Danger to Others: None Consciousness: Alert Orientation: Person, Place, Date, Situation Memory: Short Term Memory (Impaired), Machine Molder Squeeze Memory (Impaired) Estimate Intellectual Function: Average Basis for IQ estimate: Word use/vocabulary, Educational history Attention/Concentration & Cogn: Impaired Insight: Limited Judgement: Limited Result Diagram: 04/20/17 1310 04/20/17 1310 Mental Health Plan Angel is a 51 year old male with a history of schizoaffective disorder who reduced medication adherence and eventually stopped all medications, decompensated, attempted suicide and was detained by the [facility]. The patient's outpatient provider indicates that he responded well to his outpatient medications and was stable for quite some time. They report that they will have intensive outpatient treatment to help him with medication adherence. He is struggling with negative symptoms of schizophrenia and a severe sense of poor self worth and self-esteem. During my interview today his thought process was again significant for both goal directed thought and he self reported feeling that he is in a good mood.. [place] AXIS I: Schizoaffective disorder, bipolar type Alcohol use disorder Marijuana use disorder AXIS II: Deferred AXIS III: None reported. AXIS IV: Moderate with recent Mother's day, medication non-adherence. AXIS V: GAF 35 Medications Quetiapine 200mg daily and 400mg po HS Ziprasidone 80 mg twice daily Benztropine 1mg po bid Depakote ER 1500mg po nightly, blood level 84 on 03/14/2017 Escitalopram 20 mg daily (started on 04/16/17) Trazodone 150mg po nightly Lorazepam 1-2 mg every 4 hours when necessary Thiamine 100 mg daily Multivitamin 1 daily Treatments Patient is being provided with a high degree of safety through our unit structure and active adult engagement provided by our mental health professionals, mental health technicians, psychiatric nurses and myself. We are focusing on developing improved coping skills and identifying stressors that may have led to current episode. We will attempt to: * Integrate into therapeutic groups, milieu and individual therapy. * Maintain in a closely monitored and structured unit * Provide low-stimulation environment * Obtain collateral data to assist in treatment planning * Assess degree of lability of affect and impulse control * Complete safety plan * Decrease frequency of relapse and need for re-hospitalization * Denies thoughts of harm to self and/or others * Establish a consistent sleep pattern * Medication effective in stabilization of mood and/or thought process * Reduce the risk of imminent harm to self and/or others by providing a safe environment * Tolerates medication without side effects Patient will be on the following psychiatric medications: Quetiapine 200mg daily and 400mg po HS Ziprasidone 80 mg twice daily Benztropine 1mg po bid Depakote ER 1500mg po nightly, blood level 84 on 03/14/2017 Escitalopram 20 mg daily (started on 04/16/17) Trazodone 150mg po nightly Lorazepam 1-2 mg every 4 hours when necessary Thiamine 100 mg daily Multivitamin 1 daily Patient's legal status Patient is on a 90 day involuntary treatment hold. Anticipated number of hospital days to achieve above goals: Unknown Disposition: Harjit Cruz MD Apr 24, 2017 14:43
--- NOTE | 2017-04-24 15:39 | NUR ---
Staff Editor/Counselor S:"I've just been talking to people." O: Patient denies any SI or HI, and stated he always sees the faces in the trees. He stated his anxiety and depression were fine, and low. A: Patient has been interacting with other patients, but has also secluded himself in his room frequently today. He did not participate in group because he was napping. P: Follow care plan and coordinate with outpatient providers.
--- NOTE | 2017-04-24 19:19 | NUR ---
Obs Dayshift Pt was able to get a long nap in from late morning until early afternoon. Pt woke a little more bright, shaved and stated that he felt a little better. Pt is calm, co-operative, sad affect at times. More isolating than last week. Pt has good participation and appropriate on the unit. Pt is spend some time on the patio playing football w/ a peer in the afternoon. Good ADL's, Good meals- ate extra at dinner approx 125%
[2017-04-24] MEDS: Divalproex (QD) 500 mg ER24 Tablet PO SCH (20:50)
[2017-04-24] MEDS: TRAZODONE PO SCH ×2 (20:50)
--- NOTE | 2017-04-25 03:03 | NUR ---
tube buffer [id number] Pt participated in wrap up group with peers and also played catch in the patio. No bizarre behaviors or suicidal ideations. Pt took all HS medications along with Lorazepam and went to bed. Pt got up after a few hrs of sleep and got something to drink. Pt back in room and appears to be resting in bed without s/sx of distress. Continue to monitor for mood changes, emotional well being, and q15min checks for safety. Care continues.
[2017-04-25] MEDS: LORazepam 1 mg Tablet PO PRN ×2 (03:33→21:33)
[2017-04-25] MEDS: Omega-3 Fatty Acids 1,000 mg Capsule PO SCH ×2 (08:29→21:29)
[2017-04-25 10:16] VITALS: BP 103/68; PULSE 73; RESP 16
--- NOTE | 2017-04-25 11:26 | PCM.PNPSY ---
Subjective Date of Service Apr 25, 2017 Subjective I spent 30 minutes both reviewing treatment plan with our clinical team, interviewing the patient and providing supportive/educational psychotherapy. I spent more than 50% of the time counseling the patient. Angel repeated that "I feel really good". Staff reports that he has been less isolative and is now attempting to participate in one-to-one unit and group activities. He slept 6 hours and denies manic or psychotic symptoms review. He denies medication side effects. Current Medications Current Medications Benztropine Mesylate 1 mg BID PO Last administered on 04/25/17 08:31; Admin Dose 1 MG; Start 04/24/17 at 20:30 Divalproex Sodium 1,500 mg HS PO Last administered on 04/24/17 20:50; Admin Dose 1,500 MG; Start 04/24/17 at 21:00 Multivitamins/ Minerals Therapeutic 1 tablet DAILY PO Last administered on 08:31; Admin Dose 1 TABLET; Start 04/25/17 at 08:30 Thiamine HCl 100 mg DAILY PO Last administered on 04/25/17 08:30; Admin Dose 100 MG; Start 04/25/17 at 08:30 Trazodone HCl/ Trazodone HCl 150 mg HS PO Last administered on 04/24/17 20:50; Admin Dose 150 MG; Start 04/24/17 at 21:00 Mental Status Exam Vital Signs Vital Signs Date Time Temp Pulse Resp B/P Pulse Ox O2 Delivery O2 Flow Rate FiO2 04/25/17 10:16 36.0 73 16 103/68 Appearance: Unkept Attitude: Pleasant, Cooperative Behavior: Other (Improved eye contact) Affect: Restricted Mood: Euthymic Thought Process/Associations: Goal Directed Speech Production: Normal Speech Rate: Normal Speech Articulation: Normal Thought Content: Negativistic, Guilt, Perseveration Danger to Self/Suicidal Ideati: None Danger to Others: None Consciousness: Alert Orientation: Person, Place, Date, Situation Memory: Short Term Memory (Impaired), Detention Memory (Impaired) Estimate Intellectual Function: Average Basis for IQ estimate: Word use/vocabulary, Educational history Attention/Concentration & Cogn: Impaired Insight: Limited Judgement: Limited Result Diagram: 04/20/17 1310 04/20/17 1310 Mental Health Plan Angel is a 51 year old male with a history of schizoaffective disorder who reduced medication adherence and eventually stopped all medications, decompensated, attempted suicide and was detained by the [facility]. The patient's outpatient provider indicates that he responded well to his outpatient medications and was stable for quite some time. They report that they will have intensive outpatient treatment to help him with medication adherence. He is struggling with negative symptoms of schizophrenia and a severe sense of poor self worth and self-esteem. During my interview today his thought process was again significant for both goal directed thought and he self reported feeling that he is in a good mood. [place] AXIS I: Schizoaffective disorder, bipolar type Alcohol use disorder Marijuana use disorder AXIS II: Deferred AXIS III: None reported. AXIS IV: Moderate with recent Mother's day, medication non-adherence. AXIS V: GAF 35 Medications Quetiapine 200mg daily and 400mg po HS Ziprasidone 80 mg twice daily Benztropine 1mg po bid Depakote ER 1500mg po nightly, blood level 84 on 03/14/2017 Escitalopram 20 mg daily (started on 04/16/17) Trazodone 150mg po nightly Lorazepam 1-2 mg every 4 hours when necessary Thiamine 100 mg daily Multivitamin 1 daily Treatments Patient is being provided with a high degree of safety through our unit structure and active adult engagement provided by our mental health professionals, mental health technicians, psychiatric nurses and myself. We are focusing on developing improved coping skills and identifying stressors that may have led to current episode. We will attempt to: * Integrate into therapeutic groups, milieu and individual therapy. * Maintain in a closely monitored and structured unit * Provide low-stimulation environment * Obtain collateral data to assist in treatment planning * Assess degree of lability of affect and impulse control * Complete safety plan * Decrease frequency of relapse and need for re-hospitalization * Denies thoughts of harm to self and/or others * Establish a consistent sleep pattern * Medication effective in stabilization of mood and/or thought process * Reduce the risk of imminent harm to self and/or others by providing a safe environment * Tolerates medication without side effects Patient will be on the following psychiatric medications: Quetiapine 200mg daily and 400mg po HS Ziprasidone 80 mg twice daily Benztropine 1mg po bid Depakote ER 1500mg po nightly, blood level 84 on 03/14/2017 Escitalopram 20 mg daily (started on 04/16/17) Trazodone 150mg po nightly Lorazepam 1-2 mg every 4 hours when necessary Thiamine 100 mg daily Multivitamin 1 daily Patient's legal status Patient is on a 90 day involuntary treatment hold. Anticipated number of hospital days to achieve above goals: Unknown Disposition: [place] Harjit Andersen MD Apr 25, 2017 11:26
--- NOTE | 2017-04-25 12:36 | NUR ---
[facility] Day Shift Pt affect and behavior unchanged from previous shifts. Pt maintained behavioral control throughout the shift. Pt affect appears flat, paranoid. Pt spends most of the shift resting quietly in his room or sitting quietly in the dining room. Pt is appropriate with staff and peers when active on the unit, but does not initiate social interactions with peers. Pt appears to express fewer paranoid delusions this shift. Pt attended community meeting in the AM, but did not attend AM group activity. Pt has attended all meals at this time and has eaten approx 100% of all meals.
--- NOTE | 2017-04-25 12:42 | NUR ---
NURSING DAYS 7-7 (04/25) S/O- Patient states "I am feeling better today", Patient up and in dinning room for most of shift so far, has been social with other but not over social. New behavior was patient walking halls for exercise. Nurse and patient did small jig saw puzzle. Patient denies SI, appears more forward looking, and is eating well. Patient goal get along with everyone. A-Medications and therapeutic talks given, patient encouraged to continue to be social and go to group with staff and other patients. P- 90 days MRO, PACT team involvement.
--- NOTE | 2017-04-25 15:55 | NUR ---
Performing Arts Technicians/Counselor S:" I feel like people are turning against me." O: Patient denies any SI or HI, stated that there are faces in the trees, the jauregui and the clouds. He rated his anxiety at a 7 and his depression at a 4. He stated his depression was low because there is no chaos today, but anxiety was high due to new patients on the unit. A: Patient was pleasant and cooperative, and was able to re-evaluate his depression level. He stated initially that his depression was at an 8 due to no chaos, but then stated it was an 4, therefore his depression was lower. Patient has been out on the milieu and interacted with other patients. P: Follow care plan and coordinate with outpatient providers.
[2017-04-25] MEDS: TRAZODONE PO SCH ×2 (21:27)
[2017-04-25] MEDS: Divalproex (QD) 500 mg ER24 Tablet PO SCH (21:29)
--- NOTE | 2017-04-26 04:51 | NUR ---
preschool teacher's assistant [id number] Pt participated in wrap up group with peers and interacted without behavioral issues. Pt took all medication including PRN Lorazepam 1mg for c/o Anxiety. Pt did come out of his room a couple of times during sleeping hours to get a drink of water. Pt stated, "I keep waking up from these dreams." Pt offered medications;he refused going back to bed. Pt in bed at this time without s/sx of distress. Continue to monitor for mood changes, emotional well being, and q15min checks for safety.
[2017-04-26] MEDS: Omega-3 Fatty Acids 1,000 mg Capsule PO SCH ×2 (08:05→21:27)
--- NOTE | 2017-04-26 12:31 | PCM.PNPSY ---
Subjective Date of Service Apr 26, 2017 Subjective I spent 30 minutes both reviewing treatment plan with our clinical team, interviewing the patient and providing supportive/educational psychotherapy. I spent more than 50% of the time counseling the patient. Angel repeated that "I feel a little bit better every day". Staff reports that he has been less isolative and is now attempting to participate in one-to-one unit and group activities. He slept 4 hours and denies manic or psychotic symptoms review. He denies medication side effects. Current Medications Current Medications Benztropine Mesylate 1 mg BID PO Last administered on 04/26/17 08:05; Admin Dose 1 MG; Start 04/24/17 at 20:30 Divalproex Sodium 1,500 mg HS PO Last administered on 04/25/17 21:29; Admin Dose 1,500 MG; Start 04/24/17 at 21:00 Multivitamins/ Minerals Therapeutic 1 tablet DAILY PO Last administered on 08:05; Admin Dose 1 TABLET; Start 04/25/17 at 08:30 Thiamine HCl 100 mg DAILY PO Last administered on 04/26/17 08:04; Admin Dose 100 MG; Start 04/25/17 at 08:30 Trazodone HCl/ Trazodone HCl 150 mg HS PO Last administered on 04/25/17 21:27; Admin Dose 150 MG; Start 04/24/17 at 21:00 Mental Status Exam Appearance: Unkept Attitude: Pleasant, Cooperative Behavior: Other (Improved eye contact) Affect: Restricted Mood: Euthymic Thought Process/Associations: Goal Directed Speech Production: Normal Speech Rate: Normal Speech Articulation: Normal Thought Content: Guilt Danger to Self/Suicidal Ideati: None Danger to Others: None Consciousness: Alert Orientation: Person, Place, Date, Situation Memory: Short Term Memory (Impaired), [employer] Machinist Memory (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 The patient's outpatient provider indicates that he responded well to his outpatient medications and was stable for quite some time. They report that they will have intensive outpatient treatment to help him with medication adherence. He is struggling with negative symptoms of schizophrenia and a severe sense of poor self worth and self-esteem. The intensity of these previous symptoms is decreasing. During my interview today his thought process was again significant for both goal directed thought and he self reported feeling that he is in a good mood. [place] AXIS I: Schizoaffective disorder, bipolar type Alcohol use disorder Marijuana use disorder AXIS II: Deferred AXIS III: None reported. AXIS IV: Moderate with recent Mother's day, medication non-adherence. AXIS V: GAF 35 Medications Quetiapine 200mg daily and 400mg po HS Ziprasidone 80 mg twice daily Benztropine 1mg po bid Depakote ER 1500mg po nightly, blood level 84 on 03/14/2017 Escitalopram 20 mg daily (started on 04/16/17) Trazodone 150mg po nightly Lorazepam 1-2 mg every 4 hours when necessary Thiamine 100 mg daily Multivitamin 1 daily Treatments Patient is being provided with a high degree of safety through our unit structure and active adult engagement provided by our mental health professionals, mental health technicians, psychiatric nurses and myself. We are focusing on developing improved coping skills and identifying stressors that may have led to current episode. We will attempt to: * Integrate into therapeutic groups, milieu and individual therapy. * Maintain in a closely monitored and structured unit * Provide low-stimulation environment * Obtain collateral data to assist in treatment planning * Assess degree of lability of affect and impulse control * Complete safety plan * Decrease frequency of relapse and need for re-hospitalization * Denies thoughts of harm to self and/or others * Establish a consistent sleep pattern * Medication effective in stabilization of mood and/or thought process * Reduce the risk of imminent harm to self and/or others by providing a safe environment * Tolerates medication without side effects Patient will be on the following psychiatric medications: Quetiapine 200mg daily and 400mg po HS Ziprasidone 80 mg twice daily Benztropine 1mg po bid Depakote ER 1500mg po nightly, blood level 84 on 03/14/2017 Escitalopram 20 mg daily (started on 04/16/17) Trazodone 150mg po nightly Lorazepam 1-2 mg every 4 hours when necessary Thiamine 100 mg daily Multivitamin 1 daily Patient's legal status Patient is on a 90 day MR involuntary treatment hold. Anticipated number of hospital days to achieve above goals: Unknown Disposition: Home Harjit Andersen MD Apr 26, 2017 12:30
[2017-04-26 16:01] VITALS: BP 97/64; PULSE 75; RESP 18
--- NOTE | 2017-04-26 16:12 | NUR ---
S:"I feel a little better every day." O: Patient did not express any SI or HI, no anxiety, but rated his depression at a 4 and stated he still sees the face in the trees. A: Patient stated that he was in a good mood and has been interacting with other patients. He has participated in group, and is cooperative and friendly when spoken to. P: Follow care plan and coordinate with outpatient providers.
--- NOTE | 2017-04-26 16:57 | NUR ---
Nursing Note Dayshift: S: "When is snack going to be?" O: patient out in the milieu, and in the dining room for meals, interacting with other patients appropriately. Pt is cooperative and pleasant with care and medication compliant. Pt has been fixating on food today. A: Pt has poor eye contact. Pt appears disheveled, pt is very quiet with his speech. Pt is often observed cleaning or moving furniture around. Pt denies any SI/HI. When asked about his anxiety he states he' s good. P: Follow plan of care, monitor behaviors. Monitor for side effects of medications.
[2017-04-26] MEDS: TRAZODONE PO SCH ×2 (21:26)
[2017-04-26] MEDS: Divalproex (QD) 500 mg ER24 Tablet PO SCH (21:27)
--- NOTE | 2017-04-27 00:12 | NUR ---
Observations 1900 to 0700 Pt attended and participated in wrap up group. Pt ate a snack. Pts affect remains quiet, internally preoccupied and pensive. Pt is mildly social with peers. Pt maintained behavioral control. Pt appeared asleep at 2200 and has remained asleep. Pt respirations were observed when asleep. Staff completed 15 min close observations as ordered.
--- NOTE | 2017-04-27 05:01 | NUR ---
Nursing Noc Pt appears withdrawn and quite. slow moving but safe on feet, noted to struggle with sleep. Up once in the middle of the night requesting PO. Mood appears very flat. Continuing to monitor mood behavior, medications and emotional state. Q15 minute safety checks. CP
[2017-04-27] MEDS: Omega-3 Fatty Acids 1,000 mg Capsule PO SCH ×2 (07:40→20:57)
--- NOTE | 2017-04-27 13:14 | PCM.PNPSY ---
Subjective Date of Service Apr 27, 2017 Subjective I spent 30 minutes both reviewing treatment plan with our clinical team, interviewing the patient and providing supportive/educational psychotherapy. I spent more than 50% of the time counseling the patient. Angel reported having improved mood and better energy. Staff reports that he has been less isolative and is attempting to participate in one-to-one unit and group activities. He slept 5 hours and denies manic or psychotic symptoms review. He denies medication side effects Mental Status Exam Appearance: Unkept Attitude: Pleasant, Cooperative Behavior: Other (Improved eye contact) Affect: Restricted Mood: Euthymic Thought Process/Associations: Goal Directed Speech Production: Normal Speech Rate: Normal Speech Articulation: Normal Thought Content: Guilt Danger to Self/Suicidal Ideati: None Danger to Others: None Consciousness: Alert Orientation: Person, Place, Date, Situation Memory: Short Term Memory (Impaired), Care Home Memory (Impaired) Estimate Intellectual Function: Average Basis for IQ estimate: Word use/vocabulary, Educational history Attention/Concentration & Cogn: Impaired Insight: Limited Judgement: Limited Mental Health Plan Angel is a 51 year old male with a history of schizoaffective disorder who reduced medication adherence and eventually stopped all medications, decompensated, attempted suicide and was detained by the [facility]. The patient's outpatient provider indicates that he responded well to his outpatient medications and was stable for quite some time. They report that they will have intensive outpatient treatment to help him with medication adherence. He is struggling with negative symptoms of schizophrenia and a severe sense of poor self worth and self-esteem. The intensity of these previous symptoms is decreasing. During my interview today his thought process was again significant for both goal directed thought and he self reported feeling that he is in a good mood. [place] AXIS I: Schizoaffective disorder, bipolar type Alcohol use disorder Marijuana use disorder AXIS II: Deferred AXIS III: None reported. AXIS IV: Moderate with recent Mother's day, medication non-adherence. AXIS V: GAF 35 Medications Quetiapine 200mg daily and 400mg po HS Ziprasidone 80 mg twice daily Benztropine 1mg po bid Depakote ER 1500mg po nightly, blood level 84 on 03/14/2017 Escitalopram 20 mg daily (started on 04/16/17) Trazodone 150mg po nightly Lorazepam 1-2 mg every 4 hours when necessary Thiamine 100 mg daily Multivitamin 1 daily Treatments Patient is being provided with a high degree of safety through our unit structure and active adult engagement provided by our mental health professionals, mental health technicians, psychiatric nurses and myself. We are focusing on developing improved coping skills and identifying stressors that may have led to current episode. We will attempt to: * Integrate into therapeutic groups, milieu and individual therapy. * Maintain in a closely monitored and structured unit * Provide low-stimulation environment * Obtain collateral data to assist in treatment planning * Assess degree of lability of affect and impulse control * Complete safety plan * Decrease frequency of relapse and need for re-hospitalization * Denies thoughts of harm to self and/or others * Establish a consistent sleep pattern * Medication effective in stabilization of mood and/or thought process * Reduce the risk of imminent harm to self and/or others by providing a safe environment * Tolerates medication without side effects Patient will be on the following psychiatric medications: Quetiapine 200mg daily and 400mg po HS Ziprasidone 80 mg twice daily Benztropine 1mg po bid Depakote ER 1500mg po nightly, blood level 84 on 03/14/2017 Escitalopram 20 mg daily (started on 04/16/17) Trazodone 150mg po nightly Lorazepam 1-2 mg every 4 hours when necessary Thiamine 100 mg daily Multivitamin 1 daily Patient's legal status Patient is on a 90 day involuntary treatment hold. Anticipated number of hospital days to achieve above goals: Unknown Disposition: Harjit Cruz MD Apr 27, 2017 13:14
--- NOTE | 2017-04-27 17:08 | NUR ---
Dayshift Nursing Note: S/O: patient out in the milieu, and in the dining room for meals, interacting with other patients appropriately. Pt is cooperative and pleasant with care and medication compliant. Pt interacting well with other patients. Pt even trying to nurture some patients. A: Pt has poor eye contact, often looking away or downwards. Pt did smile to the sheet writer a couple of times today. Pt appears disheveled, pt is very quiet with his speech, not pressured. Pt is often observed cleaning or moving furniture around. Pt denies any SI/HI. P: Follow plan of care, monitor behaviors. Monitor for side effects of medications.
--- NOTE | 2017-04-27 18:28 | NUR ---
[facility] Day Shift Pt affect and behavior unchanged from previous shifts. Pt maintained behavioral control throughout the shift. Pt affect appears flat, somewhat brighter than noted on previous shifts.. Pt spends most of the shift resting quietly in his room or sitting quietly in the dining room. Pt is appropriate with staff and peers when active on the unit. Pt appears to express fewer paranoid delusions this shift. Pt attended afternoon group activity and participated actively. Pt has attended all meals at this time and has eaten approx 100% of all meals.
[2017-04-27 18:59] VITALS: BP 104/72; PULSE 59; RESP 16
--- NOTE | 2017-04-27 20:07 | NUR ---
research manager/Counselor: S: "I want to be nice to people." O: Patient only slept 4.75 hours last night per staff. Patient denies S/I and H/I. He denies auditory hallucinations, but endorses visual hallucinations. Depression and anxiety not rated. A: Patient is cooperative, guarded, unkept, restricted affect, guilty thoughts, paranoid, feelings of guilt, limited insight and limited judgment. P: Follow care plan, coordinate with out-patient providers.
[2017-04-27] MEDS: Divalproex (QD) 500 mg ER24 Tablet PO SCH (20:56)
[2017-04-27] MEDS: TRAZODONE PO SCH ×2 (20:57)
[2017-04-28] MEDS: Omega-3 Fatty Acids 1,000 mg Capsule PO SCH ×2 (08:30→20:35)
--- NOTE | 2017-04-28 13:05 | PCM.PNPSY ---
Subjective Date of Service Apr 28, 2017 Subjective I spent 30 minutes both reviewing treatment plan with our clinical team, interviewing the patient and providing supportive/educational psychotherapy. I spent more than 50% of the time counseling the patient. Angel reported having improved mood and better energy. Staff reports that he has been less isolative and is attempting to participate in one-to-one unit and group activities. He slept 7 hours and denies manic or psychotic symptoms review. He denies medication side effects Mental Status Exam Appearance: Unkept Attitude: Pleasant, Cooperative Behavior: Other (Improved eye contact) Affect: Restricted Mood: Euthymic Thought Process/Associations: Goal Directed Speech Production: Normal Speech Rate: Normal Speech Articulation: Normal Thought Content: Guilt Danger to Self/Suicidal Ideati: None Danger to Others: None Consciousness: Alert Orientation: Person, Place, Date, Situation Memory: Short Term Memory (Impaired), Fpc Memory (Impaired) Estimate Intellectual Function: Average Basis for IQ estimate: Word use/vocabulary, Educational history Attention/Concentration & Cogn: Impaired Insight: Limited Judgement: Limited Mental Health Plan Angel is a 51 year old male with a history of schizoaffective disorder who reduced medication adherence and eventually stopped all medications, decompensated, attempted suicide and was detained by the [facility]. The patient's outpatient provider indicates that he responded well to his outpatient medications and was stable for quite some time. They report that they will have intensive outpatient treatment to help him with medication adherence. He is struggling with negative symptoms of schizophrenia and a severe sense of poor self worth and self-esteem. The intensity of these previous symptoms is decreasing. During my interview today his thought process was again significant for both goal directed thought and he self reported feeling that he is in a good mood. [place] AXIS I: Schizoaffective disorder, bipolar type Alcohol use disorder Marijuana use disorder AXIS II: Deferred AXIS III: None reported. AXIS IV: Moderate with recent Mother's day, medication non-adherence. AXIS V: GAF 35 Medications Quetiapine 200mg daily and 400mg po HS Ziprasidone 80 mg twice daily Benztropine 1mg po bid Depakote ER 1500mg po nightly, blood level 84 on 03/14/2017 Escitalopram 20 mg daily (started on 04/16/17) Trazodone 150mg po nightly Lorazepam 1-2 mg every 4 hours when necessary Thiamine 100 mg daily Multivitamin 1 daily Treatments Patient is being provided with a high degree of safety through our unit structure and active adult engagement provided by our mental health professionals, mental health technicians, psychiatric nurses and myself. We are focusing on developing improved coping skills and identifying stressors that may have led to current episode. We will attempt to: * Integrate into therapeutic groups, milieu and individual therapy. * Maintain in a closely monitored and structured unit * Provide low-stimulation environment * Obtain collateral data to assist in treatment planning * Assess degree of lability of affect and impulse control * Complete safety plan * Decrease frequency of relapse and need for re-hospitalization * Denies thoughts of harm to self and/or others * Establish a consistent sleep pattern * Medication effective in stabilization of mood and/or thought process * Reduce the risk of imminent harm to self and/or others by providing a safe environment * Tolerates medication without side effects Patient will be on the following psychiatric medications: Quetiapine 200mg daily and 400mg po HS Ziprasidone 80 mg twice daily Benztropine 1mg po bid Depakote ER 1500mg po nightly, blood level 84 on 03/14/2017 Escitalopram 20 mg daily (started on 04/16/17) Trazodone 150mg po nightly Lorazepam 1-2 mg every 4 hours when necessary Thiamine 100 mg daily Multivitamin 1 daily Patient's legal status Patient is on a 90 day involuntary treatment hold. Anticipated number of hospital days to achieve above goals: Unknown Disposition: Harjit Cruz MD Apr 28, 2017 13:05
--- NOTE | 2017-04-28 15:26 | NUR ---
Practice Lead/Counselor S:" I get upset when people's feelings are hurt." O: Patient denies any SI or HI, stated that he was confused by the questions about anxiety and depression, and only sometimes sees the faces in the trees. A:A: Patient is cooperative, guarded, unkept, restricted affect, guilty thoughts, paranoid, feelings of guilt, limited insight and limited judgment. He interacted with other patients, and was consoling another patient during the morning. P: Follow care plan, coordinate with out-patient providers.
--- NOTE | 2017-04-28 18:24 | NUR ---
[id number]. nurs. S:"Is it time for my medication... it's been good day. O: Pt out on unit with peers, showing compassion for peers, tolerant and caring without initiating care giving, but responsive to pt's seeking interacting with him in quiet attentive manner. Pt reporting having a good day out with peers on patio enjoying fresh air throwing ball. Pt with some improved eye contact still somewhat averted . Pt did come to staff to advise that he had not had dinner med, and given med. Pt showing awareness of his med plan. P:CNCP
[2017-04-28] MEDS: TRAZODONE PO SCH ×2 (20:34)
[2017-04-28] MEDS: Divalproex (QD) 500 mg ER24 Tablet PO SCH (20:35)
[2017-04-29] MEDS: Omega-3 Fatty Acids 1,000 mg Capsule PO SCH ×2 (08:54→20:43)
--- NOTE | 2017-04-29 11:07 | PCM.PNPSY ---
Subjective Date of Service Apr 29, 2017 Subjective I spent 30 minutes both reviewing treatment plan with our clinical team, interviewing the patient and providing supportive/educational psychotherapy. I spent less than 50% of the time counseling the patient. Agnel reported having improved mood and better energy. Staff reports that he has been less isolative and is attempting to participate in one-to-one unit and group activities. He slept 8 hours and denies manic or psychotic symptoms review. He denies medication side effects Current Medications Current Medications Ziprasidone 80 mg ONCE ONCE PO Last administered on 04/28/17t 18:20; Admin Dose 80 MG; Start 04/28/17 at 18:00; Stop 04/28/17 at 18:01; Status DC Mental Status Exam Appearance: Unkept Attitude: Pleasant, Cooperative Behavior: Other (Improved eye contact) Affect: Restricted Mood: Euthymic Thought Process/Associations: Goal Directed Speech Production: Normal Speech Rate: Normal Speech Articulation: Normal Thought Content: Guilt Danger to Self/Suicidal Ideati: None Danger to Others: None Consciousness: Alert Orientation: Person, Place, Date, Situation Memory: Short Term Memory (Impaired), [place] Regenerator Memory (Impaired) Estimate Intellectual Function: Average Basis for IQ estimate: Word use/vocabulary, Educational history Attention/Concentration & Cogn: Impaired Insight: Limited Judgement: Limited Mental Health Plan Angel is a 51 year old male with a history of schizoaffective disorder who reduced medication adherence and eventually stopped all medications, decompensated, attempted suicide and was detained by the [facility]. The patient's outpatient provider indicates that he responded well to his outpatient medications and was stable for quite some time. They report that they will have intensive outpatient treatment to help him with medication adherence. He is struggling with negative symptoms of schizophrenia and a severe sense of poor self worth and self-esteem. The intensity of these previous symptoms is decreasing. During my interview today his thought process was again significant for both goal directed thought and he self reported feeling that he is in a good mood. Angel appears to be making slow but steady progress. I anticipate he will be ready for discharge in 5-7 days [place] AXIS I: Schizoaffective disorder, bipolar type Alcohol use disorder Marijuana use disorder AXIS II: Deferred AXIS III: None reported. AXIS IV: Moderate with recent Mother's day, medication non-adherence. AXIS V: GAF 40 Medications Quetiapine 200mg daily and 400mg po HS Ziprasidone 80 mg twice daily Benztropine 1mg po bid Depakote ER 1500mg po nightly, blood level 84 on 03/14/2017 Escitalopram 20 mg daily (started on 04/16/17) Trazodone 150mg po nightly Lorazepam 1-2 mg every 4 hours when necessary Thiamine 100 mg daily Multivitamin 1 daily Treatments Patient is being provided with a high degree of safety through our unit structure and active adult engagement provided by our mental health professionals, mental health technicians, psychiatric nurses and myself. We are focusing on developing improved coping skills and identifying stressors that may have led to current episode. We will attempt to: * Integrate into therapeutic groups, milieu and individual therapy. * Maintain in a closely monitored and structured unit * Provide low-stimulation environment * Obtain collateral data to assist in treatment planning * Assess degree of lability of affect and impulse control * Complete safety plan * Decrease frequency of relapse and need for re-hospitalization * Denies thoughts of harm to self and/or others * Establish a consistent sleep pattern * Medication effective in stabilization of mood and/or thought process * Reduce the risk of imminent harm to self and/or others by providing a safe environment * Tolerates medication without side effects Patient will be on the following psychiatric medications: Quetiapine 200mg daily and 400mg po HS Ziprasidone 80 mg twice daily Benztropine 1mg po bid Depakote ER 1500mg po nightly, blood level 84 on 03/14/2017 Escitalopram 20 mg daily (started on 04/16/17) Trazodone 150mg po nightly Lorazepam 1-2 mg every 4 hours when necessary Thiamine 100 mg daily Multivitamin 1 daily Patient's legal status Patient is on a 90 day involuntary treatment hold. Anticipated number of hospital days to achieve above goals: Unknown Disposition: Harjit Cruz MD Apr 29, 2017 11:07
[2017-04-29 13:51] VITALS: BP 106/71; PULSE 59
--- NOTE | 2017-04-29 18:18 | NUR ---
[facility] Day Shift Pt affect and behavior unchanged from previous shifts. Pt maintained behavioral control throughout the shift. Pt affect appears flat, somewhat brighter than noted on previous shifts.. Pt spends most of the shift resting quietly in his room or sitting quietly in the dining room. Pt is appropriate with staff and peers when active on the unit. Pt appears to express fewer paranoid delusions this shift. Pt attended community meeting in the AM. Pt attended AM and afternoon group activities and participated actively. Pt has attended all meals at this time and has eaten approx 100% of all meals.
--- NOTE | 2017-04-29 19:15 | NUR ---
[id number]. nurs. S/O: Pt out on unit to grp activities and time out on patio. Pt with flat affect mostly, but pleasant to peers when interacting, showing consideration to impaired peers and exercising in [place] and independent. Pt not expressing any delusional ideation and not asking for any anxiety medication. P:CNCP
[2017-04-29] MEDS: TRAZODONE PO SCH ×2 (20:43)
[2017-04-29] MEDS: Divalproex (QD) 500 mg ER24 Tablet PO SCH (20:43)
--- NOTE | 2017-04-30 06:14 | NUR ---
r and d lab technician [id number] Pt had an uneventful night without behavioral issues or feeling of hopefulness. Pt attended wrap up group with peers and rated his anxiety 8/10, but stated, "I think those meds in the cup will be help me." Pt slept for 7.25 hrs waking up for about 15 min to check the time or to drink water. Continue to monitor for mood changes, emotional well being, and q15 min checks for safety. Care continues.
[2017-04-30 08:15] VITALS: BP 93/59; PULSE 65; RESP 20
[2017-04-30] MEDS: Omega-3 Fatty Acids 1,000 mg Capsule PO SCH ×2 (09:12→20:41)
--- NOTE | 2017-04-30 12:39 | PCM.PNPSY ---
Subjective Date of Service Apr 30, 2017 Subjective I spent 30 minutes both reviewing treatment plan with our clinical team, interviewing the patient and providing supportive/educational psychotherapy. I spent less than 50% of the time counseling the patient. His affect was bright, cheery and engaged this morning. Angel reported having improved mood and better energy. Staff reports that he has been less isolative and is attempting to participate in one-to-one unit and group activities. He slept 8 hours and denies manic or psychotic symptoms review. He denies medication side effects Current Medications Current Medications Ziprasidone 80 mg BIDWM PO Last administered on 04/30/17 09:12; Admin Dose 80 MG; Start 04/29/17 at 11:24 Ziprasidone 80 mg ONCE ONCE PO Last administered on 04/28/17 18:20; Admin Dose 80 MG; Start 04/28/17 at 18:00; Stop 04/28/17 at 18:01; Status DC Mental Status Exam Vital Signs Vital Signs Date Time Temp Pulse Resp B/P Pulse Ox O2 Delivery O2 Flow Rate FiO2 04/30/17 08:15 35.5 65 20 93/59 Appearance: Unkept Attitude: Pleasant, Cooperative Behavior: Other (Improved eye contact) Affect: Restricted Mood: Euthymic Thought Process/Associations: Goal Directed Speech Production: Normal Speech Rate: Normal Speech Articulation: Normal Thought Content: Guilt Danger to Self/Suicidal Ideati: None Danger to Others: None Consciousness: Alert Orientation: Person, Place, Date, Situation Memory: Short Term Memory (Impaired), Detention Memory (Impaired) Estimate Intellectual Function: Average Basis for IQ estimate: Word use/vocabulary, Educational history Attention/Concentration & Cogn: Impaired Insight: Limited Judgement: Limited Mental Health Plan Angel is a 51 year old male with a history of schizoaffective disorder who reduced medication adherence and eventually stopped all medications, decompensated, attempted suicide and was detained by the [facility]. The patient's outpatient provider indicates that he responded well to his outpatient medications and was stable for quite some time. They report that they will have intensive outpatient treatment to help him with medication adherence. He is struggling with negative symptoms of schizophrenia and a severe sense of poor self worth and self-esteem. The intensity of these previous symptoms is decreasing. During my interview today his thought process was again significant for both goal directed thought and he self reported feeling that he is in a good mood. Angel has a significant breakthrough today with a markedly improved mood and an organized thought process.. I anticipate he will be ready for discharge in 5 days [place] AXIS I: Schizoaffective disorder, bipolar type Alcohol use disorder Marijuana use disorder AXIS II: Deferred AXIS III: None reported. AXIS IV: Moderate with recent Mother's day, medication non-adherence. AXIS V: GAF 40 Medications Quetiapine 200mg daily and 400mg po HS Ziprasidone 80 mg twice daily Benztropine 1mg po bid Depakote ER 1500mg po nightly, blood level 84 on 03/14/2017 Escitalopram 20 mg daily (started on 04/16/17) Trazodone 150mg po nightly Lorazepam 1-2 mg every 4 hours when necessary Thiamine 100 mg daily Multivitamin 1 daily Treatments Patient is being provided with a high degree of safety through our unit structure and active adult engagement provided by our mental health professionals, mental health technicians, psychiatric nurses and myself. We are focusing on developing improved coping skills and identifying stressors that may have led to current episode. We will attempt to: * Integrate into therapeutic groups, milieu and individual therapy. * Maintain in a closely monitored and structured unit * Provide low-stimulation environment * Obtain collateral data to assist in treatment planning * Assess degree of lability of affect and impulse control * Complete safety plan * Decrease frequency of relapse and need for re-hospitalization * Denies thoughts of harm to self and/or others * Establish a consistent sleep pattern * Medication effective in stabilization of mood and/or thought process * Reduce the risk of imminent harm to self and/or others by providing a safe environment * Tolerates medication without side effects Patient will be on the following psychiatric medications: Quetiapine 200mg daily and 400mg po HS Ziprasidone 80 mg twice daily Benztropine 1mg po bid Depakote ER 1500mg po nightly, blood level 84 on 03/14/2017 Escitalopram 20 mg daily (started on 04/16/17) Trazodone 150mg po nightly Lorazepam 1-2 mg every 4 hours when necessary Thiamine 100 mg daily Multivitamin 1 daily Patient's legal status Patient is on a 90 day involuntary treatment hold. Anticipated number of hospital days to achieve above goals: Unknown Disposition: Home Harjit Andersen MD Apr 30, 2017 12:38
--- NOTE | 2017-04-30 15:31 | NUR ---
Yard Caller/Counselor S:"I'm not depressed, just feeling confused." O: Patient did not have any SI or HI, and states he only sees the faces in the trees when it's dark out. He stated he did not have any anxiety at the moment, and was not depressed, just confused. A: Patient stated that he feels like time is not making sense, and that it is confusing to him. He was preoccupied trying to make sense of the daily schedule. Otherwise he has been pleasant, and friendly. He has been interacting with other patients and has been playing ping pong, and football out on the patio. P: Follow care plan and coordinate with outpatient providers.
--- NOTE | 2017-04-30 16:03 | NUR ---
Observations [id number] Pt active on unit, friendly with peers and staff. Pt more conversational, attending group and spending time in common areas and on patio. Pt appears to be focused on discharge and finding a job upon discharge, asking to see newspaper to look for work and places to live. Pt attended all meals, eating 100%. Pt also requested a shower and did laundry. Pt was observed every 15 minutes of shift as directed.
--- NOTE | 2017-04-30 18:23 | NUR ---
Nursin to 1900 S: I don't want to hurt anyone. I don't know how I will do outside here. O: Angel was out on the unit long periods. He smiled on approach of pattern chart writer this morning. Maintains a worried expression most of the time. When pattern chart writer interacted with him, he averted eye contact. Responded verbally without hesitancy. TAkes meds as scheduled. No requests for prns. A: Beginning to anticipate discharge. Anxious about caring for self. P: Support him as he makes discharge arrangements.
[2017-04-30] MEDS: Divalproex (QD) 500 mg ER24 Tablet PO SCH (20:41)
[2017-04-30] MEDS: TRAZODONE PO SCH ×2 (20:42)
--- NOTE | 2017-05-01 02:46 | NUR ---
behavior/mood: pt's affect and mood this evening were very pleasant and helpful, pt. helping other patients here, cooperative, mildly withdrawn but appropriate
[2017-05-01 08:00] VITALS: BP 99/64; PULSE 75; RESP 20
[2017-05-01] MEDS: Omega-3 Fatty Acids 1,000 mg Capsule PO SCH ×2 (09:18→20:48)
--- NOTE | 2017-05-01 14:12 | PCM.PNPSY ---
Subjective Date of Service May 01, 2017 Subjective I spent 30 minutes both reviewing treatment plan with our clinical team, interviewing the patient and providing supportive/educational psychotherapy. I spent less than 50% of the time counseling the patient. His affect was bright, cheery and he was easily engaged this morning. Angel reported having improved mood and better energy. Staff reports that he has been less isolative and is attempting to participate in one-to-one unit and group activities. He slept 8 hours and denies manic or psychotic symptoms review. He denies medication side effects Mental Status Exam Vital Signs Vital Signs Date Time Temp Pulse Resp B/P Pulse Ox O2 Delivery O2 Flow Rate FiO2 05/01/17 08:00 36.1 75 20 99/64 Appearance: Unkept Attitude: Pleasant, Cooperative Behavior: Other (Improved eye contact) Affect: Restricted Mood: Euthymic Thought Process/Associations: Logical/Sequential, Goal Directed Speech Production: Normal Speech Rate: Normal Speech Articulation: Normal Thought Content: Appropriate Danger to Self/Suicidal Ideati: None Danger to Others: None Consciousness: Alert Orientation: Person, Place, Date, Situation Memory: Short Term Memory (Impaired), Competitive Intelligence Manager Memory (Impaired) Estimate Intellectual Function: Average Basis for IQ estimate: Word use/vocabulary, Educational history Attention/Concentration & Cogn: Impaired Insight: Good Judgement: Limited Mental Health Plan Angel is a 51 year old male with a history of schizoaffective disorder who reduced medication adherence and eventually stopped all medications, decompensated, attempted suicide and was detained by the [facility]. The patient's outpatient provider indicates that he responded well to his outpatient medications and was stable for quite some time. They report that they will have intensive outpatient treatment to help him with medication adherence. Here on the unit He is no longer struggling with negative symptoms of schizophrenia and his sense of self worth and self-esteem has slowly improved. During my interview today his thought process was again significant for both goal directed thought and he self reported feeling that he is in a good mood. Angel has maintained a markedly improved mood and an organized thought process. I anticipate he will be ready for discharge in 2-3 days [place] AXIS I: Schizoaffective disorder, bipolar type Alcohol use disorder Marijuana use disorder AXIS II: Deferred AXIS III: None reported. AXIS IV: Moderate with recent Mother's day, medication non-adherence. AXIS V: GAF 40 Medications Quetiapine 200mg daily and 400mg po HS Ziprasidone 80 mg twice daily Benztropine 1mg po bid Depakote ER 1500mg po nightly, blood level 84 on 03/14/2017 Escitalopram 20 mg daily (started on 04/16/17) Trazodone 150mg po nightly Lorazepam 1-2 mg every 4 hours when necessary Thiamine 100 mg daily Multivitamin 1 daily Treatments Patient is being provided with a high degree of safety through our unit structure and active adult engagement provided by our mental health professionals, mental health technicians, psychiatric nurses and myself. We are focusing on developing improved coping skills and identifying stressors that may have led to current episode. We will attempt to: * Integrate into therapeutic groups, milieu and individual therapy. * Maintain in a closely monitored and structured unit * Provide low-stimulation environment * Obtain collateral data to assist in treatment planning * Assess degree of lability of affect and impulse control * Complete safety plan * Decrease frequency of relapse and need for re-hospitalization * Denies thoughts of harm to self and/or others * Establish a consistent sleep pattern * Medication effective in stabilization of mood and/or thought process * Reduce the risk of imminent harm to self and/or others by providing a safe environment * Tolerates medication without side effects Patient will be on the following psychiatric medications: Quetiapine 200mg daily and 400mg po HS Ziprasidone 80 mg twice daily Benztropine 1mg po bid Depakote ER 1500mg po nightly, blood level 84 on 03/14/2017 Escitalopram 20 mg daily (started on 04/16/17) Trazodone 150mg po nightly Lorazepam 1-2 mg every 4 hours when necessary Thiamine 100 mg daily Multivitamin 1 daily Patient's legal status Patient is on a 90 day involuntary treatment hold. Anticipated number of hospital days to achieve above goals: Unknown Disposition: [place] Harjit Andersen MD May 01, 2017 14:12
--- NOTE | 2017-05-01 15:17 | NUR ---
Vice President For Instruction/Counselor S:"I learned a lot yesterday." O: Patient did not express any SI or HI, no AVH, no anxiety and no depression. A: Patient smiled and initiated conversation today. He has made good eye contact and has been out on the milieu, interacting with other patients. Patient has not been as withdrawn or expressed any feelings of guilt. P: Follow care plan and coordinate with outpatient providers.
--- NOTE | 2017-05-01 17:57 | NUR ---
Observations [id number] Pt appears brighter and more engaged with peers and staff, much less internally preoccupied then observed in previous days. Pt active in groups and unit activities, spending much of the day with peers. Pt good with ADL's, spent much of the day on patio with peers. Pt attended all meals, eating 100%. He shared with staff his desire to find work and secure a place to live. Pt very focused on future and discharge planning. He was observed every 15 minutes of shift as directed.
--- NOTE | 2017-05-01 18:06 | NUR ---
Nursin to 1899 S: My goal for today was to work on my original goal. To get a place to live an go and live there. O: Makes fleeting eye contact as he speaks with press writer (in contrast to downward gaze yesterday). Approached staff and initiated conversation. Interacts with peers by playing ball game on patio. Takes scheduled meds and does not request any prn's. Hygiene is ok. Showers and wears clean clothing. A: Trying to engage in discharge planning. Manages ADL's in structured setting. Unknown what he will be able to do independently. Needs significant support yet. P: Continue to support toward discharge. Addendum: 05/01/17 at 1830 by HKAAN ABBASI RN Amended: Links added.
[2017-05-01] MEDS: TRAZODONE PO SCH ×2 (20:48)
[2017-05-01] MEDS: Divalproex (QD) 500 mg ER24 Tablet PO SCH (20:48)
[2017-05-02] MEDS: Omega-3 Fatty Acids 1,000 mg Capsule PO SCH ×2 (09:10→20:38)
[2017-05-02 09:12] VITALS: BP 99/62; PULSE 68; RESP 16
--- NOTE | 2017-05-02 14:06 | PCM.PNPSY ---
Subjective Date of Service May 02, 2017 Subjective I spent 30 minutes both reviewing treatment plan with our clinical team, interviewing the patient and providing supportive/educational psychotherapy. I spent less than 50% of the time counseling the patient. His affect was again bright, cheery and he was easily engaged. Angel reported having improved mood and better energy. Staff reports that he has been less isolative and is attempting to participate in one-to-one unit and group activities. He slept 7 hours and denies manic or psychotic symptoms review. He denies medication side effects Mental Status Exam Vital Signs Vital Signs Date Time Temp Pulse Resp B/P Pulse Ox O2 Delivery O2 Flow Rate FiO2 05/02/17 09:12 36.0 68 16 99/62 Appearance: Unkept Attitude: Pleasant, Cooperative Behavior: Other (Improved eye contact) Affect: Restricted Mood: Euthymic Thought Process/Associations: Logical/Sequential, Goal Directed Speech Production: Normal Speech Rate: Normal Speech Articulation: Normal Thought Content: Appropriate Danger to Self/Suicidal Ideati: None Danger to Others: None Consciousness: Alert Orientation: Person, Place, Date, Situation Memory: Short Term Memory, Method of memory testing Estimate Intellectual Function: Average Basis for IQ estimate: Awareness current events, Word use/vocabulary, Educational history Attention/Concentration & Cogn: Grossly Intact Cognitive Testing Method: Abstract Reasoning during interview, Proverb interpretation, Serial computations Insight: Good Judgement: Limited Mental Health Plan Angel is a 51 year old male with a history of schizoaffective disorder who reduced medication adherence and eventually stopped all medications, decompensated, attempted suicide and was detained by the [facility]. The patient's outpatient provider indicates that he responded well to his outpatient medications and was stable for quite some time. They report that they will have intensive outpatient treatment to help him with medication adherence. Here on the unit He is no longer struggling with negative symptoms of schizophrenia and his sense of self worth and self-esteem has slowly improved. During my interview today his thought process was again significant for both goal directed thought and he self reported feeling that he is in a good mood. Angel has maintained a markedly improved mood and an organized thought process. I anticipate he will be ready for discharge in 2 days [place] AXIS I: Schizoaffective disorder, bipolar type Alcohol use disorder Marijuana use disorder AXIS II: Deferred AXIS III: None reported. AXIS IV: Moderate with recent Mother's day, medication non-adherence. AXIS V: GAF 40 Medications Quetiapine 200mg daily and 400mg po HS Ziprasidone 80 mg twice daily Benztropine 1mg po bid Depakote ER 1500mg po nightly, blood level 84 on 03/14/2017 Escitalopram 20 mg daily (started on 04/16/17) Trazodone 150mg po nightly Lorazepam 1-2 mg every 4 hours when necessary Thiamine 100 mg daily Multivitamin 1 daily Treatments Patient is being provided with a high degree of safety through our unit structure and active adult engagement provided by our mental health professionals, mental health technicians, psychiatric nurses and myself. We are focusing on developing improved coping skills and identifying stressors that may have led to current episode. We will attempt to: * Integrate into therapeutic groups, milieu and individual therapy. * Maintain in a closely monitored and structured unit * Provide low-stimulation environment * Obtain collateral data to assist in treatment planning * Assess degree of lability of affect and impulse control * Complete safety plan * Decrease frequency of relapse and need for re-hospitalization * Denies thoughts of harm to self and/or others * Establish a consistent sleep pattern * Medication effective in stabilization of mood and/or thought process * Reduce the risk of imminent harm to self and/or others by providing a safe environment * Tolerates medication without side effects Patient will be on the following psychiatric medications: Discontinue Quetiapine 200mg a.m. and continue 400mg po HS Ziprasidone 80 mg twice daily Decrease Benztropine to 0.5 mg po bid Depakote ER 1500mg po nightly, blood level 84 on 03/14/2017 Escitalopram 20 mg daily (started on 04/16/17) Trazodone 150mg po nightly Thiamine 100 mg daily Multivitamin 1 daily Patient's legal status Patient is on a 90 day involuntary treatment hold. Anticipated number of hospital days to achieve above goals: Unknown Disposition: Harjit Cruz MD May 02, 2017 14:06
--- NOTE | 2017-05-02 18:05 | NUR ---
[id number]. S: "Feeling a lot better, that's it, I get confused at times,... it got a bit much for me in the exercise grp, can I have a shower I need some clean clothing... O: Pt out on unit ,interacting with peers in so much as responding quietly when others seek interaction with him. Pt continues to most of time have downward gaze, with intermittent eye contact. Pt stated that he does think medication is helping him. Some improved range of affect pt continues to to speak in half sentences and be vague re his thought processes and progress. Attending to ADLs ,and continues to be pleasant to staff and peers without intrusiveness. P:CNCP
--- NOTE | 2017-05-02 18:07 | NUR ---
[facility] Day Shift Pt maintained behavioral control throughout the shift. Pt affect appears flat, though much brighter and expressive than noted on previous shifts. Pt spends most of the shift resting quietly in his room or sitting quietly in the dining room. Pt is appropriate with staff and peers when active on the unit. Pt appears to express fewer paranoid delusions this shift. Pt attended community meeting in the AM. Pt attended AM and afternoon group activities and attempted to participate actively (pt has some physical limitations when attending exercise group). Pt has attended all meals at this time and has eaten approx 100% of all meals.
--- NOTE | 2017-05-02 18:48 | NUR ---
Case Management/Counseling: S: "It's okay to talk with my sister." O: Patient slept 7 hours last night per staff. Patient denies S/I and H/I. He denies auditory and visual hallucinations. Depression and anxiety were not rated. A: Patient is cooperative, pleasant, bright, cheery, euthymic, limited judgment. P: Follow care plan, coordinate with out-patient providers.
[2017-05-02] MEDS: Divalproex (QD) 500 mg ER24 Tablet PO SCH (20:36)
[2017-05-02] MEDS: TRAZODONE PO SCH ×2 (20:37)
--- NOTE | 2017-05-02 23:23 | NUR ---
Observations 1900 to 0700 Pt ate a snack. Pt is pleasant and cooperative and mildly social with peers. Pt maintained behavioral control and showed no signs of abnormal behavior. Staff completed 15 min close observations as ordered.
--- NOTE | 2017-05-03 04:52 | NUR ---
Nursing Noc "Hi how are you doing", Pt noted to go out of his way to communicate with other patients and to make them feel cared about and interesting. Tending to ADLs and active on unit. Denies hallucination or guilt. Possible DC Sunday. Continuing to monitor mood, behavior and emotional state. Q15 minute safety checks performed throughout the shift. BHCP
[2017-05-03] MEDS: Omega-3 Fatty Acids 1,000 mg Capsule PO SCH ×2 (08:42→21:33)
[2017-05-03 14:37] VITALS: BP 108/72; PULSE 72; RESP 16
--- NOTE | 2017-05-03 14:59 | PCM.PNPSY ---
Subjective Date of Service May 03, 2017 Subjective I spent 30 minutes both reviewing treatment plan with our clinical team, interviewing the patient and providing supportive/educational psychotherapy. I spent more than 50% of the time counseling the patient. His affect was again bright, cheery and he was easily engaged. Angel reported having improved mood and better energy. Staff reports that he has been less isolative and is attempting to participate in one-to-one unit and group activities. He slept 6 hours and denies manic or psychotic symptoms review. He denies medication side effects Current Medications Current Medications Benztropine Mesylate 0.5 mg BID PO Last administered on 05/03/17t 08:42; Admin Dose 0.5 MG; Start 05/02/17 at 20:30 Mental Status Exam Vital Signs Vital Signs Date Time Temp Pulse Resp B/P Pulse Ox O2 Delivery O2 Flow Rate FiO2 05/03/17 14:37 36.2 72 16 108/72 Appearance: Unkept Attitude: Pleasant, Cooperative Behavior: Other (Improved eye contact) Affect: Flat Mood: Euthymic Thought Process/Associations: Logical/Sequential, Goal Directed Speech Production: Normal Speech Rate: Normal Speech Articulation: Normal Thought Content: Appropriate Danger to Self/Suicidal Ideati: None Danger to Others: None Consciousness: Alert Orientation: Person, Place, Date, Situation Memory: Short Term Memory, Method of memory testing Estimate Intellectual Function: Average Basis for IQ estimate: Awareness current events, Word use/vocabulary, Educational history Attention/Concentration & Cogn: Grossly Intact Cognitive Testing Method: Abstract Reasoning during interview, Proverb interpretation, Serial computations Insight: Good Judgement: Limited Mental Health Plan Angel is a 51 year old male with a history of schizoaffective disorder who reduced medication adherence and eventually stopped all medications, decompensated, attempted suicide and was detained by the [facility]. The patient's outpatient provider indicates that he responded well to his outpatient medications and was stable for quite some time. They report that they will have intensive outpatient treatment to help him with medication adherence. Here on the unit He is no longer struggling with negative symptoms of schizophrenia and his sense of self worth and self-esteem has slowly improved. During my interview today his thought process was again significant for both goal directed thought and he self reported feeling that he is in a good mood. Angel has maintained a markedly improved mood and an organized thought process. I anticipate he will be ready for discharge in 1 day [place] AXIS I: Schizoaffective disorder, bipolar type Alcohol use disorder Marijuana use disorder AXIS II: Deferred AXIS III: None reported. AXIS IV: Moderate with recent Mother's day, medication non-adherence. AXIS V: GAF 45 Medications Quetiapine 200mg daily and 400mg po HS Ziprasidone 80 mg twice daily Benztropine 1mg po bid Depakote ER 1500mg po nightly, blood level 84 on 03/14/2017 Escitalopram 20 mg daily (started on 04/16/17) Trazodone 150mg po nightly Lorazepam 1-2 mg every 4 hours when necessary Thiamine 100 mg daily Multivitamin 1 daily Treatments Patient is being provided with a high degree of safety through our unit structure and active adult engagement provided by our mental health professionals, mental health technicians, psychiatric nurses and myself. We are focusing on developing improved coping skills and identifying stressors that may have led to current episode. We will attempt to: * Integrate into therapeutic groups, milieu and individual therapy. * Maintain in a closely monitored and structured unit * Provide low-stimulation environment * Obtain collateral data to assist in treatment planning * Assess degree of lability of affect and impulse control * Complete safety plan * Decrease frequency of relapse and need for re-hospitalization * Denies thoughts of harm to self and/or others * Establish a consistent sleep pattern * Medication effective in stabilization of mood and/or thought process * Reduce the risk of imminent harm to self and/or others by providing a safe environment * Tolerates medication without side effects Patient will be on the following psychiatric medications: Discontinue Quetiapine 200mg a.m. and continue 400mg po HS Ziprasidone 80 mg twice daily Decrease Benztropine to 0.5 mg po bid Depakote ER 1500mg po nightly, blood level 84 on 03/14/2017 Escitalopram 20 mg daily (started on 04/16/17) Trazodone 150mg po nightly Thiamine 100 mg daily Multivitamin 1 daily Patient's legal status Patient is on a 90 day MR involuntary treatment hold. Anticipated number of hospital days to achieve above goals: Patient currently on a 90 day MR and we are attempting to set up a successful outpatient treatment program. Disposition: Home Harjit Andersen MD May 03, 2017 14:59
--- NOTE | 2017-05-03 17:19 | NUR ---
[facility] Day Shift Pt maintained behavioral control throughout the shift. Pt affect appears flat, though much brighter and expressive than noted on previous shifts. Pt spends most of the shift resting quietly in his room or sitting quietly in the dining room. Pt is appropriate with staff and peers when active on the unit. Pt appears to express fewer paranoid delusions this shift. Pt attended community meeting in the AM and some afternoon activities. Pt has attended all meals at this time and has eaten approx 100% of all meals.
--- NOTE | 2017-05-03 18:44 | NUR ---
. nurs. S: "I think I can figure out a lot of things when I am alone and I lie here and look out the window." O; Pt verbal with more complete sentences, quite scattered content , stating he is worried about being on his own when discharged. wondering about how long he has been sick for, Pt still stating that he thinks people can read his thoughts and ...they call me a pervert... .I have done some filthy things...some things were just temptations...I like to help people even if i just say hullo when I gi by and they don't say anything I think it helps. Pt also talking of christianity support he gets. Pt thoughtful alternating between more positive ideas he has and then reverting to negative perceptions he has of himself. P:ELGINP
[2017-05-03] MEDS: Divalproex (QD) 500 mg ER24 Tablet PO SCH (21:34)
[2017-05-03] MEDS: TRAZODONE PO SCH ×2 (21:36)
--- NOTE | 2017-05-03 22:43 | NUR ---
Observations 1900 to 0700 Pt attended and participated in wrap up group. Pt ate a snack. Pt is pleasant and cooperative with staff and social with peers. Pt has spent most of evening resting in bed. Pt maintained behavioral control and showed no signs of abnormal behavior. Staff completed 15 min close observations as ordered.
--- NOTE | 2017-05-04 01:41 | NUR ---
Nursing Noc Pt out to common area this evening, voice noted to be at normal volume from previous whisper and linear with conversation. Appears much more upbeat and attentive to surroundings. Asked for writing equipment at HS. Continuing to monitor mood, behavior and emotional state. Q15 safety checks throughout the shift. CP
[2017-05-04] MEDS: Omega-3 Fatty Acids 1,000 mg Capsule PO SCH ×2 (08:56→20:19)
--- NOTE | 2017-05-04 11:28 | NUR ---
Nursing Dayshift: S: "The doctor told me I would be leaving in a week." O: Patient has been up out of his room much of the shift. Ambulating the alejandro with peers this AM. Out on the patio at present. Pleasant on approach. Good appetite at meals. A: Brighter. More animated. More interactive. P: CPOC. Monitor mood and behavior.
--- NOTE | 2017-05-04 14:33 | PCM.PNPSY ---
Subjective Date of Service May 04, 2017 Subjective I spent 30 minutes both reviewing treatment plan with our clinical team, interviewing the patient and providing supportive/educational psychotherapy. I spent more than 50% of the time counseling the patient. His affect was again bright, cheery and he was easily engaged. Angel reported having improved mood and better energy. Staff reports that he has been less isolative and is attempting to participate in one-to-one unit and group activities. He slept 6 hours and denies manic or psychotic symptoms review. He denies medication side effects Current Medications Current Medications Benztropine Mesylate 0.5 mg BID PO Last administered on 05/04/17t 08:57; Admin Dose 0.5 MG; Start 05/02/17 at 20:30 Mental Status Exam Appearance: Neat/well groomed Attitude: Pleasant, Cooperative Behavior: Other (Improved eye contact) Affect: Well Modulated/Appropriate Mood: Euthymic Thought Process/Associations: Logical/Sequential, Goal Directed Speech Production: Normal Speech Rate: Normal Speech Articulation: Normal Thought Content: Appropriate Danger to Self/Suicidal Ideati: None Danger to Others: None Consciousness: Alert Orientation: Person, Place, Date, Situation Memory: Short Term Memory, Method of memory testing Estimate Intellectual Function: Average Basis for IQ estimate: Awareness current events, Word use/vocabulary, Educational history Attention/Concentration & Cogn: Grossly Intact Cognitive Testing Method: Abstract Reasoning during interview, Proverb interpretation, Serial computations Insight: Good Judgement: Good Mental Health Plan Angel is a 51 year old male with a history of schizoaffective disorder who reduced medication adherence and eventually stopped all medications, decompensated, attempted suicide and was detained by the [facility]. The patient's outpatient provider indicates that he responded well to his outpatient medications and was stable for quite some time. They report that they will have intensive outpatient treatment to help him with medication adherence. Here on the unit He is no longer struggling with negative symptoms of schizophrenia and his sense of self worth and self-esteem has slowly improved. During my interview today his thought process was again significant for both goal directed thought and he self reported feeling that he is in a good mood. Angel has maintained a markedly improved mood and an organized thought process. I anticipate he will be ready for discharge early next week. Our case management team is working to contact his sister for different distal options. [place] AXIS I: Schizoaffective disorder, bipolar type Alcohol use disorder Marijuana use disorder AXIS II: Deferred AXIS III: None reported. AXIS IV: Moderate with recent Mother's day, medication non-adherence. AXIS V: GAF 45 Medications Quetiapine 200mg daily and 400mg po HS Ziprasidone 80 mg twice daily Benztropine 1mg po bid Depakote ER 1500mg po nightly, blood level 84 on 03/14/2017 Escitalopram 20 mg daily (started on 04/16/17) Trazodone 150mg po nightly Lorazepam 1-2 mg every 4 hours when necessary Thiamine 100 mg daily Multivitamin 1 daily Treatments Patient is being provided with a high degree of safety through our unit structure and active adult engagement provided by our mental health professionals, mental health technicians, psychiatric nurses and myself. We are focusing on developing improved coping skills and identifying stressors that may have led to current episode. We will attempt to: * Integrate into therapeutic groups, milieu and individual therapy. * Maintain in a closely monitored and structured unit * Provide low-stimulation environment * Obtain collateral data to assist in treatment planning * Assess degree of lability of affect and impulse control * Complete safety plan * Decrease frequency of relapse and need for re-hospitalization * Denies thoughts of harm to self and/or others * Establish a consistent sleep pattern * Medication effective in stabilization of mood and/or thought process * Reduce the risk of imminent harm to self and/or others by providing a safe environment * Tolerates medication without side effects * * Patient will be on the following psychiatric medications: Quetiapine 400mg po HS Ziprasidone 80 mg twice daily Decrease Benztropine to 0.5 mg po bid Depakote ER 1500mg po nightly, blood level 84 on 03/14/2017 Escitalopram 20 mg daily (started on 04/16/17) Trazodone 150mg po nightly Thiamine 100 mg daily Multivitamin 1 daily Patient's legal status Patient is on a 90 day MR involuntary treatment hold. Anticipated number of hospital days to achieve above goals: Patient currently on a 90 day MR and we are attempting to set up a successful outpatient treatment program. Disposition: [place] Harjit Andersen MD May 04, 2017 14:33
[2017-05-04 15:33] VITALS: BP 99/64; PULSE 66; RESP 16
--- NOTE | 2017-05-04 19:02 | NUR ---
[facility] Day Shift Pt affect and behavior unchanged from previous shifts. Pt maintained behavioral control throughout the shift. Pt affect appears flat, though much brighter and expressive than noted on previous shifts. Pt spends most of the shift resting quietly in his room or sitting quietly in the dining room. Pt is appropriate with staff and peers when active on the unit. Pt appears to express fewer paranoid delusions this shift. Pt attended some afternoon activities. Pt has attended all meals at this time and has eaten approx 100% of all meals.
[2017-05-04] MEDS: Divalproex (QD) 500 mg ER24 Tablet PO SCH (20:21)
[2017-05-04] MEDS: TRAZODONE PO SCH ×2 (20:23)
--- NOTE | 2017-05-05 05:23 | NUR ---
Nursing Note Teletype Mechanic 7pm to 7am Pt visible on unit at start of shift, talking with select peers. Affect blunted and mood preoccupied. Pt denies A/VH, denies depression or anxiety however his presentation is not congruent with self -report. Pt took HS medications without incident and went to bed at 2100. Awoke at 2300, stayed up until 0100 and went back to bed for the night. Monitored pt. with q 15 minutes face checks for safety, location and accountability.
[2017-05-05] MEDS: Omega-3 Fatty Acids 1,000 mg Capsule PO SCH ×2 (08:35→20:57)
[2017-05-05 09:00] VITALS: BP 117/68; PULSE 75; RESP 20
--- NOTE | 2017-05-05 13:16 | NUR ---
nursing note day shift S/O-"I was anxious this morning because I could not have an orange; it would not be fair to the others." "I just need sleep sometimes to help me feel better." Pt. denies SI or hallucinations although he seems preoccupied and has a flat affect. He is cooperative and pleasant however does not interact with his peers much. He has an adequate appetite. He stated he is not depressed. A-Lack of insight. Psychosis. P-Monitor for safety per protocol. Assess efficacy of meds to manage target symptoms. Encourage engagement in groups.
--- NOTE | 2017-05-05 15:49 | NUR ---
Elevated Work Platform Operator/Counselor S:"I"m feeling pretty good. I slept real good!" O: Patient denies any SI and HI. He stated that he continues to see the faces in the trees but also that he realizes that anyone can see something anywhere if they look. He rated his anxiety at a 1-2 and his depression at a 5. His appetite i sgood. A: Patient made great eye contact and overall has made dramatic improvements in his interactions. He stated he feels helpless when it comes to another patient and his inability to help her. He remembers her from a previous stay. P: Follow care plan and coordinate with outpatient providers.
--- NOTE | 2017-05-05 17:46 | NUR ---
Observations 0700 to 1900 Pt attended and participated in community meeting. Pt ate a snack. Pt is social with peers and spent time watching TV, walking unit and relaxing on patio. Pt maintained behavioral control and showed no signs of abnormal behavior. Breakfast: 100%. Lunch: 100%. Staff completed 15 min close observations as ordered.
--- NOTE | 2017-05-05 20:10 | PCM.PNPSY ---
Subjective Date of Service May 05, 2017 Subjective The patient reports "feeling pretty good" today. He reports trying to gather his thoughts together in preparation for leaving the hospital. Regarding his ongoing visual hallucinations he reports, "anybody can make a picture out of anything." Patient reports interacting well with others though occasionally is still experiencing guilt around these encounters. Patient reports he does not wish to live with nephew on discharge. No medication side effects reports. No cogwheeling or dystonia on physical exam. Sleep: "real good" Appetite: "eating everything." Suicidal and homicidal ideation: denies Auditory hallucinations: denies Visual hallucinations: as above Other Psychotic Symptoms: negative symptoms much improved Anxiety: -11/24 Depression: 02/21 Current Medications Current Medications Quetiapine Fumarate 600 mg HS PO Last administered on 05/04/17t 20:21; Admin Dose 600 MG; Start 05/04/17 at 21:00; Stop 05/04/17 at 21:00; Status DC Mental Status Exam Appearance: Neat/well groomed Attitude: Pleasant, Cooperative Behavior: Other (Improved eye contact) Affect: Well Modulated/Appropriate Mood: Euthymic, Anxious Thought Process/Associations: Logical/Sequential, Goal Directed Speech Production: Normal Speech Rate: Normal Speech Articulation: Normal Thought Content: Appropriate, Guilt Danger to Self/Suicidal Ideati: None Danger to Others: None Hallucinations: Auditory (Denies), Visual (Endorses) Consciousness: Alert Orientation: Person, Place, Date, Situation Memory: Grossly Intact Estimate Intellectual Function: Average Basis for IQ estimate: Awareness current events, Word use/vocabulary, Educational history Attention/Concentration & Cogn: Grossly Intact Cognitive Testing Method: Abstract Reasoning during interview, Proverb interpretation, Serial computations Insight: Good Judgement: Good Mental Health Plan The patient is a 51 year old male with a history of schizoaffective disorder who reduced medication adherence and eventually stopped all medications, decompensated, attempted suicide and was detained by the [facility]. The patient's outpatient provider indicates that he responded well to his outpatient medications and was stable for quite some time. They report that they will have intensive outpatient treatment to help him with medication adherence. The patient had been placed on a combination of Abilify and Geodon with Abilify titrated to 30 mg. Geodon was gradually tapered as the patient appeared to be improving with decreased hallucinations and paranoia. However, once Geodon taper had been completed patient slowly developed worsening depression and increased paranoia. The patient had been placed on Lexapro to address depression. Although the patient endorses anxiety and an depression, objectively he does not appear terribly anxious. The patient has reported the return of seeing people in the trees but continues to deny auditory hallucinations. He still endorses significant guilt and negative symptoms. The patient was noting no side effects from escitalopram, aripiprazole, quetiapine, or ziprasidone. Review of records indicates that the patient has typically been on 2 agents and did well on ziprasidone and quetiapine in the past. The patient was tapered off aripiprazole and on to quetiapine with good results. He is interacting with others and reports a diminution of symptoms and is feeling ready to begin discharge planning. [place] AXIS I: Schizoaffective disorder, bipolar type Alcohol use disorder Marijuana use disorder AXIS II: Deferred AXIS III: None reported. AXIS IV: Moderate AXIS V: GAF 40 Medications Quetiapine 600mg po HS Ziprasidone 80 mg twice daily Benztropine 0.5mg po bid Depakote ER 1500mg po nightly, blood level 84 on 03/14/2017 Escitalopram 20 mg daily (started on 04/16/17) Trazodone 150mg po nightly Lorazepam 1-2 mg every 4 hours when necessary Thiamine 100 mg daily Multivitamin 1 daily Treatments 1. The patient is admitted to the inpatient unit and will be provided a safe and secure environment. 2. The patient is denying suicidal ideation and is not in need of a one-to-one at this time. 3. The patient is encouraged to participate with group and milieu activities. 4. The patient will be seen by the treatment team on a daily basis to assess symptoms, side effects and response to treatment. 5. We will check weight weekly and increase food intake if needed though has been stable of late. 6. Continue ziprasidone 80 mg twice daily. 7. Continue quetiapine 600mg at bedtime 8. Continue current Depakote. (serum level therapeutic at 89 as of 04/15/17) 9. Continue escitalopram 20mg po daily. 10. Continue to encourage group activity and engagement. 11. Will recheck labs 12. Patient is currently on 90 day more restrictive order and will need to be switched to and discussion with outside provider regarding housing. Asael Adkins MD May 05, 2017 20:10 * Reduce the risk of imminent harm to self and/or others by providing a safe environment * Tolerates medication without side effects * * Patient will be on the following psychiatric medications: Quetiapine 400mg po HS Ziprasidone 80 mg twice daily Decrease Benztropine to 0.5 mg po bid Depakote ER 1500mg po nightly, blood level 84 on 03/14/2017 Escitalopram 20 mg daily (started on 04/16/17) Trazodone 150mg po nightly Thiamine 100 mg daily Multivitamin 1 daily Patient's legal status Patient is on a 90 day MR involuntary treatment hold. Anticipated number of hospital days to achieve above goals: Patient currently on a 90 day MR and we are attempting to set up a successful outpatient treatment program. Disposition: [place] Asael Adkins MD May 05, 2017 20:10
[2017-05-05] MEDS: Divalproex (QD) 500 mg ER24 Tablet PO SCH (20:58)
[2017-05-05] MEDS: TRAZODONE PO SCH ×2 (20:59)
--- NOTE | 2017-05-05 23:30 | NUR ---
Nurses Note evening Patient has an improved affect and mood. He reported feeling better,less guilty and has been smiling with peers. He remains medication compliant without adverse effects,maintain q 15min. checks for safety and support. Addendum: 05/05/17 at 2334 by BERNICE ROBERTSON RN Amended: Links added.
--- NOTE | 2017-05-06 03:26 | NUR ---
nursing, nights, 11-7 s- i'm doing ok. o- has appeared to sleep after 2214. up briefly at 0040 and 0310. assessed q 15 minutes. a- interupted sleep, no apparent distress. p- monitor behavior/emotional state, quality, times and amount of sleep, use and effect of medication. eva
[2017-05-06 07:22] LABS: BASOPHILS % (AUTO) 0.5 % (0-3); EOSINOPHILS % (AUTO) 1.8 % (0-5); MONOCYTES % (AUTO) 8.5 % (4-12); Mean Corpuscular Volume 85.6 fL (81-100); NEUTROPHILS % (AUTO) 62.6 % (40-74); Platelet Count 238 bil/L (150-400)
[2017-05-06 07:55] VITALS: BP 96/69; PULSE 63; RESP 16
[2017-05-06] MEDS: Omega-3 Fatty Acids 1,000 mg Capsule PO SCH ×2 (09:14→20:54)
--- NOTE | 2017-05-06 11:03 | NUR ---
Nursing Days Pt quietly resting in bed when approached by staff. He states "My sleep was okay but my dreams woke me up. They always do. They are different dreams not the same ones. I usually take naps." Pt denied having any suicidal thoughts, anxiety or voices. Pt stated "I haven't had voices for a while." He ate breakfast, participated in morning group and then laid down to rest. He took his scheduled medications without difficulty. He is responsive to staff and socially engaged with certain peers. Later in the morning pt approached this staff member and appeared confused stating "Did I miss dinner?" He had eaten breakfast a short time before but could not remember doing so.l
--- NOTE | 2017-05-06 18:44 | NUR ---
Observations [id number] Pt appears more bright, upbeat and talkative with staff and peers. He was observed walking with a peer and encouraging them. Pt attended groups, spending time on patio and in art group writing a letter. He attended all meals, eating 100%. Pt still continues to struggle with memory, unsure as to whether he has eaten a meal or asked for a shower already. Pt doing better with ADL's, focused on obtaining a job upon discharge and more future focused. Pt was observed every 15 minutes of shift as directed.
[2017-05-06] MEDS: TRAZODONE PO SCH ×2 (20:55)
[2017-05-06] MEDS: Divalproex (QD) 500 mg ER24 Tablet PO SCH (20:55)
--- NOTE | 2017-05-06 21:23 | PCM.PNPSY ---
Subjective Date of Service May 06, 2017 Subjective The patient reports "wanted to do things on a team" today with other patients. He reports that he is not concerned about visual hallucinations. Patient reports interacting well with others. Patient still reports he does not wish to live with nephew on discharge. No medication side effects reports. Discussed sodium 126 and likely source as escitalopram which we will hold then reduce the dose. Patient acknowledged. No other side effects. Sleep: 5.5 hours Appetite: "really well." Suicidal and homicidal ideation: denies Auditory hallucinations: denies Visual hallucinations: as above Other Psychotic Symptoms: negative symptoms much improved Anxiety: 10/24 Depression: 01/22 Mental Status Exam Appearance: Neat/well groomed Attitude: Pleasant, Cooperative Behavior: Other (Improved eye contact) Affect: Well Modulated/Appropriate Mood: Euthymic, Anxious Thought Process/Associations: Logical/Sequential, Goal Directed Speech Production: Normal Speech Rate: Normal Speech Articulation: Normal Thought Content: Appropriate, Guilt Danger to Self/Suicidal Ideati: None Danger to Others: None Hallucinations: Auditory (Denies), Visual (Endorses) Consciousness: Alert Orientation: Person, Place, Date, Situation Memory: Grossly Intact Estimate Intellectual Function: Average Basis for IQ estimate: Awareness current events, Word use/vocabulary, Educational history Attention/Concentration & Cogn: Grossly Intact Cognitive Testing Method: Abstract Reasoning during interview, Proverb interpretation, Serial computations Insight: Good Judgement: Good Result Diagram: 05/06/17 0708 05/06/17 0708 Mental Health Plan The patient is a 51 year old male with a history of schizoaffective disorder who reduced medication adherence and eventually stopped all medications, decompensated, attempted suicide and was detained by the [facility]. The patient's outpatient provider indicates that he responded well to his outpatient medications and was stable for quite some time. They report that they will have intensive outpatient treatment to help him with medication adherence. The patient had been placed on a combination of Abilify and Geodon with Abilify titrated to 30 mg. Geodon was gradually tapered as the patient appeared to be improving with decreased hallucinations and paranoia. However, once Geodon taper had been completed patient slowly developed worsening depression and increased paranoia. The patient had been placed on Lexapro to address depression. Although the patient endorses anxiety and an depression, objectively he does not appear terribly anxious. The patient has reported the return of seeing people in the trees but continues to deny auditory hallucinations. He still endorses significant guilt and negative symptoms. The patient was noting no side effects from escitalopram, aripiprazole, quetiapine, or ziprasidone. Review of records indicates that the patient has typically been on 2 agents and did well on ziprasidone and quetiapine in the past. The patient was tapered off aripiprazole and on to quetiapine with good results. He is interacting with others and reports a diminution of symptoms and is feeling ready to begin discharge planning. Patient with sodium of 126 likely secondary to SSRI and will try reducing dose. [place] AXIS I: Schizoaffective disorder, bipolar type Alcohol use disorder Marijuana use disorder AXIS II: Deferred AXIS III: None reported. AXIS IV: Moderate AXIS V: GAF 40 Medications Quetiapine 600mg po HS Ziprasidone 80 mg twice daily Benztropine 0.5mg po bid Depakote ER 1500mg po nightly, blood level 84 on 03/14/2017 Hold escitalopram and restart 10mg on 05/08/17 Trazodone 150mg po nightly Lorazepam 1-2 mg every 4 hours when necessary Thiamine 100 mg daily Multivitamin 1 daily Treatments 1. The patient is admitted to the inpatient unit and will be provided a safe and secure environment. 2. The patient is denying suicidal ideation and is not in need of a one-to-one at this time. 3. The patient is encouraged to participate with group and milieu activities. 4. The patient will be seen by the treatment team on a daily basis to assess symptoms, side effects and response to treatment. 5. We will check weight weekly and increase food intake if needed though has been stable of late. 6. Continue ziprasidone 80 mg twice daily. 7. Continue quetiapine 600mg at bedtime 8. Continue current Depakote. (serum level therapeutic at 89 as of 04/15/17) 9. Hold escitalopram 20mg po daily and restart 10mg on 05/08/17 may need to discontinue. 10. Will recheck labs at end of week. 11. Patient is currently on 90 day more restrictive order and will need to be switched to LR and discussion with outside provider regarding housing. Asael Adkins MD May 06, 2017 21:23
--- NOTE | 2017-05-06 22:33 | NUR ---
Nurses Note Evening Patient has been enjoying groups and peers with frequent greetings to staff as well. His mood is cheerful, affect bright. He remains medication compliant and has been talking about discharge. Will encourage continued social skills,improved insight into illness and management of same.
[2017-05-07 00:11] VITALS: BP 128/79; PULSE 63; RESP 16
--- NOTE | 2017-05-07 07:24 | NUR ---
Nursing Note Inspector Purchased Parts 11pm to 7am Pt asleep at start of shift and remained asleep until 0000 when he woke up and came out to the dining room groggy as if he was sleep walking and was accompanied back to his room and he returned to sleep. Vital signs were taken and were within normal limits. See interventions for details. Monitored pt with q 15 minute face checks for safety, location, and accountability.
--- NOTE | 2017-05-07 07:24 | NUR ---
Nursing Note Stain Dipper 11pm to 7am Pt asleep at start of shift and remained asleep for the duration. No issues observed or reported. Monitored pt with q 15 minute face checks for safety, location, and accountability
[2017-05-07 08:10] VITALS: BP 128/79; PULSE 63; RESP 16
[2017-05-07] MEDS: Omega-3 Fatty Acids 1,000 mg Capsule PO SCH ×2 (09:42→20:00)
--- NOTE | 2017-05-07 14:38 | NUR ---
Nursing Days Pt presents as bright, pleasant and cooperative. He participates in unit activities. Took scheduled medication without difficulty. Helpful towards his peers. Denies SI or AH. No visible distress and no complaints made this shift. Continue with POC and support as needed.
--- NOTE | 2017-05-07 15:35 | NUR ---
Plugging Machine Operator/Counselor S/O: Patient stated he was concerned about his housing, and he wasn't sure that he wants to return to his nephew's house. He denies any SI or HI, no AVH, some anxiety and no depression. A: Patient's Compass CM Rissa is looking into his housing situation. He is willing to temporarily go to his nephew's house, while a permanent housing solution is found. Patient is pleasant and cooperative, and has been out on the milieu interacting with other patients. P: Follow care plan and coordinate with outpatient providers.
--- NOTE | 2017-05-07 18:17 | NUR ---
Observations [id number] Pt more active on unit, continuing to focus on discharge planning. Pt observed helping other patients, sharing words of encouragement with them along with helping them get items. Pt attended all meals, eating 100%. He was observed to continue to have some slight memory issues, again not remembering if he had eaten lunch or not. Pt spent time on the patio playing football with peers and watching TV in the afternoon. Pt was observed every 15 minutes of shift as directed.
[2017-05-07] MEDS: TRAZODONE PO SCH ×2 (19:59)
[2017-05-07] MEDS: Divalproex (QD) 500 mg ER24 Tablet PO SCH (20:00)
--- NOTE | 2017-05-07 22:14 | PCM.PNPSY ---
Subjective Date of Service May 07, 2017 Subjective The patient had meeting with outpatient caseworker intake today. Patient still reports he does not wish to live with nephew on discharge. Discussed sodium 126 and likely source as escitalopram which we will hold then reduce the dose. Patient acknowledged. No medication side effects reports. Sleep: 7.25 hours Appetite: "good." Suicidal and homicidal ideation: denies Auditory hallucinations: denies Visual hallucinations: as above Other Psychotic Symptoms: negative symptoms much improved Anxiety: "some" Depression: 0/10 Mental Status Exam Appearance: Neat/well groomed Attitude: Pleasant, Cooperative Behavior: Other (Improved eye contact) Affect: Well Modulated/Appropriate Mood: Euthymic, Anxious Thought Process/Associations: Logical/Sequential, Goal Directed Speech Production: Normal Speech Rate: Normal Speech Articulation: Normal Thought Content: Appropriate, Guilt Danger to Self/Suicidal Ideati: None Danger to Others: None Hallucinations: Auditory (Denies), Visual (Endorses) Consciousness: Alert Orientation: Person, Place, Date, Situation Memory: Grossly Intact Estimate Intellectual Function: Average Basis for IQ estimate: Awareness current events, Word use/vocabulary, Educational history Attention/Concentration & Cogn: Grossly Intact Cognitive Testing Method: Abstract Reasoning during interview, Proverb interpretation, Serial computations Insight: Good Judgement: Good Result Diagram: 05/06/17 0708 05/06/17 0708 Mental Health Plan The patient is a 51 year old male with a history of schizoaffective disorder who reduced medication adherence and eventually stopped all medications, decompensated, attempted suicide and was detained by the [facility]. The patient's outpatient provider indicates that he responded well to his outpatient medications and was stable for quite some time. They report that they will have intensive outpatient treatment to help him with medication adherence. The patient had been placed on a combination of Abilify and Geodon with Abilify titrated to 30 mg. Geodon was gradually tapered as the patient appeared to be improving with decreased hallucinations and paranoia. However, once Geodon taper had been completed patient slowly developed worsening depression and increased paranoia. The patient had been placed on Lexapro to address depression. Although the patient endorses anxiety and an depression, objectively he does not appear terribly anxious. The patient has reported the return of seeing people in the trees but continues to deny auditory hallucinations. He still endorses significant guilt and negative symptoms. The patient was noting no side effects from escitalopram, aripiprazole, quetiapine, or ziprasidone. Review of records indicates that the patient has typically been on 2 agents and did well on ziprasidone and quetiapine in the past. The patient was tapered off aripiprazole and on to quetiapine with good results. He is interacting with others and reports a diminution of symptoms and is feeling ready to begin discharge planning. Patient with sodium of 126 likely secondary to SSRI and will try reducing dose. Working with outpatient team on housing. [place] AXIS I: Schizoaffective disorder, bipolar type Alcohol use disorder Marijuana use disorder AXIS II: Deferred AXIS III: None reported. AXIS IV: Moderate AXIS V: GAF 40 Medications Quetiapine 600mg po HS Ziprasidone 80 mg twice daily Benztropine 0.5mg po bid Depakote ER 1500mg po nightly, blood level 84 on 03/14/2017 Hold escitalopram and restart 10mg on 05/08/17 Trazodone 150mg po nightly Lorazepam 1-2 mg every 4 hours when necessary Thiamine 100 mg daily Multivitamin 1 daily Treatments 1. The patient is admitted to the inpatient unit and will be provided a safe and secure environment. 2. The patient is denying suicidal ideation and is not in need of a one-to-one at this time. 3. The patient is encouraged to participate with group and milieu activities. 4. The patient will be seen by the treatment team on a daily basis to assess symptoms, side effects and response to treatment. 5. We will check weight weekly and increase food intake if needed though has been stable of late. 6. Continue ziprasidone 80 mg twice daily. 7. Continue quetiapine 600mg at bedtime 8. Continue current Depakote. (serum level therapeutic at 89 as of 04/15/17) 9. Hold escitalopram 20mg po daily and restart 10mg on 05/08/17 may need to discontinue. 10. Will recheck labs at end of week. 11. Patient is currently on 90 day more restrictive order and will need to be switched to LR and discussion with outside provider regarding housing. Asael Adkins MD May 07, 2017 22:14
--- NOTE | 2017-05-07 23:26 | NUR ---
NURS NOTE EVENING Pt appears brighter than he has in the past. Interacts appropriate with staff and peers. Pt expressed desire to contact his brother and tell him that "I am working on getting better." Pt took all scheduled medications.
[2017-05-08 01:30] VITALS: BP 73/56; PULSE 62; RESP 18
[2017-05-08 01:45] VITALS: BP 110/88; PULSE 65; RESP 18
[2017-05-08 01:55] VITALS: BP 100/72; PULSE 70
[2017-05-08 10:15] LABS: Mean Corpuscular Volume 86.6 fL (81-100)
[2017-05-08] MEDS: Omega-3 Fatty Acids 1,000 mg Capsule PO SCH ×2 (10:17→21:02)
--- NOTE | 2017-05-08 15:35 | NUR ---
Nursing Days Pt continues bright, social and pleasant on the unit. It was passed on from studio designer report that he had awoken during the night groggy and feeling lightheaded. His Ortho BP was taken and was 73/56, 100/76, 110/80. Pt had no dizzy spells this shift and VS WNL. Talked with the doctor and he stated to hold pt's Lexapro and provide the patient Gatorade. He remains active and participatory on the unit. No distress this shift.
--- NOTE | 2017-05-08 18:17 | NUR ---
Observations [id number] Pt in much brighter spirits, stating that his mood has increased and improved. Pt observed to be smiling more, more optimistic when discussing the future, and more communicative with peers and staff. Pt participated in group and spent time on the patio. Pt observed encouraging and complimenting peers. He attended all meals, eating 100%. Pt was observed every 15 minutes of shift as directed.
[2017-05-08] MEDS: Divalproex (QD) 500 mg ER24 Tablet PO SCH (21:02)
[2017-05-08] MEDS: TRAZODONE PO SCH ×2 (21:04)
--- NOTE | 2017-05-08 22:00 | NUR ---
Nurses Note Evening Patient has been out on the unit,his affect brighter with a cheerful mood. He has attended all groups,remains medication compliant. Will maintain q 15min. checks for safety and support. Addendum: 05/08/17 at 2204 by BERNICE ROBERTSON RN Amended: Links added.
--- NOTE | 2017-05-08 22:12 | PCM.PNPSY ---
Subjective Date of Service May 08, 2017 Subjective The patient had an episode last night of reporting dizziness, BP low and responded to fluids. He denies issues today. Upper extremity strength intact bilaterally as are reflexes. The patient reports that he likes to "share with others but I'm not caring for others if I do that." Patient stated that he needed to focus on his own recovery. Discussed need to hold Lexapro given sodium of 127 and patient agreeable. Patient reported that his brother has been a significant support but is concerned about burdening him.No medication side effects reports. Sleep: 4.5 hours, "I had a really good dream." Appetite: "getting a lot better." Suicidal and homicidal ideation: denies Auditory hallucinations: denies Visual hallucinations: faces in trees, but ignoring. Other Psychotic Symptoms: negative symptoms much improved Anxiety: 0/10 Depression: 0/10 Current Medications Current Medications Escitalopram Oxalate 10 mg DAILY PO Last administered on 05/08/17t 10:16; Admin Dose 10 MG; Start 05/08/17 at 08:30; Stop 05/08/17 at 16:22; Status DC Mental Status Exam Appearance: Neat/well groomed Attitude: Pleasant, Cooperative Behavior: Other (Improved eye contact) Affect: Well Modulated/Appropriate Mood: Euthymic, Anxious Thought Process/Associations: Logical/Sequential, Goal Directed Speech Production: Normal Speech Rate: Normal Speech Articulation: Normal Thought Content: Appropriate, Guilt Danger to Self/Suicidal Ideati: None Danger to Others: None Hallucinations: Auditory (Denies), Visual (Endorses) Consciousness: Alert Orientation: Person, Place, Date, Situation Memory: Grossly Intact Estimate Intellectual Function: Average Basis for IQ estimate: Awareness current events, Word use/vocabulary, Educational history Attention/Concentration & Cogn: Grossly Intact Insight: Good Judgement: Good Result Diagram: 05/08/17 0940 05/08/17 0940 Mental Health Plan The patient is a 51 year old male with a history of schizoaffective disorder who reduced medication adherence and eventually stopped all medications, decompensated, attempted suicide and was detained by the [facility]. The patient's outpatient provider indicates that he responded well to his outpatient medications and was stable for quite some time. They report that they will have intensive outpatient treatment to help him with medication adherence. The patient had been placed on a combination of Abilify and Geodon with Abilify titrated to 30 mg. Geodon was gradually tapered as the patient appeared to be improving with decreased hallucinations and paranoia. However, once Geodon taper had been completed patient slowly developed worsening depression and increased paranoia. The patient had been placed on Lexapro to address depression. Although the patient endorses anxiety and an depression, objectively he does not appear terribly anxious. The patient has reported the return of seeing people in the trees but continues to deny auditory hallucinations. He still endorses significant guilt and negative symptoms. The patient was noting no side effects from escitalopram, aripiprazole, quetiapine, or ziprasidone. Review of records indicates that the patient has typically been on 2 agents and did well on ziprasidone and quetiapine in the past. The patient was tapered off aripiprazole and on to quetiapine with good results. He is interacting with others and reports a diminution of symptoms and is feeling ready to begin discharge planning. Patient with sodium of 126 likely secondary to SSRI. Lexapro held and restarted at lower dose. Sodium 127 today with episode of dizziness. Will need to withdraw Lexapro and watch sodium. Working with outpatient team on housing. [place] AXIS I: Schizoaffective disorder, bipolar type Alcohol use disorder Marijuana use disorder AXIS II: Deferred AXIS III: None reported. AXIS IV: Moderate AXIS V: GAF 40 Medications Quetiapine 600mg po HS Ziprasidone 80 mg twice daily Benztropine 0.5mg po bid Depakote ER 1500mg po nightly, blood level 84 on 03/14/2017 Trazodone 150mg po nightly Lorazepam 1-2 mg every 4 hours when necessary Thiamine 100 mg daily Multivitamin 1 daily Treatments 1. The patient is admitted to the inpatient unit and will be provided a safe and secure environment. 2. The patient is denying suicidal ideation and is not in need of a one-to-one at this time. 3. The patient is encouraged to participate with group and milieu activities. 4. The patient will be seen by the treatment team on a daily basis to assess symptoms, side effects and response to treatment. 5. We will check weight weekly and increase food intake if needed though has been stable of late. 6. Continue ziprasidone 80 mg twice daily. 7. Continue quetiapine 600mg at bedtime 8. Continue current Depakote. (serum level therapeutic at 89 as of 04/15/17) 9. Discontinue escitalopram 10. Will recheck labs on 05/10/17 11. Patient is currently on 90 day more restrictive order and will need to be switched to LR and discussion with outside provider regarding housing. Asael Adkins MD May 08, 2017 22:12 Asael Adkins MD May 08, 2017 22:12
--- NOTE | 2017-05-09 05:13 | NUR ---
Nursing, NOC Participated in evening group, "I feel better; I tried calling my brother ingris. I hope he calls me back." Increased confidence, positive interactions w/ staff and select peers, initiating conversations. OOB once during night, ambulated hallway few times then returned to bed and slept the rest of the NOC. Q15 min safety/room checks. CTM for changes.
[2017-05-09 09:12] VITALS: BP 106/71; PULSE 71; RESP 18
[2017-05-09] MEDS: Omega-3 Fatty Acids 1,000 mg Capsule PO SCH ×2 (09:51→21:00)
--- NOTE | 2017-05-09 15:00 | NUR ---
Nursing Days Pt reported feeling slightly dizzy when first waking up but denied feeling dizzy during the rest of the day. Dietary called, they do not carry Gatorade but state they could bring up clear Ensure on his trays. He felt he slept well enough last night. He is participatory and social on the unit. He took part in the therapy dog group, ate all meals, took medications as prescribed. Social and pleasant with both peers and staff. CNCP and support as needed.
--- NOTE | 2017-05-09 16:23 | NUR ---
[facility] Day Shift Pt affect and behavior mostly unchanged from previous shifts. Pt maintained behavioral control throughout the shift. Pt affect continues to look brighter than noted on previous shifts. Pt spends most of the shift resting quietly in his room or sitting quietly in the dining room. Pt is appropriate with staff and peers when active on the unit. Pt appears to express fewer paranoid delusions this shift. Pt participated actively in unit activities throughout the shift. Pt has attended all meals at this time and has eaten approx 100% of all meals.
--- NOTE | 2017-05-09 17:49 | NUR ---
manager image/Counselor: S: "The visions I was having are like daydreams now." O: Patient only slept 6.5 hours last night per staff. Patient denies S/I and H/I. He denies auditory and visual hallucinations. Depression is 0/10 and anxiety is 0/10. A: Patient is cooperative, euthymic, anxious, fair insight, fair judgment. P: Follow care plan, coordinate with out-patient providers.
[2017-05-09] MEDS: Divalproex (QD) 500 mg ER24 Tablet PO SCH (21:00)
[2017-05-09] MEDS: TRAZODONE PO SCH ×2 (21:01)
--- NOTE | 2017-05-09 22:25 | PCM.PNPSY ---
Subjective Date of Service May 09, 2017 Subjective The patient reports that he is doing well. He was able to shave and trim his hair last night and feels better, "cleanliness is next to hoahaoism." The patient had no further episodes of weakness. The patient reports that his brother will be coming to visit him and that a phone call with his sister-in- law went well. No medication side effects reports. Sleep: "Getting better." Appetite: "Very good." Suicidal and homicidal ideation: denies Auditory hallucinations: denies Visual hallucinations: faces in trees, but ignoring. Other Psychotic Symptoms: negative symptoms much improved Anxiety: 0/10 Depression: 0/10 Current Medications Current Medications Escitalopram Oxalate 10 mg DAILY PO Last administered on 05/08/17t 10:16; Admin Dose 10 MG; Start 05/08/17 at 08:30; Stop 05/08/17 at 16:22; Status DC Mental Status Exam Appearance: Neat/well groomed Attitude: Pleasant, Cooperative Behavior: Other (Improved eye contact) Affect: Well Modulated/Appropriate Mood: Euthymic, Anxious Thought Process/Associations: Logical/Sequential, Goal Directed Speech Production: Normal Speech Rate: Normal Speech Articulation: Normal Thought Content: Appropriate, Guilt Danger to Self/Suicidal Ideati: None Danger to Others: None Hallucinations: Auditory (Denies), Visual (Endorses) Consciousness: Alert Orientation: Person, Place, Date, Situation Memory: Grossly Intact Estimate Intellectual Function: Average Basis for IQ estimate: Awareness current events, Word use/vocabulary, Educational history Attention/Concentration & Cogn: Grossly Intact Insight: Good Judgement: Good Result Diagram: 05/08/17 0940 05/08/17 0940 Mental Health Plan The patient is a 51 year old male with a history of schizoaffective disorder who reduced medication adherence and eventually stopped all medications, decompensated, attempted suicide and was detained by the [facility]. The patient's outpatient provider indicates that he responded well to his outpatient medications and was stable for quite some time. They report that they will have intensive outpatient treatment to help him with medication adherence. The patient had been placed on a combination of Abilify and Geodon with Abilify titrated to 30 mg. Geodon was gradually tapered as the patient appeared to be improving with decreased hallucinations and paranoia. However, once Geodon taper had been completed patient slowly developed worsening depression and increased paranoia. The patient had been placed on Lexapro to address depression. Although the patient endorses anxiety and an depression, objectively he does not appear terribly anxious. The patient has reported the return of seeing people in the trees but continues to deny auditory hallucinations. He still endorses significant guilt and negative symptoms. The patient was noting no side effects from escitalopram, aripiprazole, quetiapine, or ziprasidone. Review of records indicates that the patient has typically been on 2 agents and did well on ziprasidone and quetiapine in the past. The patient was tapered off aripiprazole and on to quetiapine with good results. He is interacting with others and reports a diminution of symptoms and is feeling ready to begin discharge planning. Patient with sodium of 126 likely secondary to SSRI. Lexapro held and restarted at lower dose. Sodium 127 today with episode of dizziness. Will need to withdraw Lexapro and watch sodium. Working with outpatient team on housing. [place] AXIS I: Schizoaffective disorder, bipolar type Alcohol use disorder Marijuana use disorder AXIS II: Deferred AXIS III: None reported. AXIS IV: Moderate AXIS V: GAF 40 Medications Quetiapine 600mg po HS Ziprasidone 80 mg twice daily Benztropine 0.5mg po bid Depakote ER 1500mg po nightly, blood level 84 on 03/14/2017 Trazodone 150mg po nightly Lorazepam 1-2 mg every 4 hours when necessary Thiamine 100 mg daily Multivitamin 1 daily Treatments 1. The patient is admitted to the inpatient unit and will be provided a safe and secure environment. 2. The patient is denying suicidal ideation and is not in need of a one-to-one at this time. 3. The patient is encouraged to participate with group and milieu activities. 4. The patient will be seen by the treatment team on a daily basis to assess symptoms, side effects and response to treatment. 5. We will check weight weekly and increase food intake if needed though has been stable of late. 6. Continue ziprasidone 80 mg twice daily. 7. Continue quetiapine 600mg at bedtime 8. Continue current Depakote. (serum level therapeutic at 89 as of 04/15/17) 9. Will recheck labs on 05/10/17 10. Patient is currently on 90 day more restrictive order and will need to be switched to LR and discussion with outside provider regarding housing. Waiblinger,Asael E MD May 09, 2017 22:25
--- NOTE | 2017-05-10 06:00 | NUR ---
nursing, nights, 11-7 s- no i'm ok. just having some jacque. o- has appeared to sleep on and off thru out the shift. 4.5 hours total. assessed q 15 minutes. a- interupted sleep, no apparent distress. p- monitor behavior/emotional state, quality, times and amount of sleep, use and effect of medication. eva
[2017-05-10 08:07] VITALS: BP 103/72; PULSE 59; RESP 17
[2017-05-10] MEDS: Omega-3 Fatty Acids 1,000 mg Capsule PO SCH ×2 (08:17→21:24)
[2017-05-10 09:44] LABS: BASOPHILS % (AUTO) 0.1 % (0-3); EOSINOPHILS % (AUTO) 1.3 % (0-5); MONOCYTES % (AUTO) 7.9 % (4-12); Mean Corpuscular Hemoglobin 31.1 pg (27.0-35.0); NEUTROPHILS % (AUTO) 71.4 % (40-74); Platelet Count 221 bil/L (150-400)
--- NOTE | 2017-05-10 14:40 | NUR ---
Nursing Days Pt reported that at one point during the night when he awoke he did not feel dizzy but more disoriented and that his right arm had also felt numb. He stated he no longer felt those symptoms when getting up for the day. His most recent lab draw shows a sodium level of 131. He was pleasant, social and responsive to both peers and staff. He talked of his first year of college and how he felt when he went home for Thanksgiving the year his parents got . He also participated in unit activities and group. He headed a bible study and had several of his peers meet up with him in the piano room. Pt presents as more engaged, brighter presentation and future focused. He ate at all meals and taking medications as prescribed. CNCP.
--- NOTE | 2017-05-10 18:35 | NUR ---
Observations [id number] Pt's mood continues to improve, focusing on future and discharge plan. He is engaged with unit activities and spent time socializing with peers and staff. Pt mentioned that he continues to feel better and that he is optimistic about the future to this staff writer. Pt attended all meals, eating 100%. Pt good with ADL's. Observed every 15 minutes of shift as directed.
--- NOTE | 2017-05-10 19:01 | NUR ---
wind power project manager/Counselor: S: "My brother can tell when I'm sick." O: Patient only slept 4.5 hours last night per staff. Patient denies S/I and H/I. He denies auditory and visual hallucinations. Depression is 0/10 and anxiety is 2/10. Patient stated that he is doing "good" today. A: Patient is cooperative, euthymic, anxious, fair insight, fair judgment. P: Follow care plan, coordinate with out-patient providers.
[2017-05-10] MEDS: TRAZODONE PO SCH ×2 (21:20)
[2017-05-10] MEDS: Divalproex (QD) 500 mg ER24 Tablet PO SCH (21:22)
--- NOTE | 2017-05-10 22:24 | PCM.PNPSY ---
Subjective Date of Service May 10, 2017 Subjective The patient reports that he is a little discomforted by all of the noise on the unit and states its, "impossible to hear your own thoughts." He stated that he enjoyed going outside and interacting with some of his peers. He expressed concern that he might disappoint his brother when he next visits. Patient is unsure where he wants to live on discharge but wang snot want ot be a burden to his family. No medication side effects reports. Sleep: "Very good." Appetite: "Very good." Suicidal and homicidal ideation: denies Auditory hallucinations: denies Visual hallucinations: faces in trees, but ignoring. Other Psychotic Symptoms: negative symptoms much improved Anxiety: 0/10 Depression: "up and down" Mental Status Exam Appearance: Neat/well groomed Attitude: Pleasant, Cooperative Behavior: Other (Fair eye contact) Affect: Well Modulated/Appropriate Mood: Euthymic, Anxious Thought Process/Associations: Logical/Sequential, Goal Directed Speech Production: Normal Speech Rate: Normal Speech Articulation: Normal Thought Content: Appropriate, Guilt Danger to Self/Suicidal Ideati: None Danger to Others: None Hallucinations: Auditory (Denies), Visual (Endorses) Consciousness: Alert Orientation: Person, Place, Date, Situation Memory: Grossly Intact Estimate Intellectual Function: Average Basis for IQ estimate: Awareness current events, Word use/vocabulary, Educational history Attention/Concentration & Cogn: Grossly Intact Insight: Good Judgement: Good Result Diagram: 05/10/1730 05/10/17929 Mental Health Plan The patient is a 51 year old male with a history of schizoaffective disorder who reduced medication adherence and eventually stopped all medications, decompensated, attempted suicide and was detained by the [facility]. The patient's outpatient provider indicates that he responded well to his outpatient medications and was stable for quite some time. They report that they will have intensive outpatient treatment to help him with medication adherence. The patient had been placed on a combination of Abilify and Geodon with Abilify titrated to 30 mg. Geodon was gradually tapered as the patient appeared to be improving with decreased hallucinations and paranoia. However, once Geodon taper had been completed patient slowly developed worsening depression and increased paranoia. The patient had been placed on Lexapro to address depression. Although the patient endorses anxiety and depression, objectively did not appear terribly anxious. The patient had reported the return of seeing people in the trees but continues to deny auditory hallucinations. He endorsed significant guilt and negative symptoms. The patient was noting no side effects from escitalopram, aripiprazole, quetiapine, or ziprasidone. Review of records indicated that the patient has typically been on 2 agents and did well on ziprasidone and quetiapine in the past. The patient was tapered off aripiprazole and on to quetiapine with good results. He is interacting with others and reports a diminution of symptoms and is feeling ready to begin discharge planning. Patient with sodium of 126 likely secondary to SSRI. Lexapro held and restarted at lower dose. Sodium 127 today with episode of dizziness. Escitalopram was withdrawn and so far, patient's mood has continued to be positive. Sodium level has increased to 131. Working with outpatient team on housing. [place] AXIS I: Schizoaffective disorder, bipolar type Alcohol use disorder Marijuana use disorder AXIS II: Deferred AXIS III: None reported. AXIS IV: Moderate AXIS V: GAF 40 Medications Quetiapine 600mg po HS Ziprasidone 80 mg twice daily Benztropine 0.5mg po bid Depakote ER 1500mg po nightly, blood level 84 on 03/14/2017 Trazodone 150mg po nightly Lorazepam 1-2 mg every 4 hours when necessary Thiamine 100 mg daily Multivitamin 1 daily Treatments 1. The patient is admitted to the inpatient unit and will be provided a safe and secure environment. 2. The patient is denying suicidal ideation and is not in need of a one-to-one at this time. 3. The patient is encouraged to participate with group and milieu activities. 4. The patient will be seen by the treatment team on a daily basis to assess symptoms, side effects and response to treatment. 5. We will check weight weekly and increase food intake if needed though has been stable of late. 6. Continue ziprasidone 80 mg twice daily. 7. Continue quetiapine 600mg at bedtime 8. Continue current Depakote. (serum level therapeutic at 89 as of 04/15/17) 9. Sodium 131 will recheck in 2 days. 10. Patient is currently on 90 day more restrictive order and will need to be switched to LR and discussion with outside provider regarding housing. Asael Adkins MD May 10, 2017 22:24
--- NOTE | 2017-05-10 22:47 | NUR ---
Nurses Note Evening "It's going to be different out there." Patient admitted to nervousness about his discharge. He admitted to being afraid of his brother Abrahan who tells him he thinks too much. Patient continues to be bright,helpful and kind to other patients. He remains medication compliant without adverse reactions.Will continue to provide positive reinforcement for medication compliance,gains made,continued group participation. Maintain q 15min. checks for safety and support. Addendum: 05/10/17 at 2303 by BERNICE ROBERTSON RN Amended: Links added.
--- NOTE | 2017-05-11 05:19 | NUR ---
nursing, nights, 11-7 s- i'm ok. no i don't need anything. o- has appeared to sleep after 2144. up at 0200 and after 444. currently socializing with peers. assessed q 15 minutes. a- interupted sleep, no apparent distress. p- monitor behavior/emotional state, quality, times and amount of sleep, use and effect of medication. eva
[2017-05-11] MEDS: Omega-3 Fatty Acids 1,000 mg Capsule PO SCH ×2 (09:21→20:39)
[2017-05-11 11:31] VITALS: BP 119/79; PULSE 72; RESP 16
--- NOTE | 2017-05-11 13:54 | NUR ---
NURS NOTE DAY Pt has been pleasant and appropriate all shift. Interacts appropriately with peers and staff. Affect, bright. Thought process, linear and logical. Plan is for pt to discharge within the next few days. Pt continues to take medications as prescribed.
[2017-05-11] MEDS: TRAZODONE PO SCH ×2 (20:39)
[2017-05-11] MEDS: Divalproex (QD) 500 mg ER24 Tablet PO SCH (20:39)
--- NOTE | 2017-05-11 21:17 | NUR ---
Observations 0900 - 0 Pt continues to present same as previous shifts. Pt was bright, friendly and content. Pt was social with staff and peers. Pt was pleasant, polite and cooperative when approached. Pt maintained behavior throughout the shift. Pt speech and eye contact was ok. Pt ate snack. Pt attended meals in D.[employer]. and ate 100% of his meals. Pt ate snack. Pt attended community meeting, groups or unit activities. Pt set a daily goal. Pt went out on patio with staff and peers to get some fresh air. Pt was observed every 15 minutes through the shift as ordered.
--- NOTE | 2017-05-11 23:36 | PCM.PNPSY ---
Subjective Date of Service May 11, 2017 Subjective The patient was participating in group when approached and taken for interview. Patient smiling and laughing a bit as he felt "rescued" from loquacious peer. He reports his mood is 10/10 good. He states that his nurse case manager, Rissa, came to visit. He reports feeling well an being thankful for his time in the hospital. He reports uncertainty as to where he would like to live on discharge. No medication side effects reports. Sleep: "Very good." Appetite: "okay." Suicidal and homicidal ideation: denies Auditory hallucinations: denies Visual hallucinations: faces in trees, but ignoring. Other Psychotic Symptoms: negative symptoms much improved Anxiety: 0/10 Depression: 0/10 Mental Status Exam Appearance: Neat/well groomed Attitude: Pleasant, Cooperative Behavior: Other (Fair eye contact) Affect: Well Modulated/Appropriate Mood: Euthymic, Anxious Thought Process/Associations: Logical/Sequential, Goal Directed Speech Production: Normal Speech Rate: Normal Speech Articulation: Normal Thought Content: Appropriate, Guilt Danger to Self/Suicidal Ideati: None Danger to Others: None Hallucinations: Auditory (Denies), Visual (Endorses) Consciousness: Alert Orientation: Person, Place, Date, Situation Memory: Grossly Intact Estimate Intellectual Function: Average Basis for IQ estimate: Awareness current events, Word use/vocabulary, Educational history Attention/Concentration & Cogn: Grossly Intact Insight: Good Judgement: Good Result Diagram: 05/10/17 0930 05/10/17 0930 Mental Health Plan The patient is a 51 year old male with a history of schizoaffective disorder who reduced medication adherence and eventually stopped all medications, decompensated, attempted suicide and was detained by the [facility]. The patient's outpatient provider indicates that he responded well to his outpatient medications and was stable for quite some time. They report that they will have intensive outpatient treatment to help him with medication adherence. The patient had been placed on a combination of Abilify and Geodon with Abilify titrated to 30 mg. Geodon was gradually tapered as the patient appeared to be improving with decreased hallucinations and paranoia. However, once Geodon taper had been completed patient slowly developed worsening depression and increased paranoia. The patient had been placed on Lexapro to address depression. Although the patient endorses anxiety and depression, objectively did not appear terribly anxious. The patient had reported the return of seeing people in the trees but continues to deny auditory hallucinations. He endorsed significant guilt and negative symptoms. The patient was noting no side effects from escitalopram, aripiprazole, quetiapine, or ziprasidone. Review of records indicated that the patient has typically been on 2 agents and did well on ziprasidone and quetiapine in the past. The patient was tapered off aripiprazole and on to quetiapine with good results. He is interacting with others and reports a diminution of symptoms and is feeling ready to begin discharge planning. Patient with sodium of 126 likely secondary to SSRI, Lexapro held and restarted at lower dose, sodium 127 with episode of dizziness, escitalopram was withdrawn and so far, patient's mood has continued to be positive. Sodium level has increased to 131. Working with outpatient team on housing. [place] AXIS I: Schizoaffective disorder, bipolar type Alcohol use disorder Marijuana use disorder AXIS II: Deferred AXIS III: None reported. AXIS IV: Moderate AXIS V: GAF 40 Medications Quetiapine 600mg po HS Ziprasidone 80 mg twice daily Benztropine 0.5mg po bid Depakote ER 1500mg po nightly, blood level 84 on 03/14/2017 Trazodone 150mg po nightly Lorazepam 1-2 mg every 4 hours when necessary Thiamine 100 mg daily Multivitamin 1 daily Treatments 1. The patient is admitted to the inpatient unit and will be provided a safe and secure environment. 2. The patient is denying suicidal ideation and is not in need of a one-to-one at this time. 3. The patient is encouraged to participate with group and milieu activities. 4. The patient will be seen by the treatment team on a daily basis to assess symptoms, side effects and response to treatment. 5. We will check weight weekly and increase food intake if needed though has been stable of late. 6. Continue ziprasidone 80 mg twice daily. 7. Continue quetiapine 600mg at bedtime 8. Continue current Depakote. (serum level therapeutic at 89 as of 04/15/17) 9. Sodium 131 will recheck in 2 days. 10. Patient is currently on 90 day more restrictive order and will need to be switched to LR and discussion with outside provider regarding housing. Asael Adkins MD May 11, 2017 23:36
--- NOTE | 2017-05-11 23:40 | NUR ---
Observations 1900 to 0700 Pt attended and participated in wrap up group Pt ate a snack. Pt is pleasant, cooperative and social with peers. Pt spent free time watching a movie with peers. Pt maintained behavioral control and showed no signs of abnormal behavior. Pt appeared asleep from 2200- 2300. Pt is currently resting quietly in bed. Pt respirations were observed when asleep. Staff completed 15 min close observations as ordered.
--- NOTE | 2017-05-12 05:57 | NUR ---
[id number] Nursing Note Sleep=3 hrs fragmented sleep 1600 S:I like to get up early sometimes, It can be peaceful. O: Patient interacting appropriately with peers, smiling at times. No evidence of delusions at this time. Sleep interrupted A: Patient brighter, affect remains fairly flat, much more willing to talk now. P: Monitor for safety and response to treatment. Follow plan of care.
[2017-05-12] MEDS: Omega-3 Fatty Acids 1,000 mg Capsule PO SCH ×2 (08:24→20:44)
--- NOTE | 2017-05-12 11:33 | NUR ---
[id number]. nurs. S: "The Dr said I would be leaving on Sunday maybe I don't know if that's a good idea nothings open, I know my sister is going to help which is good because she is in the medical field, I don't know where I be living, if my sister is ready." " I know I have to stay positive, every day is a new day, I need distraction I need my job I need to be around people." O: Pt reports that he feels ready to discharge and try living outside hosp. environ. Pt wanting help from family and prepared to follow their recommendations. A:Pt states that he still having some confusion about the time and clocks, and this is why he got up several times in night. Pt expressing some apprehension re. having all discharge plans in place when discharges, otherwise affect neutral to brighter, mood calm, no concerns. CM working on discharge planning with outpt providers and pt's family. P:TABITHA
--- NOTE | 2017-05-12 13:05 | PCM.PNPSY ---
Subjective Date of Service May 12, 2017 Subjective I spent 30 minutes both reviewing treatment plan with our clinical team, interviewing the patient and providing supportive/educational psychotherapy. I spent more than 50% of the time counseling the patient. His affect was again bright, cheery and he was easily engaged. Angel reported having improved mood and better energy. Staff reports that he has been less isolative and is participating well in one-to-one unit and group activities. He slept 3 hours and denies manic or psychotic symptoms review. He denies medication side effects Mental Status Exam Appearance: Neat/well groomed Attitude: Pleasant, Cooperative Behavior: Other (Fair eye contact) Affect: Well Modulated/Appropriate Mood: Euthymic, Anxious Thought Process/Associations: Logical/Sequential, Goal Directed Speech Production: Normal Speech Rate: Normal Speech Articulation: Normal Thought Content: Appropriate, Guilt Danger to Self/Suicidal Ideati: None Danger to Others: None Hallucinations: Auditory (Denies), Visual (Endorses) Consciousness: Alert Orientation: Person, Place, Date, Situation Memory: Grossly Intact Estimate Intellectual Function: Average Basis for IQ estimate: Awareness current events, Word use/vocabulary, Educational history Attention/Concentration & Cogn: Grossly Intact Insight: Good Judgement: Good Result Diagram: 05/10/1792905/10/17929 Mental Health Plan Angel is a 51 year old male with a history of schizoaffective disorder who reduced medication adherence and eventually stopped all medications, decompensated, attempted suicide and was detained by the [facility]. The patient's outpatient provider indicates that he responded well to his outpatient medications and was stable for quite some time. They report that they will have intensive outpatient treatment to help him with medication adherence. Here on the unit He is no longer struggling with negative symptoms of schizophrenia and his sense of self worth and self-esteem has slowly improved. During my interview today his thought process was again significant for both goal directed thought and he self reported feeling that he is in a good mood. Angel has maintained a markedly improved mood and an organized thought process. I anticipate he will be ready for discharge early next week. Our case management team is working to contact his sister for different distal options. [place] AXIS I: Schizoaffective disorder, bipolar type Alcohol use disorder Marijuana use disorder AXIS II: Deferred AXIS III: None reported. AXIS IV: Moderate AXIS V: GAF 45 Medications Quetiapine 600mg po HS Ziprasidone 80 mg twice daily Benztropine 0.5mg po bid Depakote ER 1500mg po nightly, blood level 84 on 03/14/2017 Trazodone 150mg po nightly Lorazepam 1-2 mg every 4 hours when necessary Thiamine 100 mg daily Multivitamin 1 daily Treatments 1. The patient is admitted to the inpatient unit and will be provided a safe and secure environment. 2. The patient is denying suicidal ideation and is not in need of a one-to-one at this time. 3. The patient is encouraged to participate with group and milieu activities. 4. The patient will be seen by the treatment team on a daily basis to assess symptoms, side effects and response to treatment. 5. We will check weight weekly and increase food intake if needed though has been stable of late. 6. Continue ziprasidone 80 mg twice daily. 7. Continue quetiapine 600mg at bedtime 8. Continue current Depakote. (serum level therapeutic at 89 as of 04/15/17) 9. Sodium 131 will recheck in 2 days. 10. Patient is currently on 90 day more restrictive order and will need to be switched to LR and discussion with outside provider regarding housing. Harjit Andersen MD May 12, 2017 13:05
[2017-05-12 15:15] VITALS: BP 137/87; PULSE 67; RESP 16
--- NOTE | 2017-05-12 18:00 | NUR ---
Observations 0700 - 1900 Pt continues to present same as previous shifts. Pt was bright, friendly and content. Pt was social with staff and peers. Pt was pleasant, polite and cooperative when approached. Pt maintained behavior throughout the shift. Pt speech and eye contact was ok. Pt ate snack. Pt attended meals in D.R. and ate 100% of his meals. Pt went out on patio with staff and peers to get some fresh air. Pt was observed every 15 minutes through the shift as ordered.
[2017-05-12] MEDS: TRAZODONE PO SCH ×2 (20:42)
[2017-05-12] MEDS: Divalproex (QD) 500 mg ER24 Tablet PO SCH (20:42)
[2017-05-13 01:40] VITALS: BP 119/83; PULSE 81
[2017-05-13] MEDS ORDERED: LORazepam 1 mg Tablet PO PRN (01:55)
--- NOTE | 2017-05-13 01:56 | NUR ---
Fall to knees Pt was seen ambulating in the the hallway towards the nurse's station. The Pt then turned around and with an unsteady gait attempted to go into the first room on the left;however, he did not enter the room, turned around in a [place], and landed on his knees with hands on the floor. Pt did not hit his head. Pt was assisted to feet with 2PA and directed to day room for assessment. BG level 105. BP 119/83, hr 81, O2 98% RA, T 36.3. Pt is noted to have jerking movements of arms when hands are placed on the table;however, when pt has his hands in his lap the jerking stops. 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 MD to assess in the AM. Care continues.
--- NOTE | 2017-05-13 06:28 | NUR ---
[id number] Nursing Note Sleep=4.25 hrs fragmented sleep 1600 S:"How are you today"? O: Patient smiling, laughing, brighter, interacting with peers and staff. A: Brighter affect, upbeat, relaxed, friendly. P: Monitor for safety and response to treatment. Follow plan of care. Addendum: 05/13/17 at 0628 by LAKISHA CHAVIRA RN Addendum Patient Fall. Patient witnessed walking toward nursing station from room. Patient attempted to go into another patient room, then turned to go back up the hallway to his room. Patient spun completely around and fell to his hands and knees. Patient assisted to his feet by staff. 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 I went to get water for them so they didnt need to stop working. I dont know what happened. Patient reports he must have been dreaming. Patient having odd jerking movements of his arms when he put his hands on the table. Jerking would stop when he put his hands in his lap. Also noted that when patient leaned forward to rest his elbows on his thighs, that his head would jerk forward and backward. When patient sat up straight, the jerking would stop. Blood sugar 105. Vital signs normal. Patient denies and pain or injury form falling and does not remember falling. Dr tang.
[2017-05-13] MEDS: Omega-3 Fatty Acids 1,000 mg Capsule PO SCH ×2 (12:31→20:26)
--- NOTE | 2017-05-13 14:08 | PCM.PNPSY ---
Subjective Date of Service May 13, 2017 Subjective I spent 30 minutes both reviewing treatment plan with our clinical team, interviewing the patient and providing supportive/educational psychotherapy. I spent more than 50% of the time counseling the patient. His affect was again bright, cheery and he was easily engaged. I received a call last night that Angel was having some odd twitching movements in his hands and a period of dizziness last night. I held his a.m. meds until I could see him. He showed no signs of tremulousness or dizziness , and he had no complaints this morning. I will restart his medications and observe closely. I was concerned that he may be developing serotonin syndrome due to the many serotonin blocking medications he is on. He does not show these symptoms today. Angel reported having improved mood and better energy. Staff reports that he has been less isolative and is participating well in one-to-one unit and group activities. He slept 4 hours and denies manic or psychotic symptoms review. He denies medication side effects Current Medications Current Medications Lorazepam 1 mg Q4H PRN PO Last administered on 05/13/17t 02:00; Admin Dose 1 MG ; Start 05/13/17 at 01:55 Mental Status Exam Appearance: Neat/well groomed Attitude: Pleasant, Cooperative Behavior: Other (Fair eye contact) Affect: Well Modulated/Appropriate Mood: Euthymic, Anxious Thought Process/Associations: Logical/Sequential, Goal Directed Speech Production: Normal Speech Rate: Normal Speech Articulation: Normal Thought Content: Appropriate, Guilt Danger to Self/Suicidal Ideati: None Danger to Others: None Hallucinations: Auditory (Denies), Visual (Endorses) Consciousness: Alert Orientation: Person, Place, Date, Situation Memory: Grossly Intact Estimate Intellectual Function: Average Basis for IQ estimate: Awareness current events, Word use/vocabulary, Educational history Attention/Concentration & Cogn: Grossly Intact Insight: Good Judgement: Good Result Diagram: 05/10/17 0930 05/12/17 1630 Mental Health Plan Angel is a 51 year old male with a history of schizoaffective disorder who reduced medication adherence and eventually stopped all medications, decompensated, attempted suicide and was detained by the [facility]. The patient's outpatient provider indicates that he responded well to his outpatient medications and was stable for quite some time. They report that they will have intensive outpatient treatment to help him with medication adherence. Here on the unit He is no longer struggling with negative symptoms of schizophrenia and his sense of self worth and self-esteem has slowly improved. During my interview today his thought process was again significant for both goal directed thought and he self reported feeling that he is in a good mood. Angel has maintained a markedly improved mood and an organized thought process. I anticipate he will be ready for discharge early next week. Our case management team is working to contact his sister for different distal options. [place] AXIS I: Schizoaffective disorder, bipolar type Alcohol use disorder Marijuana use disorder AXIS II: Deferred AXIS III: None reported. AXIS IV: Moderate AXIS V: GAF 45 Medications Quetiapine 600mg po HS Ziprasidone 80 mg twice daily Benztropine 0.5mg po bid Depakote ER 1500mg po nightly, blood level 84 on 03/14/2017 Trazodone 150mg po nightly Lorazepam 1-2 mg every 4 hours when necessary Thiamine 100 mg daily Multivitamin 1 daily Treatments 1. The patient is admitted to the inpatient unit and will be provided a safe and secure environment. 2. The patient is denying suicidal ideation and is not in need of a one-to-one at this time. 3. The patient is encouraged to participate with group and milieu activities. 4. The patient will be seen by the treatment team on a daily basis to assess symptoms, side effects and response to treatment. 5. We will check weight weekly and increase food intake if needed though has been stable of late. 6. Continue ziprasidone 80 mg twice daily. 7. Continue quetiapine 600mg at bedtime 8. Continue current Depakote. (serum level therapeutic at 89 as of 04/15/17) 9. Sodium 131 will recheck 10. Patient is currently on 90 day more restrictive order and will need to be switched to LR and discussion with outside provider regarding housing. Harjit Andersen MD May 13, 2017 14:08
--- NOTE | 2017-05-13 18:35 | NUR ---
[facility] Day Shift Pt affect and behavior unchanged from previous shifts. Pt maintained behavioral control throughout the shift. Pt affect appears flat. Pt spends most of the shift resting quietly in his room or sitting quietly in the dining room. Pt is appropriate with staff and peers when active on the unit. Pt attended some afternoon activities and participated lightly. Pt has attended all meals at this time and has eaten approx 100% of all meals.
--- NOTE | 2017-05-13 19:33 | NUR ---
[id number]. nurs. S: "I get up to see what the time is, if it's too late then I have to go back to bed if it's early then I can stay up" O: Pt still perseverating on his confusion with time and clocks and frequent trips to check time and seems relieved to not have to spend time in bed when has confusing dreams related to prev. work. Pt stating he is focusing on staying positive and reading the bible a lot., and likes the idea of bible grps with peers. Pt with even mood ,more relaxed not talking of his guilt and bad past events. Pt visited with his brother ingris who reported that pt appeared a lot better and he felt ready to take pt home and was going to tell his sister about this positive visit. p:TABITHA
[2017-05-13] MEDS: TRAZODONE PO SCH ×2 (20:26)
[2017-05-13] MEDS: Divalproex (QD) 500 mg ER24 Tablet PO SCH (20:27)
--- NOTE | 2017-05-14 05:59 | NUR ---
security shift manager [id number] Pt participated in wrap up group with peers and had no behavioral issues noted. Pt took all HS meds and denied anxiety at this time. Pt has AM labs-Sodium. Pt continues throughout the night with broken sleep, but denies anxiety. "I think Im alright" Pt stated while getting something to drink in the day room. Pt slept 5.75 hrs. Continue to monitor for mood changes, emotional wellbeing, and q15min checks for safety. Care continues.
[2017-05-14] MEDS: Omega-3 Fatty Acids 1,000 mg Capsule PO SCH ×2 (08:32→21:15)
--- NOTE | 2017-05-14 13:57 | PROG NOTE ---
[address] [address] PROGRESS NOTE PATIENT: STEPAN RUTLEDGE : 1965 MR#: [id number] ADMIT: 02/26/2017 JOB ID: [id number] DATE: CHIEF COMPLAINT: "I have been here long time. I think I am ready to go." This is per patient report. HISTORY OF PRESENT ILLNESS: As stated above, the patient did meet with myself and discussed his understanding of the plan and intent to a discharge. Recommendations at this time will be transition from an MR 90 to LR 90, and appointments have already been scheduled with [facility]. OBJECTIVE: MENTAL STATUS EXAM: The patient was bright, cooperative, interactive. He denied any evidence of acute distress. His speech was of normal tone, frequency, and volume. His mood is neutral. His affect is congruent. His thought process showed no evidence of racing thoughts, flight of ideas, loose or disconnected thinking. Thought content: He denied any evidence of current suicidal, homicidal ideation. No evidence of active hallucinations, delusions. He was alert, oriented to time and place. Attention and concentration intact. Memory intact in the short term, retrieval specialist, recent. Insight and judgment are fair. PHYSICAL EXAM: All vital signs are current. Temperature is 36.3, pulse 81, respirations 119/83. MEDICATION REVIEW: Includes: 1. Ativan 1 mg q.4 h. p.r.n. 2. Seroquel 600 mg q.h.s. 3. Cogentin 0.5 mg b.i.d. 4. Geodon 80 mg b.i.d. 5. Vitamin D 100 mg daily. 6. Depakote 1500 mg q.h.s. ASSESSMENT: [place] I. Schizoaffective disorder, bipolar type. [place] II. Deferred. [place] III. None. [place] IV. Stressors are noted for chronic mental health. [place] V. Global Assessment of Functioning current 40. PLANS: 1. Recommendations to discharge tomorrow under an LR 90. 2. Continuation of all medications noted.
--- NOTE | 2017-05-14 15:05 | NUR ---
Nursing 7a-3p Pt presents as bright, pleasant and cooperative. Even mood, no anxiety. No episodes of weakness or dizzy spells. Took medications as scheduled.
--- NOTE | 2017-05-14 18:27 | NUR ---
Observations [id number] Pt friendly with peers and staff, concerned about discharge status. He continues to be active on the unit, spending time on patio and with peers. Pt is unsure what his discharge plan is, and hoping his brother can help. Pt attended all meals, eating 100%. Good with ADL's, continues to be more communicative. Pt was observed every 15 minutes of shift as directed.
[2017-05-14] MEDS: Divalproex (QD) 500 mg ER24 Tablet PO SCH (21:15)
[2017-05-14] MEDS: TRAZODONE PO SCH ×2 (21:15)
--- NOTE | 2017-05-14 22:35 | NUR ---
NURSING NOTE [id number] Pt. has been bright, pleasant, cooperative this shift. Joked appropriately off and on w/this quality analyst/technical writer. Smiles occasionally in conversation. Denies SI/HI/AH/VH/depression. He has been med compliant. Social w/select peers.
--- NOTE | 2017-05-15 06:12 | NUR ---
Nursing Note Transportation Assistant 11pm to 7am Pt asleep at start of shift and remained asleep until 314 when he got up and went to the day room where he fell asleep at the table. Pt was encouraged to back to go bed which he did however he remained restless the rest of the shift up and down frequently. Pt denied anxiety however he does have court tomorrow and a possible discharge. Monitored pt. with q 15 minute face checks for safety location and accountability Addendum: 05/15/17 at 0748 by JOE HALEY RN Sitting at table in dining room when female peer approached talking incessantly loudly and intrusively. Pt reported that he got angry at this peer as he felt his boundaries were being violated while trying to drink his coffee in peace. Instead of alerting staff or taking a time out pt threatened to throw hot coffee on this pt. When processing with pt he had little insight into the severity of such a statement. He was defensive stated It was the only way to get her to leave me alone and unable to agree that other options would be effective.
[2017-05-15] MEDS: Omega-3 Fatty Acids 1,000 mg Capsule PO SCH (08:39)
--- NOTE | 2017-05-15 10:44 | PCM.DIMED ---
Discharge Instructions Date of Service May 15, 2017 Dates of Hospitalization February 26, 2017 at 00:31 Discharge Diagnosis Discharge Diagnosis Schizoaffective DO NOS Diet Discharge Diet: No restrictions Activity Discharge Activity: No restrictions Cal Blanc DO May 15, 2017 10:44
[2017-05-15] MEDS ORDERED: Therapeutic Multivit/Minerals PO (10:49)
[2017-05-15] MEDS ORDERED: DIVA500T14 PO (10:49)
[2017-05-15] MEDS ORDERED: ZIPR80CA2 PO (10:49)
[2017-05-15] MEDS ORDERED: BENZ1TAB7 PO (10:49)
[2017-05-15] MEDS ORDERED: QUET300T44 PO (10:49)
[2017-05-15] MEDS ORDERED: TRAZ-118 PO (10:49)
[2017-05-15] MEDS ORDERED: Thiamine PO (10:49)
[2017-05-15] MEDS ORDERED: OMEG10005 PO (10:49)
[2017-05-15] MEDS ORDERED: ARIP5TAB5 PO (10:49)
--- NOTE | 2017-05-15 13:13 | NUR ---
Occup Ther Patient will discharge at 1:30 today to his Occup Ther from [facility] (Rissa Yun). She take him to bead picker his medications and drive him to his [facility] appointment at 3:00pm with Tricia Amezquita. has [facility] and [facility] for beds, there is no availability at this time. The patients brother, Abrahan Fitch has agreed to bead picker the patient from [facility] and get him a hotel room until permanent housing is found. The patient denies SI at this time. All outside appointments have been confirmed. Addendum: 05/15/17 at 1512 by LES MANRIQUE [facility] Intake was faxed to [facility] for potential bed availability.
--- NOTE | 2017-05-15 14:15 | NUR ---
Discharge Note Pt left unit @ 1350 with his medical case worker, Rissa. Reviewed discharge plan and medications with the patient and his medical case worker. He received a hard copy of his prescriptions with the plan for Angel's brother to fill medications at pharmacy of his choice. See case management's note about exact appointment dates and times. Pt left the unit in a positive mood and hopeful about the future. Pt's brother, Abrahan, to be involved in pt's after care. Denied SI and anxiety upon discharge.
--- NOTE | 2017-05-15 14:22 | DIS ---
[address] [address] DISCHARGE SUMMARY PATIENT: STEPAN RUTLEDGE : 1965 MR#: [id number] ADMIT: 02/26/2017 JOB ID: [id number] DIS: ADMITTING DIAGNOSES: AXIS I: 1. Schizoaffective disorder, bipolar type. 2. Alcohol use disorder. 3. Marijuana use disorder. AXIS II: Deferred. AXIS III: None. AXIS IV: Stressors were noted with disturbance of primary support system, medication noncompliance. AXIS V: Global Assessment of Functioning, current 25. DISCHARGE DIAGNOSES: AXIS I: 1. Schizoaffective disorder, bipolar type. 2. Alcohol use disorder. 3. Marijuana use disorder. AXIS II: Deferred. AXIS III: None. AXIS IV: Stressors were noted with disturbance of primary support system, medication noncompliance. AXIS V: Global Assessment of Functioning, current 40. REASON FOR ADMISSION: The patient is a 51-year-old male admitted with a long-term history of schizoaffective disorder. During the course of hospitalization, the patient's medication history was reviewed with continuation of medications including Abilify, Geodon, and additions of doses of Seroquel. Throughout hospital course, the patient remained quite psychotic, delusional and had various interventions with both therapeutic interventions of medication adjustments and support through staff intervention. Throughout hospital course, the patient eventually was placed on an LR90 and discharged with appropriate followup care through [facility]. In addition, the patient remained on doses of Depakote eventually titrated to 1500 mg q.h.s. During the course of hospitalization, the patient did have repeated blood draws including CBC with differential, most recent values on May 10 were within normal limits. He also had prolactin levels drawn at 6.8 on May 08. He did show presentations of hyponatremia with depressed levels consistent ranging from 127-131 with no evidence of other sequelae. His Depakote levels were fairly static with levels on March 03 at 76, March 14 at 84, and April 15 at 89. CONDITION AT TIME OF DISCHARGE: Patient was cooperative, polite. Denies SI/HI; denies hallucinations/ delusions. Alert and oriented x3. Insight and judgement fair. DISCHARGE MEDICATIONS: 1. Continuation of medications including doses of benztropine 1 mg tablet 0.5 mg b.i.d. #60 no refills; reason for usage, anticholinergic. 2. Continuation Depakote 1500 mg q.h.s. one month supply, no refills. Reason for usage, mood stabilizer. 3. Continuation of [place]-3 fatty acid 2000 mg b.i.d. one month supply, no refills. Reason for usage, supplement. 4. Continuation of Seroquel 600 mg q.h.s. one month supply, no refills. Reason for usage, antipsychotic. 5. Continuation of multivitamin one daily, one month supply, no refills. Reason for usage, supplement. 6. Continuation of thiamine 100 mg one month supply, no refills. Reason for usage, supplement. 7. Continuation of Abilify 5 mg q.h.s. one month supply, no refills. Reason for usage, antipsychotic. 8. Continuation of trazodone 100 mg one tablet q.h.s. one month supply, no refills. Reason for usage, insomnia. 9. Continuation of Geodon 80 mg b.i.d. one month supply, no refills. Reason for usage, antipsychotic. He agreed to follow up with his outpatient care provider team at [facility]. He has an appointment scheduled today at 1:30 to be picked up by his therapist and later transported to a meeting with a nurse practitioner at [facility] at 3 o'clock.The patient reportedly is in transition of housing and calls have been placed by myself and the case management assistant, Anna, to confirm with the brother who is the POA of the need to continue to pursue alternative housing for long-term. The brother has expressed concern that he has no formalized housing consolidated at this time and referrals were sent to both [facility] and [facility] for interim care. Justification for combined antipsychotic usage of Seroquel, Abilify and Geodon was noted with attempts of discontinuation of all three medications at various points in time during the hospitalization with rapid decompensation including presentations of agitation, paranoia and hallucinations. MTDD
== END 2017-05-15 13:50 | disposition home or self-care (01) | DRG 885 ==
LOC: SED 20:01 → EDUNIT# 20:01 → EDBD 20:01 → MHC 02-26 00:31
PROVIDERS: ADMIT Psychiatry & Neurology Psychiatry; ATTEND Psychiatry & Neurology Psychiatry
DX: F25.0 Schizoaffective disorder, bipolar type (principal); R45.851 Suicidal ideations; F10.99 Alcohol use, unspecified with unspecified alcohol-induced disorder; F17.210 Nicotine dependence, cigarettes, uncomplicated; F12.90 Cannabis use, unspecified, uncomplicated; Z91.14 Patient's other noncompliance with medication regimen